=== PATIENT | female | born 1995 | race Caucasian/White ===

== ENCOUNTER 2016-06-04 18:31 | Emergency (ER) | payer OTHER ==
[2016-06-04 19:50] LABS: BASO % 0.9 % (0.0-1.0); EOS # 0.2 K/mm3 (0.0-0.50); EOS % 2.5 % (0.0-3.0); LARGE UNSTAINED CELL # 0.1 K/mm3 (0.0-0.4); LARGE UNSTAINED CELL % 1.2 % (0.0-4.0); LYMPH # 1.9 K/mm3 (1.5-6.5); LYMPH % 30.6 % (24.0-44.0); MEAN CORPUSCULAR HEMOGLOBIN 26.1 pg (27.0-33.0); MEAN CORPUSCULAR HGB CONC 33.3 g/dl (32.0-36.5); MEAN CORPUSCULAR VOLUME 78.4 fl (80.0-96.0); MONO # 0.3 K/mm3 (0.0-0.8); MONO % 5.2 % (0.0-5.0); NEUTROPHILS # 3.6 K/mm3 (1.8-7.7); NEUTROPHILS % 59.6 % (36.0-66.0); RED CELL DISTRIBUTION WIDTH 14.6 % (11.5-14.5)
[2016-06-04 19:54] LABS: PLATELET COUNT, AUTOMATED 16 k/mm3 (150-450)
[2016-06-04 20:00] LABS: INR 1.01
[2016-06-04 20:03] LABS: CONTROL LINE HCG INT CTR LINE PRESENT
[2016-06-04 20:13] LABS: ALBUMIN 3.6 GM/DL (3.2-5.2); ALBUMIN/GLOBULIN RATIO 1.16 (1.00-1.93); ALKALINE PHOSPHATASE 68 U/L (45-117); ALT/SGPT 28 U/L (12-78); ANION GAP 5 MEQ/L (8-16); AST/SGOT 16 U/L (15-37); BILIRUBIN,DIRECT < 0.1 MG/DL (0.0-0.2); BILIRUBIN,TOTAL 0.4 MG/DL (0.2-1.0); BLOOD UREA NITROGEN 12 MG/DL (7-18); CALCIUM LEVEL 8.1 MG/DL (8.5-10.1); CARBON DIOXIDE LEVEL 28 MEQ/L (21-32); CHLORIDE LEVEL 111 MEQ/L (98-107); CREATININE FOR GFR 0.45 MG/DL (0.55-1.02); GLOMERULAR FILTRATION RATE > 60.0 (>60); GLUCOSE, FASTING 88 MG/DL (70-105); SODIUM LEVEL 144 MEQ/L (136-145); TOTAL PROTEIN 6.7 GM/DL (6.4-8.2)
--- NOTE | 2016-06-04 21:24 | EDDOCDS ---
Nurse's Notes [facility] Name: Jane Dejesus Age: 21 yrs Sex: Female : 1995 Arrival Date: 06/04/2016 Time: 18:31 Bed 11 Private MD: ALISSON MERCADO Diagnosis: Immune thrombocytopenic purpura Presentation: 06/04 19:07 Presenting complaint: Patient states: called by her doctor told to come to E.D. because cz her platelet count was 15,000. Adult Sepsis Screening: The patient does not have new or worsening altered mentation. Patient's respiratory rate is less than 22. Systolic blood pressure is greater than 100. Patient has a qSOFA score of 0- Negative Sepsis Screen. Suicide/Homicide risk assessment- the patient denies having any suicidal and/or homicidal ideations and does not present with any other emotional, behavioral or mental health complaints. Status: Patient is not a off premise service representative or dependent. Transition of care: patient was not received from another setting of care. 19:07 Acuity: EUGENE Level 3 19:07 Method Of Arrival: Walkin/Carried/Asstd Triage Assessment: 19:09 General: Appears. Pain: Denies pain. 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 albuterol sulfate 2.5 mg /3 mL (0.083 %) Inhl nebu as needed 2. Benadryl Oral giving with ivig infusions - PMHx: Asthma; Chiari Malformation; ITP; - PSHx: ; - The history from nurses notes was reviewed: and I agree with what is documented. - Social history: Smoking status: Patient states was never smoker of tobacco. No barriers to communication noted, The patient speaks fluent Korean, Speaks appropriately for age. - : The pt / caregiver states he / she is not on anticoagulants. Home medication list is obtained from the patient. - Hospitalizations: : No recent hospitalization is reported. - Exposure Risk Screening:: None identified. - Immunization history:: All immunizations up-to-date. - Family history: Not pertinent. - Social history:: the patient is a non-smoker, the patient does not drink alcohol. Screenin:00 Screening information is obtained from the patient. Fall risk: No risks identified. mgs Assistance ADL's: requires no assistance with activities of daily living. Abuse/DV Screen: The patient / caregiver reports he/she is: not in a situation that causes fear, pain or injury. Nutritional screening: No deficits noted. Advance Directives: Currently, there is a health care proxy, QUINN DEJESUS, . Advance Directives: There is no active DNR order. home support is adequate. Assessment: 20:59 Adult Sepsis Screening: The patient does not have new or worsening altered mentation. mgs Patient's respiratory rate is less than 22. Systolic blood pressure is greater than 100. General: Appears in no apparent distress, comfortable, Behavior is appropriate for age, cooperative. Pain: Denies pain. Neurological: Level of Consciousness is awake, alert, Oriented to person, place, time. Cardiovascular: Capillary refill < 3 seconds Heart tones S1 S2 present Pulses are 2+ in right radial artery and left radial artery. Respiratory: Airway is patent Respiratory effort is even, unlabored, Respiratory pattern is regular, symmetrical, Breath sounds are clear bilaterally. Derm: Skin is pink, warm & dry. 21:22 General: Appears in no apparent distress, Behavior is appropriate for age, cooperative. mgs Pain: Denies pain. Neurological: Level of Consciousness is awake, alert, Oriented to person, place, time. Cardiovascular: Capillary refill < 3 seconds Heart tones S1 S2 present. Respiratory: Airway is patent Respiratory effort is even, unlabored, Respiratory pattern is regular, symmetrical. Derm: Skin is pink, warm & dry. Vital Signs: 18:33 BP 123 / 65; Pulse 70; Resp 16; Temp 97.7; Pulse Ox 100% ; Weight 73.94 kg; Height 5 cmb ft. 0 in. (152.40 cm); Pain 0/10; 21:12 BP 118 / 56 LA Sitting (auto/lg); Pulse 88; Resp 18; Temp 99.0(TE); Pulse Ox 100% on rs6 R/A; Pain 0/10; 18:33 Body Mass Index 31.83 (73.94 kg, 152.40 cm) cmb Vitals: 18:33 Log In Time: June 04, 2016 at 18:30. cmb ED Course: 18:32 Patient visited by Polly Ovalles. cmb 18:32 Patient moved to Waiting cmb 18:33 [facility]. cmb 18:34 Patient moved to Pre RCE cmb 19:08 Triage Initiated cz 19:25 Patient moved to PR2 / ar3 19:36 HCG,Serum Qualitative Sent. ar3 19:36 Basic Metabolic Profile Sent. ar3 19:36 CBC with Diff Sent. ar3 19:36 Liver Profile Sent. ar3 19:36 Partial Thromboplastin Time Sent. ar3 19:36 Prothrombin Time Profile\E\INR Sent. ar3 19:36 Type & Screen Sent. ar3 19:37 Patient moved to Pre RCE ar3 20:00 Jasmyn Grcae,MAXIME is Primary Nurse. lf1 20:00 Patient moved to 11 lf1 20:06 Adrián Burgses MD is Attending Physician. pc 20:06 Notified attending ED physician of Critical lab value. Platelet count of16 reported to sendy Encinas. 20:18 Patient visited by Adrián Burgess MD. pc 20:43 Patient visited by Brisa Alexander PCA. rs6 20:43 Patient has correct armband on for positive identification. Placed in gown. Bed in low rs6 position. Call light in reach. Side rails up X 1. 20:43 Diet: Patient given regular meal. Tolerated well. rs6 21:02 Patient visited by Yvon Malone RN. mgs 21:05 Cece Blue is Referral Physician. pc 21:12 Patient visited by Brisa Alexander PCA. rs6 21:23 The patient / caregiver is instructed regarding the plan of care and ED course. mgs 21:23 No IV's were initiated during this patient's visit. No procedures done that require mgs assistance. 21:24 Patient visited by Yvon Malone RN. mgs Order Results: Lab Order: Basic Metabolic Profile; SPEC'M 06/04/16 19:36 Test: GLUCOSE, FASTING; Value: 88; Range: 70-105; Units: MG/DL; Status: F Test: BLOOD UREA NITROGEN; Value: 12; Range: 7-18; Units: MG/DL; Status: F Test: CREATININE FOR GFR; Value: 0.45; Range: 0.55-1.02; Abnormal: Below low normal; Units: MG/DL; Status: F Test: SODIUM LEVEL; Range: 136-145; Units: MEQ/L; Status: I Test: POTASSIUM SERUM; Range: 3.5-5.1; Units: MEQ/L; Status: I Test: CHLORIDE LEVEL; Range: 98-107; Units: MEQ/L; Status: I Test: CARBON DIOXIDE LEVEL; Range: 21-32; Units: MEQ/L; Status: I Test: ANION GAP; Range: 8-16; Units: MEQ/L; Status: I Test: CALCIUM LEVEL; Range: 8.5-10.1; Units: MG/DL; Status: I Test: GLOMERULAR FILTRATION RATE; Value: > 60.0; Range: >60; Status: F Test: SODIUM LEVEL; Value: 144; Range: 136-145; Units: MEQ/L; Status: F Test: POTASSIUM SERUM; Value: 4.0; Range: 3.5-5.1; Units: MEQ/L; Status: F Test: CHLORIDE LEVEL; Value: 111; Range: 98-107; Abnormal: Above high normal; Units: MEQ/L; Status: F Test: CARBON DIOXIDE LEVEL; Value: 28; Range: 21-32; Units: MEQ/L; Status: F Test: ANION GAP; Value: 5; Range: 8-16; Abnormal: Below low normal; Units: MEQ/L; Status: F Test: CALCIUM LEVEL; Value: 8.1; Range: 8.5-10.1; Abnormal: Below low normal; Units: MG/DL; Status: F Test Note: ; Units are mL/min/1.73 m2 Chronic Kidney Disease Staging per NKF: Stage I & II GFR >=60 Normal to Mildly Decreased Stage III GFR 30-59 Moderately Decreased Stage IV GFR 15-29 Severely Decreased Stage V GFR <15 Very Little GFR Left ESRD GFR <15 on PHOTO INTERN Lab Order: CBC with Diff; SPEC'M 06/04/16 19:36 Test: WHITE BLOOD COUNT; Value: 6.0; Range: 4.0-10.0; Units: K/mm3; Status: F Test: RED BLOOD COUNT; Value: 4.50; Range: 4.00-5.40; Units: M/mm3; Status: F Test: HEMOGLOBIN; Value: 11.7; Range: 12.0-16.0; Abnormal: Below low normal; Units: g/dl; Status: F Test: HEMATOCRIT; Value: 35.2; Range: 36.0-47.0; Abnormal: Below low normal; Units: %; Status: F Test: MEAN CORPUSCULAR VOLUME; Value: 78.4; Range: 80.0-96.0; Abnormal: Below low normal; Units: fl; Status: F Test: MEAN CORPUSCULAR HEMOGLOBIN; Value: 26.1; Range: 27.0-33.0; Abnormal: Below low normal; Units: pg; Status: F Test: MEAN CORPUSCULAR HGB CONC; Value: 33.3; Range: 32.0-36.5; Units: g/dl; Status: F Test: RED CELL DISTRIBUTION WIDTH; Value: 14.6; Range: 11.5-14.5; Abnormal: Above high normal; Units: %; Status: F Test: PLATELET COUNT, AUTOMATED; Value: 16; Range: 150-450; Abnormal: Critical Low; Units: k/mm3; Status: F Test: NEUTROPHILS %; Value: 59.6; Range: 36.0-66.0; Units: %; Status: F Test: LYMPH %; Value: 30.6; Range: 24.0-44.0; Units: %; Status: F Test: MONO %; Value: 5.2; Range: 0.0-5.0; Abnormal: Above high normal; Units: %; Status: F Test: EOS %; Value: 2.5; Range: 0.0-3.0; Units: %; Status: F Test: BASO %; Value: 0.9; Range: 0.0-1.0; Units: %; Status: F Test: LARGE UNSTAINED CELL %; Value: 1.2; Range: 0.0-4.0; Units: %; Status: F Test: NEUTROPHILS #; Value: 3.6; Range: 1.8-7.7; Units: K/mm3; Status: F Test: LYMPH #; Value: 1.9; Range: 1.5-6.5; Units: K/mm3; Status: F Test: MONO #; Value: 0.3; Range: 0.0-0.8; Units: K/mm3; Status: F Test: EOS #; Value: 0.2; Range: 0.0-0.50; Units: K/mm3; Status: F Test: BASO #; Value: 0.0; Range: 0.0-0.2; Units: K/mm3; Status: F Test: LARGE UNSTAINED CELL #; Value: 0.1; Range: 0.0-0.4; Units: K/mm3; Status: F Lab Order: Liver Profile; SPEC'M 06/04/16 19:36 Test: AST/SGOT; Value: 16; Range: 15-37; Units: U/L; Status: F Test: ALT/SGPT; Value: 28; Range: 12-78; Units: U/L; Status: F Test: ALKALINE PHOSPHATASE; Value: 68; Range: 45-117; Units: U/L; Status: F Test: BILIRUBIN,TOTAL; Value: 0.4; Range: 0.2-1.0; Units: MG/DL; Status: F Test: BILIRUBIN,DIRECT; Value: < 0.1; Range: 0.0-0.2; Units: MG/DL; Status: F Test: TOTAL PROTEIN; Value: 6.7; Range: 6.4-8.2; Units: GM/DL; Status: F Test: ALBUMIN; Value: 3.6; Range: 3.2-5.2; Units: GM/DL; Status: F Test: ALBUMIN/GLOBULIN RATIO; Value: 1.16; Range: 1.00-1.93; Status: F Lab Order: Partial Thromboplastin Time; SPEC' 06/04/16 19:36 Test: PARTIAL THROMBOPLASTIN TIME; Value: 24.7; Range: 26.6-37.1; Abnormal: Below low normal; Units: SECONDS; Status: F Lab Order: Prothrombin Time Profile\E\INR; SPEC'M 06/04/16 19:36 Test: PROTHROMBIN TIME; Value: 13.4; Range: 12.3-14.5; Units: SECONDS; Status: F Test: INR; Value: 1.01; Status: F Test Note: ; THERAPUTIC HUMAN INR VALUES INDICATIONS NORMAL RANGES PROPHYLAXIS/TREATMENT OF: VENOUS THROMBOSIS 2.0-3.0 PULMONARY EMBOLISM 2.0-3.0 PREVENTION OF SYSTEMIC EMBOLISM FROM: TISSUE HEART VALVES 2.0-3.0 ACUTE MYOCARDIAL INFARCTION 2.0-3.0 VALVULAR HEART DISEASE 2.0-3.0 ATRIAL FIBRILLATION 2.0-3.0 MECHANICAL VALVES(HIGH RISK) 2.5-3.5 RECURRENT MYOCARDIAL INFARCTION 2.5-3.5 Lab Order: Type & Screen; SPEC'M 06/04/16 19:36 Test: BLOOD TYPE; Value: A NEG; Status: F Test: AB SCREEN (INDIRECT JANI)GEL; Value: NEGATIVE; Status: F Lab Order: HCG,Serum Qualitative; SPEC'M 06/04/16 19:36 Test: HCG, SERUM QUALITATIVE; Value: NEGATIVE; Range: NEGATIVE; Status: F Outcome: 21:05 Discharge ordered by Provider. pc 21:23 Discharge Assessment: Patient awake, alert and oriented x 3. No cognitive and/or mgs functional deficits noted. Patient verbalized understanding of disposition instructions. patient administered narcotics - no. The following High Risk Discharge criteria are identified: None. Discharged to home ambulatory. Condition: stable. Discharge instructions given to patient, Instructed on discharge instructions, follow up and referral plans. Demonstrated understanding of instructions, Pt was receptive of discharge instructions/ teaching. No special radiology studies were completed. Property sent home with patient. 21:24 Patient left the ED. mgs Signatures: Adrián Burgess MD MD pc Newman, Britt Marsh RN Enio Guillen RN RN cz Ford, Lisa, RN RN lf1 Janet Cason, SECURITY INCIDENT RESPONSE ENGINEER SECURITY INCIDENT RESPONSE ENGINEER ar3 Eufemia Ovallessea Yvon Meyer RN RN mgs Brisa Alexander, SECURITY INCIDENT RESPONSE ENGINEER SECURITY INCIDENT RESPONSE ENGINEER rs6 MTDD
--- NOTE | 2016-06-04 21:24 | EDDOCDS ---
Physician Documentation [facility] Name: Jane Garcia Age: 21 yrs Sex: Female : 1995 Arrival Date: 06/04/2016 Time: 18:31 Bed 11 Private MD: ALISSON MERCADO Disposition: 06/04 21:02 Critical Care: Critical care not applicable. pc Disposition: 06/04/16 21:05 Discharged to Home/Self Care. Impression: Immune thrombocytopenic purpura. - Condition is Stable. - Discharge Instructions: Thrombocytopenia. - Medication Reconciliation, Local Pharmacy Hours form. - Follow up: Cece Blue; When: Tomorrow; Reason: To establish care. - Problem is chronic. - Symptoms are unchanged. HPI: 20:53 This 21 yrs old Female presents to ER via Walkin/Carried/Asstd with pc complaints of Abnormal Lab Results. 20:53 The history is obtained from the patient. She had routine labs for her ITP follow up by pc her PCP today and her count was 15,000. She was advised to come into the ED. 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 She has not had any issues with ITP since her last year. She was followed locally until they referred to the [facility] due to her , and has had no follow up in 8 months. Historical: - Allergies: Bees; Erythromycin; Pediazole; - Home Meds: 1. albuterol sulfate 2.5 mg /3 mL (0.083 %) Inhl nebu as needed 2. Benadryl Oral giving with ivig infusions - PMHx: Asthma; Chiari Malformation; ITP; - PSHx: ; - The history from nurses notes was reviewed: and I agree with what is documented. - Social history: Smoking status: Patient states was never smoker of tobacco. No barriers to communication noted, The patient speaks fluent Palestinian, Speaks appropriately for age. - : The pt / caregiver states he / she is not on anticoagulants. Home medication list is obtained from the patient. - Hospitalizations: : No recent hospitalization is reported. - Exposure Risk Screening:: None identified. - Immunization history:: All immunizations up-to-date. - Family history: Not pertinent. - Social history:: the patient is a non-smoker, the patient does not drink alcohol. 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 pc Exam: 20:53 General Appearance: no acute distress, alert. pc 20:53 EENT: normal eye inspection, ears, nose and throat normal, pharynx normal, mucous membranes moist 20:53 Neck: The exam reveals no acute abnormalities. ROM is normal and painless. No nuchal rigidity is noted.. 20:53 Respiratory: no respiratory distress, normal breath sounds. 20:53 CVS: regular pulse rate, regular rhythm, normal S1 and S2, no murmurs, strong peripheral pulses. 21:02 Abdomen: soft, non-tender, no organomegaly, normal bowel sounds. pc 21:02 Back: normal inspection. 21:02 Skin: skin color is normal, warm, dry, multiple areas of ecchymosis on forearms. 21:02 Extremities: are non-tender, without acute ROM abnormalities. 21:02 Neuro: oriented x 3, cranial nerves normal as tested, no motor deficits, no sensory deficits, normal gait. 21:02 Psych: normal mood. Vital Signs: 18:33 BP 123 / 65; Pulse 70; Resp 16; Temp 97.7; Pulse Ox 100% ; Weight 73.94 kg / 163.01 cmb lbs; Height 5 ft. 0 in. (152.40 cm); Pain 0/10; 21:12 BP 118 / 56 LA Sitting (auto/lg); Pulse 88; Resp 18; Temp 99.0(TE); Pulse Ox 100% on rs6 R/A; Pain 0/10; 18:33 Body Mass Index 31.83 (73.94 kg, 152.40 cm) cmb MDM: 19:24 Basic Metabolic Profile Ordered. EDMS 19:24 CBC with Diff Ordered. EDMS 19:24 Liver Profile Ordered. EDMS 19:24 Partial Thromboplastin Time Ordered. EDMS 19:24 Prothrombin Time Profile\E\INR Ordered. EDMS 19:24 HCG,Serum Qualitative Ordered. EDMS 19:25 Type & Screen Ordered. EDMS 20:38 Basic Metabolic Profile Reviewed. pc 20:38 CBC with Diff Reviewed. pc 20:38 Partial Thromboplastin Time Reviewed. pc 20:38 Liver Profile Reviewed. pc 20:38 Prothrombin Time Profile\E\INR Reviewed. pc 20:38 Type & Screen Reviewed. pc 20:38 HCG,Serum Qualitative Reviewed. pc 21:02 Differential Diagnosis: ITP without active bleeding. Plan: repeat labs, d/w HemOnc. pc Data reviewed: old medical records, vital signs, nurses notes, lab test results. Test interpretation: LAB - all labs as ordered have been reviewed, interpreted and considered in the overall management of the clinical presentation;. The patient has been re-examined and re-evaluated. There is no appreciated change of the patient's symptoms at this time. Physician consultation: Dr. Cece Blue was contacted at 21:04, regarding patient's condition, and he advises that she call their office tomorrow and he will see her determine treatment. Disposition: The historical points, examination findings, and any diagnostic results supporting the provided diagnosis, were discussed with the patient or legal guardian. The need for outpatient follow up with the provider listed on their discharge instructions was discussed. They were encouraged to return to [facility], or the nearest ED, if symptoms worsen/persist, or for any other questions/concerns. Signatures: Dispatcher [employer] Adrián Arreola MD MD pc Zecher, Calvin, MAXIME RN Yvon Smith RN RN mgs FRANCA
--- NOTE | 2016-06-06 22:26 | EDDOCDS ---
Physician Documentation [facility] Name: Jane Garcia Age: 21 yrs Sex: Female : 1995 Arrival Date: 06/04/2016 Time: 18:31 Bed 11 Private MD: ALISSON MERCADO Disposition: 06/04 21:02 Critical Care: Critical care not applicable. pc Disposition: 06/04/16 21:05 Discharged to Home/Self Care. Impression: Immune thrombocytopenic purpura. - Condition is Stable. - Discharge Instructions: Thrombocytopenia. - Medication Reconciliation, Local Pharmacy Hours form. - Follow up: Cece Blue; When: Tomorrow; Reason: To establish care. - Problem is chronic. - Symptoms are unchanged. HPI: 20:53 This 21 yrs old Female presents to ER via Walkin/Carried/Asstd with pc complaints of Abnormal Lab Results. 20:53 The history is obtained from the patient. She had routine labs for her ITP follow up by pc her PCP today and her count was 15,000. She was advised to come into the ED. 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 She has not had any issues with ITP since her last year. She was followed locally until they referred to the [facility] due to her , and has had no follow up in 8 months. Historical: - Allergies: Bees; Erythromycin; Pediazole; - Home Meds: 1. albuterol sulfate 2.5 mg /3 mL (0.083 %) Inhl nebu as needed 2. Benadryl Oral giving with ivig infusions - PMHx: Asthma; Chiari Malformation; ITP; - PSHx: ; - The history from nurses notes was reviewed: and I agree with what is documented. - Social history: Smoking status: Patient states was never smoker of tobacco. No barriers to communication noted, The patient speaks fluent Bulgarian, Speaks appropriately for age. - : The pt / caregiver states he / she is not on anticoagulants. Home medication list is obtained from the patient. - Hospitalizations: : No recent hospitalization is reported. - Exposure Risk Screening:: None identified. - Immunization history:: All immunizations up-to-date. - Family history: Not pertinent. - Social history:: the patient is a non-smoker, the patient does not drink alcohol. 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 pc Exam: 20:53 General Appearance: no acute distress, alert. pc 20:53 EENT: normal eye inspection, ears, nose and throat normal, pharynx normal, mucous membranes moist 20:53 Neck: The exam reveals no acute abnormalities. ROM is normal and painless. No nuchal rigidity is noted.. 20:53 Respiratory: no respiratory distress, normal breath sounds. 20:53 CVS: regular pulse rate, regular rhythm, normal S1 and S2, no murmurs, strong peripheral pulses. 21:02 Abdomen: soft, non-tender, no organomegaly, normal bowel sounds. pc 21:02 Back: normal inspection. 21:02 Skin: skin color is normal, warm, dry, multiple areas of ecchymosis on forearms. 21:02 Extremities: are non-tender, without acute ROM abnormalities. 21:02 Neuro: oriented x 3, cranial nerves normal as tested, no motor deficits, no sensory deficits, normal gait. 21:02 Psych: normal mood. Vital Signs: 18:33 BP 123 / 65; Pulse 70; Resp 16; Temp 97.7; Pulse Ox 100% ; Weight 73.94 kg / 163.01 cmb lbs; Height 5 ft. 0 in. (152.40 cm); Pain 0/10; 21:12 BP 118 / 56 LA Sitting (auto/lg); Pulse 88; Resp 18; Temp 99.0(TE); Pulse Ox 100% on rs6 R/A; Pain 0/10; 18:33 Body Mass Index 31.83 (73.94 kg, 152.40 cm) cmb MDM: 19:24 Basic Metabolic Profile Ordered. EDMS 19:24 CBC with Diff Ordered. EDMS 19:24 Liver Profile Ordered. EDMS 19:24 Partial Thromboplastin Time Ordered. EDMS 19:24 Prothrombin Time Profile\E\INR Ordered. EDMS 19:24 HCG,Serum Qualitative Ordered. EDMS 19:25 Type & Screen Ordered. EDMS 20:38 Basic Metabolic Profile Reviewed. pc 20:38 CBC with Diff Reviewed. pc 20:38 Partial Thromboplastin Time Reviewed. pc 20:38 Liver Profile Reviewed. pc 20:38 Prothrombin Time Profile\E\INR Reviewed. pc 20:38 Type & Screen Reviewed. pc 20:38 HCG,Serum Qualitative Reviewed. pc 21:02 Differential Diagnosis: ITP without active bleeding. Plan: repeat labs, d/w HemOnc. pc Data reviewed: old medical records, vital signs, nurses notes, lab test results. Test interpretation: LAB - all labs as ordered have been reviewed, interpreted and considered in the overall management of the clinical presentation;. The patient has been re-examined and re-evaluated. There is no appreciated change of the patient's symptoms at this time. Physician consultation: Dr. Cece Blue was contacted at 21:04, regarding patient's condition, and he advises that she call their office tomorrow and he will see her determine treatment. Disposition: The historical points, examination findings, and any diagnostic results supporting the provided diagnosis, were discussed with the patient or legal guardian. The need for outpatient follow up with the provider listed on their discharge instructions was discussed. They were encouraged to return to [facility], or the nearest ED, if symptoms worsen/persist, or for any other questions/concerns. 21:24 [facility] Payment Agreement was scanned into [employer] and attached to record. [email or web address] 21:24 Financial registration complete. gjb Signatures: Dispatcher [employer] EDMS Adrián Burgess MD MD pc Zecher, Calvin RN RN Yvon Smith RN RN Teri Hughes The chart was reviewed and I authenticate all verbal orders and agree with the evaluation and treatment provided.Attachments: 21:24 [facility] Payment Agreement gjb Chart Complete MTDD
--- NOTE | 2016-06-06 22:26 | EDDOCDS ---
Nurse's Notes [facility] Name: Jane Dejesus Age: 21 yrs Sex: Female : 1995 Arrival Date: 06/04/2016 Time: 18:31 Bed 11 Private MD: ALISSON MERCADO Diagnosis: Immune thrombocytopenic purpura Presentation: 06/04 19:07 Presenting complaint: Patient states: called by her doctor told to come to E.D. because cz her platelet count was 15,000. Adult Sepsis Screening: The patient does not have new or worsening altered mentation. Patient's respiratory rate is less than 22. Systolic blood pressure is greater than 100. Patient has a qSOFA score of 0- Negative Sepsis Screen. Suicide/Homicide risk assessment- the patient denies having any suicidal and/or homicidal ideations and does not present with any other emotional, behavioral or mental health complaints. Status: Patient is not a central service technician or dependent. Transition of care: patient was not received from another setting of care. 19:07 Acuity: EUGENE Level 3 19:07 Method Of Arrival: Walkin/Carried/Asstd Triage Assessment: 19:09 General: Appears. Pain: Denies pain. 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 albuterol sulfate 2.5 mg /3 mL (0.083 %) Inhl nebu as needed 2. Benadryl Oral giving with ivig infusions - PMHx: Asthma; Chiari Malformation; ITP; - PSHx: ; - The history from nurses notes was reviewed: and I agree with what is documented. - Social history: Smoking status: Patient states was never smoker of tobacco. No barriers to communication noted, The patient speaks fluent Polish, Speaks appropriately for age. - : The pt / caregiver states he / she is not on anticoagulants. Home medication list is obtained from the patient. - Hospitalizations: : No recent hospitalization is reported. - Exposure Risk Screening:: None identified. - Immunization history:: All immunizations up-to-date. - Family history: Not pertinent. - Social history:: the patient is a non-smoker, the patient does not drink alcohol. Screenin:00 Screening information is obtained from the patient. Fall risk: No risks identified. mgs Assistance ADL's: requires no assistance with activities of daily living. Abuse/DV Screen: The patient / caregiver reports he/she is: not in a situation that causes fear, pain or injury. Nutritional screening: No deficits noted. Advance Directives: Currently, there is a health care proxy, QUINN DEJESUS, . Advance Directives: There is no active DNR order. home support is adequate. Assessment: 20:59 Adult Sepsis Screening: The patient does not have new or worsening altered mentation. mgs Patient's respiratory rate is less than 22. Systolic blood pressure is greater than 100. General: Appears in no apparent distress, comfortable, Behavior is appropriate for age, cooperative. Pain: Denies pain. Neurological: Level of Consciousness is awake, alert, Oriented to person, place, time. Cardiovascular: Capillary refill < 3 seconds Heart tones S1 S2 present Pulses are 2+ in right radial artery and left radial artery. Respiratory: Airway is patent Respiratory effort is even, unlabored, Respiratory pattern is regular, symmetrical, Breath sounds are clear bilaterally. Derm: Skin is pink, warm & dry. 21:22 General: Appears in no apparent distress, Behavior is appropriate for age, cooperative. mgs Pain: Denies pain. Neurological: Level of Consciousness is awake, alert, Oriented to person, place, time. Cardiovascular: Capillary refill < 3 seconds Heart tones S1 S2 present. Respiratory: Airway is patent Respiratory effort is even, unlabored, Respiratory pattern is regular, symmetrical. Derm: Skin is pink, warm & dry. Vital Signs: 18:33 BP 123 / 65; Pulse 70; Resp 16; Temp 97.7; Pulse Ox 100% ; Weight 73.94 kg; Height 5 cmb ft. 0 in. (152.40 cm); Pain 0/10; 21:12 BP 118 / 56 LA Sitting (auto/lg); Pulse 88; Resp 18; Temp 99.0(TE); Pulse Ox 100% on rs6 R/A; Pain 0/10; 18:33 Body Mass Index 31.83 (73.94 kg, 152.40 cm) cmb Vitals: 18:33 Log In Time: June 04, 2016 at 18:30. cmb ED Course: 18:32 Patient visited by Polly Ovalles. cmb 18:32 Patient moved to Waiting cmb 18:33 [facility]. cmb 18:34 Patient moved to Pre RCE cmb 19:08 Triage Initiated cz 19:25 Patient moved to PR2 / ar3 19:36 HCG,Serum Qualitative Sent. ar3 19:36 Basic Metabolic Profile Sent. ar3 19:36 CBC with Diff Sent. ar3 19:36 Liver Profile Sent. ar3 19:36 Partial Thromboplastin Time Sent. ar3 19:36 Prothrombin Time Profile\E\INR Sent. ar3 19:36 Type & Screen Sent. ar3 19:37 Patient moved to Pre RCE ar3 20:00 Jasmyn Grace,MAXIME is Primary Nurse. lf1 20:00 Patient moved to 11 lf1 20:06 Adrián Burgess MD is Attending Physician. pc 20:06 Notified attending ED physician of Critical lab value. Platelet count of16 reported to sendy Encinas. 20:18 Patient visited by Adrián Burgess MD. pc 20:43 Patient visited by Brisa Alexander PCA. rs6 20:43 Patient has correct armband on for positive identification. Placed in gown. Bed in low rs6 position. Call light in reach. Side rails up X 1. 20:43 Diet: Patient given regular meal. Tolerated well. rs6 21:02 Patient visited by Yvon Malone RN. mgs 21:05 Cece Blue is Referral Physician. pc 21:12 Patient visited by Brisa Alexander PCA. rs6 21:23 The patient / caregiver is instructed regarding the plan of care and ED course. mgs 21:23 No IV's were initiated during this patient's visit. No procedures done that require mgs assistance. 21:24 Patient visited by Yvon Malone RN. mgs 21:24 [facility] Payment Agreement was scanned into [employer] and attached to record. [facility] Order Results: Lab Order: Basic Metabolic Profile; SPEC'M 06/04/16 19:36 Test: GLUCOSE, FASTING; Value: 88; Range: 70-105; Units: MG/DL; Status: F Test: BLOOD UREA NITROGEN; Value: 12; Range: 7-18; Units: MG/DL; Status: F Test: CREATININE FOR GFR; Value: 0.45; Range: 0.55-1.02; Abnormal: Below low normal; Units: MG/DL; Status: F Test: SODIUM LEVEL; Range: 136-145; Units: MEQ/L; Status: I Test: POTASSIUM SERUM; Range: 3.5-5.1; Units: MEQ/L; Status: I Test: CHLORIDE LEVEL; Range: 98-107; Units: MEQ/L; Status: I Test: CARBON DIOXIDE LEVEL; Range: 21-32; Units: MEQ/L; Status: I Test: ANION GAP; Range: 8-16; Units: MEQ/L; Status: I Test: CALCIUM LEVEL; Range: 8.5-10.1; Units: MG/DL; Status: I Test: GLOMERULAR FILTRATION RATE; Value: > 60.0; Range: >60; Status: F Test: SODIUM LEVEL; Value: 144; Range: 136-145; Units: MEQ/L; Status: F Test: POTASSIUM SERUM; Value: 4.0; Range: 3.5-5.1; Units: MEQ/L; Status: F Test: CHLORIDE LEVEL; Value: 111; Range: 98-107; Abnormal: Above high normal; Units: MEQ/L; Status: F Test: CARBON DIOXIDE LEVEL; Value: 28; Range: 21-32; Units: MEQ/L; Status: F Test: ANION GAP; Value: 5; Range: 8-16; Abnormal: Below low normal; Units: MEQ/L; Status: F Test: CALCIUM LEVEL; Value: 8.1; Range: 8.5-10.1; Abnormal: Below low normal; Units: MG/DL; Status: F Test Note: ; Units are mL/min/1.73 m2 Chronic Kidney Disease Staging per NKF: Stage I & II GFR >=60 Normal to Mildly Decreased Stage III GFR 30-59 Moderately Decreased Stage IV GFR 15-29 Severely Decreased Stage V GFR <15 Very Little GFR Left ESRD GFR <15 on MICROPHONE OPERATOR Lab Order: CBC with Diff; SPEC'M 06/04/16 19:36 Test: WHITE BLOOD COUNT; Value: 6.0; Range: 4.0-10.0; Units: K/mm3; Status: F Test: RED BLOOD COUNT; Value: 4.50; Range: 4.00-5.40; Units: M/mm3; Status: F Test: HEMOGLOBIN; Value: 11.7; Range: 12.0-16.0; Abnormal: Below low normal; Units: g/dl; Status: F Test: HEMATOCRIT; Value: 35.2; Range: 36.0-47.0; Abnormal: Below low normal; Units: %; Status: F Test: MEAN CORPUSCULAR VOLUME; Value: 78.4; Range: 80.0-96.0; Abnormal: Below low normal; Units: fl; Status: F Test: MEAN CORPUSCULAR HEMOGLOBIN; Value: 26.1; Range: 27.0-33.0; Abnormal: Below low normal; Units: pg; Status: F Test: MEAN CORPUSCULAR HGB CONC; Value: 33.3; Range: 32.0-36.5; Units: g/dl; Status: F Test: RED CELL DISTRIBUTION WIDTH; Value: 14.6; Range: 11.5-14.5; Abnormal: Above high normal; Units: %; Status: F Test: PLATELET COUNT, AUTOMATED; Value: 16; Range: 150-450; Abnormal: Critical Low; Units: k/mm3; Status: F Test: NEUTROPHILS %; Value: 59.6; Range: 36.0-66.0; Units: %; Status: F Test: LYMPH %; Value: 30.6; Range: 24.0-44.0; Units: %; Status: F Test: MONO %; Value: 5.2; Range: 0.0-5.0; Abnormal: Above high normal; Units: %; Status: F Test: EOS %; Value: 2.5; Range: 0.0-3.0; Units: %; Status: F Test: BASO %; Value: 0.9; Range: 0.0-1.0; Units: %; Status: F Test: LARGE UNSTAINED CELL %; Value: 1.2; Range: 0.0-4.0; Units: %; Status: F Test: NEUTROPHILS #; Value: 3.6; Range: 1.8-7.7; Units: K/mm3; Status: F Test: LYMPH #; Value: 1.9; Range: 1.5-6.5; Units: K/mm3; Status: F Test: MONO #; Value: 0.3; Range: 0.0-0.8; Units: K/mm3; Status: F Test: EOS #; Value: 0.2; Range: 0.0-0.50; Units: K/mm3; Status: F Test: BASO #; Value: 0.0; Range: 0.0-0.2; Units: K/mm3; Status: F Test: LARGE UNSTAINED CELL #; Value: 0.1; Range: 0.0-0.4; Units: K/mm3; Status: F Lab Order: Liver Profile; [facility] 06/04/16 19:36 Test: AST/SGOT; Value: 16; Range: 15-37; Units: U/L; Status: F Test: ALT/SGPT; Value: 28; Range: 12-78; Units: U/L; Status: F Test: ALKALINE PHOSPHATASE; Value: 68; Range: 45-117; Units: U/L; Status: F Test: BILIRUBIN,TOTAL; Value: 0.4; Range: 0.2-1.0; Units: MG/DL; Status: F Test: BILIRUBIN,DIRECT; Value: < 0.1; Range: 0.0-0.2; Units: MG/DL; Status: F Test: TOTAL PROTEIN; Value: 6.7; Range: 6.4-8.2; Units: GM/DL; Status: F Test: ALBUMIN; Value: 3.6; Range: 3.2-5.2; Units: GM/DL; Status: F Test: ALBUMIN/GLOBULIN RATIO; Value: 1.16; Range: 1.00-1.93; Status: F Lab Order: Partial Thromboplastin Time; [facility] 06/04/16 19:36 Test: PARTIAL THROMBOPLASTIN TIME; Value: 24.7; Range: 26.6-37.1; Abnormal: Below low normal; Units: SECONDS; Status: F Lab Order: Prothrombin Time Profile\E\INR; [facility] 19:36 Test: PROTHROMBIN TIME; Value: 13.4; Range: 12.3-14.5; Units: SECONDS; Status: F Test: INR; Value: 1.01; Status: F Test Note: ; THERAPUTIC HUMAN INR VALUES INDICATIONS NORMAL RANGES PROPHYLAXIS/TREATMENT OF: VENOUS THROMBOSIS 2.0-3.0 PULMONARY EMBOLISM 2.0-3.0 PREVENTION OF SYSTEMIC EMBOLISM FROM: TISSUE HEART VALVES 2.0-3.0 ACUTE MYOCARDIAL INFARCTION 2.0-3.0 VALVULAR HEART DISEASE 2.0-3.0 ATRIAL FIBRILLATION 2.0-3.0 MECHANICAL VALVES(HIGH RISK) 2.5-3.5 RECURRENT MYOCARDIAL INFARCTION 2.5-3.5 Lab Order: Type & Screen; SPEC'M 06/04/16 19:36 Test: BLOOD TYPE; Value: A NEG; Status: F Test: AB SCREEN (INDIRECT JANI)GEL; Value: NEGATIVE; Status: F Lab Order: HCG,Serum Qualitative; SPEC'M 06/04/16 19:36 Test: HCG, SERUM QUALITATIVE; Value: NEGATIVE; Range: NEGATIVE; Status: F Outcome: 21:05 Discharge ordered by Provider. pc 21:23 Discharge Assessment: Patient awake, alert and oriented x 3. No cognitive and/or mgs functional deficits noted. Patient verbalized understanding of disposition instructions. patient administered narcotics - no. The following High Risk Discharge criteria are identified: None. Discharged to home ambulatory. Condition: stable. Discharge instructions given to patient, Instructed on discharge instructions, follow up and referral plans. Demonstrated understanding of instructions, Pt was receptive of discharge instructions/ teaching. No special radiology studies were completed. Property sent home with patient. 21:24 Patient left the ED. mgs Signatures: Adrián Burgess MD MD pc Newman, Britt Marsh, Enio Guillen RN, RN RN cz Ford, Lisa, RN RN lf1 Janet Cason, LACQUER MAKER LACQUER MAKER ar3 Polly Ovalles cmb Yvon Malone RN RN mgs Brisa Alexander, LACQUER MAKER LACQUER MAKER rs6 Teri [place] [facility] Chart Complete MTDD
--- NOTE | 2016-06-06 22:26 | EDDOCDS ---
Physician Documentation [facility] Name: Jane Garcia Age: 21 yrs Sex: Female : 1995 Arrival Date: 06/04/2016 Time: 18:31 Bed 11 Private MD: ALISSON MERCADO Disposition: 06/04 21:02 Critical Care: Critical care not applicable. pc Disposition: 06/04/16 21:05 Discharged to Home/Self Care. Impression: Immune thrombocytopenic purpura. - Condition is Stable. - Discharge Instructions: Thrombocytopenia. - Medication Reconciliation, Local Pharmacy Hours form. - Follow up: Cece Blue; When: Tomorrow; Reason: To establish care. - Problem is chronic. - Symptoms are unchanged. HPI: 20:53 This 21 yrs old Female presents to ER via Walkin/Carried/Asstd with pc complaints of Abnormal Lab Results. 20:53 The history is obtained from the patient. She had routine labs for her ITP follow up by pc her PCP today and her count was 15,000. She was advised to come into the ED. She denies any abnormal bleeding, and in fact, her periods have been mapping analyst than usual. She has not had any issues with ITP since her last year. She was followed locally until they referred to the [facility] due to her , and has had no follow up in 8 months. Historical: - Allergies: Bees; Erythromycin; Pediazole; - Home Meds: 1. albuterol sulfate 2.5 mg /3 mL (0.083 %) Inhl nebu as needed 2. Benadryl Oral giving with ivig infusions - PMHx: Asthma; Chiari Malformation; ITP; - PSHx: ; - The history from nurses notes was reviewed: and I agree with what is documented. - Social history: Smoking status: Patient states was never smoker of tobacco. No barriers to communication noted, The patient speaks fluent [place] Sudanese, Speaks appropriately for age. - : The pt / caregiver states he / she is not on anticoagulants. Home medication list is obtained from the patient. - Hospitalizations: : No recent hospitalization is reported. - Exposure Risk Screening:: None identified. - Immunization history:: All immunizations up-to-date. - Family history: Not pertinent. - Social history:: the patient is a non-smoker, the patient does not drink alcohol. 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 pc Exam: 20:53 General Appearance: no acute distress, alert. pc 20:53 EENT: normal eye inspection, ears, nose and throat normal, pharynx normal, mucous membranes moist 20:53 Neck: The exam reveals no acute abnormalities. ROM is normal and painless. No nuchal rigidity is noted.. 20:53 Respiratory: no respiratory distress, normal breath sounds. 20:53 CVS: regular pulse rate, regular rhythm, normal S1 and S2, no murmurs, strong peripheral pulses. 21:02 Abdomen: soft, non-tender, no organomegaly, normal bowel sounds. pc 21:02 Back: normal inspection. 21:02 Skin: skin color is normal, warm, dry, multiple areas of ecchymosis on forearms. 21:02 Extremities: are non-tender, without acute ROM abnormalities. 21:02 Neuro: oriented x 3, cranial nerves normal as tested, no motor deficits, no sensory deficits, normal gait. 21:02 Psych: normal mood. Vital Signs: 18:33 BP 123 / 65; Pulse 70; Resp 16; Temp 97.7; Pulse Ox 100% ; Weight 73.94 kg / 163.01 cmb lbs; Height 5 ft. 0 in. (152.40 cm); Pain 0/10; 21:12 BP 118 / 56 LA Sitting (auto/lg); Pulse 88; Resp 18; Temp 99.0(TE); Pulse Ox 100% on rs6 R/A; Pain 0/10; 18:33 Body Mass Index 31.83 (73.94 kg, 152.40 cm) cmb MDM: 19:24 Basic Metabolic Profile Ordered. EDMS 19:24 CBC with Diff Ordered. EDMS 19:24 Liver Profile Ordered. EDMS 19:24 Partial Thromboplastin Time Ordered. EDMS 19:24 Prothrombin Time Profile\E\INR Ordered. EDMS 19:24 HCG,Serum Qualitative Ordered. EDMS 19:25 Type & Screen Ordered. EDMS 20:38 Basic Metabolic Profile Reviewed. pc 20:38 CBC with Diff Reviewed. pc 20:38 Partial Thromboplastin Time Reviewed. pc 20:38 Liver Profile Reviewed. pc 20:38 Prothrombin Time Profile\E\INR Reviewed. pc 20:38 Type & Screen Reviewed. pc 20:38 HCG,Serum Qualitative Reviewed. pc 21:02 Differential Diagnosis: ITP without active bleeding. Plan: repeat labs, d/w HemOnc. pc Data reviewed: old medical records, vital signs, nurses notes, lab test results. Test interpretation: LAB - all labs as ordered have been reviewed, interpreted and considered in the overall management of the clinical presentation;. The patient has been re-examined and re-evaluated. There is no appreciated change of the patient's symptoms at this time. Physician consultation: Dr. Cece Blue was contacted at 21:04, regarding patient's condition, and he advises that she call their office tomorrow and he will see her determine treatment. Disposition: The historical points, examination findings, and any diagnostic results supporting the provided diagnosis, were discussed with the patient or legal guardian. The need for outpatient follow up with the provider listed on their discharge instructions was discussed. They were encouraged to return to [facility], or the nearest ED, if symptoms worsen/persist, or for any other questions/concerns. 21:24 [facility] Payment Agreement was scanned into [employer] and attached to record. gjchristopher 21:24 Financial registration complete. gjb Signatures: Dispatcher [employer] EDMS Adrián Burgess MD MD pc Zecher, Calvin RN RN Yvon Smith RN RN Teri Hughes The chart was reviewed and I authenticate all verbal orders and agree with the evaluation and treatment provided.Attachments: 21:24 [facility] Payment Agreement gjb Chart Complete MTDD
== END 2016-06-04 21:24 | disposition home or self-care (01) ==
LOC: M ED 18:31
DX: D69.3 Immune thrombocytopenic purpura (principal); J45.909 Unspecified asthma, uncomplicated; G93.5 Compression of brain; Z79.51 Long term (current) use of inhaled steroids; Z79.899 Other long term (current) drug therapy; Z91.030 Bee allergy status; Z88.1 Allergy status to other antibiotic agents; Z88.8 Allergy status to other drugs, medicaments and biological substances

== ENCOUNTER → 2016-06-04 | Outpatient (CLI) | payer OTHER ==
[~2016-06-04] MED LIST: /ADVA50050 INH; ACET-654 PO; ALBU17IN INH; ALBU17IN2 IN; CLAR5CHW OR; DIPH50VL IM; FLINCHW9 PO; GLYB25TA PO; IMMUN40IV IV; ONDA1TAB16 PO; OXYC1TAB23 PO; PRED20TA PO; PRED20TAB PO; SING10TA31 OR; VITAPRTA PO; [UNRECOGNIZED DRUG - CODE] IV; [UNRECOGNIZED DRUG - CODE] IV; [UNRECOGNIZED DRUG - CODE] IV
[2016-06-04 15:46] LABS: MEAN CORPUSCULAR HEMOGLOBIN 25.7 pg (27.0-33.0); MEAN CORPUSCULAR HGB CONC 32.8 g/dl (32.0-36.5); MEAN CORPUSCULAR VOLUME 78.4 fl (80.0-96.0); RED CELL DISTRIBUTION WIDTH 13.6 % (11.5-14.5); WHITE BLOOD COUNT 5.1 K/mm3 (4.0-10.0)
[2016-06-04 15:55] LABS: ALBUMIN 3.5 GM/DL (3.2-5.2); ALBUMIN/GLOBULIN RATIO 1.03 (1.00-1.93); ALKALINE PHOSPHATASE 67 U/L (45-117); ALT/SGPT 22 U/L (12-78); ANION GAP 8 MEQ/L (8-16); AST/SGOT 16 U/L (15-37); BILIRUBIN,TOTAL 0.5 MG/DL (0.2-1.0); BLOOD UREA NITROGEN 10 MG/DL (7-18); CALCIUM LEVEL 8.1 MG/DL (8.5-10.1); CARBON DIOXIDE LEVEL 28 MEQ/L (21-32); CHLORIDE LEVEL 109 MEQ/L (98-107); CHOLESTEROL LEVEL 148 MG/DL (<200); CREATININE FOR GFR 0.48 MG/DL (0.55-1.02); GLOMERULAR FILTRATION RATE > 60.0 (>60); GLUCOSE, FASTING 78 MG/DL (70-105); POTASSIUM SERUM 3.7 MEQ/L (3.5-5.1); SODIUM LEVEL 145 MEQ/L (136-145); TOTAL PROTEIN 6.9 GM/DL (6.4-8.2); TRIGLYCERIDES LEVEL 128 MG/DL (<150)
== END ==
LOC: M LAB 14:49
PROVIDERS: ATTEND Nurse Practitioner Family
DX: D69.3 Immune thrombocytopenic purpura (principal); Z86.32 Personal history of gestational diabetes

== ENCOUNTER → 2016-07-01 | Outpatient (REF) | payer OTHER ==
[2016-07-01 19:46] LABS: PERCENT SATURATION 5.2 % (13.2-37.4)
== END ==
LOC: M LAB REF 16:33
PROVIDERS: ATTEND Internal Medicine Medical Oncology
DX: D69.3 Immune thrombocytopenic purpura (principal)

== ENCOUNTER 2016-09-09 15:56 | Emergency (ER) | payer OTHER ==
[~2016-09-09] VITALS: Ht 152.4 cm; Wt 77.1 kg
[2016-09-09] MEDS ORDERED: PRED10TA PO (16:10)
--- NOTE | 2016-09-09 17:38 | REP ---
Emergency obstetric sonography: History: Vaginal spotting. Findings: Transabdominal and transvaginal scanning are performed. Transvaginal imaging demonstrates a viable single intrauterine gestation in a free-floating lie. [place]-rump length of the embryonic pole measures 5.0 mm. This corresponds to a gestational age estimate of 6 weeks 2 days. heart rate is documented at 120 beats per minute. No subchorionic hemorrhage is appreciated. There is a cyst in the maternal left ovary measuring 1.7 cm in diameter consistent with corpus luteum. Impression: Viable single intrauterine gestation at 6 weeks 2 days by crown-rump length. JARED by sonography 05/03/2017. No complication is identified. Signed by Jefry Vegas MD 09/09/2016 07:36 P
[2016-09-09 18:26] LABS: BASO % 0.5 % (0.0-1.0); EOS # 0.1 K/mm3 (0.0-0.50); EOS % 1.6 % (0.0-3.0); LARGE UNSTAINED CELL # 0.1 K/mm3 (0.0-0.4); LARGE UNSTAINED CELL % 0.9 % (0.0-4.0); LYMPH # 2.3 K/mm3 (1.5-6.5); LYMPH % 29.3 % (24.0-44.0); MEAN CORPUSCULAR HGB CONC 33.5 g/dl (32.0-36.5); MEAN CORPUSCULAR VOLUME 77.8 fl (80.0-96.0); MONO # 0.3 K/mm3 (0.0-0.8); MONO % 4.5 % (0.0-5.0); NEUTROPHILS # 4.8 K/mm3 (1.8-7.7); NEUTROPHILS % 63.2 % (36.0-66.0); PLATELET COUNT, AUTOMATED 46 k/mm3 (150-450); RED CELL DISTRIBUTION WIDTH 15.2 % (11.5-14.5); WHITE BLOOD COUNT 7.6 K/mm3 (4.0-10.0)
[2016-09-09] MEDS ORDERED: DICL10TA PO (19:04)
[2016-09-09 19:20] VITALS: BP 115/56
== END 2016-09-09 19:24 | disposition home or self-care (01) ==
LOC: M ED 17:46
DX: Z34.91 Encounter for supervision of normal pregnancy, unspecified, first trimester (principal); Z3A.01 Less than 8 weeks gestation of pregnancy; Z79.899 Other long term (current) drug therapy; Z91.030 Bee allergy status; Z88.1 Allergy status to other antibiotic agents

== ENCOUNTER → 2016-09-23 | Outpatient (CLI) | payer OTHER ==
[~2016-09-23] MED LIST changes: +DICL10TA PO; +PRED10TA PO
[2016-09-23 16:02] LABS: BASO % 0.6 % (0.0-1.0); EOS # 0.1 K/mm3 (0.0-0.50); EOS % 1.5 % (0.0-3.0); LYMPH % 25.3 % (24.0-44.0); MEAN CORPUSCULAR HEMOGLOBIN 25.9 pg (27.0-33.0); MEAN CORPUSCULAR HGB CONC 33.2 g/dl (32.0-36.5); MONO # 0.3 K/mm3 (0.0-0.8); MONO % 3.9 % (0.0-5.0); NEUTROPHILS # 5.3 K/mm3 (1.8-7.7); NEUTROPHILS % 67.8 % (36.0-66.0); WHITE BLOOD COUNT 7.8 K/mm3 (4.0-10.0)
[2016-09-23 16:24] LABS: ALBUMIN 3.5 GM/DL (3.2-5.2); ALBUMIN/GLOBULIN RATIO 1.06 (1.00-1.93); ALKALINE PHOSPHATASE 60 U/L (45-117); ALT/SGPT 20 U/L (12-78); ANION GAP 9 MEQ/L (8-16); AST/SGOT 12 U/L (15-37); BILIRUBIN,TOTAL 0.4 MG/DL (0.2-1.0); BLOOD UREA NITROGEN 8 MG/DL (7-18); CALCIUM LEVEL 8.3 MG/DL (8.5-10.1); CARBON DIOXIDE LEVEL 25 MEQ/L (21-32); CHLORIDE LEVEL 108 MEQ/L (98-107); CHOLESTEROL LEVEL 135 MG/DL (<200); CREATININE FOR GFR 0.46 MG/DL (0.55-1.02); GLOMERULAR FILTRATION RATE > 60.0 (>60); GLUCOSE, FASTING 73 MG/DL (70-105); POTASSIUM SERUM 3.5 MEQ/L (3.5-5.1); SODIUM LEVEL 142 MEQ/L (136-145); TOTAL PROTEIN 6.8 GM/DL (6.4-8.2); TRIGLYCERIDES LEVEL 65 MG/DL (<150)
== END ==
LOC: M LAB 15:02
PROVIDERS: ATTEND Physician Assistant Medical
DX: D69.3 Immune thrombocytopenic purpura (principal); E78.2 Mixed hyperlipidemia; E55.9 Vitamin D deficiency, unspecified

== ENCOUNTER → 2016-09-23 | Outpatient (CLI) | payer OTHER ==
[2016-09-23 15:57] LABS: BASO % 0.4 % (0.0-1.0); EOS # 0.1 K/mm3 (0.0-0.50); EOS % 1.6 % (0.0-3.0); LARGE UNSTAINED CELL # 0.1 K/mm3 (0.0-0.4); LARGE UNSTAINED CELL % 1.3 % (0.0-4.0); LYMPH % 24.4 % (24.0-44.0); MEAN CORPUSCULAR HEMOGLOBIN 27.9 pg (27.0-33.0); MEAN CORPUSCULAR HGB CONC 35.1 g/dl (32.0-36.5); MEAN CORPUSCULAR VOLUME 79.6 fl (80.0-96.0); MONO # 0.4 K/mm3 (0.0-0.8); MONO % 4.5 % (0.0-5.0); NEUTROPHILS # 5.5 K/mm3 (1.8-7.7); NEUTROPHILS % 67.8 % (36.0-66.0); RED CELL DISTRIBUTION WIDTH 15.1 % (11.5-14.5); WHITE BLOOD COUNT 8.1 K/mm3 (4.0-10.0)
[2016-09-23 18:26] LABS: PLATELET COUNT, AUTOMATED 24 k/mm3 (150-450)
[2016-09-25 10:10] LABS: HBsAg Prenatal NEGATIVE (NEGATIVE)
== END ==
LOC: M LAB 15:05
PROVIDERS: ATTEND Advanced Practice Midwife
DX: Z34.81 Encounter for supervision of other normal pregnancy, first trimester (principal); Z36 Encounter for antenatal screening of mother

== ENCOUNTER 2016-10-15 19:05 | Emergency (ER) | payer OTHER ==
[~2016-10-15] VITALS: Ht 152.4 cm; Wt 79.8 kg
[2016-10-15] MEDS ORDERED: METOCLOPRAMIDE INJ 10MG/2ML VIAL (J2765) IV ONE (20:30)
[2016-10-15] MEDS ORDERED: ACETAMINOPHEN 325 MG TAB PO ONE (20:30)
[2016-10-15 21:13] LABS: ANION GAP 6 MEQ/L (8-16); BLOOD UREA NITROGEN 11 MG/DL (7-18); CALCIUM LEVEL 8.1 MG/DL (8.5-10.1); CARBON DIOXIDE LEVEL 25 MEQ/L (21-32); CHLORIDE LEVEL 109 MEQ/L (98-107); CREATININE FOR GFR 0.44 MG/DL (0.55-1.02); GLOMERULAR FILTRATION RATE > 60.0 (>60); GLUCOSE, FASTING 78 MG/DL (70-105); POTASSIUM SERUM 3.7 MEQ/L (3.5-5.1); SODIUM LEVEL 140 MEQ/L (136-145)
[2016-10-15 21:19] LABS: BASO % 0.6 % (0.0-1.0); EOS # 0.1 K/mm3 (0.0-0.50); EOS % 1.5 % (0.0-3.0); LARGE UNSTAINED CELL # 0.1 K/mm3 (0.0-0.4); LARGE UNSTAINED CELL % 1.1 % (0.0-4.0); LYMPH # 2.1 K/mm3 (1.5-6.5); LYMPH % 25.7 % (24.0-44.0); MEAN CORPUSCULAR HEMOGLOBIN 27.8 pg (27.0-33.0); MEAN CORPUSCULAR HGB CONC 34.5 g/dl (32.0-36.5); MEAN CORPUSCULAR VOLUME 80.6 fl (80.0-96.0); MONO # 0.4 K/mm3 (0.0-0.8); MONO % 4.4 % (0.0-5.0); NEUTROPHILS # 5.3 K/mm3 (1.8-7.7); NEUTROPHILS % 66.8 % (36.0-66.0)
[2016-10-15 21:21] LABS: PLATELET COUNT, AUTOMATED 27 k/mm3 (150-450)
[2016-10-15] MEDS ORDERED: REGL10TA6 PO (22:16)
[2016-10-15 22:20] VITALS: BP 126/70
== END 2016-10-15 22:21 | disposition home or self-care (01) ==
LOC: M ED 20:03
DX: G43.909 Migraine, unspecified, not intractable, without status migrainosus (principal); Z79.899 Other long term (current) drug therapy; Z88.1 Allergy status to other antibiotic agents; Z91.030 Bee allergy status; Z3A.12 12 weeks gestation of pregnancy

== ENCOUNTER 2016-11-12 11:49 | Observation (INO) | payer OTHER ==
[2016-11-12] VITALS (14 sets, daily range): BP systolic 90–113; BP diastolic 50–66
[~2016-11-12] VITALS: Ht 152.4 cm; Wt 77.0 kg
[~2016-11-12 11:49] MED LIST changes: +REGL10TA6 PO
[2016-11-12] MEDS ORDERED: ACETAMINOPHEN TAB 650MG DOSE (2X325MG) PO ONE (14:30)
[2016-11-12] MEDS ORDERED: diphenhydrAMINE 25 MG CAP PO ONE (14:30)
[2016-11-12] MEDS ORDERED: DILUENT IV ONE (14:30)
[2016-11-12] MEDS ORDERED: IMMUNE GLOBULIN 10% 5GM 5 GM in APPROPRIATE DILUENT 1 EA IV ONE (14:30)
[2016-11-12] MEDS ORDERED: IMMUNE GLOBULIN IV ONE (14:30)
[2016-11-12] MEDS ORDERED: IMMUNE GLOBULIN 10% 20GM 200ML 60 GM in APPROPRIATE DILUENT 1 EA IV ONE (14:30)
[2016-11-12] MEDS ORDERED: IMMUNE GLOBULIN 10% 10GM 100ML 10 GM in APPROPRIATE DILUENT 1 EA IV ONE (14:30)
[2016-11-12] MEDS ORDERED: diphenhydrAMINE INJ 50MG/ML VIAL (J1200) IV ONE (20:30)
[2016-11-12] MEDS ORDERED: ACETAMINOPHEN 500 MG TAB PO ONE (20:30)
[2016-11-12] MEDS ORDERED: IPRATROPIUM 0.5MG/ALBUTEROL 2.5MG INH SOL UD 3ML (DUONEB)(J7620) NEB PRN (22:00)
[2016-11-12] MEDS ORDERED: ACETAMINOPHEN 325 MG TAB PO PRN (22:15)
[2016-11-12] MEDS ORDERED: METOCLOPRAMIDE 10 MG TAB PO PRN (22:15)
--- NOTE | 2016-11-12 22:29 | HPE ---
DATE OF ADMISSION: 11/12/2016 PRIMARY CARE PROVIDER: Rose Marie Lester BALANCE STAFF STAKER: Leola Khan ONCOLOGIST: Dr. Blue, covered by Dr. Salter CHIEF COMPLAINT: Chest tightness and shortness of breath. HISTORY OF PRESENT ILLNESS: This is a 21-year-old female patient with a history of idiopathic thrombocytopenic purpura (ITP) diagnosed in 2012 and also a history of Arnold-Chiari malformation type 1. The patient has been four times with one miscarriage, two deliveries and is currently at 16 weeks, receiving IVIG prescribed by oncologist, Dr. Blue, today for ITP. The patient has received IVIG before, last dose was in February 2016 and prior to that in 2014 during her with no reaction, but today during administration, after the patient was given half of the dose, the patient developed chest tightness associated with shortness of breath and sharp pain that was radiating down her right arm, which is the arm with the IV. The patient reported 6 out of 10 pain. Subsequently, infusion was discontinued, as per oncologist, and the patient was given acetaminophen, as well as Benadryl with improvement. Subsequently, the oncologist, Dr. Salter, as called the hospitalist team to admit the patient overnight for observation. The patient also reported a history of asthma but no recent exacerbations. Denies any nausea or vomiting. Currently comfortable and speaks in full sentences. Denies any fevers or chills. Prior to today, the patient has had no such symptoms. The patient also reported mild headache, which has resolved after given Tylenol. ALLERGIES: Reported allergies to BEE VENOM and ERYTHROMYCIN. PAST MEDICAL HISTORY: 1. Reported history of asthma. 2. ITP. 3. Arnold-Chiari malformation. PAST SURGICAL HISTORY: section times two. SOCIAL HISTORY: Lives in [place]. Quit smoking three years ago. Has not drank alcoholic beverages since she was 16 weeks ago. Denies any other illicit drug use. FAMILY HISTORY: Mother with cervical cancer and pacemaker. Sister with thyroid disease and kidney disease. REVIEW OF SYSTEMS: The patient reported chest tightness and right arm pain with shortness of breath. Other review of systems are negative. HOME MEDICATIONS: - Ventolin inhaler every 6 hours as needed - vitamin gummies two chewable by mouth daily - Reglan 10 mg by mouth every 6 hours as needed - prednisone 60 mg by mouth daily PHYSICAL EXAMINATION: VITAL SIGNS: Temperature 98.8, pulse 85, respirations 20, blood pressure 106/60, pulse oximetry 100% on room air. GENERAL: The patient is alert, oriented times three. In no acute distress. Obese. HEENT: Normocephalic, atraumatic. PULMONARY: Bilaterally clear to auscultation. Distant breath sounds. CARDIAC: Regular rate and rhythm. Normal S1, S2. ABDOMEN: Soft, nontender, nondistended. Positive bowel sounds. Obese. EXTREMITIES: No edema in bilateral lower extremities. NEUROLOGIC: No focal deficits. LABORATORY: Pending. EKG: Sinus rhythm with no ST segment changes. ASSESSMENT AND PLAN: This is a 21-year-old female patient with history of idiopathic thrombocytopenic purpura (ITP) and given IVIG, asthma, currently at 16 weeks, developed chest tightness and shortness of breath with radiation down right arm after receiving half of IVIG. Subsequently, Dr. Salter has requested hospitalist team to admit the patient for observation. The patient is transferred to progressive care unit (PCU). 1. Chest tightness, possible allergic reaction to IVIG versus asthma. Currently, symptoms improved. Nebulizer treatment, prednisone. EKG is appreciated. Telemetry monitoring. Followup cardiac enzymes. Received Benadryl. 2. ITP The case is discussed with Dr. Salter. Dr. Blue will see the patient in the morning, as per Dr. Salter. Followup complete blood count (CBC), peripheral smear. IV fluids for hydration overnight. Followup hematology/oncology recommendations. 3. Asthma. The patient is currently not having any significant wheeze. Continue prednisone and nebulizer treatments as needed. 4. Deep vein thrombosis (DVT) prophylaxis. Venodyne sequential compression device (SCD). Would not use any pharmacological agent given thrombocytopenia. DISPOSITION: The patient is currently comfortable and in no acute distress. We will monitor the patient for overnight observation. Followup oncology recommendations.
[2016-11-12 22:41] LABS: REASON FOR REVIEW PLATELET MORPHOLOGY
[2016-11-12 22:42] LABS: BASO % 0.3 % (0.0-1.0); EOS # 0.1 K/mm3 (0.0-0.50); EOS % 1.5 % (0.0-3.0); LARGE UNSTAINED CELL # 0.1 K/mm3 (0.0-0.4); LARGE UNSTAINED CELL % 1.1 % (0.0-4.0); LYMPH # 1.3 K/mm3 (1.5-6.5); LYMPH % 20.7 % (24.0-44.0); MEAN CORPUSCULAR HEMOGLOBIN 28.6 pg (27.0-33.0); MEAN CORPUSCULAR HGB CONC 35.3 g/dl (32.0-36.5); MEAN CORPUSCULAR VOLUME 80.9 fl (80.0-96.0); MONO # 0.3 K/mm3 (0.0-0.8); MONO % 5.7 % (0.0-5.0); NEUTROPHILS # 4.1 K/mm3 (1.8-7.7); NEUTROPHILS % 70.7 % (36.0-66.0); RED CELL DISTRIBUTION WIDTH 15.2 % (11.5-14.5); WHITE BLOOD COUNT 5.8 K/mm3 (4.0-10.0)
[2016-11-12 22:50] LABS: CONTROL LINE HCG INT CTR LINE PRESENT
[2016-11-12 23:02] LABS: ALBUMIN 2.7 GM/DL (3.2-5.2); ALBUMIN/GLOBULIN RATIO 0.71 (1.00-1.93); ALKALINE PHOSPHATASE 49 U/L (45-117); ALT/SGPT 11 U/L (12-78); ANION GAP 6 MEQ/L (8-16); AST/SGOT 11 U/L (15-37); BILIRUBIN,TOTAL 0.3 MG/DL (0.2-1.0); BLOOD UREA NITROGEN 7 MG/DL (7-18); CALCIUM LEVEL 7.5 MG/DL (8.5-10.1); CARBON DIOXIDE LEVEL 23 MEQ/L (21-32); CHLORIDE LEVEL 107 MEQ/L (98-107); CREATININE FOR GFR 0.42 MG/DL (0.55-1.02); GLOMERULAR FILTRATION RATE > 60.0 (>60); GLUCOSE, FASTING 80 MG/DL (70-105); MAGNESIUM LEVEL 1.9 MG/DL (1.8-2.4); POTASSIUM SERUM 3.2 MEQ/L (3.5-5.1); SODIUM LEVEL 136 MEQ/L (136-145); TOTAL PROTEIN 6.5 GM/DL (6.4-8.2)
[2016-11-12 23:05] LABS: PLATELET COUNT, AUTOMATED 29 k/mm3 (150-450)
[2016-11-12 23:16] LABS: HCG, SERUM QUANTITATIVE 24510 MIU/ML
[2016-11-12] MEDS: NS 1,000 ML IV SCH (23:21)
[2016-11-12] MEDS ORDERED: POTASSIUM CHLORIDE 10 MEQ SR TABLET PO ONE (23:45)
[2016-11-12] MEDS ORDERED: MORPHINE 2 MG/ML 1ML SYRINGE IV ONE (23:45)
[2016-11-13] MEDS ORDERED: GAMMAGARD ONE (00:28)
[2016-11-13] MEDS: IPRATROPIUM 0.5MG/ALBUTEROL 2.5MG INH SOL UD 3ML (DUONEB)(J7620) NEB SCH ×3 (01:29→15:13)
[2016-11-13 04:00] VITALS: BP 84/48
[2016-11-13 05:32] LABS: BASO % 0.6 % (0.0-1.0); EOS # 0.1 K/mm3 (0.0-0.50); EOS % 2.1 % (0.0-3.0); LARGE UNSTAINED CELL # 0.1 K/mm3 (0.0-0.4); LARGE UNSTAINED CELL % 1.2 % (0.0-4.0); LYMPH # 1.5 K/mm3 (1.5-6.5); LYMPH % 33.4 % (24.0-44.0); MEAN CORPUSCULAR HEMOGLOBIN 28.9 pg (27.0-33.0); MEAN CORPUSCULAR VOLUME 82.6 fl (80.0-96.0); MONO # 0.2 K/mm3 (0.0-0.8); MONO % 4.6 % (0.0-5.0); NEUTROPHILS # 2.5 K/mm3 (1.8-7.7); NEUTROPHILS % 58.1 % (36.0-66.0); RED CELL DISTRIBUTION WIDTH 15.4 % (11.5-14.5); WHITE BLOOD COUNT 4.4 K/mm3 (4.0-10.0)
[2016-11-13 05:33] LABS: PLATELET COUNT, AUTOMATED 29 k/mm3 (150-450)
[2016-11-13 05:47] LABS: ALBUMIN 2.5 GM/DL (3.2-5.2); ALBUMIN/GLOBULIN RATIO 0.63 (1.00-1.93); ALKALINE PHOSPHATASE 45 U/L (45-117); ALT/SGPT 13 U/L (12-78); ANION GAP 6 MEQ/L (8-16); AST/SGOT 15 U/L (15-37); BILIRUBIN,TOTAL 0.3 MG/DL (0.2-1.0); BLOOD UREA NITROGEN 6 MG/DL (7-18); CALCIUM LEVEL 7.1 MG/DL (8.5-10.1); CARBON DIOXIDE LEVEL 22 MEQ/L (21-32); CHLORIDE LEVEL 110 MEQ/L (98-107); CREATININE FOR GFR 0.36 MG/DL (0.55-1.02); GLOMERULAR FILTRATION RATE > 60.0 (>60); GLUCOSE, FASTING 75 MG/DL (70-105); MAGNESIUM LEVEL 1.9 MG/DL (1.8-2.4); POTASSIUM SERUM 3.3 MEQ/L (3.5-5.1); SODIUM LEVEL 138 MEQ/L (136-145); TOTAL PROTEIN 6.5 GM/DL (6.4-8.2)
--- NOTE | 2016-11-13 06:00 | ECGEPIP ---
Stationary ECG Study [facility] Test Date: 2016-11-12 Pat Name: GARRY DEJESUS Department: Room: [place] [address] Gender: F Epic Trainer: EDY CARLSON : 1995 Requested By: AVA SCHNEIDER Order Number: [id number] Reading MD: Baldev Kasper Measurements Intervals [place] Rate: 78 P: 25 AR: 116 QRS: 24 QRSD: 106 T: 19 QT: 373 QTc: 426 Interpretive Statements Normal sinus rhythm with short AR interval Otherwise normal EKG Comparison tracing not on file Electronically Signed On 11-13-2016 5:59:58 EDT by Baldev Kasper
[2016-11-13] MEDS ORDERED: POTASSIUM CHLORIDE 10 MEQ SR TABLET PO ONE ×2 (06:15→07:00)
[2016-11-13 06:47] VITALS: BP 100/57
--- NOTE | 2016-11-13 06:50 | REPUSA ---
CLINICAL HISTORY: To assess viable . TECHNIQUE: Realtime sonographic images were obtained in multiple projections via TA approach. The exa mination was performed by the instrument technician and still images were submitted for interpretation. COMMENTS: Comparison is made to the prior exam on 08/11/2015. Single, live intrauterine gestation in breech presentation. motion was identified. heart rate 152 beats per minute. Anterior placenta. No evidence of placenta previa. No evidence of placental abruption. The cervix is normal in length measuring 3 cm. The lateral ventricle measures 6.7 mm. No abnormality in the maternal adnexa and pelvic cul-de-sac. Estimated gestational age is 15 weeks and 5 days. There has been appropriate interval growth since the prior exam. gender was documented as undetermined at this time. Nuchal CORD was not seen.. IMPRESSION: Single, live intrauterine gestation. No abnormality is seen. Thank you for your kind referral of this patient.
[2016-11-13 08:00] VITALS: BP 100/54
[2016-11-13] MEDS ORDERED: MAG SULF 1GM/100ML (MAG RUN) 1 GM in APPROPRIATE DILUENT 1 EA IV ONE (08:00)
[2016-11-13] MEDS: NS 1,000 ML IV SCH (08:51)
[2016-11-13] MEDS ORDERED: PRENATAL VITAMIN TAB PO SCH (09:00)
[2016-11-13] MEDS ORDERED: predniSONE 20 MG TAB PO SCH (09:00)
[2016-11-13] MEDS ORDERED: MULTIVITAMINS CHILDREN'S CHEWABLE TABLET PO SCH (09:00)
[2016-11-13 12:00] VITALS: BP 96/54
--- NOTE | 2016-11-13 13:30 | CR ---
DATE OF CONSULTATION: 11/13/2016 PRIMARY CARE PROVIDER: Destiny Lester OB-PASTRY COOK HELPER: Leola Khan REQUESTING PHYSICIAN: Dr. Mcrae REASON FOR CONSULTATION: Idiopathic thrombocytopenic purpura (ITP). HISTORY OF PRESENT ILLNESS: Ms. Garcia is a 21-year-old female, , currently 16 weeks gravid, with a history of ITP who was sent in yesterday from hematology/oncology office due to right arm pain that started while receiving IVIG infusion. The patient has a history of ITP diagnosed in 2012. Since then, she has received IVIG with each starting with her first one in 2013. With prior infusions, she tolerated well without any adverse effects. Her last IVIG was in February 2016. IVIG was resumed again yesterday afternoon with her fourth . She reportedly was tolerating it well until starting her second infusion when she developed right wrist numbness and tingling and also a sharp achy pain. It initially started in her right wrist, but radiated up to her shoulder and also her right chest. There was no provoking or alleviating factor. The pain has not resolved since her admission. Her chest pain was described as bruising, sharp. It is not worse with inspiration. Chest pain will last for approximately two minutes and resolve on its own. She had a brief episode of shortness of breath that improved immediately after given Ventolin. IVIG infusion was immediately discontinued and she was then recommended to present to the emergency room (ER) for evaluation. Aside from her usual bruising which she attributes to her ITP, there have been no rashes, fevers, chills, abnormal bleeding, palpitations, or vision difficulty. She reports chronic mild headache that is not bothersome to her. No nausea, vomiting, cough, hemoptysis, hematuria, hematemesis, melena or hematochezia. Since admission, she felt somewhat better with regard to her chest pain and shortness of breath resolved. Her right arm pain remains persistent. PAST MEDICAL HISTORY: 1. ITP. 2. Asthma. 3. Arnold-Chiari malformation. 4. Gestational diabetes. 5. Obesity. PAST SURGICAL HISTORY: section times two. ALLERGIES: - BEE VENOM - ERYTHROMYCIN HOME MEDICATIONS: - Ventolin 2 puffs inhaled as needed (p.r.n.) - [place] gummies 2 tablets chewable daily - Reglan 10 mg every 6 hours p.r.n. - prednisone 60 mg by mouth daily (she has been on prednisone since 2013 for ITP) INPATIENT MEDICATIONS: - normal saline at 100 mL per hour - DuoNeb 30 mL every 6 hours scheduled and 2 hours p.r.n. - Reglan 10 every 6 hours p.r.n. - multivitamin - Tylenol 325 mg every 6 hours p.r.n. - prednisone 60 mg daily FAMILY HISTORY: Mother with cervical cancer, cardiac disease with a pacemaker in place. Her brother with possible atrial fibrillation. Sister with thyroid and kidney problems. SOCIAL HISTORY: Remote history of smoking socially, but quit many years ago. Used to drink a glass of wine every other week, but quit once she was . No drug use. Previously was working at [employer], but was taken out of her work recently due to her ITP history. Life time travels include to [place] and [place]. Last trip was in August. Currently lives at home with her two biological daughters and one adopted daughter. REVIEW OF SYSTEMS: CONSTITUTIONAL: Denies fevers, chills, rigors, significant weight changes, night sweats. HENT: Denies headaches, lightheadedness, dizziness, difficulty with speech and swallow. EYES: No blurry vision, diplopia. CARDIOVASCULAR: Denies chest pain, paroxysmal nocturnal dyspnea, pillow orthopnea, lower extremity edema. PULMONARY: Denies shortness of breath, productive cough, hemoptysis. GASTROINTESTINAL: Denies hematochezia, melena, or hematemesis, nausea, vomiting, diarrhea, constipation. GENITOURINARY: No dysuria, frequency or hematuria. MUSCULOSKELETAL: No bone, muscle, joint pain. NEUROLOGICAL: No paralysis, paresthesia, headaches. ENDOCRINE: Positive for history of gestational diabetes. Negative for thyroid disease. LYMPHATICS: No lumps, bumps, or swelling anywhere in neck, axilla, or groin. HEMATOLOGY: Positive for ITP as mentioned above. INTEGUMENT: Positive for occasional bruising, but no swelling, calf tenderness, skin or in any of her extremities. PHYSICAL EXAMINATION: VITAL SIGNS: Blood pressure 100/54. Heart rate 90. Temperature 97.3. Respiration rate 20. Pulse oximetry 100% on room air. Intake and output last 24 hours documented 840 and 700. GENERAL: Lying in bed comfortable in no acute distress, alert, awake, oriented times three, pleasant, cooperative, appears stated age. HEENT: Normocephalic, atraumatic, moist oral mucosa without thrush or lesion appreciated. Eyes with extraocular movements intact. Pupils equal and reactive to light. No visible hemorrhage. NECK: Supple, trachea midline, no jugular venous distention (JVD), no palpable lymphadenopathy. CHEST: Symmetric chest rise, no accessory muscle use. Breath sounds were clear to auscultation bilaterally. HEART: Regular rate and rhythm with normal S1, S2. Her anterior chest is tender to palpation bilaterally. ABDOMEN: Gravid. Bowel sounds present. No guarding, no rebound, no peritoneal signs. Soft . Nontender. EXTREMITIES: No pedal edema. Pedal pulses present bilaterally. No calf tenderness. No redness or swelling to her legs. Her right upper extremity is tender to palpation on her right wrist, both medial and lateral aspects. She has limitation on flexion and also on extension, but more so on flexion secondary to pain. Her IV site is on the dorsum of her hand. The area is not tender and no erythematous changes. There is no obvious swelling or redness throughout her right upper extremity, though she is tender to palpation along her deltoid brachialis and brachioradialis. Her pulses are present bilateral and adequate in all extremities. She is also tender along her trapezius. NEUROLOGIC: Sensory intact. Strength is 4/5 in right upper extremity compared to left secondary to pain. No other focal deficits appreciated. LABORATORY DATA: WBC 4.4, hemoglobin 10.8, hematocrit 31 (unchanged from yesterday), platelets 29 (also unchanged), RDW 15.4. Her lowest platelets were 5 from September 2014. Sodium 138, potassium 3.3, chloride 110, carbon dioxide 22, BUN 6, creatinine 0.36, glucose 75, calcium 7.1, magnesium 1.9, total bilirubin 0.3. Liver functions normal. Cardiac markers negative times two. HCG positive. Albumin 2.5. Coag studies are normal. Peripheral smear showed a normochromic, normocytic anemia with abnormal iron indices, low serum iron level, ferritin and slightly elevated TIBC suggestive of iron deficiency, chronic thrombocytopenia. OB ultrasound showed single live intrauterine gestation, no abnormalities seen. Estimated gestational age is 15 weeks 5 days. IMPRESSION AND PLAN: Ms. Garcia is a 21-year-old female, G4, P2, with history of TIP, who was admitted for right arm pain and chest pain. 1. Right arm and chest pain. Initially, there was concern that this was related to her ITP infusion as she developed her symptoms immediately into her second infusion. Based on her history, this is not likely to be secondary to her ITP, but the reason for her pain is somewhat unclear. While she has ITP, one possibility could be to pursue a right upper extremity ultrasound to rule out a deep vein thrombosis (DVT), although this is somewhat unlikely considering that she also reports some paresthesia with her pain. Although it is not suspicious for her symptoms to be secondary to her IVIG infusion, we will hold off on infusion at this time. She can continue with her regular dose of prednisone. My preceptor for this patient encounter was Dr. Cece Blue. As needed, all aspects of the patient interview, examination, medical decision making process, and medical care plan development were reviewed and approved by the preceptor. The preceptor is aware and concurs with the plan as stated in the body of this note and will attest to such by his/her cosignature. FRANCA
[2016-11-13 15:07] VITALS: BP 111/57
--- NOTE | 2016-11-13 15:22 | REP ---
Right upper extremity duplex Doppler venous ultrasound. Real time compression and duplex Doppler evaluation of the right upper extremity deep venous system is performed. The right subclavian, jugular, axillary, brachial, basilic and cephalic veins are fully compressible where accessible with transducer pressure, and demonstrate no intraluminal thrombus and normal venous waveforms. There is no evidence of deep venous thrombosis. Impression: No evidence of deep venous thrombosis of the right upper extremity deep vein system. Signed by Moses Yost MD 11/13/2016 03:12 P
[2016-11-13] MEDS ORDERED: 8 HO650T PO (18:58)
--- NOTE | 2016-11-13 19:38 | CR ---
DATE OF CONSULTATION: 11/13/2016 Jane is a 21-year-old 4, para 2-0-1-2 at 16-3/7 weeks gestation with an estimated date of confinement (EDC) of 04/25/2017 based on last normal menstrual period and confirmed by first-trimester ultrasound. She has been admitted to inpatient by hospitalist due to a reaction to intravenous immunoglobulin (IVIG) that she receives due to her idiopathic thrombocytopenia purpura that occurred yesterday, on 11/12/2016. She has received the IVIG in the past several times without any reaction or difficulty. She complained of some chest pain and her arm that was receiving the infusion on right arm having tingling and numbness. The infusion was stopped, and she was sent to the emergency room (ER) for evaluation. Currently her history is complicated by the idiopathic thrombocytopenic purpura (ITP). She has a history of Arnold Chiari malformation, prior section with a plan for repeat at term for this , and asthma that has been well controlled. OBSTETRICAL HISTORY: October 2014 she had a section for a 7-pound female at 38 weeks gestation at [facility]. Breech presentation. Premature rupture of membranes with ITP. February 2016 she had a repeat section for a 6-pound 15-ounce female at [facility] with premature rupture of membranes at the time and her ITP. Her obstetric labs at this time: Her blood type is A negative, antibody screen negative, rubella immune, VDRL nonreactive. Hepatitis B surface antigen negative, HIV negative, hepatitis C antibody nonreactive. Gonorrhea and chlamydia negative. PAST MEDICAL HISTORY: 1. History of gestational diabetes with her first . 2. History of a blood transfusion. 3. Asthma, well controlled. 4. ITP. 5. Seasonal allergies. SURGERIES: section. FAMILY HISTORY: Diabetes, Down syndrome. SOCIAL HISTORY: The patient is . Her is typically present and supportive. She is a nonsmoker. Denies alcohol and drug use. She does have a history of chlamydia in 2009, and she denies history of abuse, physical, sexual, and emotional. ALLERGIES: Bee venom, PEDIAZOLE, ERYTHROMYCIN. CURRENT MEDICATIONS: Include vitamins and prednisone. OBJECTIVE: At this time she is stable. Temperature is 98.5, pulse 88, respirations 16. Her blood pressure is 111/57, oxygen 97% on room air. She did undergo an ultrasound today, which demonstrates appropriate growth. heart rate was 152. Fetus in breech presentation. She has an anterior placenta. No placenta previa. No evidence of abruption. Her cervix is normal length, 3 cm. Estimated gestational age by ultrasound is 16 weeks, 5 days. There is gender not documented. CBC today with a hemoglobin of 10.8, hematocrit 31.0, her platelets are 29. ASSESSMENT: Intrauterine at 16-3/7 weeks gestation. Normal status at this time. Idiopathic thrombocytopenic purpura. PLAN: Obstetrically, the patient is stable. There are no recommendations from this obstetric provider in consultation with Dr. Bryant Goldsmith. Her care is returned to oncology/hematology, Dr. Blue, for management of her ITP.
--- NOTE | 2016-11-14 12:36 | IPN ---
DATE: 11/13/2016 The patient is seen and examined at the bedside. Chart has been reviewed. The patient still complains of chest discomfort, described as sharp pain and pleuritic in nature down the right arm. No fever or chills. No wheezing on examination. No other issues per nursing overnight. VITAL SIGNS: Temperature 97.3, pulse 90, respiratory rate 20, blood pressure 100/54, 100% on room air. GENERAL: The patient is awake, alert and oriented times three. Answering questions appropriately. LUNGS: Clear to auscultation. No wheezes, rales, or rhonchi. HEART: S1, S2. Sinus rhythm. ABDOMEN: Soft, nontender. Gravid uterus. EXTREMITIES: No edema. NEUROLOGIC: No focal deficits. LABORATORY DATA: Imaging studies: EKG with sinus rhythm. No ST changes. ASSESSMENT AND PLAN: 21-year-old female with a history of idiopathic thrombocytopenic purpura, was given IVIG, history of asthma, who currently is 16 weeks gestation, developed chest tightness and shortness of breath with radiation down the right arm after receiving IVIG, subsequently admitted for further evaluation. Obstetric ultrasound shows breech position intrauterine , live fetus. Chest tightness was thought to be secondary to reaction to IVIG versus asthma, currently no wheezing. Nebulizer treatment and prednisone 60 daily. EKG is unremarkable. Telemetry is sinus rhythm. Cardiac markers are negative. Received a dose of Benadryl. 2. ITP. Follows usually with Dr. Blue. No active signs of bleeding. The patient's platelet count is 29,000. No immediate need for platelet transfusion. At this time, the patient is currently on prednisone. Defer to Dr. Blue for further management. 3. History of Arnold-Chiari malformation, chronic. DISPOSITION: May transfer to medical/surgical floor.
== END 2016-11-13 19:33 | disposition home or self-care (01) ==
LOC: M OPCLI4PV 11:49 → M MSPAV 11:52 → M PED 15:52 → M PCU 22:29 → M OPCLI4PV 11-13 00:25 → M PCU 11-13 00:27 → INTOOBSV 11-13 00:27 → M PED 11-13 15:10
PROVIDERS: ADMIT Hospitalist; ATTEND Hospitalist
DX: O99.112 Other diseases of the blood and blood-forming organs and certain disorders involving the immune mechanism complicating pregnancy, second trimester (principal); O24.419 Gestational diabetes mellitus in pregnancy, unspecified control; D69.3 Immune thrombocytopenic purpura; J45.909 Unspecified asthma, uncomplicated; E66.9 Obesity, unspecified; G93.5 Compression of brain; Z88.1 Allergy status to other antibiotic agents; Z91.030 Bee allergy status; Z87.891 Personal history of nicotine dependence; Z79.52 Long term (current) use of systemic steroids; Z3A.16 16 weeks gestation of pregnancy

== ENCOUNTER → 2016-11-25 | Outpatient (CLI) | payer OTHER ==
[~2016-11-25] MED LIST changes: +8 HO650T PO
--- NOTE | 2016-11-25 14:40 | REP ---
Clinical: Anatomical evaluation. Comparison: None . Findings: Examination demonstrates a single live intrauterine in breech presentation. motion is identified by technologist. Placenta is noted anteriorly and grade 0 without evidence for placenta previa or abruption. Amniotic fluid volume is normal. Cervix measures 3.2 cm in length and appears closed. No evidence for nuchal cord. Gestational age by LMP 17w2d with JARED 05/03/2017. Gestational age by current measurements 17w5d with JARED 04/30/2017. FHR equals 141 beats per minute. BPD 3.7 cm 17w2d HC 14.1 cm 17w3d AC 12.0 cm 17w5d FL 2.9 cm 19w0d HL 2.4 cm 17w2d HC/AC ratio 1.18 Estimated weight 229 grams (85th percentile). Anatomical assessment demonstrates normal structures including cranium, choroid plexus, cavum, cerebellum/posterior fossa, facial features, lungs, diaphragm, stomach, cord insertion, bladder, spine, and lower extremities. Limited evaluation of the heart/left ventricular outflow tract, three-vessel cord, kidneys, and upper extremities. Impression: 1. Single live in breech presentation. 2. Anatomical limitations as described above may warrant re-evaluation and follow up. No gross abnormalities. Signed by Chandan Arias MD 11/25/2016 02:32 P
== END ==
LOC: M RAD 13:40
PROVIDERS: ATTEND Advanced Practice Midwife
DX: Z34.82 Encounter for supervision of other normal pregnancy, second trimester (principal); Z36 Encounter for antenatal screening of mother; Z3A.17 17 weeks gestation of pregnancy

== ENCOUNTER → 2016-11-25 | Outpatient (CLI) | payer OTHER | LOC: M LAB 14:22 | PROVIDERS: ATTEND Specialist | DX: O24.112 Pre-existing type 2 diabetes mellitus, in pregnancy, second trimester (principal); Z3A.17 17 weeks gestation of pregnancy ==

== ENCOUNTER 2016-11-28 15:57 | Outpatient (CLI) | payer OTHER ==
[~2016-11-28] VITALS: Ht 152.4 cm; Wt 77.0 kg
[2016-11-28] VITALS (12 sets, daily range): BP systolic 112–141; BP diastolic 58–73
[~2016-11-28 15:57] MED LIST changes: -8 HO650T PO; +8 HO650T2 PO; -ACET-654 PO; +ACET1TAB17 PO; -ONDA1TAB16 PO; +ONDA8TAB7 PO; -PRED10TA PO; +PRED10TA2 PO
[2016-11-28] MEDS ORDERED: GAMMAGARD ONE (15:58)
[2016-11-28] MEDS ORDERED: ACETAMINOPHEN TAB 650MG DOSE (2X325MG) PO ONE (17:30)
[2016-11-28] MEDS ORDERED: diphenhydrAMINE 25 MG CAP PO ONE (17:30)
[2016-11-28] MEDS ORDERED: IMMUNE GLOBULIN IV ONE ×5 (17:30→18:00)
[2016-11-28] MEDS ORDERED: [UNRECOGNIZED DRUG - OTHER] IV ONE ×4 (17:30)
[2016-11-28] MEDS ORDERED: ACETAMINOPHEN 500 MG TAB PO ONE (17:30)
[2016-11-28] MEDS ORDERED: DILUENT IV ONE (18:00)
[2016-11-28] MEDS ORDERED: diphenhydrAMINE INJ 50MG/ML VIAL (J1200) IV STA (23:42)
[2016-11-29 00:16] VITALS: BP 104/57
[2016-11-29 00:46] VITALS: BP 130/61
== END 2016-11-29 01:05 | disposition home or self-care (01) ==
LOC: M OPCLIPED 15:57 → M PED 16:15 → M OPCLIPED 11-29 01:05
PROVIDERS: ATTEND Internal Medicine Medical Oncology
DX: D69.3 Immune thrombocytopenic purpura (principal); Z88.1 Allergy status to other antibiotic agents; Z91.030 Bee allergy status; Z79.899 Other long term (current) drug therapy

== ENCOUNTER → 2016-12-18 | Outpatient (CLI) | payer OTHER ==
[~2016-12-18] MED LIST changes: +ZOFR4TAB3 PO; +ZOLO25TA PO
--- NOTE | 2016-12-18 13:14 | REP ---
Obstetric ultrasound for follow-up of anatomy: Based on the first ultrasound during this gestation the gestational age is 20 weeks 4 days with an JARED of 05/03/2017. By the ultrasound today gestational age is 21 weeks 2 days. weight is 400 grams. (0 pounds, 14 ounces). This is the 66th percentile for 20 weeks 4 days. The previous study dated 11/25/2016 did not adequately demonstrate the heart, left ventricular outflow tract, three-vessel cord, kidneys and upper extremities. The study today is performed for follow-up of these anatomic structures. There is a single intrauterine gestation in a breech presentation. There is movement and cardiac activity. The heart rate is 144 beats per minute. The placenta is anterior without previa or abruptio. The placenta demonstrates grade zero maturity. The amniotic fluid volume subjectively is normal. The cervix is 3.8 cm length. Maternal adnexa and cul-de-sac are unremarkable. On the study today were able to demonstrate normal three-vessel cord, kidneys and upper extremities. We are again unable to demonstrate the four-chamber heart and cardiac right and left ventricular outflow tracts. The anatomy is otherwise unremarkable. Signed by Moses Hammond MD 12/18/2016 01:05 P
== END ==
LOC: M RAD 12:07
PROVIDERS: ATTEND Advanced Practice Midwife
DX: Z36 Encounter for antenatal screening of mother (principal)

== ENCOUNTER → 2017-01-22 | Outpatient (CLI) | payer OTHER ==
--- NOTE | 2017-01-22 14:40 | REP ---
OB ULTRASOUND: Real-time sonographic evaluation of the gravid uterus is performed. There is a single living intrauterine gestation with an estimated gestational age 25 weeks 4 days, EDC 05/03/2017. Today's measurements indicate appropriate growth. Biometry and Growth: BPD 62 mm = 25 weeks 1 day, 42nd percentile HC 226 mm = 24 weeks 4 days, 30th percentile AC 199 mm = 24 weeks 4 days, 29th percentile FL 48 mm = 26 weeks 1 day, 61st percentile HC/AC ratio 1.14 within normal range. Estimated weight 776 grams, 32nd percentile. SEEN/GROSSLY UNREMARKABLE Lateral ventricles Yes Posterior fossa Yes Upper lip Yes Four-chamber heart Yes LVOT Yes RVOT Yes Stomach Yes Cord insertion Yes Three vessel cord Yes Kidneys Yes Bladder Yes Spine Yes Cervical length: Closed and measures 3.9 cm in length heart rate: 136 beats per minute. position: Vertex Placenta: Anterior and grade 0 with no previa or abruption. Amniotic fluid: Within normal limits. Signed by Moses Yost MD 01/22/2017 05:23 P
== END ==
LOC: M RAD 12:54
PROVIDERS: ATTEND Advanced Practice Midwife
DX: O34.211 Maternal care for low transverse scar from previous cesarean delivery (principal); Z3A.25 25 weeks gestation of pregnancy

== ENCOUNTER → 2017-01-28 | Outpatient (CLI) | payer OTHER ==
[2017-01-28 14:29] LABS: BASO % 0.1 % (0.0-1.0); EOS % 0.2 % (0.0-3.0); LARGE UNSTAINED CELL # 0.1 K/mm3 (0.0-0.4); LARGE UNSTAINED CELL % 0.5 % (0.0-4.0); LYMPH # 0.7 K/mm3 (1.5-6.5); MEAN CORPUSCULAR HEMOGLOBIN 28.3 pg (27.0-33.0); MEAN CORPUSCULAR HGB CONC 34.4 g/dl (32.0-36.5); MEAN CORPUSCULAR VOLUME 82.3 fl (80.0-96.0); MONO # 0.2 K/mm3 (0.0-0.8); NEUTROPHILS # 8.2 K/mm3 (1.8-7.7); NEUTROPHILS % 89.2 % (36.0-66.0); RED CELL DISTRIBUTION WIDTH 13.4 % (11.5-14.5); WHITE BLOOD COUNT 9.2 K/mm3 (4.0-10.0)
[2017-01-28 14:32] LABS: ADD MORPHOLOGY? YES; PLATELET COUNT, AUTOMATED 58 k/mm3 (150-450)
[2017-01-28 15:17] LABS: MICROCYTOSIS 1+
== END ==
LOC: M LAB 12:44
PROVIDERS: ATTEND Specialist
DX: Z34.82 Encounter for supervision of other normal pregnancy, second trimester (principal); Z36 Encounter for antenatal screening of mother

== ENCOUNTER 2017-01-31 18:10 | Outpatient (CLI) | payer OTHER ==
[~2017-01-31 18:10] MED LIST changes: -ZOFR4TAB3 PO; -ZOLO25TA PO
[2017-01-31] MEDS ORDERED: LACTATED RINGER'S 1000 ML IV STA (18:15)
[2017-01-31] MEDS ORDERED: LR 1,000 ML IV SCH (18:15)
[2017-01-31 18:30] VITALS: BP 99/57
[2017-01-31 19:01] LABS: MEAN CORPUSCULAR HEMOGLOBIN 28.5 pg (27.0-33.0); MEAN CORPUSCULAR HGB CONC 35.2 g/dl (32.0-36.5); MEAN CORPUSCULAR VOLUME 81.1 fl (80.0-96.0); RED CELL DISTRIBUTION WIDTH 13.5 % (11.5-14.5); WHITE BLOOD COUNT 8.4 K/mm3 (4.0-10.0)
[2017-01-31 19:19] LABS: ALBUMIN 2.4 GM/DL (3.2-5.2); ALBUMIN/GLOBULIN RATIO 0.71 (1.00-1.93); ALKALINE PHOSPHATASE 61 U/L (45-117); ALT/SGPT 16 U/L (12-78); AMYLASE 26 U/L (25-115); ANION GAP 10 MEQ/L (8-16); AST/SGOT 9 U/L (15-37); BILIRUBIN,TOTAL 0.2 MG/DL (0.2-1.0); BLOOD UREA NITROGEN 7 MG/DL (7-18); CALCIUM LEVEL 7.5 MG/DL (8.5-10.1); CARBON DIOXIDE LEVEL 23 MEQ/L (21-32); CHLORIDE LEVEL 111 MEQ/L (98-107); CREATININE FOR GFR 0.37 MG/DL (0.55-1.02); GLOMERULAR FILTRATION RATE > 60.0 (>60); GLUCOSE, FASTING 87 MG/DL (70-105); SODIUM LEVEL 144 MEQ/L (136-145); TOTAL PROTEIN 5.8 GM/DL (6.4-8.2)
[2017-01-31 19:25] LABS: POTASSIUM SERUM 2.8 MEQ/L (3.5-5.1)
[2017-01-31 19:42] VITALS: BP 105/55
[2017-01-31] MEDS ORDERED: ONDANSETRON 4MG/2ML VIAL (J2405) IV PRN (20:00)
[2017-01-31] MEDS ORDERED: KCL 40MEQ in NS 1000ML 1,000 ML IV SCH (20:15)
[2017-01-31] MEDS: POTASSIUM CHLORIDE 10 MEQ SR TABLET PO SCH (20:32)
[2017-01-31 20:46] VITALS: BP 109/58
[2017-01-31] MEDS ORDERED: FERROUS SULFATE 325MG TAB PO SCH (21:00)
[2017-01-31 22:48] VITALS: BP 93/54
[2017-02-01 00:57] VITALS: BP 102/52
[2017-02-01 06:03] VITALS: BP 94/49
[2017-02-01 07:38] LABS: ALBUMIN/GLOBULIN RATIO 0.65 (1.00-1.93); ALKALINE PHOSPHATASE 56 U/L (45-117); ALT/SGPT 25 U/L (12-78); ANION GAP 10 MEQ/L (8-16); AST/SGOT 22 U/L (15-37); BILIRUBIN,TOTAL 0.2 MG/DL (0.2-1.0); BLOOD UREA NITROGEN 6 MG/DL (7-18); CALCIUM LEVEL 7.7 MG/DL (8.5-10.1); CARBON DIOXIDE LEVEL 22 MEQ/L (21-32); CHLORIDE LEVEL 114 MEQ/L (98-107); GLOMERULAR FILTRATION RATE > 60.0 (>60); GLUCOSE, FASTING 87 MG/DL (70-105); POTASSIUM SERUM 3.4 MEQ/L (3.5-5.1); SODIUM LEVEL 146 MEQ/L (136-145); TOTAL PROTEIN 5.1 GM/DL (6.4-8.2)
[2017-02-01] MEDS: POTASSIUM CHLORIDE 10 MEQ SR TABLET PO SCH (07:50)
[2017-02-01] MEDS ORDERED: ZOFR4TAB3 PO (08:21)
== END 2017-02-01 09:03 | disposition home or self-care (01) ==
LOC: M LDO 18:10
PROVIDERS: ATTEND Obstetrics & Gynecology
DX: O99.89 Other specified diseases and conditions complicating pregnancy, childbirth and the puerperium (principal); Z3A.28 28 weeks gestation of pregnancy; K52.9 Noninfective gastroenteritis and colitis, unspecified; A08.4 Viral intestinal infection, unspecified; Z88.1 Allergy status to other antibiotic agents; Z91.030 Bee allergy status
CPT/HCPCS: 36415; 80053; 82150; 83690; 85027; 96360; 96361; 96374; J2405

== ENCOUNTER → 2017-02-11 | Outpatient (CLI) | payer OTHER ==
[~2017-02-11] MED LIST changes: +ZOFR4TAB3 PO; +ZOLO25TA PO
== END ==
LOC: M LAB 11:00
PROVIDERS: ATTEND Advanced Practice Midwife
DX: Z34.82 Encounter for supervision of other normal pregnancy, second trimester (principal); Z36 Encounter for antenatal screening of mother

== ENCOUNTER → 2017-02-18 | Outpatient (REF) | payer OTHER | LOC: M LAB REF 13:31 | PROVIDERS: ATTEND Advanced Practice Midwife | DX: D69.6 Thrombocytopenia, unspecified (principal) ==

== ENCOUNTER 2017-02-23 16:58 | Outpatient (CLI) | payer OTHER ==
[~2017-02-23 16:58] MED LIST changes: -ZOLO25TA PO
[2017-02-23] MEDS ORDERED: ZOLO25TA PO (17:12)
[2017-02-23 17:18] VITALS: BP 101/51
== END 2017-02-23 18:01 | disposition home or self-care (01) ==
LOC: M LDO 16:58
PROVIDERS: ATTEND Advanced Practice Midwife
DX: O47.03 False labor before 37 completed weeks of gestation, third trimester (principal); Z3A.31 31 weeks gestation of pregnancy; Z88.1 Allergy status to other antibiotic agents; Z91.030 Bee allergy status

== ENCOUNTER 2017-03-06 17:19 | Outpatient (CLI) | payer OTHER ==
[~2017-03-06] VITALS: Ht 152.4 cm; Wt 78.4 kg
[2017-03-06 17:35] VITALS: BP 101/58
== END 2017-03-06 18:55 | disposition short-term general hospital (02) ==
LOC: M LDO 17:19
PROVIDERS: ATTEND Obstetrics & Gynecology
DX: O09.893 Supervision of other high risk pregnancies, third trimester (principal); O99.113 Other diseases of the blood and blood-forming organs and certain disorders involving the immune mechanism complicating pregnancy, third trimester; Z3A.32 32 weeks gestation of pregnancy; D69.3 Immune thrombocytopenic purpura; Z88.1 Allergy status to other antibiotic agents; Z91.030 Bee allergy status; Z79.899 Other long term (current) drug therapy

== ENCOUNTER → 2017-03-06 | Outpatient (CLI) | payer OTHER ==
[~2017-03-06] MED LIST changes: +ZOLO25TA PO
[2017-03-06 14:13] LABS: MEAN CORPUSCULAR HGB CONC 32.6 g/dl (32.0-36.5); MEAN CORPUSCULAR VOLUME 79.7 fl (80.0-96.0); RED CELL DISTRIBUTION WIDTH 14.3 % (11.5-14.5); WHITE BLOOD COUNT 9.4 10^3/uL (4.0-10.0)
[2017-03-06 14:35] LABS: PLATELET COUNT, AUTOMATED 20 10^3/uL (150-450)
[2017-03-12 10:19] LABS: IMMATURE PLATELET FRACTION % 17.1 % (0.0-9.6)
== END ==
LOC: M SMT 11:28
PROVIDERS: ATTEND Advanced Practice Midwife
DX: D69.6 Thrombocytopenia, unspecified (principal)

== ENCOUNTER 2017-03-17 00:02 | Outpatient (CLI) | payer OTHER ==
[~2017-03-17] VITALS: Ht 152.4 cm; Wt 80.1 kg
[2017-03-17 00:50] VITALS: BP 101/59
== END 2017-03-17 03:10 | disposition home or self-care (01) ==
LOC: M LDO 00:02
PROVIDERS: ATTEND Obstetrics & Gynecology
DX: O36.8130 Decreased fetal movements, third trimester, not applicable or unspecified (principal); Z3A.34 34 weeks gestation of pregnancy; Z88.1 Allergy status to other antibiotic agents; Z91.030 Bee allergy status

== ENCOUNTER 2017-03-21 21:19 | Outpatient (CLI) | payer OTHER ==
[~2017-03-21] VITALS: Ht 152.4 cm; Wt 79.2 kg
[2017-03-21 21:38] VITALS: BP 104/60
[2017-03-21 22:26] VITALS: BP 97/52
== END 2017-03-21 23:00 | disposition home or self-care (01) ==
LOC: M LDO 21:19
PROVIDERS: ATTEND Obstetrics & Gynecology
DX: O26.893 Other specified pregnancy related conditions, third trimester (principal); Z3A.35 35 weeks gestation of pregnancy; N89.8 Other specified noninflammatory disorders of vagina; O47.03 False labor before 37 completed weeks of gestation, third trimester; Z88.1 Allergy status to other antibiotic agents; Z91.030 Bee allergy status

== ENCOUNTER → 2017-04-09 | Outpatient (REF) | payer OTHER | LOC: M LAB REF 17:11 | PROVIDERS: ATTEND Advanced Practice Midwife | DX: Z34.83 Encounter for supervision of other normal pregnancy, third trimester (principal) ==

== ENCOUNTER 2017-07-13 12:34 | Emergency (ER) | payer OTHER ==
[2017-07-13 13:55] LABS: INFLUENZA A AMPLIFICATION NEGATIVE (NEGATIVE); INFLUENZA B AMPLIFICATION NEGATIVE (NEGATIVE)
[2017-07-13] MEDS: ACETAMINOPHEN 325 MG TAB PO (14:06)
[2017-07-13 14:29] LABS: BASO % 0.2 % (0.0-1.0); EOS % 0.1 % (0.0-3.0); HEMOGLOBIN 11.7 g/dl (12.0-16.0); IMMATURE GRANULOCYTE % 0.5 % (0-3.0); LYMPH # 1.1 10^3/uL (1.5-6.5); LYMPH % 7.5 % (24.0-44.0); MEAN CORPUSCULAR HEMOGLOBIN 24.1 pg (27.0-33.0); MEAN CORPUSCULAR HGB CONC 32.5 g/dl (32.0-36.5); MEAN CORPUSCULAR VOLUME 74.1 fl (80.0-96.0); MONO % 6.3 % (0.0-5.0); NEUTROPHILS % 85.4 % (36.0-66.0); RED BLOOD COUNT 4.86 10^6/uL (4.00-5.40); RED CELL DISTRIBUTION WIDTH 13.7 % (11.5-14.5); WHITE BLOOD COUNT 15.2 10^3/uL (4.0-10.0)
[2017-07-13 15:01] LABS: POS COUNT POS FLAG
[2017-07-13 15:04] LABS: IMMATURE PLATELET FRACTION % 13.7 % (0.0-9.6); PLATELET COUNT, AUTOMATED 17 10^3/uL (150-450)
[2017-07-13 15:28] LABS: PLTBLUE- EDTA FREE CALC 17 K/mm3 (172-450)
[2017-07-13 15:55] LABS: PLTBLUE- EDTA FREE MACHINE 15 10^3/uL (172-450)
[2017-07-13 16:24] LABS: APPEARANCE, URINE CLEAR (CLEAR); BACTERIA, URINE AUTO 1+ (NEGATIVE); BILIRUBIN, URINE AUTO NEGATIVE (NEGATIVE); BLOOD, URINE BLOOD NEGATIVE (NEGATIVE); COLOR, URINE YELLOW (YELLOW); GLUCOSE, URINE (UA) AUTO NEGATIVE (NEGATIVE); KETONE, URINE AUTO TRACE mg/dL (NEGATIVE); LEUKOCYTE ESTERASE, URINE AUTO NEGATIVE (NEGATIVE); MUCUS, URINE SMALL (NEGATIVE); NITRITE, URINE AUTO NEGATIVE (NEGATIVE); PROTEIN, URINE AUTO NEGATIVE (NEGATIVE); RBC, URINE AUTO 1 /HPF (0-3); SPECIFIC GRAVITY URINE AUTO 1.011 (1.002-1.035); SQUAMOUS EPITHELIAL CELL UR AU 0 /HPF (0-6); UROBILINOGEN, URINE AUTO 0.2 mg/dL (0.0-2.0); WBC, URINE AUTO 0 /HPF (0-3)
[2017-07-13] MEDS ORDERED: ISOVUE-370 76% 100ML VIAL (Q9967) As Ordered (16:34)
[2017-07-13] MEDS: AUGMENTIN 875 MG TAB PO (17:30)
== END 2017-07-13 17:47 | disposition home or self-care (01) ==
LOC: M ED 12:34
DX: J06.9 Acute upper respiratory infection, unspecified (principal); Q07.00 Arnold-Chiari syndrome without spina bifida or hydrocephalus; G43.909 Migraine, unspecified, not intractable, without status migrainosus; R42 Dizziness and giddiness; G91.9 Hydrocephalus, unspecified; R07.9 Chest pain, unspecified; I95.9 Hypotension, unspecified; J45.909 Unspecified asthma, uncomplicated; Z87.01 Personal history of pneumonia (recurrent); J30.2 Other seasonal allergic rhinitis; K21.9 Gastro-esophageal reflux disease without esophagitis; Z87.440 Personal history of urinary (tract) infections; Z86.32 Personal history of gestational diabetes; Z86.2 Personal history of diseases of the blood and blood-forming organs and certain disorders involving the immune mechanism; F32.9 Major depressive disorder, single episode, unspecified; Z91.030 Bee allergy status; Z88.1 Allergy status to other antibiotic agents
CPT/HCPCS: Q9967

== ENCOUNTER 2017-12-17 19:34 | Emergency (ER) | payer OTHER ==
[2017-12-17] MEDS: NS 1,000 ML IV (22:54)
[2017-12-17 22:55] LABS: CONTROL LINE HCG INT CTR LINE PRESENT; HCG, SERUM QUALITATIVE NEGATIVE (NEGATIVE)
[2017-12-17 22:57] LABS: INR 1.02; PROTHROMBIN TIME 13.5 SECONDS (12.1-14.4)
[2017-12-17 22:58] LABS: PARTIAL THROMBOPLASTIN TIME 26.8 SECONDS (25.4-37.6)
[2017-12-17 22:59] LABS: ANION GAP 7 MEQ/L (8-16); BLOOD UREA NITROGEN 15 MG/DL (7-18); CALCIUM LEVEL 9.1 MG/DL (8.5-10.1); CARBON DIOXIDE LEVEL 29 MEQ/L (21-32); CHLORIDE LEVEL 106 MEQ/L (98-107); CREATININE FOR GFR 0.74 MG/DL (0.55-1.30); GLOMERULAR FILTRATION RATE > 60.0 (>60); GLUCOSE, FASTING 73 MG/DL (70-100); POTASSIUM SERUM 3.8 MEQ/L (3.5-5.1); SODIUM LEVEL 142 MEQ/L (136-145)
[2017-12-17 23:25] LABS: HEMATOCRIT 44.8 % (36.0-47.0); HEMOGLOBIN 14.6 g/dl (12.0-15.5); MEAN CORPUSCULAR HEMOGLOBIN 26.5 pg (27.0-33.0); MEAN CORPUSCULAR HGB CONC 32.6 g/dl (32.0-36.5); MEAN CORPUSCULAR VOLUME 81.3 fl (80.0-96.0); RED BLOOD COUNT 5.51 10^6/uL (4.00-5.40); RED CELL DISTRIBUTION WIDTH 13.6 % (11.5-14.5); WHITE BLOOD COUNT 8.2 10^3/uL (4.0-10.0)
[2017-12-17 23:40] LABS: IMMATURE PLATELET FRACTION % 15.1 % (0.0-9.6); PLATELET COUNT, AUTOMATED 30 10^3/uL (150-450)
[2017-12-18] MEDS: NORCO 5/325MG TABLET (BULK FOR ED) PO (00:24)
== END 2017-12-18 00:30 | disposition home or self-care (01) ==
LOC: M ED 12-18 00:30
DX: D69.3 Immune thrombocytopenic purpura (principal); T83.32XA Displacement of intrauterine contraceptive device, initial encounter; X58.XXXA Exposure to other specified factors, initial encounter; Y92.89 Other specified places as the place of occurrence of the external cause; J45.909 Unspecified asthma, uncomplicated; E11.9 Type 2 diabetes mellitus without complications; G93.5 Compression of brain; K21.9 Gastro-esophageal reflux disease without esophagitis; F31.9 Bipolar disorder, unspecified; G91.9 Hydrocephalus, unspecified; Z79.899 Other long term (current) drug therapy; Z88.1 Allergy status to other antibiotic agents; Z91.030 Bee allergy status
CPT/HCPCS: 76856

== ENCOUNTER → 2017-12-26 | Day surgery (SDC) | payer OTHER ==
[~2017-12-26] MED LIST changes: -/ADVA50050 INH; -8 HO650T2 PO; -ACET1TAB17 PO; -ALBU17IN INH; -ALBU17IN2 IN; -CLAR5CHW OR; -DICL10TA PO; -DIPH50VL IM; -FLINCHW9 PO; -GLYB25TA PO; -IMMUN40IV IV; +LIDOCAINE 1% MDV 20ML VIAL SQ; +LR 1,000 ML IV; -ONDA8TAB7 PO; -OXYC1TAB23 PO; -PRED10TA2 PO; -PRED20TA PO; -PRED20TAB PO; -REGL10TA6 PO; -SING10TA31 OR; -VITAPRTA PO; -ZOFR4TAB3 PO; -ZOLO25TA PO; -[UNRECOGNIZED DRUG - CODE] IV; -[UNRECOGNIZED DRUG - CODE] IV; -[UNRECOGNIZED DRUG - CODE] IV
[2017-12-26 09:37] LABS: HEMOGLOBIN 13.4 g/dl (12.0-15.5); MEAN CORPUSCULAR HEMOGLOBIN 26.9 pg (27.0-33.0); MEAN CORPUSCULAR HGB CONC 33.5 g/dl (32.0-36.5); MEAN CORPUSCULAR VOLUME 80.3 fl (80.0-96.0); RED BLOOD COUNT 4.98 10^6/uL (4.00-5.40); RED CELL DISTRIBUTION WIDTH 13.5 % (11.5-14.5); WHITE BLOOD COUNT 11.9 10^3/uL (4.0-10.0)
[2017-12-26 09:52] LABS: PLATELET COUNT, AUTOMATED 40 10^3/uL (150-450)
[2017-12-26 09:55] LABS: IMMATURE PLATELET FRACTION % 14.9 % (0.0-9.6); PLATELET F 42
== END | disposition home or self-care (01) ==
LOC: M SDC 09:06
DX: T83.39XA Other mechanical complication of intrauterine contraceptive device, initial encounter (principal)
CPT/HCPCS: 58301

== ENCOUNTER 2018-01-03 12:55 | Inpatient (IN) | payer OTHER ==
[~2018-01-03 12:55] MED LIST changes: -LIDOCAINE 1% MDV 20ML VIAL SQ; -LR 1,000 ML IV; +predniSONE 10 MG TAB PO
[2018-01-03] MEDS ORDERED: KETOROLAC 30 MG/ML VIAL (J1885) IV (15:00)
[2018-01-03 15:13] LABS: KETONE, URINE AUTO RFX 1+ mg/dL (NEGATIVE); LEUKOCYTE ESTERASE UR AUTO RFX NEGATIVE (NEGATIVE); MUCUS, URINE RFX SMALL (NEGATIVE); NITRITE, URINE AUTO RFX NEGATIVE (NEGATIVE); RBC, URINE AUTO RFX 6 /HPF (0-3); SPECIFIC GRAVITY UR AUTO RFX 1.027 (1.002-1.035); SQUAM EPITHELIAL CELL UR AURFX 6 /HPF (0-6); WBC, URINE AUTO RFX 1 /HPF (0-3)
[2018-01-03] MEDS: MORPHINE 4 MG/ML 1ML VIAL/SYRINGE (J2270) IV (15:17)
[2018-01-03] MEDS: NS 1,000 ML IV ×3 (15:17→19:15)
[2018-01-03] MEDS: ONDANSETRON 4MG/2ML VIAL (J2405) IV (15:17)
[2018-01-03 15:20] LABS: BASO % 0.5 % (0.0-1.0); EOS # 0.1 10^3/uL (0.0-0.50); EOS % 1.5 % (0.0-3.0); HEMATOCRIT 38.7 % (36.0-47.0); HEMOGLOBIN 12.8 g/dl (12.0-15.5); IMMATURE GRANULOCYTE % 0.2 % (0-3.0); LYMPH # 1.9 10^3/uL (1.5-6.5); LYMPH % 23.5 % (24.0-44.0); MEAN CORPUSCULAR HEMOGLOBIN 26.9 pg (27.0-33.0); MEAN CORPUSCULAR HGB CONC 33.1 g/dl (32.0-36.5); MEAN CORPUSCULAR VOLUME 81.3 fl (80.0-96.0); MONO # 0.7 10^3/uL (0.0-0.8); MONO % 8.5 % (0.0-5.0); NEUTROPHILS # 5.4 10^3/uL (1.8-7.7); NEUTROPHILS % 65.8 % (36.0-66.0); RED BLOOD COUNT 4.76 10^6/uL (4.00-5.40); RED CELL DISTRIBUTION WIDTH 13.3 % (11.5-14.5); WHITE BLOOD COUNT 8.2 10^3/uL (4.0-10.0)
[2018-01-03 15:37] LABS: ALBUMIN 3.5 GM/DL (3.2-5.2); ALBUMIN/GLOBULIN RATIO 0.88 (1.00-1.93); ALKALINE PHOSPHATASE 89 U/L (45-117); ALT/SGPT 25 U/L (12-78); ANION GAP 7 MEQ/L (8-16); AST/SGOT 18 U/L (7-37); BILIRUBIN,TOTAL 0.6 MG/DL (0.2-1.0); BLOOD UREA NITROGEN 8 MG/DL (7-18); CALCIUM LEVEL 8.2 MG/DL (8.5-10.1); CARBON DIOXIDE LEVEL 26 MEQ/L (21-32); CHLORIDE LEVEL 109 MEQ/L (98-107); CREATININE FOR GFR 0.61 MG/DL (0.55-1.30); GLOMERULAR FILTRATION RATE > 60.0 (>60); GLUCOSE, FASTING 79 MG/DL (70-100); LIPASE 92 U/L (73-393); POS COUNT POS FLAG; POSITIVE MORPH POS FLAG; POTASSIUM SERUM 3.6 MEQ/L (3.5-5.1); SODIUM LEVEL 142 MEQ/L (136-145); SUSPECT SAMPLE POS FLAG; TOTAL PROTEIN 7.5 GM/DL (6.4-8.2)
[2018-01-03 15:38] LABS: PLATELET COUNT, AUTOMATED 6 10^3/uL (150-450)
[2018-01-03] MEDS ORDERED: ISOVUE-370 76% 100ML VIAL (Q9967) As Ordered (15:39)
[2018-01-03] MEDS: METOCLOPRAMIDE INJ 10MG/2ML VIAL (J2765) IV (16:14)
[2018-01-03 17:26] LABS: ANTIBODY IDENTIFICATION 1 1
[2018-01-03] MEDS ORDERED: IPRATROPIUM 0.5MG/ALBUTEROL 2.5MG INH SOL UD 3ML (DUONEB)(J7620) NEB (18:45)
[2018-01-03 19:06] LABS: SLIDE REVIEW Report; SOURCE PERIPHERAL SMEAR
[2018-01-03 19:07] LABS: REASON FOR REVIEW PLATELET MORPHOLOGY
[2018-01-03 19:08] LABS: LDH LACTATE DEHYDROGENASE 291 U/L (84-246)
[2018-01-03] MEDS ORDERED: predniSONE 20 MG TAB PO (19:21)
[2018-01-03] MEDS: diphenhydrAMINE INJ 50MG/ML VIAL (J1200) IV (19:26)
[2018-01-03] MEDS: ACETAMINOPHEN TAB 650MG DOSE (2X325MG) PO (19:26)
[2018-01-03] MEDS: POTASSIUM CHLORIDE 10 MEQ SR TABLET PO (19:28)
[2018-01-03] MEDS: KCL 20MEQ IN 0.45NS 1000ML 1,000 ML IV (19:29)
[2018-01-03] MEDS: predniSONE 20 MG TAB PO (19:31)
[2018-01-03] MEDS: IPRATROPIUM 0.5MG/ALBUTEROL 2.5MG INH SOL UD 3ML (DUONEB)(J7620) NEB (19:31)
[2018-01-03] MEDS: FAMOTIDINE INJ 20MG/2ML VIAL (S0028) IVP (20:10)
[2018-01-03] MEDS: IMMUNE GLOBULIN 10% 20GM 200ML 80 GM in APPROPRIATE DILUENT 1 EA IV (20:13)
[2018-01-03 20:21] LABS: LACTIC ACID SEPSIS PROTOCOL 1.8 MMOL/L (0.4-2.0)
[2018-01-03 23:07] LABS: HEMATOCRIT 33.7 % (36.0-47.0); HEMOGLOBIN 11.3 g/dl (12.0-15.5); MEAN CORPUSCULAR HEMOGLOBIN 27.2 pg (27.0-33.0); MEAN CORPUSCULAR HGB CONC 33.5 g/dl (32.0-36.5); RED BLOOD COUNT 4.16 10^6/uL (4.00-5.40); RED CELL DISTRIBUTION WIDTH 13.5 % (11.5-14.5); WHITE BLOOD COUNT 3.8 10^3/uL (4.0-10.0)
[2018-01-03 23:08] LABS: PLATELET COUNT, AUTOMATED 6 10^3/uL (150-450); POS COUNT POS FLAG
[2018-01-04] MEDS: IPRATROPIUM 0.5MG/ALBUTEROL 2.5MG INH SOL UD 3ML (DUONEB)(J7620) NEB ×4 (02:00→19:50)
[2018-01-04] MEDS: KCL 20MEQ IN 0.45NS 1000ML 1,000 ML IV (03:51)
[2018-01-04 05:13] LABS: HEMATOCRIT 33.3 % (36.0-47.0); MEAN CORPUSCULAR HEMOGLOBIN 27.7 pg (27.0-33.0); MEAN CORPUSCULAR VOLUME 83.9 fl (80.0-96.0); RED BLOOD COUNT 3.97 10^6/uL (4.00-5.40); RED CELL DISTRIBUTION WIDTH 13.2 % (11.5-14.5); WHITE BLOOD COUNT 4.5 10^3/uL (4.0-10.0)
[2018-01-04 05:22] LABS: PLATELET COUNT, AUTOMATED 10 10^3/uL (150-450); POS COUNT POS FLAG
[2018-01-04 05:32] LABS: ALKALINE PHOSPHATASE 74 U/L (45-117); ALT/SGPT 25 U/L (12-78); ANION GAP 7 MEQ/L (8-16); AST/SGOT 17 U/L (7-37); BILIRUBIN,TOTAL 0.6 MG/DL (0.2-1.0); BLOOD UREA NITROGEN 8 MG/DL (7-18); CALCIUM LEVEL 7.8 MG/DL (8.5-10.1); CARBON DIOXIDE LEVEL 22 MEQ/L (21-32); CHLORIDE LEVEL 112 MEQ/L (98-107); CREATININE FOR GFR 0.57 MG/DL (0.55-1.30); GLOMERULAR FILTRATION RATE > 60.0 (>60); GLUCOSE, FASTING 140 MG/DL (70-100); MAGNESIUM LEVEL 2.1 MG/DL (1.8-2.4); POTASSIUM SERUM 4.1 MEQ/L (3.5-5.1); SODIUM LEVEL 141 MEQ/L (136-145)
[2018-01-04 05:47] LABS: ALBUMIN/GLOBULIN RATIO 0.47 (1.00-1.93)
[2018-01-04 05:49] LABS: TOTAL PROTEIN 9.4 GM/DL (6.4-8.2)
[2018-01-04] MEDS: MORPHINE 4 MG/ML 1ML VIAL/SYRINGE (J2270) IV (08:38)
[2018-01-04] MEDS: predniSONE 20 MG TAB PO (08:38)
[2018-01-04] MEDS: PANTOPRAZOLE 40MG TAB (PROTONIX) PO (08:38)
[2018-01-04 11:04] LABS: HEMATOCRIT 36.2 % (36.0-47.0); HEMOGLOBIN 12.2 g/dl (12.0-15.5); MEAN CORPUSCULAR HEMOGLOBIN 27.2 pg (27.0-33.0); MEAN CORPUSCULAR HGB CONC 33.7 g/dl (32.0-36.5); MEAN CORPUSCULAR VOLUME 80.6 fl (80.0-96.0); RED BLOOD COUNT 4.49 10^6/uL (4.00-5.40); RED CELL DISTRIBUTION WIDTH 13.1 % (11.5-14.5); WHITE BLOOD COUNT 5.6 10^3/uL (4.0-10.0)
[2018-01-04 11:07] LABS: POS COUNT POS FLAG
[2018-01-04 11:08] LABS: PLATELET COUNT, AUTOMATED 20 10^3/uL (150-450)
[2018-01-04 11:11] LABS: IMMATURE PLATELET FRACTION % 3.4 % (0.0-9.6); PLATELET F 21.1
[2018-01-04 17:23] LABS: HEMATOCRIT 35.5 % (36.0-47.0); HEMOGLOBIN 11.9 g/dl (12.0-15.5); MEAN CORPUSCULAR HEMOGLOBIN 26.9 pg (27.0-33.0); MEAN CORPUSCULAR HGB CONC 33.5 g/dl (32.0-36.5); MEAN CORPUSCULAR VOLUME 80.3 fl (80.0-96.0); RED BLOOD COUNT 4.42 10^6/uL (4.00-5.40); RED CELL DISTRIBUTION WIDTH 13.2 % (11.5-14.5); WHITE BLOOD COUNT 7.5 10^3/uL (4.0-10.0)
[2018-01-04 17:28] LABS: PLATELET COUNT, AUTOMATED 34 10^3/uL (150-450)
[2018-01-04] MEDS: diphenhydrAMINE INJ 50MG/ML VIAL (J1200) IV (18:51)
[2018-01-04] MEDS: ACETAMINOPHEN TAB 650MG DOSE (2X325MG) PO (18:51)
[2018-01-04] MEDS: FAMOTIDINE INJ 20MG/2ML VIAL (S0028) IVP (18:51)
[2018-01-04] MEDS: IMMUNE GLOBULIN 10% 20GM 200ML 80 GM in APPROPRIATE DILUENT 1 EA IV (21:06)
[2018-01-04] MEDS: traMADol 50 MG TAB PO (22:20)
[2018-01-05] MEDS: IPRATROPIUM 0.5MG/ALBUTEROL 2.5MG INH SOL UD 3ML (DUONEB)(J7620) NEB ×2 (01:06→07:21)
[2018-01-05] MEDS: ONDANSETRON 4MG/2ML VIAL (J2405) IV ×2 (01:40→08:29)
[2018-01-05 06:24] LABS: HEMATOCRIT 28.4 % (36.0-47.0); MEAN CORPUSCULAR HEMOGLOBIN 28.9 pg (27.0-33.0); MEAN CORPUSCULAR HGB CONC 34.5 g/dl (32.0-36.5); MEAN CORPUSCULAR VOLUME 83.8 fl (80.0-96.0); RED BLOOD COUNT 3.39 10^6/uL (4.00-5.40); RED CELL DISTRIBUTION WIDTH 13.6 % (11.5-14.5); WHITE BLOOD COUNT 6.6 10^3/uL (4.0-10.0)
[2018-01-05 06:25] LABS: PLATELET COUNT, AUTOMATED 61 10^3/uL (150-450)
[2018-01-05 06:26] LABS: HEMOGLOBIN 9.8 g/dl (12.0-15.5)
[2018-01-05 06:46] LABS: ALBUMIN 2.6 GM/DL (3.2-5.2); ALBUMIN/GLOBULIN RATIO 0.38 (1.00-1.93); ALKALINE PHOSPHATASE 58 U/L (45-117); ALT/SGPT 20 U/L (12-78); ANION GAP 5 MEQ/L (8-16); AST/SGOT 13 U/L (7-37); BILIRUBIN,TOTAL 0.5 MG/DL (0.2-1.0); BLOOD UREA NITROGEN 12 MG/DL (7-18); CALCIUM LEVEL 7.6 MG/DL (8.5-10.1); CARBON DIOXIDE LEVEL 27 MEQ/L (21-32); CHLORIDE LEVEL 111 MEQ/L (98-107); CREATININE FOR GFR 0.64 MG/DL (0.55-1.30); GLOMERULAR FILTRATION RATE > 60.0 (>60); GLUCOSE, FASTING 118 MG/DL (70-100); MAGNESIUM LEVEL 2.1 MG/DL (1.8-2.4); POTASSIUM SERUM 3.6 MEQ/L (3.5-5.1); SODIUM LEVEL 143 MEQ/L (136-145); TOTAL PROTEIN 9.5 GM/DL (6.4-8.2)
[2018-01-05] MEDS: predniSONE 20 MG TAB PO (08:28)
[2018-01-05] MEDS: PANTOPRAZOLE 40MG TAB (PROTONIX) PO (08:28)
[2018-01-05] MEDS: traMADol 50 MG TAB PO (08:29)
[2018-01-06 08:44] LABS: HAPTOGLOBIN 168 mg/dL (34-200)
== END 2018-01-05 11:12 | disposition home or self-care (01) | DRG 661 ==
LOC: M ED 12:55 → M ED INP 18:39 → M PCU 20:56
PROC: 30233R1 Transfusion of Nonautologous Platelets into Peripheral Vein, Percutaneous Approach (ICD-10-PCS; principal; 2018-01-03)
DX: D69.3 Immune thrombocytopenic purpura (principal); I95.9 Hypotension, unspecified; K52.9 Noninfective gastroenteritis and colitis, unspecified; Q07.00 Arnold-Chiari syndrome without spina bifida or hydrocephalus; E66.9 Obesity, unspecified; J45.909 Unspecified asthma, uncomplicated; Z88.1 Allergy status to other antibiotic agents; Z91.030 Bee allergy status; Z79.52 Long term (current) use of systemic steroids; Z87.891 Personal history of nicotine dependence

== ENCOUNTER → 2018-01-22 | Outpatient (REF) | payer OTHER ==
[2018-01-22 14:40] LABS: TOTAL PROTEIN 8.2 GM/DL (6.4-8.2)
[2018-01-27 11:11] LABS: ALBUMIN 4.16 GM/DL (3.29-5.55); ALBUMIN % 50.7 % (55.8-66.1); ALPHA-1-GLOBULIN % 4.2 % (2.9-4.9); ALPHA-1-GLOBULINS 0.34 GM/DL (0.17-0.41); ALPHA-2-GLOBULINS 0.72 GM/DL (0.42-0.99); ALPHA-2-GLOBULINS % 8.8 % (7.1-11.8); BETA-1-GLOBULINS 0.48 GM/DL (0.28-0.60); BETA-1-GLOBULINS % 5.8 % (4.7-7.2); BETA-2-GLOBULINS 0.38 GM/DL (0.19-0.55); BETA-2-GLOBULINS % 4.6 % (3.2-6.5); GAMMA GLOBULIN % 25.9 % (11.1-18.8); GAMMA GLOBULINS 2.12 GM/DL (0.65-1.58)
== END ==
LOC: M LAB REF 13:30
DX: D69.3 Immune thrombocytopenic purpura (principal)
CPT/HCPCS: 84165

== ENCOUNTER 2018-03-01 14:17 | Emergency (ER) | payer OTHER ==
[2018-03-01 14:44] LABS: BASO # 0.1 10^3/uL (0.0-0.2); BASO % 0.8 % (0.0-1.0); EOS # 0.1 10^3/uL (0.0-0.50); HEMATOCRIT 37.2 % (36.0-47.0); HEMOGLOBIN 12.2 g/dl (12.0-15.5); IMMATURE GRANULOCYTE % 0.4 % (0-3.0); LYMPH # 3.1 10^3/uL (1.5-6.5); LYMPH % 34.1 % (24.0-44.0); MEAN CORPUSCULAR HEMOGLOBIN 27.5 pg (27.0-33.0); MEAN CORPUSCULAR HGB CONC 32.8 g/dl (32.0-36.5); MEAN CORPUSCULAR VOLUME 83.8 fl (80.0-96.0); MONO # 0.7 10^3/uL (0.0-0.8); MONO % 7.3 % (0.0-5.0); NEUTROPHILS # 5.1 10^3/uL (1.8-7.7); NEUTROPHILS % 56.4 % (36.0-66.0); PLATELET COUNT, AUTOMATED 105 10^3/uL (150-450); RED BLOOD COUNT 4.44 10^6/uL (4.00-5.40); RED CELL DISTRIBUTION WIDTH 13.6 % (11.5-14.5)
[2018-03-01 15:23] LABS: ANION GAP 8 MEQ/L (8-16); BLOOD UREA NITROGEN 15 MG/DL (7-18); CALCIUM LEVEL 8.3 MG/DL (8.5-10.1); CARBON DIOXIDE LEVEL 25 MEQ/L (21-32); CHLORIDE LEVEL 110 MEQ/L (98-107); CREATININE FOR GFR 0.54 MG/DL (0.55-1.30); GLOMERULAR FILTRATION RATE > 60.0 (>60); GLUCOSE, FASTING 82 MG/DL (70-100); HCG, SERUM QUANTITATIVE 3762 MIU/ML; SODIUM LEVEL 143 MEQ/L (136-145)
[2018-03-01] MEDS: ACETAMINOPHEN TAB 650MG DOSE (2X325MG) PO (15:37)
== END 2018-03-01 15:56 | disposition home or self-care (01) ==
LOC: M ED 14:17
DX: O99.119 Other diseases of the blood and blood-forming organs and certain disorders involving the immune mechanism complicating pregnancy, unspecified trimester (principal); D69.3 Immune thrombocytopenic purpura; O99.619 Diseases of the digestive system complicating pregnancy, unspecified trimester; K21.9 Gastro-esophageal reflux disease without esophagitis; O99.519 Diseases of the respiratory system complicating pregnancy, unspecified trimester; J45.909 Unspecified asthma, uncomplicated; Q07.00 Arnold-Chiari syndrome without spina bifida or hydrocephalus; Z87.440 Personal history of urinary (tract) infections; Z88.1 Allergy status to other antibiotic agents; Z91.030 Bee allergy status; Z3A.00 Weeks of gestation of pregnancy not specified
CPT/HCPCS: 84702

== ENCOUNTER → 2018-03-11 | Outpatient (CLI) | payer OTHER ==
[2018-03-11 11:26] LABS: HBsAg Prenatal NEGATIVE (NEGATIVE); HIV 1&2 SCREEN CENTAUR NEGATIVE (NEGATIVE); RUBELLA IgG QUALITATIVE IMMUNE (IMMUNE)
[2018-03-11 11:26] LABS: HEPATITIS C VIRUS ABY INDEX < 0.0 INDEX (<0.8)
[2018-03-11 11:30] LABS: CHLAMYDIA DNA AMPLIFICATION NEGATIVE (NEGATIVE); GC DNA AMPLIFICATION NEGATIVE (NEGATIVE)
[2018-03-11 15:48] LABS: BASO % 0.1 % (0.0-1.0); HEMATOCRIT 39.9 % (36.0-47.0); HEMOGLOBIN 13.1 g/dl (12.0-15.5); IMMATURE GRANULOCYTE % 0.5 % (0-3.0); LYMPH # 0.8 10^3/uL (1.5-6.5); LYMPH % 7.8 % (24.0-44.0); MEAN CORPUSCULAR HEMOGLOBIN 27.5 pg (27.0-33.0); MEAN CORPUSCULAR HGB CONC 32.8 g/dl (32.0-36.5); MEAN CORPUSCULAR VOLUME 83.8 fl (80.0-96.0); MONO # 0.1 10^3/uL (0.0-0.8); MONO % 0.9 % (0.0-5.0); NEUTROPHILS # 8.7 10^3/uL (1.8-7.7); NEUTROPHILS % 90.7 % (36.0-66.0); RED BLOOD COUNT 4.76 10^6/uL (4.00-5.40); RED CELL DISTRIBUTION WIDTH 13.2 % (11.5-14.5); WHITE BLOOD COUNT 9.6 10^3/uL (4.0-10.0)
[2018-03-11 15:51] LABS: PLATELET COUNT, AUTOMATED 47 10^3/uL (150-450)
[2018-03-11 15:52] LABS: IMMATURE PLATELET FRACTION % 6.8 % (0.0-9.6)
== END ==
LOC: M LAB 09:27
DX: Z34.81 Encounter for supervision of other normal pregnancy, first trimester (principal); Z3A.01 Less than 8 weeks gestation of pregnancy
CPT/HCPCS: 86762

== ENCOUNTER → 2018-05-12 | Outpatient (CLI) | payer OTHER ==
[2018-05-12 15:19] LABS: HEMATOCRIT 36.5 % (36.0-47.0); HEMOGLOBIN 12.5 g/dl (12.0-15.5); MEAN CORPUSCULAR VOLUME 82.2 fl (80.0-96.0); RED BLOOD COUNT 4.44 10^6/uL (4.00-5.40); WHITE BLOOD COUNT 6.8 10^3/uL (4.0-10.0)
[2018-05-12 15:20] LABS: BASO % 0.4 % (0.0-1.0); EOS # 0.1 10^3/uL (0.0-0.50); IMMATURE GRANULOCYTE % 0.3 % (0-3.0); LYMPH # 1.8 10^3/uL (1.5-6.5); LYMPH % 26.1 % (24.0-44.0); MEAN CORPUSCULAR HEMOGLOBIN 28.2 pg (27.0-33.0); MEAN CORPUSCULAR HGB CONC 34.2 g/dl (32.0-36.5); MONO # 0.4 10^3/uL (0.0-0.8); MONO % 5.3 % (0.0-5.0); NEUTROPHILS # 4.5 10^3/uL (1.8-7.7); NEUTROPHILS % 66.9 % (36.0-66.0); PLATELET COUNT, AUTOMATED 40 10^3/uL (150-450); RED CELL DISTRIBUTION WIDTH 15.7 % (11.5-14.5)
== END ==
LOC: M LAB 14:13
DX: D69.3 Immune thrombocytopenic purpura (principal)
CPT/HCPCS: 85049

== ENCOUNTER 2018-05-29 13:07 | Emergency (ER) | payer OTHER ==
[~2018-05-29] VITALS: Ht 152.4 cm; Wt 82.7 kg
[~2018-05-29 13:07] MED LIST changes: +/ADVA50050 INH; +8 HO650T2 PO; +ACET1TAB55 PO; +ALBU17IN INH; +ALBU17IN2 IN; +AUGM875T28 PO; +CEPA5.4L2 MT; +CLAR5CHW OR; +DICL10TA PO; +DIPH50VL IM; +FLINCHW9 PO; +GLYB25TA PO; +IMMUN40IV IV; +MUCI600T37 PO; +ONDA8TAB7 PO; +OXYC1TAB23 PO; +PANT40TA3 PO; +PRED10TA2 PO; +PRED20TA PO; +PRED20TAB PO; +PRENTAB45 PO; +PREVTAB2 PO; +REGL10TA6 PO; +SING10TA31 OR; +VENTAER INH; +VITAPRTA PO; +ZOFR4TAB14 PO; +ZOLO25TA PO; +[UNRECOGNIZED DRUG - CODE] IV; +[UNRECOGNIZED DRUG - CODE] IV; +[UNRECOGNIZED DRUG - CODE] IV; -predniSONE 10 MG TAB PO
[2018-05-29 13:51] LABS: BASO % 0.4 % (0.0-1.0); EOS # 0.2 10^3/uL (0.0-0.50); EOS % 1.9 % (0.0-3.0); HEMATOCRIT 36.4 % (36.0-47.0); HEMOGLOBIN 12.5 g/dl (12.0-15.5); LYMPH # 1.7 10^3/uL (1.5-6.5); LYMPH % 21.4 % (24.0-44.0); MEAN CORPUSCULAR HGB CONC 34.3 g/dl (32.0-36.5); MEAN CORPUSCULAR VOLUME 84.5 fl (80.0-96.0); MONO # 0.4 10^3/uL (0.0-0.8); MONO % 4.8 % (0.0-5.0); NEUTROPHILS # 5.7 10^3/uL (1.8-7.7); NEUTROPHILS % 71.2 % (36.0-66.0); RED BLOOD COUNT 4.31 10^6/uL (4.00-5.40); WHITE BLOOD COUNT 7.9 10^3/uL (4.0-10.0)
[2018-05-29 13:54] LABS: PLATELET COUNT, AUTOMATED 39 10^3/uL (150-450)
[2018-05-29 14:01] LABS: INR 1.02; PROTHROMBIN TIME 13.5 SECONDS (12.1-14.4)
[2018-05-29 14:02] LABS: PARTIAL THROMBOPLASTIN TIME 25.7 SECONDS (25.4-37.6)
[2018-05-29 14:17] LABS: BLOOD UREA NITROGEN 8 MG/DL (7-18); CALCIUM LEVEL 8.2 MG/DL (8.5-10.1); CARBON DIOXIDE LEVEL 22 MEQ/L (21-32); CHLORIDE LEVEL 110 MEQ/L (98-107); CREATININE FOR GFR 0.44 MG/DL (0.55-1.30); GLOMERULAR FILTRATION RATE > 60.0 (>60); GLUCOSE, FASTING 77 MG/DL (70-100); POTASSIUM SERUM 3.7 MEQ/L (3.5-5.1); SODIUM LEVEL 140 MEQ/L (136-145)
[2018-05-29 17:20] VITALS: BP 112/61
== END 2018-05-29 17:22 | disposition home or self-care (01) ==
LOC: M ED 13:07
DX: D69.3 Immune thrombocytopenic purpura (principal); Z3A.18 18 weeks gestation of pregnancy; Z88.1 Allergy status to other antibiotic agents; Z91.030 Bee allergy status

== ENCOUNTER → 2018-06-08 | Outpatient (CLI) | payer OTHER ==
[~2018-06-08] MED LIST changes: +PRED20TA; +RANI150T
--- NOTE | 2018-06-09 03:51 | REP ---
Clinical: Anatomical evaluation. Comparison: None . Findings: Examination demonstrates a single live intrauterine in [place] breech presentation. motion is identified by technologist. Placenta is noted anterior and grade grade 1 without evidence for placenta previa or abruption. Amniotic fluid volume is normal. Cervix measures 3.2 cm in length and appears closed. No evidence for nuchal cord. Gestational age by LMP 19 weeks 5 days with JARED 10/28/2018 . Gestational age by current measurements 19 weeks 4 days with JARED 10/29/2018 . FHR equals 150 beats per minute. BPD 4.6 cm 20 weeks 0 days HC 17.3 cm 19 weeks 6 days AC 14.1 cm 19 weeks 3 day FL 3.2 cm 19 weeks 6 days HL 3.3 cm 21 weeks 0 days HC/AC ratio 1.22 Estimated weight 305 grams ( 45th percentile). Anatomical assessment demonstrates normal structures including cranium, choroid plexus, cavum, cerebellum/posterior fossa, facial features, lungs, diaphragm, stomach, cord insertion/three-vessel cord, kidneys/bladder, and extremities. Impression: 1. Single live intrauterine in breech presentation demonstrating appropriate interval growth. 2. Limited evaluation of the heart/ventricular outflow tracts and spine. Remainder of the anatomical assessment is complete and normal. Electronically Signed by Chandan Arias MD 06/09/2018 03:42 A
== END ==
LOC: M SMT 09:15
PROVIDERS: ATTEND Specialist
DX: Z34.82 Encounter for supervision of other normal pregnancy, second trimester (principal); Z3A.19 19 weeks gestation of pregnancy

== ENCOUNTER → 2018-06-10 | Outpatient (CLI) | payer OTHER ==
[2018-06-10 18:06] LABS: HEMATOCRIT 37.7 % (36.0-47.0); HEMOGLOBIN 12.8 g/dl (12.0-15.5); MEAN CORPUSCULAR HEMOGLOBIN 29.2 pg (27.0-33.0); MEAN CORPUSCULAR VOLUME 85.9 fl (80.0-96.0); RED BLOOD COUNT 4.39 10^6/uL (4.00-5.40); WHITE BLOOD COUNT 11.4 10^3/uL (4.0-10.0)
== END ==
LOC: M SMT 15:10
PROVIDERS: ATTEND Advanced Practice Midwife
DX: Z36.89 Encounter for other specified antenatal screening (principal); D69.3 Immune thrombocytopenic purpura; Z13.9 Encounter for screening, unspecified

== ENCOUNTER 2018-06-13 17:08 | Emergency (ER) | payer OTHER ==
[~2018-06-13] VITALS: Ht 152.4 cm; Wt 82.7 kg
[~2018-06-13 17:08] MED LIST changes: -PRED20TA; -RANI150T
[2018-06-13] MEDS ORDERED: RANI150T (17:23)
[2018-06-13] MEDS ORDERED: PRED20TA (17:23)
[2018-06-13] MEDS ORDERED: diphenhydrAMINE INJ 50MG/ML VIAL (J1200) IV STA (17:26)
[2018-06-13] MEDS ORDERED: NS 1,000 ML IV ONE (17:30)
[2018-06-13] MEDS ORDERED: METOCLOPRAMIDE INJ 10MG/2ML VIAL (J2765) IV ONE (17:30)
[2018-06-13 17:57] LABS: HEMATOCRIT 36.2 % (36.0-47.0); HEMOGLOBIN 12.2 g/dl (12.0-15.5); MEAN CORPUSCULAR HEMOGLOBIN 28.9 pg (27.0-33.0); MEAN CORPUSCULAR HGB CONC 33.7 g/dl (32.0-36.5); MEAN CORPUSCULAR VOLUME 85.8 fl (80.0-96.0); RED BLOOD COUNT 4.22 10^6/uL (4.00-5.40); WHITE BLOOD COUNT 10.9 10^3/uL (4.0-10.0)
[2018-06-13 18:44] LABS: PLATELET COUNT, AUTOMATED 30 10^3/uL (150-450)
[2018-06-13 19:45] VITALS: BP 107/52
[2018-06-26] MEDS ORDERED: PRENCHW PO (11:05)
== END 2018-06-13 19:43 | disposition home or self-care (01) ==
LOC: M ED 17:08 → EDBD 17:08 → M ED 19:43
DX: O99.352 Diseases of the nervous system complicating pregnancy, second trimester (principal); R51 Headache; O99.112 Other diseases of the blood and blood-forming organs and certain disorders involving the immune mechanism complicating pregnancy, second trimester; D69.3 Immune thrombocytopenic purpura; G93.5 Compression of brain; Z3A.20 20 weeks gestation of pregnancy; Z88.1 Allergy status to other antibiotic agents; Z91.030 Bee allergy status; Z79.899 Other long term (current) drug therapy
CPT/HCPCS: 36415; 85027; 85049; 85055; 96374; 96375; 99284; J1200; J2765

== ENCOUNTER 2018-06-26 12:31 | Outpatient (CLI) | payer OTHER ==
[2018-06-26] VITALS (11 sets, daily range): BP systolic 101–127; BP diastolic 54–82
[~2018-06-26] VITALS: Ht 152.4 cm; Wt 81.4 kg
[~2018-06-26 12:31] MED LIST changes: +ACETAMINOPHEN TAB 650MG DOSE (2X325MG) PO SCH; +PRED20TA; +PRENCHW PO; +RANI150T; +diphenhydrAMINE 25 MG CAP PO SCH
[2018-06-26] MEDS ORDERED: diphenhydrAMINE INJ 50MG/ML VIAL (J1200) IV ONE (14:15)
[2018-06-26] MEDS ORDERED: ACETAMINOPHEN TAB 650MG DOSE (2X325MG) PO ONE ×2 (14:15→21:15)
[2018-06-26] MEDS ORDERED: IMMUNE GLOBULIN 10% 80 GM in APPROPRIATE DILUENT 1 EA IV ONE (15:00)
[2018-06-26] MEDS ORDERED: raNITIdine SYRUP 150 MG/10 ML UDC PO ONE (15:00)
[2018-06-26] MEDS ORDERED: ONDANSETRON 4MG/2ML VIAL (J2405) IV ONE (21:15)
== END 2018-06-26 23:35 | disposition other institution (70) ==
LOC: M OPCLI4PR 12:31 → M MSPAV 12:32 → M ED INP 21:47 → M MSPAV 23:34 → M OPCLI4PR 23:35
PROVIDERS: ATTEND Internal Medicine Medical Oncology
DX: D69.3 Immune thrombocytopenic purpura (principal); Z91.030 Bee allergy status; Z88.3 Allergy status to other anti-infective agents; Z3A.22 22 weeks gestation of pregnancy
CPT/HCPCS: 36430; 96365; 96366; 96375; J1200; J1459; P9034

== ENCOUNTER 2018-06-26 21:50 | Emergency (ER) | payer OTHER ==
[~2018-06-26 21:50] MED LIST changes: -ACETAMINOPHEN TAB 650MG DOSE (2X325MG) PO SCH; -diphenhydrAMINE 25 MG CAP PO SCH
[2018-06-26] MEDS ORDERED: NS 1,000 ML IV ONE (22:30)
[2018-06-26] MEDS ORDERED: ACETAMINOPHEN TAB 650MG DOSE (2X325MG) PO ONE (22:45)
[2018-06-26 22:52] LABS: BASO % 0.3 % (0.0-1.0); EOS # 0.1 10^3/uL (0.0-0.50); EOS % 1.2 % (0.0-3.0); HEMATOCRIT 29.5 % (36.0-47.0); HEMOGLOBIN 10.1 g/dl (12.0-15.5); LYMPH # 0.9 10^3/uL (1.5-6.5); LYMPH % 13.1 % (24.0-44.0); MEAN CORPUSCULAR HEMOGLOBIN 29.5 pg (27.0-33.0); MEAN CORPUSCULAR HGB CONC 34.2 g/dl (32.0-36.5); MEAN CORPUSCULAR VOLUME 86.3 fl (80.0-96.0); MONO # 0.6 10^3/uL (0.0-0.8); MONO % 9.2 % (0.0-5.0); NEUTROPHILS # 5.2 10^3/uL (1.8-7.7); NEUTROPHILS % 75.6 % (36.0-66.0); RED BLOOD COUNT 3.42 10^6/uL (4.00-5.40); WHITE BLOOD COUNT 6.9 10^3/uL (4.0-10.0)
[2018-06-26 22:55] LABS: PLATELET COUNT, AUTOMATED 23 10^3/uL (150-450)
[2018-06-26 23:17] LABS: ALBUMIN 2.5 GM/DL (3.2-5.2); ALT/SGPT 14 U/L (12-78); BILIRUBIN,DIRECT 0.1 MG/DL (0.0-0.2); BILIRUBIN,TOTAL 0.4 MG/DL (0.2-1.0); BLOOD UREA NITROGEN 6 MG/DL (7-18); CALCIUM LEVEL 7.8 MG/DL (8.5-10.1); CARBON DIOXIDE LEVEL 21 MEQ/L (21-32); CHLORIDE LEVEL 110 MEQ/L (98-107); CREATININE FOR GFR 0.46 MG/DL (0.55-1.30); GLOMERULAR FILTRATION RATE > 60.0 (>60); GLUCOSE, FASTING 96 MG/DL (70-100); LIPASE 118 U/L (73-393); POTASSIUM SERUM 3.4 MEQ/L (3.5-5.1); SODIUM LEVEL 141 MEQ/L (136-145)
[2018-06-26] MEDS ORDERED: oxyCODONE 5MG TAB PO ONE (23:30)
[2018-06-27 00:25] VITALS: BP 108/54
== END 2018-06-27 00:35 | disposition admitted as inpatient to this hospital (09) ==
LOC: M ED 21:50
DX: O99.89 Other specified diseases and conditions complicating pregnancy, childbirth and the puerperium (principal); M54.9 Dorsalgia, unspecified; O21.9 Vomiting of pregnancy, unspecified; O9A.212 Injury, poisoning and certain other consequences of external causes complicating pregnancy, second trimester; T50.Z15A Adverse effect of immunoglobulin, initial encounter; O99.112 Other diseases of the blood and blood-forming organs and certain disorders involving the immune mechanism complicating pregnancy, second trimester; D69.9 Hemorrhagic condition, unspecified; Z3A.22 22 weeks gestation of pregnancy; Q07.00 Arnold-Chiari syndrome without spina bifida or hydrocephalus; Z79.52 Long term (current) use of systemic steroids; Z79.899 Other long term (current) drug therapy; Z98.890 Other specified postprocedural states; Z91.030 Bee allergy status; Z88.1 Allergy status to other antibiotic agents

== ENCOUNTER 2018-06-27 00:40 | Outpatient (CLI) | payer OTHER ==
[~2018-06-27] VITALS: Ht 152.4 cm; Wt 82.6 kg
[2018-06-27 01:13] VITALS: BP 95/54
--- NOTE | 2018-06-27 02:29 | IPNPDOC ---
Text Note Date of Service The patient was seen on 06/27/18. NOTE Outpatient 23yo JARED 10/25/18. Presents from ED @ 22 wks following platelet transfusion and IVIG with apparent allergic reaction. Hx significant for ITP, plt 23 and previous delivery x 3. FH 140, appropriate for gestation. Abdomen soft, nontender. No UC on monitor NAD Pt states she doesn't have a ride home. Will observe overnight and discharge in am VS,Fishbone, I+O VS, Fishbone, I+O Vital Signs Date Time Temp Pulse Resp B/P (MAP) Pulse Ox O2 Delivery O2 Flow Rate FiO2 06/27/18 01:13 98.1 85 18 95/54 (68) Alida Muse CNM Jun 27, 2018 02:29
[2018-06-27] MEDS ORDERED: hydrOXYzine 50 MG TAB PO ONE (02:30)
[2018-06-27] MEDS ORDERED: ACETAMINOPHEN 500 MG TAB PO PRN (02:30)
== END 2018-06-27 09:30 ==
LOC: M LDO 00:40 → M OBS 05:00 → M LDO 09:30
PROVIDERS: ATTEND Advanced Practice Midwife
DX: O99.89 Other specified diseases and conditions complicating pregnancy, childbirth and the puerperium (principal); Z3A.22 22 weeks gestation of pregnancy; D69.3 Immune thrombocytopenic purpura; T80.89XA Other complications following infusion, transfusion and therapeutic injection, initial encounter

== ENCOUNTER → 2018-07-01 | Outpatient (CLI) | payer OTHER ==
--- NOTE | 2018-07-01 11:26 | REP ---
Clinical: Anatomical evaluation. Comparison: 06/08/2018 . Findings: Examination demonstrates a single live intrauterine in cephalic presentation. motion is identified by technologist. Placenta is noted anterior and grade grade 1 without evidence for placenta previa or abruption. Amniotic fluid volume is normal. Cervix measures 3.9 cm in length and appears closed. No evidence for nuchal cord. Gestational age by LMP 23 weeks 0 days with JARED 10/28/2018 . Gestational age by current measurements 22 weeks 6 days with JARED 10/12/2018. FHR equals 153 beats per minute. Estimated weight 553 grams ( 45th percentile). Anatomical assessment demonstrates normal structures including cranium, choroid plexus, cavum, facial features, lungs, four-chamber heart/ventricular outflow tracts, diaphragm, stomach, cord insertion/three-vessel cord, kidneys/bladder, spine, and extremities. Impression: Single live intrauterine in cephalic presentation demonstrating appropriate interval growth. In conjunction with prior examination anatomical assessment is complete and normal. Electronically Signed by Chandan Arias MD 07/01/2018 11:17 A
== END ==
LOC: M SMT 09:16
PROVIDERS: ATTEND Advanced Practice Midwife
DX: Z34.82 Encounter for supervision of other normal pregnancy, second trimester (principal); Z3A.23 23 weeks gestation of pregnancy

== ENCOUNTER → 2018-07-27 | Outpatient (CLI) | payer OTHER ==
[2018-07-27 15:43] LABS: BASO % 0.3 % (0.0-1.0); EOS # 0.1 10^3/uL (0.0-0.50); EOS % 1.4 % (0.0-3.0); HEMATOCRIT 33.2 % (36.0-47.0); HEMOGLOBIN 10.9 g/dl (12.0-15.5); LYMPH # 1.5 10^3/uL (1.5-6.5); LYMPH % 26.6 % (24.0-44.0); MEAN CORPUSCULAR HEMOGLOBIN 28.8 pg (27.0-33.0); MEAN CORPUSCULAR HGB CONC 32.8 g/dl (32.0-36.5); MEAN CORPUSCULAR VOLUME 87.6 fl (80.0-96.0); MONO # 0.4 10^3/uL (0.0-0.8); MONO % 7.7 % (0.0-5.0); NEUTROPHILS # 3.6 10^3/uL (1.8-7.7); RED BLOOD COUNT 3.79 10^6/uL (4.00-5.40); WHITE BLOOD COUNT 5.7 10^3/uL (4.0-10.0)
[2018-07-27 15:50] LABS: PLATELET COUNT, AUTOMATED 17 10^3/uL (150-450)
== END ==
LOC: M LAB 13:20
PROVIDERS: ATTEND Advanced Practice Midwife
DX: O99.112 Other diseases of the blood and blood-forming organs and certain disorders involving the immune mechanism complicating pregnancy, second trimester (principal)

== ENCOUNTER 2018-08-01 19:47 | Outpatient (CLI) | payer OTHER ==
[~2018-08-01] VITALS: Ht 154.9 cm; Wt 82.0 kg
[2018-08-01 20:13] VITALS: BP 125/64
== END 2018-08-01 20:45 | disposition home or self-care (01) ==
LOC: M LDO 19:47
PROVIDERS: ATTEND Obstetrics & Gynecology
DX: O26.892 Other specified pregnancy related conditions, second trimester (principal); Z3A.27 27 weeks gestation of pregnancy

== ENCOUNTER → 2018-08-13 | Outpatient (CLI) | payer OTHER | LOC: M LAB 08:36 | PROVIDERS: ATTEND Obstetrics & Gynecology | DX: Z34.83 Encounter for supervision of other normal pregnancy, third trimester (principal); Z36.89 Encounter for other specified antenatal screening ==

== ENCOUNTER 2018-08-21 10:53 | Outpatient (CLI) | payer OTHER ==
[2018-08-21] VITALS (9 sets, daily range): BP systolic 88–118; BP diastolic 50–72
[~2018-08-21] VITALS: Ht 152.4 cm; Wt 82.6 kg
[~2018-08-21 10:53] MED LIST changes: +ACETAMINOPHEN TAB 650MG DOSE (2X325MG) PO SCH
[2018-08-21] MEDS ORDERED: raNITIdine SYRUP 150 MG/10 ML UDC PO ONE (11:45)
[2018-08-21] MEDS ORDERED: IMMUNE GLOBULIN 10% 80 GM in APPROPRIATE DILUENT 1 EA IV ONE (11:45)
[2018-08-21] MEDS ORDERED: diphenhydrAMINE 25 MG CAP PO PRN (12:00)
[2018-08-21] MEDS ORDERED: ACETAMINOPHEN TAB 650MG DOSE (2X325MG) PO PRN (12:15)
[2018-08-21] MEDS ORDERED: SERT-155 (18:02)
== END 2018-08-21 19:30 | disposition home or self-care (01) ==
LOC: M OPCLIPED 10:53 → M INFU 10:53 → M PED 15:23 → M INFU 15:23 → M PED 17:50 → M INFU 19:30
PROVIDERS: ATTEND Internal Medicine Medical Oncology
DX: D69.3 Immune thrombocytopenic purpura (principal); Z88.1 Allergy status to other antibiotic agents; Z91.030 Bee allergy status
CPT/HCPCS: 36430; 96365; 96366; J1459; P9034

== ENCOUNTER → 2018-09-03 | Outpatient (CLI) | payer OTHER ==
[~2018-09-03] MED LIST changes: -/ADVA50050 INH; -ACETAMINOPHEN TAB 650MG DOSE (2X325MG) PO SCH; +ADVA1AER2 INH; +SERT-155
--- NOTE | 2018-09-03 13:55 | REP ---
OB ULTRASOUND: Real-time sonographic evaluation of the gravid uterus performed. There is a single living intrauterine gestation with an estimated gestational age 32 weeks 1 day EDC 10/28/2018. Today's measurements indicate appropriate growth. Biometry and Growth: BPD 86 mm = 34 weeks 4 days, 86th percentile HC 302 mm = 32 weeks 4 days, 72nd percentile AC 281 mm = 32 weeks 1 day, 50th percentile FL 63 mm = 32 weeks 3 days, 54th percentile HC/AC ratio 1.08 within normal range. Estimated weight 1994 grams, 52nd percentile. SEEN/GROSSLY UNREMARKABLE Lateral ventricles No Posterior fossa No Upper lip Yes Four-chamber heart Yes LVOT Yes RVOT Yes Stomach Yes Cord insertion Yes Three vessel cord No Kidneys Yes Bladder Yes Spine Yes Cervical length: heart rate: 149 beats per minute. position: Vertex. Placenta: Anterior and grade 2 with no previa or abruption. Amniotic fluid: Within normal limits. LON 16.5 within normal range of 8.6 to 24.2. S/D ratio 2.41 slightly below the normal range of 2.45 to 3.45. RI: 0.59 is at lower limits of normal range 0.59 to 0.75. Electronically Signed by Moses Yost MD 09/03/2018 03:17 P
== END ==
LOC: M RAD 12:46
PROVIDERS: ATTEND Specialist
DX: O99.113 Other diseases of the blood and blood-forming organs and certain disorders involving the immune mechanism complicating pregnancy, third trimester (principal); D69.3 Immune thrombocytopenic purpura; Z3A.32 32 weeks gestation of pregnancy

== ENCOUNTER 2018-09-18 14:52 | Outpatient (CLI) | payer OTHER ==
[2018-09-18] VITALS (9 sets, daily range): BP systolic 90–118; BP diastolic 50–63
[~2018-09-18] VITALS: Ht 152.4 cm; Wt 81.4 kg
[~2018-09-18 14:52] MED LIST changes: +ACETAMINOPHEN TAB 650MG DOSE (2X325MG) PO ONE; +IMMUNE GLOBULIN 10% 40 GM in APPROPRIATE DILUENT 1 EA IV ONE; +diphenhydrAMINE INJ 50MG/ML VIAL (J1200) IV ONE; +raNITIdine SYRUP 150 MG/10 ML UDC PO ONE
[2018-09-18] MEDS ORDERED: IMMUNE GLOBULIN 10% 40 GM in APPROPRIATE DILUENT 1 EA IV ONE (19:15)
== END 2018-09-18 21:14 | disposition home or self-care (01) ==
LOC: M INFU 14:52 → M MSPAV 17:54 → M INFU 21:14
PROVIDERS: ATTEND Internal Medicine Medical Oncology
DX: D69.3 Immune thrombocytopenic purpura (principal)
CPT/HCPCS: 96365; 96366; 96375; J1459

== ENCOUNTER → 2018-09-30 | Outpatient (REF) | payer OTHER ==
[~2018-09-30] MED LIST changes: -ACETAMINOPHEN TAB 650MG DOSE (2X325MG) PO ONE; -IMMUNE GLOBULIN 10% 40 GM in APPROPRIATE DILUENT 1 EA IV ONE; -SERT-155; +SERT-155 PO; -diphenhydrAMINE INJ 50MG/ML VIAL (J1200) IV ONE; -raNITIdine SYRUP 150 MG/10 ML UDC PO ONE
== END ==
LOC: M LAB REF 12:45
PROVIDERS: ATTEND Specialist
DX: Z34.83 Encounter for supervision of other normal pregnancy, third trimester (principal); Z36.85 Encounter for antenatal screening for Streptococcus B

== ENCOUNTER → 2018-10-02 | Outpatient (CLI) | payer OTHER ==
[2018-10-02 18:22] LABS: BASO % 0.5 % (0.0-1.0); EOS # 0.1 10^3/uL (0.0-0.50); EOS % 1.1 % (0.0-3.0); HEMATOCRIT 31.4 % (36.0-47.0); HEMOGLOBIN 9.8 g/dl (12.0-15.5); LYMPH # 1.6 10^3/uL (1.5-6.5); LYMPH % 28.2 % (24.0-44.0); MEAN CORPUSCULAR HEMOGLOBIN 25.3 pg (27.0-33.0); MEAN CORPUSCULAR HGB CONC 31.2 g/dl (32.0-36.5); MEAN CORPUSCULAR VOLUME 80.9 fl (80.0-96.0); MONO # 0.4 10^3/uL (0.0-0.8); MONO % 6.5 % (0.0-5.0); NEUTROPHILS # 3.6 10^3/uL (1.8-7.7); NEUTROPHILS % 63.5 % (36.0-66.0); RED BLOOD COUNT 3.88 10^6/uL (4.00-5.40); WHITE BLOOD COUNT 5.7 10^3/uL (4.0-10.0)
[2018-10-02 18:27] LABS: PLATELET COUNT, AUTOMATED 35 10^3/uL (150-450)
== END ==
LOC: M SMT 14:56
PROVIDERS: ATTEND Specialist
DX: O99.113 Other diseases of the blood and blood-forming organs and certain disorders involving the immune mechanism complicating pregnancy, third trimester (principal); Z3A.00 Weeks of gestation of pregnancy not specified

== ENCOUNTER 2018-10-06 08:28 | Inpatient (IN) | payer OTHER ==
[~2018-10-06] VITALS: Ht 152.4 cm; Wt 82.5 kg
[2018-10-06 08:45] VITALS: BP 106/62
[2018-10-06] MEDS ORDERED: ACETAMINOPHEN TAB 650MG DOSE (2X325MG) PO PRN (09:00)
[2018-10-06] MEDS ORDERED: PRED20TA PO (09:04)
[2018-10-06] MEDS ORDERED: VENTAER INH (09:04)
--- NOTE | 2018-10-06 09:20 | HPE ---
DATE OF ADMISSION: 10/06/2018 23-year-old 4, para 3-0-0-3 female at 37-0/7 weeks gestation by last menstrual period (LMP) consistent with 6 week ultrasound, estimated date of confinement (EDC) of 10/28/2018 presents for early admission for management of idiopathic thrombocytopenic purpura (ITP) in . The patient has had three prior sections and is scheduled for a repeat on 10/08/2018. She is admitted for IVIg treatment in order to optimize platelets for surgery. She has rare contractions. She denies vaginal bleeding. There is good movement. COURSE: The patient initiated care at 6 weeks gestation on 03/05/2018. Her first trimester was 124/74, weight 191 pounds. The patient was on oral steroids during . She intermittently received IVIg for platelets levels that were below 30K. She was managed by hematology at [facility]. Most recent platelet count on 10/02/2018 was 35K. OBSTETRICAL HISTORY: 1. October of 2014 at 38 weeks, section, 7 pound female . complicated by breech presentation and ITP. 2. February of 2016 at 37 weeks, section, 6 pound 15 ounce female infant. complicated by ITP. 3. April of 2017 at 37 weeks, section, 6 pound 12 ounce female infant. complicated by ITP. MEDICAL HISTORY: 1. Chronic ITP. 2. Chiari malformation, type 1. SURGICAL HISTORY: section times three. ALLERGIES: 1. AZITHROMYCIN. SOCIAL HISTORY: Patient is . She denies cigarettes, alcohol or drug use during . She lives in [place]. FAMILY HISTORY: Noncontributory. PHYSICAL EXAMINATION: Blood pressure 114/58, pulse 84, weight 184 pounds. She is in no apparent distress. Head and neck exam is normal. Lungs clear. Heart regular rate and rhythm. Abdomen nontender, gravid. heart tones category 1. Contractions rare. Extremities nontender. LABS: Blood type A negative. Rubella immune. RPR nonreactive. Hepatitis B and C negative. Diabetes screen 134. ASSESSMENT: 23-year-old G4, P3 female at 37-0/7 weeks gestation admitted with chronic ITP in preparation for delivery by section. PLAN: Patient is admitted on 10/06/2018. Will consult Dr. Lois Gibbs from hematology to assist with management of medications to optimize platelets. Plan is for delivery by section along with tubal ligation on 10/08/2018.
[2018-10-06] MEDS ORDERED: IMMUNE GLOBULIN 10% 80 GM in APPROPRIATE DILUENT 1 EA IV SCH (09:30)
[2018-10-06 09:56] LABS: HEMATOCRIT 29.7 % (36.0-47.0); HEMOGLOBIN 9.2 g/dl (12.0-15.5); MEAN CORPUSCULAR HEMOGLOBIN 24.6 pg (27.0-33.0); MEAN CORPUSCULAR VOLUME 79.4 fl (80.0-96.0); RED BLOOD COUNT 3.74 10^6/uL (4.00-5.40)
[2018-10-06 10:31] LABS: ALBUMIN 2.2 GM/DL (3.2-5.2); ALT/SGPT 20 U/L (12-78); BILIRUBIN,TOTAL 0.6 MG/DL (0.2-1.0); BLOOD UREA NITROGEN 7 MG/DL (7-18); CALCIUM LEVEL 7.4 MG/DL (8.5-10.1); CARBON DIOXIDE LEVEL 24 MEQ/L (21-32); CHLORIDE LEVEL 108 MEQ/L (98-107); GLOMERULAR FILTRATION RATE > 60.0 (>60); GLUCOSE, FASTING 103 MG/DL (70-100); POTASSIUM SERUM 3.2 MEQ/L (3.5-5.1); SODIUM LEVEL 140 MEQ/L (136-145); TOTAL PROTEIN 6.4 GM/DL (6.4-8.2)
[2018-10-06 10:32] LABS: PLATELET COUNT, AUTOMATED 19 10^3/uL (150-450)
[2018-10-06] MEDS: predniSONE 20 MG TAB PO SCH (11:16)
[2018-10-06] MEDS: FAMOTIDINE IV BAG 20 MG in APPROPRIATE DILUENT 1 EA IV SCH (11:19)
[2018-10-06] MEDS: IMMUNE GLOBULIN 10% 40 GM in APPROPRIATE DILUENT 1 EA IV SCH ×2 (12:47→17:50)
[2018-10-06] MEDS: ACETAMINOPHEN TAB 650MG DOSE (2X325MG) PO SCH (12:47)
[2018-10-06] MEDS: diphenhydrAMINE INJ 50MG/ML VIAL (J1200) IV SCH (12:48)
[2018-10-06 14:00] VITALS: BP 110/60
--- NOTE | 2018-10-06 18:24 | CR ---
MEDICAL ONCOLOGY INPATIENT BRIEF CONSULT: DATE OF SERVICE: 10/06/2018 DIAGNOSIS Refractory ITP and chronic high-dose corticosteroids now at term admitted for induced labor and delivery. HISTORY OF PRESENT ILLNESS: Jane was diagnosed with ITP many years ago has had chronic low platelets despite high-dose prednisone. She has not been treated with any other second line treatments, has not been prepped for or entertain splenectomy in those years. Compliance has been an issue. However, she has gone through prior labor and delivery receiving IVIG during platelets as needed. Jane is been following in our clinic every 2 weeks with maintaining platelets threshold of [address] Goldsmith's recommendation. Receiving IVIG and single donor platelets as needed. Currently, platelets are 19, no active bleeding deferring to Dr. Goldsmith for next platelet transfusion given plan for induction . I have written orders for IVIG 80 grams daily for 2 days beginning today. Barring platelets drop below 15, or active bleeding would leave additional platelet transfusion to Dr. Goldsmith discretion. At the bedside Jane is comfortable reclining, denies any problems with bleeding. She is resting up getting ready to be a busy new mother again. 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 Chiari malformation type 1. PAST SURGICAL HISTORY: section three prior most recent 2016. CURRENT MEDICATIONS: vitamins, sertraline 50 mg daily, IVIG as described, acetaminophen, diphenhydramine premed's, famotidine premed, prednisone 80 mg daily. ALLERGIES: Bee venom, erythromycin base. SOCIAL HISTORY: Patient is , four children. Not working. Denies smoking, alcohol. PHYSICAL EXAM: Physical exam deferred. Vital signs: Temperature 98.4, blood pressure 110/60, heart rate 92, respiratory 18, O2 sat 100%. LABORATORY DATA: CBC from 09:45 a.m. shows WBC 6, hemoglobin 9.2, hematocrit 29.7, platelets 19, sodium 140, potassium 3.2, chloride 108, bicarb BUN normal creatinine 0.5, GFR greater than 60, glucose 103, calcium 7.4, albumin 2.2, alkaline phos 146. IMPRESSION: 1. Chronic refractory ITP on high-dose steroids chronically for many years, retains the spleen, receives IVIG and platelets on as-needed basis. 2. Term admitted for elective induction and delivery. 3. No evidence of bleeding currently. PLAN: 1. Complete today's IVIG; written for 80 grams IVIG again tomorrow premed's include Benadryl, Tylenol and famotidine. 2. Would consider single donor platelets for platelets less than 15 without bleeding, or less than 30 with bleeding otherwise defer platelet transfusions to Dr. Goldsmith/surgical discretion. 3. Will follow as needed. Jane reports no bleeding complications following her prior surgeries minimal to no need for IVIG postoperatively present previously. JARREDD
[2018-10-06 20:00] VITALS: BP 109/66
[2018-10-07 04:00] VITALS: BP 92/51
--- NOTE | 2018-10-07 06:32 | NUR ---
HD#2 S: Doing well w/o issues. Received 80mg IVIGG yesterday without issues. Reports movement. Irregular contractions. No vaginal bleeding or LOF RNST yesterday vss, AF gen: well appearing abd: gravid, nttp A/P: 23yo @ 37w0d with refractory ITP- s/p 80mg IVIGG, plan for repeat dose today -reassuring status -cont routine a/p care Amirah Craven MD
[2018-10-07] MEDS ORDERED: PRENATAL VITAMINS CHEWABLE TABLET PO SCH (09:00)
[2018-10-07] MEDS ORDERED: SERTRALINE HCL 50 MG TAB PO SCH (09:00)
[2018-10-07] MEDS: predniSONE 20 MG TAB PO SCH (09:01)
[2018-10-07 10:50] LABS: HEMATOCRIT 27.9 % (36.0-47.0); HEMOGLOBIN 8.6 g/dl (12.0-15.5); MEAN CORPUSCULAR HGB CONC 30.8 g/dl (32.0-36.5); MEAN CORPUSCULAR VOLUME 81.1 fl (80.0-96.0); RED BLOOD COUNT 3.44 10^6/uL (4.00-5.40); WHITE BLOOD COUNT 4.5 10^3/uL (4.0-10.0)
[2018-10-07 10:57] LABS: PLATELET COUNT, AUTOMATED 30 10^3/uL (150-450)
[2018-10-07] MEDS: ACETAMINOPHEN TAB 650MG DOSE (2X325MG) PO SCH (11:05)
[2018-10-07] MEDS: diphenhydrAMINE INJ 50MG/ML VIAL (J1200) IV SCH (11:05)
[2018-10-07] MEDS: FAMOTIDINE IV BAG 20 MG in APPROPRIATE DILUENT 1 EA IV SCH (11:05)
[2018-10-07] MEDS: IMMUNE GLOBULIN 10% 40 GM in APPROPRIATE DILUENT 1 EA IV SCH ×2 (11:49→15:34)
[2018-10-07 14:00] VITALS: BP 114/64
[2018-10-07] MEDS ORDERED: BICITRA 30ML SOLN UDC PO ONE (17:00)
[2018-10-07 19:15] VITALS: BP 122/69
[2018-10-07 19:20] VITALS: BP 103/59
[2018-10-07 19:35] VITALS: BP 128/61
[2018-10-07] MEDS ORDERED: hydrOXYzine 50 MG TAB PO ONE (19:45)
[2018-10-08] VITALS (8 sets, daily range): BP systolic 98–115; BP diastolic 53–67
[2018-10-08 05:27] LABS: HEMATOCRIT 27.5 % (36.0-47.0); HEMOGLOBIN 8.4 g/dl (12.0-15.5); MEAN CORPUSCULAR HEMOGLOBIN 24.7 pg (27.0-33.0); MEAN CORPUSCULAR HGB CONC 30.5 g/dl (32.0-36.5); MEAN CORPUSCULAR VOLUME 80.9 fl (80.0-96.0); WHITE BLOOD COUNT 4.4 10^3/uL (4.0-10.0)
[2018-10-08 05:28] LABS: PLATELET COUNT, AUTOMATED 52 10^3/uL (150-450)
[2018-10-08] MEDS ORDERED: RHOGAM 300 MCG (1500 IU) INJ (J2790) IM SCH (09:00)
[2018-10-08] MEDS ORDERED: MEASLES,MUMPS,RUBELLA VACCINE INJ (MMR-II) (90707) SC SCH (09:00)
[2018-10-08] MEDS: PRENATAL VITAMINS CHEWABLE TABLET PO SCH (09:00)
[2018-10-08] MEDS ORDERED: LR 1,000 ML IV SCH (09:00)
[2018-10-08] MEDS ORDERED: OXYTOCIN DRIP 30 UNITS in APPROPRIATE DILUENT 1 EA IV SCH (09:00)
[2018-10-08] MEDS ORDERED: PERCOCET 5MG/325MG TAB PO PRN (09:00)
[2018-10-08] MEDS ORDERED: ONDANSETRON 4MG/2ML VIAL (J2405) IV PRN ×2 (09:00→09:45)
[2018-10-08] MEDS ORDERED: ONDANSETRON 4MG/2ML VIAL (J2405) As Ordered ONE (09:10)
[2018-10-08] MEDS ORDERED: MORPHINE 10 MG/ML 1ML VIAL (J2270) As Ordered ONE (09:11)
[2018-10-08] MEDS ORDERED: PERCOCET 5MG/325MG TAB As Ordered ONE ×2 (09:11→09:55)
[2018-10-08] MEDS ORDERED: MORPHINE 4 MG/ML 1ML VIAL/SYRINGE (J2270) IV PRN (09:15)
[2018-10-08] MEDS: MORPHINE 10 MG/ML 1ML VIAL (J2270) IV PRN ×4 (09:16→09:31)
[2018-10-08] MEDS ORDERED: NORCO, ANEXSIA 5/325MG TABLET (HYDROcodone/ACETAMINOPHEN) PO PRN (09:45)
[2018-10-08] MEDS ORDERED: NALBUPHINE HCL 10 MG/ML AMP (J2300) IV PRN (09:45)
[2018-10-08] MEDS ORDERED: fentaNYL 100 MCG/2 ML INJECTION (J3010) IV PRN (09:45)
[2018-10-08] MEDS: PERCOCET 5MG/325MG TAB PO PRN ×3 (09:55→23:12)
[2018-10-08] MEDS ORDERED: METOCLOPRAMIDE INJ 10MG/2ML VIAL (J2765) As Ordered ONE (10:15)
[2018-10-08 10:22] LABS: HEMATOCRIT 23.9 % (36.0-47.0); HEMOGLOBIN 7.4 g/dl (12.0-15.5); MEAN CORPUSCULAR HEMOGLOBIN 25.3 pg (27.0-33.0); MEAN CORPUSCULAR VOLUME 81.6 fl (80.0-96.0); RED BLOOD COUNT 2.93 10^6/uL (4.00-5.40); WHITE BLOOD COUNT 5.7 10^3/uL (4.0-10.0)
[2018-10-08 10:25] LABS: PLATELET COUNT, AUTOMATED 46 10^3/uL (150-450)
[2018-10-08] MEDS ORDERED: METOCLOPRAMIDE INJ 10MG/2ML VIAL (J2765) IV PRN (10:30)
--- NOTE | 2018-10-08 11:50 | RO ---
DATE OF PROCEDURE: 10/08/2018 PREPROCEDURE DIAGNOSES: 37 weeks, prior section times three, maternal idiopathic thrombocytopenic purpura (ITP). POSTPROCEDURE DIAGNOSES: 37 weeks, prior section times three, maternal idiopathic thrombocytopenic purpura (ITP). PROCEDURE: Repeat low transverse section and bilateral tubal sterilization. SURGEON: Dr. Bryant Goldsmith. CONTROL MANAGER: Va Khan CNM. ANESTHESIA: Spinal. ESTIMATED BLOOD LOSS: 600 mL. URINE OUTPUT: 100 mL. FLUIDS: 1800 mL lactated Ringers FINDINGS: 6 pounds, 6 ounce 2890 gram male . Apgars 3 and 7. Vertex. Normal uterus and fallopian tubes and ovaries. DESCRIPTION OF PROCEDURE: The patient taken to the operating room where general endotracheal anesthesia was induced. The patient previously prepped and draped in a sterile fashion with Sanchez catheter in place. A Pfannenstiel skin incision was made in the scalpel and was carried down to the fascia. The fascia was nicked and extended. The fascia dissected off the rectus muscle. Peritoneal cavity was entered. Bladder flap was created. Curvilinear incision made in the lower uterine segment till clear fluid was noted. This was extended manually. The infant was delivered from the vertex position without difficulty. The cord was doubly clamped and cut. The infant was handed off to the awaiting nurse. The placenta was expressed. The uterus exteriorized and cleared of all clots and debris. The uterine incision was closed with 0 Vicryl in a running locked fashion. A second imbricating layer of 0 Vicryl was placed. Attention was turned to the fallopian tubes. The fallopian tubes were grasped with a Garland clamp at their mid portion. A window was created in the broad ligament. A free tie of #3-0 chromic was placed around a segment of fallopian tube on either side of the Garland clamp. A segment of tube was excised and sent to pathology. The uterus was placed back in the abdominal cavity. Good hemostasis was noted. The peritoneum was closed with #2-0 Vicryl in a running fashion. The fascia was closed with 0 Vicryl in a running fashion. Deep layer was irrigated and closed with #2-0 chromic. The skin was closed with #4-0 Monocryl in subcuticular sutures. Sponge, instrument and needle counts were correct. Va Khan CNM assisted in all aspects of the procedure from beginning to end. She assisted with creating incision of all layers including the hysterotomy. She helped with expulsion of the fetus and helped close all subsequent layers.
[2018-10-08] MEDS: SERTRALINE HCL 50 MG TAB PO SCH (14:11)
[2018-10-08] MEDS: predniSONE 20 MG TAB PO SCH (14:11)
[2018-10-08] MEDS: KETOROLAC 30 MG/ML VIAL (J1885) IV SCH ×2 (16:03→21:22)
[2018-10-08] MEDS: DOCUSATE SODIUM 100 MG CAP PO PRN (21:23)
[2018-10-08] MEDS ORDERED: OXYC1TAB23 PO (21:33)
[2018-10-08] MEDS ORDERED: IBUP-1022 PO (21:34)
[2018-10-09 02:00] VITALS: BP 93/55
[2018-10-09] MEDS: KETOROLAC 30 MG/ML VIAL (J1885) IV SCH (02:23)
[2018-10-09] MEDS: PERCOCET 5MG/325MG TAB PO PRN ×4 (05:28→22:40)
[2018-10-09 06:00] VITALS: BP 106/63
[2018-10-09 06:50] LABS: HEMATOCRIT 27.9 % (36.0-47.0); HEMOGLOBIN 9.1 g/dl (12.0-15.5); MEAN CORPUSCULAR HEMOGLOBIN 26.8 pg (27.0-33.0); MEAN CORPUSCULAR HGB CONC 32.6 g/dl (32.0-36.5); MEAN CORPUSCULAR VOLUME 82.3 fl (80.0-96.0); RED BLOOD COUNT 3.39 10^6/uL (4.00-5.40); WHITE BLOOD COUNT 9.3 10^3/uL (4.0-10.0)
[2018-10-09 06:51] LABS: PLATELET COUNT, AUTOMATED 70 10^3/uL (150-450)
[2018-10-09] MEDS: PRENATAL VITAMINS CHEWABLE TABLET PO SCH (08:14)
[2018-10-09] MEDS: predniSONE 20 MG TAB PO SCH (08:14)
[2018-10-09] MEDS: SERTRALINE HCL 50 MG TAB PO SCH (08:14)
[2018-10-09 10:20] VITALS: BP 98/55
[2018-10-09] MEDS: IBUPROFEN 800 MG TAB PO SCH ×2 (10:21→18:12)
[2018-10-09 14:25] VITALS: BP 96/53
[2018-10-09 18:01] VITALS: BP 98/55
[2018-10-09] MEDS: DOCUSATE SODIUM 100 MG CAP PO PRN (21:20)
[2018-10-09 22:00] VITALS: BP 115/63
[2018-10-10 02:00] VITALS: BP 92/56
[2018-10-10] MEDS: IBUPROFEN 800 MG TAB PO SCH ×2 (03:24→11:00)
[2018-10-10 06:00] VITALS: BP 98/62
[2018-10-10] MEDS: SERTRALINE HCL 50 MG TAB PO SCH (08:58)
[2018-10-10] MEDS: predniSONE 20 MG TAB PO SCH (08:58)
[2018-10-10] MEDS: PRENATAL VITAMINS CHEWABLE TABLET PO SCH (08:59)
[2018-10-10] MEDS: PERCOCET 5MG/325MG TAB PO PRN (09:00)
[2018-10-10 10:00] VITALS: BP 101/58
--- NOTE | 2018-10-10 13:19 | NUR ---
Discharge Summary Admission date: 10/06/18 Discharge date: 10/10/18 Admission diagnosis: 37+ weeks gestation, ITP, h/o LTCS x 3 Discharge diagnosis: same; delivered Discharge summary: 23yo [id number]. Admitted at 37+ weeks EG on 10/08/18 for preoperative treatment of her ITP. She received IVIG preoperatively without any issue. She underwent an uncomplicated RLTCS / BTL under general anesthesia on 10/08/18 (surgeon: Dr. Kwame Goldsmith MD). Her baby's Apgars were 3 and 7, birthweight 2890g. She was transfused 2U of prbc on 10/08/18 during her postoperative recovery. Her hemoglobin , hematocrit, and platelet levels all improved with an appropriate rise in levels. On 10/10/18, she was meeting all postoperative/ discharge criteria. She was ambulating without difficulty, tolerating a regular diet, voiding spontaneously, lochia was decreasing/minimal, and her pain was well controlled. She was discharged home with the following additional medications: Percocet, Motrin, Colace. She is to follow up in the office in 1-2 weeks for an incision check. Routine postoperative infectious/fever, pain, and bleeding precautions were reviewed with the patient. Surgical wound care instructions were reviewed with the patient. Kwame Chawla DO FACOG
== END 2018-10-10 14:00 | disposition home or self-care (01) | DRG 540 ==
LOC: M MS4PR 08:28 → M LDI 10-08 08:29 → M OBS 10-08 11:37
PROVIDERS: ADMIT Specialist; ATTEND Specialist
PROC: 30233N1 Transfusion of Nonautologous Red Blood Cells into Peripheral Vein, Percutaneous Approach (ICD-10-PCS; 2018-10-07)
PROC: 0UB70ZZ Excision of Bilateral Fallopian Tubes, Open Approach (ICD-10-PCS; 2018-10-08)
PROC: 10D00Z1 Extraction of Products of Conception, Low, Open Approach (ICD-10-PCS; principal; 2018-10-08 08:00)
DX: O99.12 Other diseases of the blood and blood-forming organs and certain disorders involving the immune mechanism complicating childbirth (principal); G93.5 Compression of brain; D69.3 Immune thrombocytopenic purpura; O99.354 Diseases of the nervous system complicating childbirth; O34.211 Maternal care for low transverse scar from previous cesarean delivery; Z3A.37 37 weeks gestation of pregnancy; Z37.0 Single live birth; Z30.2 Encounter for sterilization

== ENCOUNTER 2018-11-20 16:38 | Emergency (ER) | payer OTHER ==
[~2018-11-20] VITALS: Ht 152.4 cm; Wt 74.1 kg
[2018-11-20 16:39] VITALS: BP 122/76
== END 2018-11-20 17:43 | disposition home or self-care (01) ==
LOC: M ED 16:38
DX: D69.3 Immune thrombocytopenic purpura (principal); Z88.1 Allergy status to other antibiotic agents; Z91.030 Bee allergy status; Z79.52 Long term (current) use of systemic steroids

== ENCOUNTER → 2018-11-20 | Outpatient (CLI) | payer OTHER ==
[~2018-11-20] MED LIST changes: +IBUP-1022 PO
[2018-11-20 13:32] LABS: BASO # 0.1 10^3/uL (0.0-0.2); BASO % 0.8 % (0.0-1.0); EOS # 0.1 10^3/uL (0.0-0.50); EOS % 1.8 % (0.0-3.0); HEMOGLOBIN 12.1 g/dl (12.0-15.5); LYMPH # 2.1 10^3/uL (1.5-6.5); MEAN CORPUSCULAR HEMOGLOBIN 27.8 pg (27.0-33.0); MEAN CORPUSCULAR HGB CONC 32.7 g/dl (32.0-36.5); MEAN CORPUSCULAR VOLUME 84.9 fl (80.0-96.0); MONO # 0.4 10^3/uL (0.0-0.8); MONO % 5.9 % (0.0-5.0); NEUTROPHILS # 3.4 10^3/uL (1.8-7.7); NEUTROPHILS % 55.8 % (36.0-66.0); RED BLOOD COUNT 4.36 10^6/uL (4.00-5.40); WHITE BLOOD COUNT 6.1 10^3/uL (4.0-10.0)
[2018-11-20 13:37] LABS: PLATELET COUNT, AUTOMATED 18 10^3/uL (150-450)
[2018-11-20 13:59] LABS: ALBUMIN 3.6 GM/DL (3.2-5.2); ALT/SGPT 22 U/L (12-78); BILIRUBIN,TOTAL 0.4 MG/DL (0.2-1.0); BLOOD UREA NITROGEN 15 MG/DL (7-18); CALCIUM LEVEL 8.6 MG/DL (8.5-10.1); CARBON DIOXIDE LEVEL 28 MEQ/L (21-32); CHLORIDE LEVEL 110 MEQ/L (98-107); CHOLESTEROL LEVEL 170 MG/DL (<200); CHOLESTEROL RISK RATIO 3.863 (<5); CREATININE FOR GFR 0.79 MG/DL (0.55-1.30); FREE T4 1.14 NG/DL (0.76-1.46); GLOMERULAR FILTRATION RATE > 60.0 (>60); GLUCOSE, FASTING 86 MG/DL (70-100); HDL CHOLESTEROL 44 MG/DL (>40); LDL CHOLESTEROL 108 MG/DL (<100); NON-HDL-C 126 MG/DL; POTASSIUM SERUM 3.9 MEQ/L (3.5-5.1); SODIUM LEVEL 144 MEQ/L (136-145); TOTAL PROTEIN 7.3 GM/DL (6.4-8.2); TRIGLYCERIDES LEVEL 88 MG/DL (<150)
[2018-11-20 14:01] LABS: TOTAL 25(OH) VITAMIN D 19.3 NG/ML (30.0-100.0)
[2018-11-20 14:32] LABS: HEMOGLOBIN A1c 4.6 %
== END ==
LOC: M LAB 12:45
PROVIDERS: ATTEND Nurse Practitioner Family
DX: Z13.9 Encounter for screening, unspecified (principal)

== ENCOUNTER 2019-03-04 19:36 | Emergency (ER) | payer OTHER ==
[~2019-03-04] VITALS: Ht 152.4 cm; Wt 82.7 kg
[2019-03-04] MEDS ORDERED: SUMA50TA2 PO (19:53)
[2019-03-04] MEDS ORDERED: ACET1TAB55 (19:53)
[2019-03-04] MEDS ORDERED: FLUO10CA8 PO (19:53)
[2019-03-04] MEDS ORDERED: VITA1CAP25 (19:53)
[2019-03-04 21:38] VITALS: BP 116/70
== END 2019-03-04 21:39 | disposition home or self-care (01) ==
LOC: M ED 19:36
DX: F32.9 Major depressive disorder, single episode, unspecified (principal); Z91.030 Bee allergy status; Z88.8 Allergy status to other drugs, medicaments and biological substances; Z79.899 Other long term (current) drug therapy

== ENCOUNTER 2019-04-11 13:37 | Emergency (ER) | payer OTHER ==
[~2019-04-11] VITALS: Ht 152.4 cm; Wt 84.6 kg
[~2019-04-11 13:37] MED LIST changes: +ACET1TAB55; +FLUO10CA8 PO; -SERT-155 PO; +SERT50TA29 PO; +SUMA50TA2 PO; +VITA1CAP25
[2019-04-11 14:19] LABS: BASO # 0.1 10^3/uL (0.0-0.2); BASO % 0.7 % (0.0-1.0); EOS # 0.3 10^3/uL (0.0-0.5); EOS % 4.1 % (0.0-3.0); HEMATOCRIT 37.7 % (36.0-47.0); HEMOGLOBIN 12.1 g/dl (12.0-15.5); LYMPH # 2.3 10^3/uL (1.5-5.0); LYMPH % 32.8 % (24.0-44.0); MEAN CORPUSCULAR HEMOGLOBIN 27.8 pg (27.0-33.0); MEAN CORPUSCULAR HGB CONC 32.1 g/dl (32.0-36.5); MEAN CORPUSCULAR VOLUME 86.5 fl (80.0-96.0); MONO # 0.5 10^3/uL (0.0-0.8); MONO % 7.6 % (0.0-5.0); NEUTROPHILS # 3.8 10^3/uL (1.5-8.5); NEUTROPHILS % 54.4 % (36.0-66.0); RED BLOOD COUNT 4.36 10^6/uL (4.00-5.40)
[2019-04-11] MEDS ORDERED: KETOROLAC 30 MG/ML VIAL (J1885) IV ONE (14:45)
[2019-04-11] MEDS ORDERED: ONDANSETRON 4MG/2ML VIAL (J2405) IV ONE (14:45)
[2019-04-11 14:49] LABS: PLATELET COUNT, AUTOMATED 17 10^3/uL (150-450)
[2019-04-11 14:50] LABS: ALBUMIN 3.7 GM/DL (3.2-5.2); ALT/SGPT 22 U/L (12-78); BILIRUBIN,DIRECT < 0.1 MG/DL (0.0-0.2); BILIRUBIN,TOTAL 0.4 MG/DL (0.2-1.0); BLOOD UREA NITROGEN 16 MG/DL (7-18); CALCIUM LEVEL 8.4 MG/DL (8.5-10.1); CARBON DIOXIDE LEVEL 27 MEQ/L (21-32); CHLORIDE LEVEL 110 MEQ/L (98-107); CREATININE FOR GFR 0.58 MG/DL (0.55-1.30); GLOMERULAR FILTRATION RATE > 60.0 (>60); GLUCOSE, FASTING 78 MG/DL (70-100); LIPASE 165 U/L (73-393); POTASSIUM SERUM 3.4 MEQ/L (3.5-5.1); SODIUM LEVEL 143 MEQ/L (136-145); TOTAL PROTEIN 7.6 GM/DL (6.4-8.2)
[2019-04-11] MEDS ORDERED: ISOVUE-370 76% 100ML VIAL (Q9967) As Ordered ONE (14:53)
--- NOTE | 2019-04-11 15:40 | REP ---
CT of the abdomen and pelvis with IV contrast: Comparison is 01/03/2018. The visualized lung pettit are unremarkable. The gallbladder is collapsed. There is no cholelithiasis or biliary duct dilatation. The pancreas and spleen are unremarkable. The adrenals and kidneys are unremarkable. The abdominal aorta is unremarkable. There is no periaortic adenopathy or mass. There is wall thickening of the proximal and mid small bowel compatible with enteritis. There is no colonic wall thickening. Pelvis: The uterus and adnexa are unremarkable. There is no ascites. The bladder is unremarkable. There are enlarged inguinal nodes bilaterally as an interval change measuring up to 19 mm short axis on the left and 10 mm on the right. Additionally there are enlarged left pelvic sidewall lymph nodes measuring up to 13 mm short axis. There is no ascites. The pelvic bowel loops are unremarkable. Impression: Wall thickening of the proximal and mid small bowel. This is compatible with enteritis. There is no colonic wall thickening. There are enlarged left pelvic sidewall nodes. There are enlarged inguinal nodes bilaterally as an interval change. Electronically Signed by Moses Hammond MD 04/11/2019 03:31 P
[2019-04-11 16:06] VITALS: BP 107/58
[2019-04-11] MEDS ORDERED: DICY20TA11 PO (16:06)
--- NOTE | 2019-04-12 06:59 | ED PDOC ---
Post-Departure Follow-Up radiology report faxed to [facility] [employer]END[facility] Blanche Proctor MD Apr 12, 2019 06:59
== END 2019-04-11 16:21 | disposition home or self-care (01) ==
LOC: M ED 13:37
DX: K52.9 Noninfective gastroenteritis and colitis, unspecified (principal); D69.3 Immune thrombocytopenic purpura; K21.9 Gastro-esophageal reflux disease without esophagitis; F31.9 Bipolar disorder, unspecified; Z88.1 Allergy status to other antibiotic agents; Z91.030 Bee allergy status
CPT/HCPCS: 74177; 80048; 80076; 81001; 83690; 84702; 85025; 85049; 85055; 96374; 96375; 99283; J1885; J2405; Q9967

== ENCOUNTER → 2019-07-09 | Outpatient (REF) | payer OTHER ==
[~2019-07-09] MED LIST changes: +DICY20TA11 PO; +FLUO10CA15 PO; -FLUO10CA8 PO; +ONDA8TAB10 PO; -ONDA8TAB7 PO
== END ==
LOC: M LAB REF 17:06
PROVIDERS: ATTEND Physician Assistant
DX: J02.9 Acute pharyngitis, unspecified (principal)

== ENCOUNTER 2020-01-14 12:27 | Inpatient (IN) | payer OTHER ==
[~2020-01-14 12:27] MED LIST changes: -FLUO10CA15 PO; +FLUO10CA16 PO; +PANT40TA29 PO; -PANT40TA3 PO
[2020-01-14] MEDS ORDERED: diphenhydrAMINE 50MG/ML VIAL (J1200) As Ordered ONE (13:44)
[2020-01-14] MEDS ORDERED: methylPREDNISolone 125MG 2ML VIAL As Ordered ONE (13:44)
[2020-01-14] MEDS ORDERED: methylPREDNISolone 125MG 2ML VIAL ONE (13:44)
[2020-01-14] MEDS ORDERED: FAMOTIDINE INJ 20MG/2ML VIAL (S0028 PER 1) ONE (13:44)
[2020-01-14] MEDS ORDERED: diphenhydrAMINE 50MG/ML VIAL (J1200) ONE (13:44)
[2020-01-14] MEDS ORDERED: FAMOTIDINE INJ 20MG/2ML VIAL (S0028 PER 1) As Ordered ONE (13:45)
[2020-01-15] MEDS ORDERED: traZODone 50 MG TAB As Ordered ONE (00:35)
[2020-01-15] MEDS ORDERED: POTASSIUM CHLORIDE 10 MEQ SR TABLET As Ordered ONE (00:35)
[2020-01-15] MEDS ORDERED: POTASSIUM CHLORIDE 10 MEQ SR TABLET ONE (00:35)
[2020-01-15] MEDS ORDERED: traZODone 50 MG TAB ONE (00:35)
[2020-01-15] MEDS ORDERED: diphenhydrAMINE 25MG CAP As Ordered ONE ×2 (02:43→03:42)
[2020-01-15] MEDS ORDERED: predniSONE 20 MG TAB As Ordered ONE ×3 (02:43→09:43)
[2020-01-15] MEDS ORDERED: predniSONE 20 MG TAB ONE ×2 (03:42→09:43)
[2020-01-15] MEDS ORDERED: diphenhydrAMINE 25MG CAP ONE (03:42)
[2020-01-15] MEDS ORDERED: FLUoxetine 20 MG CAP As Ordered ONE (09:43)
[2020-01-15] MEDS ORDERED: FLUoxetine 20 MG CAP ONE (09:43)
[2020-01-15] MEDS ORDERED: IMMUNE GLOBULIN 10% 20GM 200ML BOTTLE (PRIVIGEN) (J1459 PER 500MG) ONE (13:46)
[2020-01-15] MEDS ORDERED: IMMUNE GLOBULIN 10% 5GM 50ML BOTTLE (PRIVIGEN) (J1459 PER 500MG) ONE (13:46)
[2020-01-15] MEDS ORDERED: IMMUNE GLOBULIN 10% 10GM 100ML BOTTLE (PRIVIGEN) (J1459 PER 500MG) ONE (13:46)
[2020-01-15] MEDS ORDERED: lamoTRIgine 25 MG TAB ONE (13:46)
--- NOTE | 2020-02-08 13:07 | CR ---
DATE: 01/14/2020 HISTORY OF CURRENT ILLNESS: Jane Garcia is a 24-year-old lady, soon to be 25. The patient has a history of chronic immune thrombocytopenic purpura (ITP). She was diagnosed when she was 17 years old. The patient in the past has been treated with steroids and intravenous (IV) gamma-globulin. Patient now presents to the emergency room because she developed a red rash on her extremities. When she came to the emergency room, the patient had a complete blood count (CBC) drawn. The patient was found to have a platelet count of 7000. Hematology has been asked for their input. MEDICAL HISTORY: She has had chronic ITP since age 17. The patient has been four times. She had four deliveries. Two of her deliveries she was treated with high-dose steroids and IV gamma-globulin through her pregnancies, and she had four sections. After her last section she had a tubal ligation. FAMILY HISTORY: Her grandmother had lung cancer, and her mother had cervical cancer. SOCIAL HISTORY: She is a nonsmoker, nondrinker. REVIEW OF SYSTEMS: No headaches. EYES: No blurred vision. LUNGS: No shortness of breath, no cough, no phlegm. CARDIAC: No palpitations. GASTROINTESTINAL: No nausea, no vomiting. SKIN: Patient does have that is rash. Patient was given steroids, and she has been given Benadryl, and she does say the rash feels better to her. PHYSICAL EXAMINATION: GENERAL; She is awake and alert. HEAD: Normal. EYES: Extraocular motion intact. LUNGS: Bilateral breath sounds present. CARDIAC: Regular. ABDOMEN: Soft. EXTREMITIES: Patient does on her extremities have a red rash. IMPRESSION: This is a 24-year-old lady with chronic immune thrombocytopenic purpura (ITP), platelet count of 7. PLAN: Patient is currently not on steroids. We would recommend starting on steroids, 1 mg/kg of prednisone. In addition, she did response to IV gamma- globulin in the past, so we would recommend giving her a dose of IV gamma- globulin. As patient does have chronic ITP with platelet counts well below 50,000, we would recommend that the patient come to the office after discharge. There are other medications that she has not gotten. She has never had Nplate, and she has never had Promacta, and it is possible that with Nplate or Promacta, we might be able to maintain her platelet count closer to 50,000. MTDD
--- NOTE | 2020-02-16 15:00 | ECGEPIP ---
SINUS RHYTHM NORMAL ECG SEE SCANNED DOWNTIME REPORT MTDD
[2020-02-28 11:49] LABS: BASO % 0.6 % (0.0-1.0); EOS # 0.4 10^3/uL (0.0-0.5); EOS % 7.1 % (0.0-3.0); HEMATOCRIT 34.7 % (36.0-47.0); HEMOGLOBIN 11.2 g/dl (12.0-15.5); LYMPH # 1.4 10^3/uL (1.5-5.0); LYMPH % 26.9 % (24.0-44.0); MEAN CORPUSCULAR HEMOGLOBIN 24.8 pg (27.0-33.0); MEAN CORPUSCULAR HGB CONC 32.3 g/dl (32.0-36.5); MEAN CORPUSCULAR VOLUME 76.8 fl (80.0-96.0); MONO # 0.2 10^3/uL (0.0-0.8); MONO % 4.4 % (0.0-5.0); NEUTROPHILS # 3.1 10^3/uL (1.5-8.5); NEUTROPHILS % 60.4 % (36.0-66.0); RED BLOOD COUNT 4.52 10^6/uL (4.00-5.40); WHITE BLOOD COUNT 5.1 10^3/uL (4.0-10.0)
[2020-02-28 11:50] LABS: PLATELET COUNT, AUTOMATED 7 10^3/uL (150-450)
[2020-02-28 13:57] LABS: APPEARANCE, URINE MANUAL CLEAR (CLEAR); BILIRUBIN, URINE MANUAL NEGATIVE (NEGATIVE); BLOOD URINE MANUAL NEGATIVE (NEGATIVE); COLOR, URINE MANUAL YELLOW (YELLOW); GLUCOSE, URINE (UA) MANUAL NEGATIVE (NEGATIVE); KETONE, URINE MANUAL NEGATIVE (NEGATIVE); LEUKOCYTE ESTERASE, URINE MAN NEGATIVE (NEGATIVE); NITRITE, URINE MANUAL NEGATIVE (NEGATIVE); PROTEIN, URINE MANUAL NEGATIVE (NEGATIVE); SPECIFIC GRAVITY,URINE MANUAL 1.015 (1.002-1.035); UROBILINOGEN, URINE MANUAL NORMAL (NORMAL)
[2020-03-11 19:26] LABS: HEMATOCRIT 33.9 % (36.0-47.0); MEAN CORPUSCULAR HEMOGLOBIN 24.8 pg (27.0-33.0); MEAN CORPUSCULAR HGB CONC 32.4 g/dl (32.0-36.5); MEAN CORPUSCULAR VOLUME 76.4 fl (80.0-96.0); RED BLOOD COUNT 4.44 10^6/uL (4.00-5.40); WHITE BLOOD COUNT 6.1 10^3/uL (4.0-10.0)
[2020-03-11 19:28] LABS: PLATELET COUNT, AUTOMATED 17 10^3/uL (150-450)
[2020-03-12 18:14] LABS: HEMOGLOBIN 10.8 g/dl (12.0-15.5); MEAN CORPUSCULAR HEMOGLOBIN 24.5 pg (27.0-33.0); MEAN CORPUSCULAR HGB CONC 31.8 g/dl (32.0-36.5); MEAN CORPUSCULAR VOLUME 77.3 fl (80.0-96.0); WHITE BLOOD COUNT 6.1 10^3/uL (4.0-10.0)
[2020-03-12 18:20] LABS: PLATELET COUNT, AUTOMATED 24 10^3/uL (150-450)
[2020-03-12 18:21] LABS: INR 1.02; PROTHROMBIN TIME 13.6 SECONDS (12.5-14.3)
[2020-04-08 12:57] LABS: BLOOD UREA NITROGEN 11 MG/DL (7-18); CARBON DIOXIDE LEVEL 29 MEQ/L (21-32); CHLORIDE LEVEL 109 MEQ/L (98-107); CREATININE FOR GFR 0.63 MG/DL (0.55-1.30); GLOMERULAR FILTRATION RATE > 60.0 (>60); GLUCOSE, FASTING 90 MG/DL (70-100); POTASSIUM SERUM 3.1 MEQ/L (3.5-5.1); SODIUM LEVEL 142 MEQ/L (136-145)
[2020-04-09 11:12] LABS: ALBUMIN 3.5 GM/DL (3.2-5.2); ALT/SGPT 41 U/L (12-78); BILIRUBIN,TOTAL 0.4 MG/DL (0.2-1.0); BLOOD UREA NITROGEN 9 MG/DL (7-18); CARBON DIOXIDE LEVEL 26 MEQ/L (21-32); CHLORIDE LEVEL 110 MEQ/L (98-107); CREATININE FOR GFR 0.59 MG/DL (0.55-1.30); GLOMERULAR FILTRATION RATE > 60.0 (>60); GLUCOSE, FASTING 140 MG/DL (70-100); POTASSIUM SERUM 3.8 MEQ/L (3.5-5.1); SODIUM LEVEL 141 MEQ/L (136-145); TOTAL PROTEIN 7.4 GM/DL (6.4-8.2)
== END 2020-01-15 13:47 | disposition home or self-care (01) | DRG 661 ==
LOC: M ED 12:27 → M MS5PR 16:10
PROVIDERS: ADMIT Internal Medicine; ATTEND Internal Medicine
DX: D69.3 Immune thrombocytopenic purpura (principal); F31.9 Bipolar disorder, unspecified; J45.909 Unspecified asthma, uncomplicated; F41.9 Anxiety disorder, unspecified; G47.00 Insomnia, unspecified; L25.9 Unspecified contact dermatitis, unspecified cause; Z88.1 Allergy status to other antibiotic agents; Z91.030 Bee allergy status; Z79.899 Other long term (current) drug therapy

== ENCOUNTER → 2020-06-15 | Outpatient (REF) | payer OTHER ==
[~2020-06-15] MED LIST changes: +D31000TA2 PO; +NAPR250T4 PO; +TRAZ-252 PO
[2020-06-15 13:22] LABS: BASO # 0.1 10^3/uL (0.0-0.2); BASO % 0.9 % (0.0-1.0); EOS # 0.1 10^3/uL (0.0-0.5); EOS % 2.2 % (0.0-3.0); HEMATOCRIT 34.7 % (36.0-47.0); HEMOGLOBIN 10.7 g/dl (12.0-15.5); LYMPH # 1.4 10^3/uL (1.5-5.0); LYMPH % 23.5 % (24.0-44.0); MEAN CORPUSCULAR HEMOGLOBIN 23.6 pg (27.0-33.0); MEAN CORPUSCULAR HGB CONC 30.8 g/dl (32.0-36.5); MEAN CORPUSCULAR VOLUME 76.6 fl (80.0-96.0); MONO # 0.7 10^3/uL (0.0-0.8); MONO % 11.8 % (0.0-5.0); NEUTROPHILS # 3.6 10^3/uL (1.5-8.5); NEUTROPHILS % 61.3 % (36.0-66.0); RED BLOOD COUNT 4.53 10^6/uL (4.00-5.40); WHITE BLOOD COUNT 5.8 10^3/uL (4.0-10.0)
[2020-06-15 14:07] LABS: ALBUMIN 3.6 GM/DL (3.2-5.2); ALT/SGPT 21 U/L (12-78); BILIRUBIN,TOTAL 0.4 MG/DL (0.2-1.0); BLOOD UREA NITROGEN 14 MG/DL (7-18); CALCIUM LEVEL 8.1 MG/DL (8.5-10.1); CARBON DIOXIDE LEVEL 26 MEQ/L (21-32); CHLORIDE LEVEL 108 MEQ/L (98-107); CREATININE FOR GFR 0.63 MG/DL (0.55-1.30); FREE T4 0.91 NG/DL (0.76-1.46); GLOMERULAR FILTRATION RATE > 60.0 (>60); GLUCOSE, FASTING 106 MG/DL (70-100); SODIUM LEVEL 139 MEQ/L (136-145); TOTAL PROTEIN 7.1 GM/DL (6.4-8.2)
[2020-06-15 14:15] LABS: PLATELET COUNT, AUTOMATED 23 10^3/uL (150-450)
== END ==
LOC: M LAB REF 12:25
PROVIDERS: ATTEND Nurse Practitioner Family
DX: N64.4 Mastodynia (principal)

== ENCOUNTER → 2020-06-21 | Outpatient (CLI) | payer OTHER ==
--- NOTE | 2020-06-21 16:52 | REP ---
INDICATION: TIFFANIE BREAST PAIN. COMPARISON: Baseline study. TECHNIQUE: MLO and CC views bilateral breasts performed with tomosynthesis. Focused bilateral breast ultrasound performed in the upper-outer quadrants in the region of pain. FINDINGS: Mild scattered fibroglandular tissue is present bilaterally. Small oval mildly lobulated nodule is seen in the upper outer quadrant of each breast, both demonstrating a lucent notch most consistent with intramammary lymph nodes. Otherwise no mass or clustered microcalcifications are seen bilaterally. Focused bilateral breast ultrasound performed in the upper-outer quadrants. In the right breast at 10 o'clock 8 cm from the nipple an oval nodule demonstrates an echogenic hilum consistent with an intramammary lymph node measuring 1.0 x 1.0 x 0.5 cm. In the left breast at 2 o'clock approximately 9 cm from the nipple a similar appearing well-defined nodule demonstrates an echogenic hilum most consistent with an intramammary lymph node measuring 6 x 5 x 4 mm. No other cystic or solid nodule is seen. The Volpara volumetric breast density pattern is A. IMPRESSION: BIRADS/ACR category 2, benign. No suspicious mass or clustered microcalcifications. A benign intramammary lymph node is seen in the upper outer quadrant of each breast. This patient's Tyrer-Cuzick lifetime breast cancer risk assessment score is 22.1%%. This mammogram was interpreted with the aid of an FDA-approved computer-aided detection system. The patient states she had a clinical breast exam in urinary 2020. The patient letter being requested is M 2. RECOMMENDATION: Clinical correlation and follow-up recommended. Recommend follow-up mammogram when clinically appropriate. <Electronically signed by Moses Yost > 06/21/20 [id number]
== END ==
LOC: M WHC 13:36
PROVIDERS: ATTEND Internal Medicine Hematology & Oncology
DX: N64.4 Mastodynia (principal); R92.2 Inconclusive mammogram; N63.12 Unspecified lump in the right breast, upper inner quadrant; N63.21 Unspecified lump in the left breast, upper outer quadrant
CPT/HCPCS: 76641; 77066; G0279

== ENCOUNTER 2020-07-23 22:53 | Emergency (ER) | payer OTHER ==
[~2020-07-23] VITALS: Ht 152.4 cm; Wt 97.4 kg
[~2020-07-23 22:53] MED LIST changes: +DEXA4TA PO; +FERR325T3 PO; +SYNT25TA PO
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
--- OUTSIDE RECORDS SUMMARY | 2020-07-23 23:02 | CCD ---
Author Author [facility] Organization [facility] Address Unknown Phone Unavailable Care Team Providers Care Rotating Field Assembler Name Role Phone Amelia Escalona Unavailable [phone] Niall, A Delores SOLUTIONS SALES CONSULTANT Unavailable Unavailable [place], A Delores SOLUTIONS SALES CONSULTANT Unavailable Unavailable Niall, A Delores SOLUTIONS SALES CONSULTANT Unavailable Unavailable Niall, A Delores SOLUTIONS SALES CONSULTANT Unavailable Unavailable Niall, A Delores SOLUTIONS SALES CONSULTANT Unavailable Unavailable Niall, A Delores SOLUTIONS SALES CONSULTANT Unavailable Unavailable [place], A Delores SOLUTIONS SALES CONSULTANT Unavailable Unavailable [place], A Delores SOLUTIONS SALES CONSULTANT Unavailable Unavailable Niall, A Delores SOLUTIONS SALES CONSULTANT Unavailable Unavailable [place], A Delores SOLUTIONS SALES CONSULTANT Unavailable Unavailable [place], A Delores SOLUTIONS SALES CONSULTANT Unavailable Unavailable [place], A Delores SOLUTIONS SALES CONSULTANT Unavailable Unavailable [place], A Delores SOLUTIONS SALES CONSULTANT Unavailable Unavailable [place], A Delores SOLUTIONS SALES CONSULTANT Unavailable Unavailable [place], A Delores SOLUTIONS SALES CONSULTANT Unavailable Unavailable [place], A Delores SOLUTIONS SALES CONSULTANT Unavailable Unavailable [place], A Delores SOLUTIONS SALES CONSULTANT Unavailable Unavailable [place], A Delores SOLUTIONS SALES CONSULTANT Unavailable Unavailable [place], A Delores SOLUTIONS SALES CONSULTANT Unavailable Unavailable [place], A Delores SOLUTIONS SALES CONSULTANT Unavailable Unavailable [place], A Delores SOLUTIONS SALES CONSULTANT Unavailable Unavailable [place], A Delores SOLUTIONS SALES CONSULTANT Unavailable Unavailable [place], A Delores SOLUTIONS SALES CONSULTANT Unavailable Unavailable [place], A Delores SOLUTIONS SALES CONSULTANT Unavailable Unavailable [place], A Delores SOLUTIONS SALES CONSULTANT Unavailable Unavailable [place], A Delores SOLUTIONS SALES CONSULTANT Unavailable Unavailable [place], A Delores SOLUTIONS SALES CONSULTANT Unavailable Unavailable [place], A Delores SOLUTIONS SALES CONSULTANT Unavailable Unavailable [place], Delores SOLUTIONS SALES CONSULTANT SOLUTIONS SALES CONSULTANT Unavailable Unavailable [place], A Delores SOLUTIONS SALES CONSULTANT Unavailable Unavailable [place], A Delores SOLUTIONS SALES CONSULTANT Unavailable Unavailable [place], A Delores SOLUTIONS SALES CONSULTANT Unavailable Unavailable [place], A Delores SOLUTIONS SALES CONSULTANT Unavailable Unavailable [place], A Delores SOLUTIONS SALES CONSULTANT Unavailable Unavailable [place], A Delores SOLUTIONS SALES CONSULTANT Unavailable Unavailable [place], A Delores SOLUTIONS SALES CONSULTANT Unavailable Unavailable [place], A Delores SOLUTIONS SALES CONSULTANT Unavailable Unavailable [place], A Delores SOLUTIONS SALES CONSULTANT Unavailable Unavailable [place], A Delores SOLUTIONS SALES CONSULTANT Unavailable Unavailable [place], A Delores SOLUTIONS SALES CONSULTANT Unavailable Unavailable [place], A Delores SOLUTIONS SALES CONSULTANT Unavailable Unavailable [place], A Delores SOLUTIONS SALES CONSULTANT Unavailable Unavailable [place], A Delores SOLUTIONS SALES CONSULTANT Unavailable Unavailable [place], A Delores SOLUTIONS SALES CONSULTANT Unavailable Unavailable [place], A Delores SOLUTIONS SALES CONSULTANT Unavailable Unavailable [place], A Delores SOLUTIONS SALES CONSULTANT Unavailable Unavailable [place], A Delores SOLUTIONS SALES CONSULTANT Unavailable Unavailable Niall, A Delores SOLUTIONS SALES CONSULTANT Unavailable Unavailable Niall, A Delores SOLUTIONS SALES CONSULTANT Unavailable Unavailable Niall, A Delores SOLUTIONS SALES CONSULTANT Unavailable Unavailable Niall, A Deloers SOLUTIONS SALES CONSULTANT Unavailable Unavailable Niall, A Delores SOLUTIONS SALES CONSULTANT Unavailable Unavailable Niall, A Delores SOLUTIONS SALES CONSULTANT Unavailable Unavailable Niall, A Delores SOLUTIONS SALES CONSULTANT Unavailable Unavailable Niall, A Delores SOLUTIONS SALES CONSULTANT Unavailable Unavailable Niall, A Delores SOLUTIONS SALES CONSULTANT Unavailable Unavailable Niall, A Delores SOLUTIONS SALES CONSULTANT Unavailable Unavailable Re-disclosure Warning The records that you are about to access may contain information from federally-assisted alcohol or drug abuse programs. If such information is present, then the following federally mandated warning applies: This information has been disclosed to you from records protected by federal confidentiality rules (42 CFR part 2). The federal rules prohibit you from making any further disclosure of this information unless further disclosure is expressly permitted by the written consent of the person to whom it pertains or as otherwise permitted by 42 CFR part 2. A general authorization for the release of medical or other information is NOT sufficient for this purpose. The Federal rules restrict any use of the information to criminally investigate or prosecute any alcohol or drug abuse patient.The records that you are about to access may contain highly sensitive health information, the redisclosure of which is protected by Article 27-F of the [facility] Public Health law. If you continue you may have access to information: Regarding HIV / AIDS; Provided by facilities licensed or operated by the [facility] Office of Mental Health; or Provided by the [facility] Office for People With Developmental Disabilities. If such information is present, then the following [facility] mandated warning applies: This information has been disclosed to you from confidential records which are protected by state law. State law prohibits you from making any further disclosure of this information without the specific written consent of the person to whom it pertains, or as otherwise permitted by law. Any unauthorized further disclosure in violation of state law may result in a fine or retirement sentence or both. A general authorization for the release of medical or other information is NOT sufficient authorization for further disc losure. Family History Family Member Name Family Member Gender Family Member Status Date o f Status Description Data Source(s) Unknown Unknown Problem [facility], ) Encounters Encounter Providers Location Date Indications Data Source(s ) Amelia Pupillo, [employer]: [address], [place] [address], Ph. Attender: Amelia Escalona [facility] Medical 06/29/2020 12:00:00 AM EST [facility] ([facility]) Amelia Escalona, [employer]OSTESS: [address], [place] [address], Ph. Attender: Amelia Escalona [facility] Medical 06/29/2020 12:00:00 AM EST [facility] ([facility]) Delores Tierney [facility]: [address], [place] [address], Ph. Attender: Delores Tierney [facility] Medical 06/28/2020 12:00:00 AM EST [facility] ([facility]) Delores Tierney [facility]: [address], [place] [address], Ph. Attender: Delores Tierney [facility] Medical 06/28/2020 12:00:00 AM EST [facility] ([facility]) Amelia Escalona, [facility]: [address], [place] [address], Ph. Attender: Amelia Escalona [facility] Medical 06/22/2020 12:00:00 AM EST [facility] ([facility]) Amelia Escalona, [facility]: [address], [place] [address], Ph. Attender: Amelia Escalona [facility] Medical 06/22/2020 12:00:00 AM EST [facility] ([facility]) Amelia Escalona, [facility]: [address], [place] [address], Ph. Attender: Amelia Iqra [facility] Medical 06/22/2020 12:00:00 AM EST [facility] ([facility]) Delores Tierney [facility]: [address], [place] [address], Ph. Attender: Delores Tierney [facility] Medical 06/15/2020 12:00:00 AM EST [facility] ([facility]) [facility] [address], [place] [address], Ph. Attender: Delores Tierney [facility] Medical 06/15/2020 12:00:00 AM EST [facility] ([facility]) [facility] [address], [place] [address], Ph. Attender: Delores Tierney [facility] Medical 06/15/2020 12:00:00 AM EST [facility] ([facility]) [facility] [address], [place] [address], Ph. Attender: Delores Tierney [facility] Medical 06/15/2020 12:00:00 AM EST [facility] ([facility]) [facility] [address], [place] [address], Ph. Attender: Delores Tierney [facility] Medical 06/15/2020 12:00:00 AM EST [place] ([facility]) [place]: [address], [place] [address], Ph. Attender: Delores Tierney [facility] Medical 06/14/2020 12:00:00 AM EST [facility] ([facility]) Delores Tierney [facility]: [address], [place] [address], Ph. Attender: Delores Tierney [facility] Medical 06/14/2020 12:00:00 AM EST [facility] ([facility]) Delores Tierney [facility]: [address], [place] [address], Ph. Attender: Delores Tierney [facility] Medical 06/14/2020 12:00:00 AM EST [facility] ([facility]) Delores Tierney [facility]: [address], [place] [address], Ph. Attender: Delores Tierney [facility] Medical 06/14/2020 12:00:00 AM EST [facility] ([facility]) Delores Tierney [facility]: [address], [place] [address], Ph. Attender: Delores Tierney [facility] Medical 06/14/2020 12:00:00 AM EST [place] ([facility]) Amelia Escalona [facility]: [address], [place] [address], Ph. Attender: Amelia Escalona [facility] Medical 06/08/2020 12:00:00 AM EST [facility] ([facility]) Amelia Escalona [facility]: [address], [place] [address], Ph. Attender: Amelia Escalona [facility] Medical 06/08/2020 12:00:00 AM EST [place] ([facility]) Amelia Escalona, [employer]: [address], [place] [address], Ph. Attender: Amelia Escalona [facility] Medical 06/08/2020 12:00:00 AM EST [facility] ([facility]) Amelia Escalona, [employer]OSTESS: [address], [place] [address], Ph. Attender: Amelia Escalona [facility] Medical 06/08/2020 12:00:00 AM EST [facility] ([facility]) Amelia Escalona, [employer]ESS: [address], [place] [address], Ph. Attender: Amelia Escalona [facility] Medical 06/08/2020 12:00:00 AM EST [facility] ([facility]) Amelia Escalona, [employer]: [address], [place] [address], Ph. Attender: Amelia Escalona [facility] Medical 06/08/2020 12:00:00 AM EST [facility] ([facility]) Amelia Escalona, [employer]OSTESS: [address], [place] [address], Ph. Attender: Amelia Escalona [facility] Medical 05/23/2020 12:00:00 AM EST [facility] ([facility]) Amelia Escalona, [employer]FA[employer] HOSTESS: [address], [place] [address], Ph. Attender: Amelia Escalona [facility] Medical 05/23/2020 12:00:00 AM EST [facility] ([facility]) Amelia Escalona, [facility]: [address], [place] [address], Ph. Attender: Amelia Escalona [facility] Medical 05/23/2020 12:00:00 AM EST [facility] ([facility]) Amelia Escalona, [employer] HOSTESS: [address], [place] [address], Ph. Attender: Amelia Escalona [facility] Medical 05/23/2020 12:00:00 AM EST [facility] ([facility]) Amelia Escalona, [facility]: [address], [place] [address], Ph. Attender: Amelia Escalona [facility] Medical 05/23/2020 12:00:00 AM EST [facility] ([facility]) Amelia Escalona, [facility]: [address], [place] [address], Ph. Attender: Amelia Escalona [facility] Medical 05/23/2020 12:00:00 AM EST [facility] ([facility]) Amelia Escalona, [facility]: [address], [place] [address], Ph. Attender: Amelia Escalona [facility] Medical 05/23/2020 12:00:00 AM EST [facility] ([facility]) Amelia Escalona, [employer]FA[employer] HOSTESS: [address], [place] [address], Ph. Attender: Amelia Escalona [facility] Medical 05/04/2020 12:00:00 AM EST [facility] ([facility]) Amelia Escalona, [facility]: [address], [place] [address], Ph. Attender: Amelia Escalona [facility] Medical 05/04/2020 12:00:00 AM EST [facility] ([facility]) Amelia Escalona, BREAKFA[employer] HOSTESS: [address], [place] [address], Ph. Attender: Amelia Escalona [facility] Medical 05/04/2020 12:00:00 AM EST [facility] ([facility]) Amelia Escalona, BREAKFA[employer] HOSTESS: [address], [place] [address], Ph. Attender: Amelia Escalona [facility] Medical 05/04/2020 12:00:00 AM EST [facility] ([facility]) Amelia Escalona, [facility]: [address], [place] [address], Ph. Attender: Amelia Escalona [facility] Medical 05/04/2020 12:00:00 AM EST [facility] ([facility]) Amelia Escalona, [facility]: [address], [place] [address], Ph. Attender: Amelia Escalona [facility] Medical 05/04/2020 12:00:00 AM EST [facility] ([facility]) Amelia Escalona, [employer]OST[employer]: [address], [place] [address], Ph. Attender: Amelia Escalona [facility] Medical 05/04/2020 12:00:00 AM EST [facility] ([facility]) Amelia Escalona, [employer] HOSTESS: [address], [place] [address], Ph. Attender: Amelia Escalona [facility] Medical 05/04/2020 12:00:00 AM EST [facility] ([facility]) Amelia Escalona, [employer]OST[employer]: [address], [place] [address], Ph. Attender: Amelia Escalona [facility] Medical 03/28/2020 12:00:00 AM EDT [facility] ([facility]) Amelia Escalona, [employer]FA[employer] HOSTESS: [address], [place] [address], Ph. Attender: Amelia Escalona [facility] Medical 03/28/2020 12:00:00 AM EDT [facility] ([facility]) Amelia Escalona, [employer]FA[employer] HOSTESS: [address], [place] [address], Ph. Attender: Amelia Escalona [facility] Medical 03/28/2020 12:00:00 AM EDT [facility] ([facility]) Amelia Escalona, BREAKFA[employer] HOSTESS: [address], [place] [address], Ph. Attender: Amelia Escalona [facility] Medical 03/28/2020 12:00:00 AM EDT [facility] ([facility]) Amelia Escalona, BREAKFA[employer] HOSTESS: [address], [place] [address], Ph. Attender: Amelia Escalona [facility] Medical 03/28/2020 12:00:00 AM EDT [facility] ([facility]) Amelia Escalona, [facility]: [address], [place] [address], Ph. Attender: Amelia Escalona [facility] Medical 03/28/2020 12:00:00 AM EDT [facility] ([facility]) Amelia Escalona, [facility]: [address], [place] [address], Ph. Attender: Amelia Escalona [facility] Medical 03/28/2020 12:00:00 AM EDT [facility] ([facility]) Amelia Escalona [facility]: [address], [place] [address], Ph. Attender: Amelia Escalona [facility] Medical 03/28/2020 12:00:00 AM EDT [facility] ([facility]) Amelia Escalona, [facility]: [address], [place] [address], Ph. Attender: Amelia Escalona [facility] Medical 03/28/2020 12:00:00 AM EDT [facility] ([facility]) Outpatient Attender: JUAN CARLOS RANGEL 03/20/2020 08:51:02 A M EDT [facility] Outpatient Attender: Delores RANGEL 03/18/2020 03:1 0:02 PM EDT [facility] Outpatient Attender: JUAN CARLOS RANGEL 03/18/2020 03:10:00 P M EDT [facility] Outpatient Attender: Delores RANGEL 03/12/2020 06:0 8:01 PM EDT [facility] Outpatient Attender: JUAN CARLOS RANGEL FP 03/09/2020 08:01:02 P M EDT [facility] Outpatient Attender: JUAN CARLOS RANGEL 03/09/2020 09:15:00 A M EDT [facility] Outpatient Attender: Delores ELKINSP FP 03/04/2020 07:0 3:03 PM EDT [facility] Outpatient Attender: JUAN CARLOS Tierney SOLUTIONS SALES CONSULTANT FP 03/04/2020 07:03:02 P M EDT [facility] Outpatient Attender: JUAN CARLOS Tierney SOLUTIONS SALES CONSULTANT FP 03/03/2020 08:01:05 P M EDT [facility] Outpatient Attender: JUAN CARLOS Tierney SOLUTIONS SALES CONSULTANT FP 02/08/2020 08:01:03 P M EDT [facility] Outpatient Attender: JUAN CARLOS Tierney SOLUTIONS SALES CONSULTANT FP 01/24/2020 08:01:03 P M EDT [facility] Outpatient Attender: Delores Tierney SOLUTIONS SALES CONSULTANT FP 01/24/2020 01:1 9:00 PM EDT [facility] Outpatient Attender: JUAN CARLOS Tierney SOLUTIONS SALES CONSULTANT FP 01/20/2020 10:39:01 A M EDT [facility] Outpatient Attender: JUAN CARLOS Tierney SOLUTIONS SALES CONSULTANT FP 01/06/2020 08:01:02 P M EDT [facility] Outpatient Attender: JUAN CARLOS Tierney SOLUTIONS SALES CONSULTANT FP 12/27/2019 12:05:01 P M EDT [facility] Outpatient Attender: JUAN CARLOS Tierney SOLUTIONS SALES CONSULTANT FP 12/21/2019 08:02:03 P M EDT [facility] Outpatient Attender: JUAN CARLOS Tierney SOLUTIONS SALES CONSULTANT FP 12/21/2019 01:58:00 P M EDT [facility] Outpatient Attender: Delores Tierney SOLUTIONS SALES CONSULTANT FP 12/15/2019 01:2 4:02 PM EDT [facility] Outpatient Attender: JUAN CARLOS ELKINSP FP 11/29/2019 08:01:01 P M EDT [facility] Outpatient Attender: JUAN CARLOS Tierney SOLUTIONS SALES CONSULTANT FP 11/19/2019 08:01:04 P M EDT [facility] Outpatient Attender: Delores ELKINSP FP 11/17/2019 06:4 3:01 PM EDT [facility] Outpatient Attender: JUAN CARLOS ELKINSP FP 11/16/2019 09:10:01 A M EDT [facility] Outpatient Attender: JUAN CARLOS Tierney SOL[employer] SALES CONSULTANT FP 11/11/2019 08:01:01 P M EDT [facility] Outpatient Attender: JUAN CARLOS ELKINSP FP 11/10/2019 10:53:00 A M EDT [facility] Outpatient Attender: JUAN CARLOS ELKINSP FP 11/04/2019 08:54:01 A M EDT [facility] Outpatient Attender: JUAN CARLOS ELKINSP FP 10/07/2019 10:21:01 A M EDT [facility] Outpatient Attender: JUAN CARLOS ELKINSP FP 09/23/2019 10:09:00 A M EDT [facility] Outpatient Attender: Delores ELKINSP FP 09/17/2019 02:4 5:02 PM EDT [facility] Outpatient Attender: Delores ELKINSP FP 09/17/2019 02:4 2:00 PM EDT [facility] Outpatient Attender: JUAN CARLOS ELKINSP FP 09/13/2019 02:24:01 P M EDT [facility] Outpatient Attender: Delores ELKINSP FP 08/29/2019 04:2 7:00 PM EDT [facility] Outpatient Attender: JUAN CARLOS ELKINSP FP 08/25/2019 11:17:00 A M EDT [facility] Outpatient Attender: Delores ELKINSP FP 08/12/2019 11:3 8:02 AM EDT [facility] Outpatient Attender: JUAN CARLOS ELKINSP FP 08/12/2019 11:21:13 A M EDT [facility] Outpatient Attender: JUAN CARLOS ELKINSP FP 08/10/2019 09:57:02 A M EDT [facility] Outpatient Attender: JUAN CARLOS ELKINSP FP 07/27/2019 09:01:00 P M EST [facility] Outpatient Attender: Delores ELKINSP FP 07/26/2019 01:2 7:01 PM [facility] Outpatient Attender: Delores ELKINSP FP 07/23/2019 10:0 5:01 AM EST [facility] Outpatient Attender: Delores ELKINSP FP 07/16/2019 12:5 5:02 PM EST [facility] Outpatient Attender: JUAN CARLOS ELKINSP FP 07/16/2019 12:55:01 P M [facility] Outpatient Attender: Delores ELKINSP FP 07/14/2019 08:0 9:59 AM EST [facility] Outpatient Attender: Delores RANGEL FP 07/09/2019 05:0 8:00 PM [facility] Outpatient Attender: JUAN CARLOS RANGEL FP 07/09/2019 11:52:00 A [facility] Outpatient Attender: JUAN CARLOS RANGEL FP 07/09/2019 10:16:01 A [facility] Outpatient Attender: Delores RANGEL FP 07/09/2019 10:1 5:01 AM [facility] Outpatient Attender: JUAN CARLOS RANGEL FP 07/09/2019 10:14:01 A [facility] Outpatient Attender: JUAN CARLOS RANGEL FP 07/09/2019 09:17:00 A [facility] Outpatient Attender: Delores RANGEL FP 06/25/2019 09:3 1:18 AM [facility] Outpatient Attender: Delores RANGEL FP 06/10/2019 12:1 7:00 AM [facility] Outpatient Attender: JUAN CARLOS RANGEL FP 06/07/2019 01:47:00 P [facility] Outpatient Attender: JUAN CARLOS RANGEL FP 06/07/2019 01:32:01 P [facility] Outpatient Attender: JUAN CARLOS RANGEL FP 06/07/2019 01:20:00 P [facility] Outpatient Attender: JUAN CARLOS RANGEL FP 06/07/2019 01:19:01 P [facility] [facility]ender: JUAN CARLOS RANGEL FP 06/07/2019 01:04:01 P [facility] Medications Medication Brand Name Start Date Product Form Dose Route Admi nistrative Instructions Pharmacy Instructions Status Indications Reaction Description Data Source(s) 20 mg 04/13/2020 12:00:00 AM EST capsule 30 TAKE ONE CAPSULE BY MOUTH EVERY DAY TAKE ONE CAPSULE BY MOUTH EVERY DAY SOLD: 05/30/2020 [facility] 50 mg 04/13/2020 12:00:00 AM EST tablet 30 TAKE ONE TABLET BY MOUTH DAILY DIRECTED TAKE ONE TABLET BY MOUTH DAILY DIRECTED SOLD: 04/15/2020 [facility] 50 mg 04/13/2020 12:00:00 AM EST tablet 30 TAKE ONE TABLET BY MOUTH DAILY DIRECTED TAKE ONE TABLET BY MOUTH DAILY DIRECTED SOLD: 05/30/2020 [facility] 20 mg 04/13/2020 12:00:00 AM EST capsule 30 TAKE ONE CAPSULE BY MOUTH EVERY DAY TAKE ONE CAPSULE BY MOUTH EVERY DAY SOLD: 04/15/2020 [facility] 50 mg 01/25/2020 12:00:00 AM EDT tablet 30 TAKE ONE TABLET BY MOUTH DAILY AT BEDTIME TAKE ONE TABLET BY MOUTH DAILY AT BEDTIME SOLD: 02/28/2020 [facility] 50 mg 01/25/2020 12:00:00 AM EDT tablet 30 TAKE ONE TABLET BY MOUTH DAILY AT BEDTIME TAKE ONE TABLET BY MOUTH DAILY AT BEDTIME SOLD: 01/26/2020 [facility] 25 mg 12/28/2019 12:00:00 AM EDT tablet 60 TAKE ONE TABLET BY MOUTH TWICE A DAY TAKE ONE TABLET BY MOUTH TWICE A DAY SOLD: 12/31/2019 [facility] 20 mg 12/16/2019 12:00:00 AM EDT capsule 30 TAKE ONE CAPSULE BY MOUTH EVERY DAY TAKE ONE CAPSULE BY MOUTH EVERY DAY SOLD: 02/28/2020 [facility] 20 mg 12/16/2019 12:00:00 AM EDT capsule 30 TAKE ONE CAPSULE BY MOUTH EVERY DAY TAKE ONE CAPSULE BY MOUTH EVERY DAY SOLD: 12/23/2019 [facility] 20 mg 12/16/2019 12:00:00 AM EDT capsule 30 TAKE ONE CAPSULE BY MOUTH EVERY DAY TAKE ONE CAPSULE BY MOUTH EVERY DAY SOLD: 01/26/2020 [facility] 50 mg 11/18/2019 12:00:00 AM EDT tablet 30 TAKE ONE TABLET BY MOUTH AT BEDTIME TAKE ONE TABLET BY MOUTH AT BEDTIME SOLD: 11/23/2019 [facility] 50 mg 11/18/2019 12:00:00 AM EDT tablet 30 TAKE ONE TABLET BY MOUTH AT BEDTIME TAKE ONE TABLET BY MOUTH AT BEDTIME SOLD: 12/23/2019 [facility] 50 mg 09/14/2019 12:00:00 AM EDT tablet 30 TAKE ONE TABLET BY MOUTH EVERY DAY AT BEDTIME TAKE ONE TABLET BY MOUTH EVERY DAY AT BEDTIME SOLD: 10/14/2019 [facility] 20 mg 09/14/2019 12:00:00 AM EDT capsule 30 TAKE ONE CAPSULE BY MOUTH EVERY DAY TAKE ONE CAPSULE BY MOUTH EVERY DAY SOLD: 10/14/2019 [facility] 20 mg 09/14/2019 12:00:00 AM EDT capsule 30 TAKE ONE CAPSULE BY MOUTH EVERY DAY TAKE ONE CAPSULE BY MOUTH EVERY DAY SOLD: 11/12/2019 [facility] 20 mg 09/14/2019 12:00:00 AM EDT capsule 30 TAKE ONE CAPSULE BY MOUTH EVERY DAY TAKE ONE CAPSULE BY MOUTH EVERY DAY SOLD: 09/15/2019 [facility] 50 mg 09/14/2019 12:00:00 AM EDT tablet 30 TAKE ONE TABLET BY MOUTH EVERY DAY AT BEDTIME TAKE ONE TABLET BY MOUTH EVERY DAY AT BEDTIME SOLD: 09/15/2019 [facility] 1,250 mcg (50,000 unit) 08/30/2019 12:00:00 AM EDT capsule 4 TAKE 1 CAPSULE BY MOUTH ONCE WEEKLY TAKE 1 CAPSULE BY MOUTH ONCE WEEKLY SOLD: 11/12/2019 [facility] 1,250 mcg (50,000 unit) 08/30/2019 12:00:00 AM EDT capsule 4 TAKE 1 CAPSULE BY MOUTH ONCE WEEKLY TAKE 1 CAPSULE BY MOUTH ONCE WEEKLY SOLD: 10/14/2019 [facility] 1,250 mcg (50,000 unit) 08/30/2019 12:00:00 AM EDT capsule 4 TAKE 1 CAPSULE BY MOUTH ONCE WEEKLY TAKE 1 CAPSULE BY MOUTH ONCE WEEKLY SOLD: 09/07/2019 [facility] 1,250 mcg (50,000 unit) 08/30/2019 12:00:00 AM EDT capsule 4 TAKE 1 CAPSULE BY MOUTH ONCE WEEKLY TAKE 1 CAPSULE BY MOUTH ONCE WEEKLY SOLD: 12/16/2019 [facility] 875 mg 07/09/2019 12:00:00 AM EST tablet 20 TAKE 1 TABLET BY MOUTH TWICE DAILY FOR 10 DAYS TAKE 1 TABLET BY MOUTH TWICE DAILY FOR 10 DAYS SOLD: 07/12/2019 [facility] 325 mg 05/16/2019 12:00:00 AM EST tablet 120 TAKE TWO TABLETS BY MOUTH TWICE A DAY NEEDED FOR PAIN TAKE TWO TABLETS BY MOUTH TWICE A DAY NEEDED FOR PAIN SOLD: 06/26/2019 [facility] 1,250 mcg (50,000 unit) 04/13/2019 12:00:00 AM EST capsule 4 TAKE ONE CAPSULE BY MOUTH ONCE WEEKLY TAKE ONE CAPSULE BY MOUTH ONCE WEEKLY SOLD: 07/28/2019 [facility] 1,250 mcg (50,000 unit) 04/13/2019 12:00:00 AM EST capsule 4 TAKE ONE CAPSULE BY MOUTH ONCE WEEKLY TAKE ONE CAPSULE BY MOUTH ONCE WEEKLY SOLD: 06/26/2019 [facility] 10 mg 03/03/2019 12:00:00 AM EDT capsule 30 TAKE ONE CAPSULE BY MOUTH EVERY DAY TAKE ONE CAPSULE BY MOUTH EVERY DAY SOLD: 07/21/2019 [facility] Dicyclomine Hydrochloride 20 MG Oral Tablet dicyclomin e 20 mg tablet dicyclomine 20 mg tablet completed d icyclomine hydrochloride 20 MG Oral Tablet [facility] ([facility]) lamotrigine 25 MG Oral Tablet lamotrigine 25 mg tablet lamot rigine 25 mg tablet completed lamotrigine 25 MG Oral Tablet [facility] ([facility]) Fluoxetine 10 MG Oral Capsule fluoxetine 10 mg capsule fluox etine 10 mg capsule completed fluoxetine 10 MG Oral Capsule [place] ([facility]) Naproxen 500 MG Oral Tablet naproxen 500 mg tablet naproxen 500 mg ta blet completed naproxen 500 MG Oral Tablet [place] ([facility]) Acetaminophen 325 MG Oral Tablet [Mapap] Mapap (acetam inophen) 325 mg tablet Mapap (acetaminophen) 325 mg tablet co mpleted acetaminophen 325 MG Oral Tablet [Mapap] [facility] ([facility]) Amoxicillin 875 MG Oral Tablet amoxicillin 875 mg tabl et amoxicillin 875 mg tablet completed amoxicillin 875 MG Oral Tablet [place] ([facility]) Fluoxetine 10 MG Oral Capsule fluoxetine 10 mg capsule fluox etine 10 mg capsule completed fluoxetine 10 MG Oral Capsule [place] ([facility]) Acetaminophen 325 MG Oral Tablet [Mapap] Mapap (acetam inophen) 325 mg tablet Mapap (acetaminophen) 325 mg tablet co mpleted acetaminophen 325 MG Oral Tablet [Mapap] [facility] ([facility]) Dicyclomine Hydrochloride 20 MG Oral Tablet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 ([facility]) Name Value Range Interpretation Code Description Data Mary rce(s) Supporting Document(s) glucose, fasting 106 mg/dL 70-100 Above high normal Glucose, Fas ting [place] ([facility]) creatinine for GFR 0.63 mg/dL 0.55-1.30 normal Creatinine for GF R [place] ([facility]) blood urea nitrogen 14 mg/dL 7-18 normal Blood Urea Nitro gen [place] ([facility]) glomerular filtration rate > 60.0 >60 normal Glomerula r Filtration Rate [place] ([facility]) potassium serum 4.0 mEq/L 3.5-5.1 normal Potassium Serum ATH NA ([facility]) sodium level 139 mEq/L 136-145 normal Sodium Level [place] ([facility]) anion gap 5 mEq/L 8-16 Below low normal Anion Gap [place] ( [facility]) chloride level 108 mEq/L 98-107 Above high normal Chloride Level [place] ([facility]) carbon dioxide level 26 mEq/L 21-32 normal Carbon Dioxide Level [place] ([facility]) AST/SGOT 13 U/L 7-37 normal AST/SGOT [place] ([facility]) ALT/SGPT 21 U/L 12-78 normal ALT/SGPT [place] ([facility]) calcium level 8.1 mg/dL 8.5-10.1 Below low normal Calcium Level AT [facility]) alkaline phosphatase 83 U/L 45-117 normal Alkaline Phosph atase [place] ([facility]) bilirubin,total 0.4 mg/dL 0.2-1.0 normal Bilirubin,total [place] ([facility]) albumin 3.6 gm/dL 3.2-5.2 normal Albumin [place] ([facility]) total protein 7.1 gm/dL 6.4-8.2 normal Total Protein [place] ( [facility]) albumin/globulin ratio 1.2-2.2 Below low normal Albumin /globulin Ratio [place] ([facility]) ID Date Data Source [id number] 06/15/2020 08:35:00 AM EST [facility]) Name Value Range Interpretation Code Description Data Mary rce(s) Supporting Document(s) immature platelet fraction % 6.3 % 0.0-9.59 normal Immatur e Platelet Fraction % [place] ([facility]) ID Date Data Source [id number] 06/15/2020 08:35:00 AM EST [facility]) Name Value Range Interpretation Code Description Data Mary rce(s) Supporting Document(s) red blood count 4.53 10 4.00-5.40 normal Red Blood Count [facility] ([facility]) white blood count 5.8 10 4.0-10.0 normal White Blood Count [place] ([facility]) hematocrit 34.7 % 36.0-47.0 Below low normal Hematocrit [place] ( [facility]) hemoglobin 10.7 g/dL 12.0-15.5 Below low normal Hemoglobin [place] ( [facility]) mean corpuscular volume 76.6 fL 80.0-96.0 Below low normal Mean Corpuscular Volume [place] ([facility]) mean corpuscular hemoglobin 23.6 pg 27.0-33.0 Below low nor mal Mean Corpuscular Hemoglobin [place] ([facility]) mean corpuscular HGB conc 30.8 g/dL 32.0-36.5 Below low sudeep l Mean Corpuscular HGB Conc [place] ([facility]) red cell distribution width 14.6 % 11.5-14.5 Above high no rmal Red Cell Distribution Width [place] ([facility]) platelet count, automated 23 10 150-450 Below low sudeep l Platelet Count, Automated [place] ([facility]) mono % 11.8 % 0.0-5.0 Above high normal [place] % [place] ([facility]) eos % 2.2 % 0.0-3.0 normal Eos % [place] ([facility]) neutrophils % 61.3 % 36.0-66.0 normal Neutrophils % [place] ( [facility]) lymph % 23.5 % 24.0-44.0 Below low normal Lymph % [place] ( [facility]) neutrophils # 3.6 10 1.5-8.5 normal Neutrophils # [place] ( [facility]) immature granulocyte % 0.3 % 0-3.0 normal Immature Gran ulocyte % [place] ([facility]) nucleated red blood cell % 0.0 % 0-0 normal Nucleated Red Blood Cell % [place] ([facility]) baso % 0.9 % 0.0-1.0 normal Baso % [place] ([facility]) lymph # 1.4 10 1.5-5.0 Below low normal Lymph # [place] ( [facility]) eos # 0.1 10 0.0-0.5 normal Eos # [place] ([facility]) baso # 0.1 10 0.0-0.2 normal Baso # [place] ([facility]) mono # 0.7 10 0.0-0.8 normal [place] # [place] ([facility]) ID Date Data Source [id number] 06/15/2020 08:35:00 AM EST [place] ([facility]) Name Value Range Interpretation Code Description Data Mary rce(s) Supporting Document(s) free T4 0.91 NG/dL 0.76-1.46 normal Free T4 [place] ([facility]) thyroid stimulating hormone 7.380 uIU/mL 0.358-3.740 Above high no rmal Thyroid Stimulating Hormone [place] ([facility]) ID Date Data Source [id number] 06/15/2020 08:35:00 AM EST [place] ([facility]) Name Value Range Interpretation Code Description Data Mary rce(s) Supporting Document(s) glucose, fasting 106 mg/dL 70-100 Above high normal Glucose, Fas ting [place] ([facility]) blood urea nitrogen 14 mg/dL 7-18 normal Blood Urea Nitro gen [place] ([facility]) creatinine for GFR 0.63 mg/dL 0.55-1.30 normal Creatinine for GF R [place] ([facility]) sodium level 139 mEq/L 136-145 normal Sodium Level [place] ([facility]) glomerular filtration rate > 60.0 >60 normal Glomerula r Filtration Rate [place] ([facility]) potassium serum 4.0 mEq/L 3.5-5.1 normal Potassium Serum ATH NA ([facility]) chloride level 108 mEq/L 98-107 Above high normal Chloride Level [place] ([facility]) carbon dioxide level 26 mEq/L 21-32 normal Carbon Dioxide Level [place] ([facility]) AST/SGOT 13 U/L 7-37 normal AST/SGOT [place] ([facility]) anion gap 5 mEq/L 8-16 Below low normal Anion Gap [place] ( [facility]) ALT/SGPT 21 U/L 12-78 normal ALT/SGPT [place] ([facility]) calcium level 8.1 mg/dL 8.5-10.1 Below low normal Calcium Level AT [place] ([facility]) alkaline phosphatase 83 U/L 45-117 normal Alkaline Phosph atase [place] ([facility]) total protein 7.1 gm/dL 6.4-8.2 normal Total Protein [place] ( [facility]) bilirubin,total 0.4 mg/dL 0.2-1.0 normal Bilirubin,total [facility] ([facility]) albumin/globulin ratio 1.2-2.2 Below low normal Albumin /globulin Ratio [place] ([facility]) albumin 3.6 gm/dL 3.2-5.2 normal Albumin [place] ([facility]) ID Date Data Source [id number] 06/15/2020 08:35:00 AM EST [place] ([facility]) Name Value Range Interpretation Code Description Data Mary rce(s) Supporting Document(s) immature platelet fraction % 6.3 % 0.0-9.59 normal Immatur e Platelet Fraction % [place] ([facility]) ID Date Data Source [id number] 06/15/2020 08:35:00 AM EST [place] ([facility]) Name Value Range Interpretation Code Description Data Mary rce(s) Supporting Document(s) red blood count 4.53 10 4.00-5.40 normal Red Blood Count [place] ([facility]) white blood count 5.8 10 4.0-10.0 normal White Blood Count [place] ([facility]) hemoglobin 10.7 g/dL 12.0-15.5 Below low normal Hemoglobin [place] ( [facility]) hematocrit 34.7 % 36.0-47.0 Below low normal Hematocrit [place] ( [facility]) mean corpuscular HGB conc 30.8 g/dL 32.0-36.5 Below low [place] Mean Corpuscular HGB Conc [place] ([facility]) mean corpuscular hemoglobin 23.6 pg 27.0-33.0 Below low nor mal Mean Corpuscular Hemoglobin [place] ([facility]) mean corpuscular volume 76.6 fL 80.0-96.0 Below low normal Mean Corpuscular Volume [place] ([facility]) platelet count, automated 23 10 150-450 Below low [place] Platelet Count, Automated [place] ([facility]) neutrophils % 61.3 % 36.0-66.0 normal Neutrophils % [place] ( [facility]) lymph % 23.5 % 24.0-44.0 Below low normal Lymph % [place] ( [facility]) red cell distribution width 14.6 % 11.5-14.5 Above high no rmal Red Cell Distribution Width [place] ([facility]) eos % 2.2 % 0.0-3.0 normal Eos % [place] ([facility]) mono % 11.8 % 0.0-5.0 Above high normal [place] % [place] ([facility]) baso % 0.9 % 0.0-1.0 normal Baso % [place] ([facility]) nucleated red blood cell % 0.0 % 0-0 normal Nucleated Red Blood Cell % [place] ([facility]) lymph # 1.4 10 1.5-5.0 Below low normal Lymph # [place] ( [facility]) neutrophils # 3.6 10 1.5-8.5 normal Neutrophils # [place] ( [facility]) immature granulocyte % 0.3 % 0-3.0 normal Immature Gran ulocyte % [place] ([facility]) baso # 0.1 10 0.0-0.2 normal Baso # [place] ([facility]) eos # 0.1 10 0.0-0.5 normal Eos # [place] ([facility]) mono # 0.7 10 0.0-0.8 normal [place] # [place] ([facility]) ID Date Data Source [id number] 06/15/2020 08:35:00 AM EST [place] ([facility]) Name Value Range Interpretation Code Description Data Mary rce(s) Supporting Document(s) thyroid stimulating hormone 7.380 uIU/mL 0.358-3.740 Above high no rmal Thyroid Stimulating Hormone [place] ([facility]) free T4 0.91 NG/dL 0.76-1.46 normal Free T4 [place] ([facility]) ID Date Data Source [id number] 06/15/2020 08:35:00 AM EST [place] ([facility]) Name Value Range Interpretation Code Description Data Mary rce(s) Supporting Document(s) glucose, fasting 106 mg/dL 70-100 Above high normal Glucose, Fas ting [place] ([facility]) creatinine for GFR 0.63 mg/dL 0.55-1.30 normal Creatinine for GF R [place] ([facility]) blood urea nitrogen 14 mg/dL 7-18 normal Blood Urea Nitro gen [place] ([facility]) sodium level 139 mEq/L 136-145 normal Sodium Level [place] ([facility]) glomerular filtration rate > 60.0 >60 normal Glomerula r Filtration Rate [place] ([facility]) potassium serum 4.0 mEq/L 3.5-5.1 normal [facility] carbon dioxide level 26 mEq/L 21-32 normal Carbon Dioxide Level [place] ([facility]) chloride level 108 mEq/L 98-107 Above high normal Chloride Level [place] ([facility]) anion gap 5 mEq/L 8-16 Below low normal Anion Gap [place] ( [facility]) AST/SGOT 13 U/L 7-37 normal AST/SGOT [place] ([facility]) calcium level 8.1 mg/dL 8.5-10.1 Below low normal Calcium Level AT [facility]) alkaline phosphatase 83 U/L 45-117 normal Alkaline Phosph atase [place] ([facility]) ALT/SGPT 21 U/L 12-78 normal ALT/SGPT [place] ([facility]) bilirubin,total 0.4 mg/dL 0.2-1.0 normal Bilirubin,total AT[facility] ([facility]) total protein 7.1 gm/dL 6.4-8.2 normal Total Protein [place] ( [facility]) albumin/globulin ratio 1.2-2.2 Below low normal Albumin /globulin Ratio [place] ([facility]) albumin 3.6 gm/dL 3.2-5.2 normal Albumin [place] ([facility]) ID Date Data Source [id number] 06/15/2020 08:35:00 AM EST [place] ([facility]) Name Value Range Interpretation Code Description Data Mary rce(s) Supporting Document(s) immature platelet fraction % 6.3 % 0.0-9.59 normal Immatur e Platelet Fraction % [place] ([facility]) ID Date Data Source [id number] 06/15/2020 08:35:00 AM EST [place] ([facility]) Name Value Range Interpretation Code Description Data Mary rce(s) Supporting Document(s) white blood count 5.8 10 4.0-10.0 normal White Blood Count [place] ([facility]) red blood count 4.53 10 4.00-5.40 normal Red Blood Count ATHE NA ([facility]) hemoglobin 10.7 g/dL 12.0-15.5 Below low normal Hemoglobin [place] ( [facility]) hematocrit 34.7 % 36.0-47.0 Below low normal Hematocrit [place] ( [facility]) mean corpuscular hemoglobin 23.6 pg 27.0-33.0 Below low nor mal Mean Corpuscular Hemoglobin [place] ([facility]) mean corpuscular volume 76.6 fL 80.0-96.0 Below low normal Mean Corpuscular Volume [place] ([facility]) mean corpuscular HGB conc 30.8 g/dL 32.0-36.5 Below low [place] Mean Corpuscular HGB Conc [place] ([facility]) red cell distribution width 14.6 % 11.5-14.5 Above high no rmal Red Cell Distribution Width [place] ([facility]) mono % 11.8 % 0.0-5.0 Above high normal [place] % [place] ([facility]) neutrophils % 61.3 % 36.0-66.0 normal Neutrophils % [place] ( [facility]) lymph % 23.5 % 24.0-44.0 Below low normal Lymph % [place] ( [facility]) platelet count, automated 23 10 150-450 Below low [place] Platelet Count, Automated [place] ([facility]) baso % 0.9 % 0.0-1.0 normal Baso % [place] ([facility]) nucleated red blood cell % 0.0 % 0-0 normal Nucleated Red Blood Cell % [place] ([facility]) eos % 2.2 % 0.0-3.0 normal Eos % [place] ([facility]) immature granulocyte % 0.3 % 0-3.0 normal Immature Gran ulocyte % [place] ([facility]) neutrophils # 3.6 10 1.5-8.5 normal Neutrophils # [place] ( [facility]) mono # 0.7 10 0.0-0.8 normal [place] # [place] ([facility]) lymph # 1.4 10 1.5-5.0 Below low normal Lymph # [place] ( [facility]) eos # 0.1 10 0.0-0.5 normal Eos # [place] ([facility]) baso # 0.1 10 0.0-0.2 normal Baso # [place] ([facility]) ID Date Data Source [id number] 06/15/2020 08:35:00 AM EST [place] ([facility]) Name Value Range Interpretation Code Description Data Mary rce(s) Supporting Document(s) free T4 0.91 NG/dL 0.76-1.46 normal Free T4 [place] ([facility]) thyroid stimulating hormone 7.380 uIU/mL 0.358-3.740 Above high no rmal Thyroid Stimulating Hormone [place] ([facility]) ID Date Data Source [id number] 06/15/2020 08:35:00 AM EST [place] ([facility]) Name Value Range Interpretation Code Description Data Mary rce(s) Supporting Document(s) glucose, fasting 106 mg/dL 70-100 Above high normal Glucose, Fas ting [place] ([facility]) blood urea nitrogen 14 mg/dL 7-18 normal Blood Urea Nitro gen [place] ([facility]) sodium level 139 mEq/L 136-145 normal Sodium Level [place] ([facility]) creatinine for GFR 0.63 mg/dL 0.55-1.30 normal Creatinine for GF R [place] ([facility]) glomerular filtration rate > 60.0 >60 normal Glomerula r Filtration Rate [place] ([facility]) chloride level 108 mEq/L 98-107 Above high normal Chloride Level [place] ([facility]) carbon dioxide level 26 mEq/L 21-32 normal Carbon Dioxide Level [place] ([facility]) potassium serum 4.0 mEq/L 3.5-5.1 normal Potassium Serum [place] ([facility]) anion gap 5 mEq/L 8-16 Below low normal Anion Gap [place] ( [facility]) calcium level 8.1 mg/dL 8.5-10.1 Below low normal Calcium Level AT [facility]) AST/SGOT 13 U/L 7-37 normal AST/SGOT [place] ([facility]) alkaline phosphatase 83 U/L 45-117 normal Alkaline Phosph atase [place] ([facility]) ALT/SGPT 21 U/L 12-78 normal ALT/SGPT [place] ([facility]) bilirubin,total 0.4 mg/dL 0.2-1.0 normal Bilirubin,total AT[place] ([facility]) total protein 7.1 gm/dL 6.4-8.2 normal Total Protein [place] ( [facility]) albumin 3.6 gm/dL 3.2-5.2 normal Albumin [place] ([facility]) albumin/globulin ratio 1.2-2.2 Below low normal Albumin /globulin Ratio [place] ([facility]) ID Date Data Source [id number] 03/06/2020 10:06:16 AM EDT [facility] Vital SignsTemperature: 98.3FV ital Signs performed by: Malorie Bah LPN, March 06, 2020 10:06 AMVaccines Administered/Entered:Vaccination Group: InfluenzaSeries: 1Vaccination: Flulaval Quadrivalent Intramuscular Suspension Prefilled Syringe 0.5 MLMfr / Lot# / Exp.Date: [employer] / 724K2 11/29/2020mt. Given / Route / Site: 0.5 mL / IM / Left DeltoidNDC / CVX: [id number] / 150Administered Date: 03/06/2020 10:07VFC Eligibility: VFC eligible-Medicaid/Medicaid Managed CareVIS Date: 01/14/2019VIS Given / VIS Given On: Yes 03/06/2020Comments: Administered by: Malorie Bah LPN Assessment & Plan Orders:[id number] Vst-Est Level I [CPT-68307] 78051 - Immo Admin (under 19 yrs), 1st Toxoid [CPT-21107] FluLaval Quadrivalent, preservative free [CPT- 98743] Name Value Range Interpretation Code Description Data Mary rce(s) Supporting Document(s) ID Date Data Source [id number] 2020 06:50:00 AM EDT [place] ([facility]) Name Value Range Interpretation Code Description Data Mary rce(s) Supporting Document(s) blood urea nitrogen 9 mg/dL 7-18 normal Blood Urea Nitro gen [place] ([facility]) creatinine for GFR 0.59 mg/dL 0.55-1.30 normal Creatinine for GF R [place] ([facility]) glomerular filtration rate > 60.0 >60 normal Glomerula r Filtration Rate [place] ([facility]) glucose, fasting 140 mg/dL 70-100 Above high normal Glucose, Fas ting [place] ([facility]) chloride level 110 mEq/L 98-107 Above high normal Chloride Level [place] ([facility]) carbon dioxide level 26 mEq/L 21-32 normal Carbon Dioxide Level [place] ([facility]) potassium serum 3.8 mEq/L 3.5-5.1 D Potassium Serum ATHE NA ([facility]) sodium level 141 mEq/L 136-145 normal Sodium Level [place] ([facility]) anion gap 5 mEq/L 8-16 Below low normal Anion Gap [place] ( [facility]) calcium level 8.0 mg/dL 8.5-10.1 Below low normal Calcium Level AT [facility]) ALT/SGPT 41 U/L 12-78 normal ALT/SGPT [place] ([facility]) AST/SGOT 26 U/L 7-37 normal AST/SGOT [place] ([facility]) albumin 3.5 gm/dL 3.2-5.2 normal Albumin [place] ([facility]) alkaline phosphatase 86 U/L 45-117 normal Alkaline Phosph atase [place] ([facility]) total protein 7.4 gm/dL 6.4-8.2 normal Total Protein [place] ( [facility]) bilirubin,total 0.4 mg/dL 0.2-1.0 normal Bilirubin,total [place] ([facility]) albumin/globulin ratio 1.2-2.2 Below low normal Albumin /globulin Ratio [place] ([facility]) ID Date Data Source [id number] 2020 06:50:00 AM EDT [place] ([facility]) Name Value Range Interpretation Code Description Data Mary rce(s) Supporting Document(s) creatinine for GFR 0.59 mg/dL 0.55-1.30 normal Creatinine for GF R [place] ([facility]) glucose, fasting 140 mg/dL 70-100 Above high normal Glucose, Fas ting [place] ([facility]) blood urea nitrogen 9 mg/dL 7-18 normal Blood Urea Nitro gen [place] ([facility]) potassium serum 3.8 mEq/L 3.5-5.1 D Potassium Serum [place] NA ([facility]) sodium level 141 mEq/L 136-145 normal Sodium Level [place] ([facility]) glomerular filtration rate > 60.0 >60 normal Glomerula r Filtration Rate [place] ([facility]) chloride level 110 mEq/L 98-107 Above high normal Chloride Level [place] ([facility]) calcium level 8.0 mg/dL 8.5-10.1 Below low normal Calcium Level AT [facility]) AST/SGOT 26 U/L 7-37 normal AST/SGOT [place] ([facility]) anion gap 5 mEq/L 8-16 Below low normal Anion Gap [place] ( [facility]) carbon dioxide level 26 mEq/L 21-32 normal Carbon Dioxide Level [place] ([facility]) bilirubin,total 0.4 mg/dL 0.2-1.0 normal Bilirubin,total AT[place] ([facility]) total protein 7.4 gm/dL 6.4-8.2 normal Total Protein [place] ( [facility]) ALT/SGPT 41 U/L 12-78 normal ALT/SGPT [place] ([facility]) alkaline phosphatase 86 U/L 45-117 normal Alkaline Phosph atase [place] ([facility]) albumin 3.5 gm/dL 3.2-5.2 normal Albumin [place] ([facility]) albumin/globulin ratio 1.2-2.2 Below low normal Albumin /globulin Ratio [place] ([facility]) ID Date Data Source [id number] 2020 06:50:00 AM EDT [place] ([facility]) Name Value Range Interpretation Code Description Data Mary rce(s) Supporting Document(s) creatinine for GFR 0.59 mg/dL 0.55-1.30 normal Creatinine for GF R [place] ([facility]) glucose, fasting 140 mg/dL 70-100 Above high normal Glucose, Fas ting [place] ([facility]) glomerular filtration rate > 60.0 >60 normal Glomerula r Filtration Rate [place] ([facility]) blood urea nitrogen 9 mg/dL 7-18 normal Blood Urea Nitro gen [place] ([facility]) potassium serum 3.8 mEq/L 3.5-5.1 D Potassium Serum [place] ([facility]) carbon dioxide level 26 mEq/L 21-32 normal Carbon Dioxide Level [place] ([facility]) chloride level 110 mEq/L 98-107 Above high normal Chloride Level [place] ([facility]) sodium level 141 mEq/L 136-145 normal Sodium Level [place] ([facility]) AST/SGOT 26 U/L 7-37 normal AST/SGOT [place] ([facility]) anion gap 5 mEq/L 8-16 Below low normal Anion Gap [place] ( [facility]) calcium level 8.0 mg/dL 8.5-10.1 Below low normal Calcium Level AT [facility]) ALT/SGPT 41 U/L 12-78 normal ALT/SGPT [place] ([facility]) bilirubin,total 0.4 mg/dL 0.2-1.0 normal Bilirubin,total ATHE NA ([facility]) alkaline phosphatase 86 U/L 45-117 normal Alkaline Phosph atase [place] ([facility]) total protein 7.4 gm/dL 6.4-8.2 normal Total Protein [place] ( [facility]) albumin/globulin ratio 1.2-2.2 Below low normal Albumin /globulin Ratio [place] ([facility]) albumin 3.5 gm/dL 3.2-5.2 normal Albumin [place] ([facility]) ID Date Data Source [id number] 2020 06:50:00 AM EDT [place] ([facility]) Name Value Range Interpretation Code Description Data Mary rce(s) Supporting Document(s) glucose, fasting 140 mg/dL 70-100 Above high normal Glucose, Fas ting [place] ([facility]) blood urea nitrogen 9 mg/dL 7-18 normal Blood Urea Nitro gen [place] ([facility]) creatinine for GFR 0.59 mg/dL 0.55-1.30 normal Creatinine for GF R [place] ([facility]) glomerular filtration rate > 60.0 >60 normal Glomerula r Filtration Rate [place] ([facility]) chloride level 110 mEq/L 98-107 Above high normal Chloride Level [place] ([facility]) sodium level 141 mEq/L 136-145 normal Sodium Level [place] ([facility]) potassium serum 3.8 mEq/L 3.5-5.1 D Potassium Serum [place] ([facility]) AST/SGOT 26 U/L 7-37 normal AST/SGOT [place] ([facility]) carbon dioxide level 26 mEq/L 21-32 normal Carbon Dioxide Level [place] ([facility]) anion gap 5 mEq/L 8-16 Below low normal Anion Gap [place] ( [facility]) calcium level 8.0 mg/dL 8.5-10.1 Below low normal Calcium Level AT [facility] ([facility]) ALT/SGPT 41 U/L 12-78 normal ALT/SGPT [place] ([facility]) alkaline phosphatase 86 U/L 45-117 normal Alkaline Phosph atase [place] ([facility]) albumin 3.5 gm/dL 3.2-5.2 normal Albumin [place] ([facility]) bilirubin,total 0.4 mg/dL 0.2-1.0 normal Bilirubin,total [place] ([facility]) total protein 7.4 gm/dL 6.4-8.2 normal Total Protein [place] ( [facility]) albumin/globulin ratio 1.2-2.2 Below low normal Albumin /globulin Ratio [place] ([facility]) ID Date Data Source [id number] 2020 06:50:00 AM EDT [place] ([facility]) Name Value Range Interpretation Code Description Data Mary rce(s) Supporting Document(s) glucose, fasting 140 mg/dL 70-100 Above high normal Glucose, Fas ting [place] ([facility]) creatinine for GFR 0.59 mg/dL 0.55-1.30 normal Creatinine for GF R [place] ([facility]) blood urea nitrogen 9 mg/dL 7-18 normal Blood Urea Nitro gen [place] ([facility]) sodium level 141 mEq/L 136-145 normal Sodium Level [place] ([facility]) glomerular filtration rate > 60.0 >60 normal Glomerula r Filtration Rate [place] ([facility]) potassium serum 3.8 mEq/L 3.5-5.1 D Potassium Serum [place] NA ([facility]) carbon dioxide level 26 mEq/L 21-32 normal Carbon Dioxide Level [place] ([facility]) anion gap 5 mEq/L 8-16 Below low normal Anion Gap [place] ( [facility]) chloride level 110 mEq/L 98-107 Above high normal Chloride Level [place] ([facility]) calcium level 8.0 mg/dL 8.5-10.1 Below low normal Calcium Level AT [facility]) ALT/SGPT 41 U/L 12-78 normal ALT/SGPT [place] ([facility]) AST/SGOT 26 U/L 7-37 normal AST/SGOT [place] ([facility]) alkaline phosphatase 86 U/L 45-117 normal Alkaline Phosph atase [place] ([facility]) total protein 7.4 gm/dL 6.4-8.2 normal Total Protein [place] ( [facility]) albumin 3.5 gm/dL 3.2-5.2 normal Albumin [place] ([facility]) albumin/globulin ratio 1.2-2.2 Below low normal Albumin /globulin Ratio [place] ([facility]) bilirubin,total 0.4 mg/dL 0.2-1.0 normal Bilirubin,total AT[place] NA ([facility]) ID Date Data Source [id number] 2020 06:50:00 AM EDT [place] ([facility]) Name Value Range Interpretation Code Description Data Mary rce(s) Supporting Document(s) glucose, fasting 140 mg/dL 70-100 Above high normal Glucose, Fas ting [place] ([facility]) blood urea nitrogen 9 mg/dL 7-18 normal Blood Urea Nitro gen [place] ([facility]) creatinine for GFR 0.59 mg/dL 0.55-1.30 normal Creatinine for GF R [place] ([facility]) glomerular filtration rate > 60.0 >60 normal Glomerula r Filtration Rate [place] ([facility]) potassium serum 3.8 mEq/L 3.5-5.1 D Potassium Serum [place] ([facility]) chloride level 110 mEq/L 98-107 Above high normal Chloride Level [place] ([facility]) carbon dioxide level 26 mEq/L 21-32 normal Carbon Dioxide Level [place] ([facility]) sodium level 141 mEq/L 136-145 normal Sodium Level [place] (No [facility]) ALT/SGPT 41 U/L 12-78 normal ALT/SGPT [place] ([facility]) anion gap 5 mEq/L 8-16 Below low normal Anion Gap [place] ( [facility]) calcium level 8.0 mg/dL 8.5-10.1 Below low normal Calcium Level AT [facility] ([facility]) alkaline phosphatase 86 U/L 45-117 normal Alkaline Phosph atase [place] ([facility]) AST/SGOT 26 U/L 7-37 normal AST/SGOT [place] ([facility]) albumin 3.5 gm/dL 3.2-5.2 normal Albumin [place] ([facility]) total protein 7.4 gm/dL 6.4-8.2 normal Total Protein [place] ( [facility]) bilirubin,total 0.4 mg/dL 0.2-1.0 normal Bilirubin,total [place] ([facility]) albumin/globulin ratio 1.2-2.2 Below low normal Albumin /globulin Ratio [place] ([facility]) ID Date Data Source [id number] 2020 06:50:00 AM EDT [place] ([facility]) Name Value Range Interpretation Code Description Data Mary rce(s) Supporting Document(s) blood urea nitrogen 9 mg/dL 7-18 normal Blood Urea Nitro gen [place] ([facility]) glucose, fasting 140 mg/dL 70-100 Above high normal Glucose, Fas ting [place] ([facility]) creatinine for GFR 0.59 mg/dL 0.55-1.30 normal Creatinine for GF R [place] ([facility]) potassium serum 3.8 mEq/L 3.5-5.1 D [facility] chloride level 110 mEq/L 98-107 Above high normal Chloride Level [place] ([facility]) glomerular filtration rate > 60.0 >60 normal Glomerula r Filtration Rate [place] ([facility]) sodium level 141 mEq/L 136-145 normal Sodium Level [place] ([facility]) AST/SGOT 26 U/L 7-37 normal AST/SGOT [place] ([facility]) calcium level 8.0 mg/dL 8.5-10.1 Below low normal Calcium Level AT [facility] ([facility]) carbon dioxide level 26 mEq/L 21-32 normal Carbon Dioxide Level [place] ([facility]) anion gap 5 mEq/L 8-16 Below low normal Anion Gap [place] ( [facility]) ALT/SGPT 41 U/L 12-78 normal ALT/SGPT [place] ([facility]) total protein 7.4 gm/dL 6.4-8.2 normal Total Protein [place] ( [facility]) bilirubin,total 0.4 mg/dL 0.2-1.0 normal Bilirubin,total [place] ([facility]) alkaline phosphatase 86 U/L 45-117 normal Alkaline Phosph atase [place] ([facility]) albumin 3.5 gm/dL 3.2-5.2 normal Albumin [place] ([facility]) albumin/globulin ratio 1.2-2.2 Below low normal Albumin /globulin Ratio [place] ([facility]) ID Date Data Source [id number] 2020 06:50:00 AM EDT [place] ([facility]) Name Value Range Interpretation Code Description Data Mary rce(s) Supporting Document(s) creatinine for GFR 0.59 mg/dL 0.55-1.30 normal Creatinine for GF R [place] ([facility]) blood urea nitrogen 9 mg/dL 7-18 normal Blood Urea Nitro gen [place] ([facility]) glucose, fasting 140 mg/dL 70-100 Above high normal Glucose, Fas ting [place] ([facility]) glomerular filtration rate > 60.0 >60 normal Glomerula r Filtration Rate [place] ([facility]) potassium serum 3.8 mEq/L 3.5-5.1 D Potassium Serum [place] NA ([facility]) sodium level 141 mEq/L 136-145 normal Sodium Level [place] ([facility]) chloride level 110 mEq/L 98-107 Above high normal Chloride Level [place] ([facility]) carbon dioxide level 26 mEq/L 21-32 normal Carbon Dioxide Level [place] ([facility]) AST/SGOT 26 U/L 7-37 normal AST/SGOT [place] ([facility]) ALT/SGPT 41 U/L 12-78 normal ALT/SGPT [place] ([facility]) alkaline phosphatase 86 U/L 45-117 normal Alkaline Phosph atase [place] ([facility]) anion gap 5 mEq/L 8-16 Below low normal Anion Gap [place] ( [facility]) calcium level 8.0 mg/dL 8.5-10.1 Below low normal Calcium Level AT [facility]) total protein 7.4 gm/dL 6.4-8.2 normal Total Protein [place] ( [facility]) bilirubin,total 0.4 mg/dL 0.2-1.0 normal [facility]irubin,[facility] albumin 3.5 gm/dL 3.2-5.2 normal Albumin [place] ([facility]) albumin/globulin ratio 1.2-2.2 Below low normal Albumin /globulin Ratio [place] ([facility]) ID Date Data Source [id number] 2020 06:50:00 AM EDT [facility] Name Value Range Interpretation Code Description Data Mary rce(s) Supporting Document(s) HCT 34.0 % 36.0-47.0 L [facility] HGB 10.8 g/dL 12.0-15.5 L [facility] MCH 31.8 G/DL pg 32.0-36.5 L [facility] MCHC 24.5 PG % 27.0-33.0 L [facility] PLATELETS 24 10 10*3/mm3 150-450 Below lower panic limits [facility] RBC 4.40 10 10*6/mm3 4.00-5.40 N [facility] RDW 14.7 % 11.5-14.5 H [facility] WBC TOTAL 6.1 4.0-10.0 N [facility] ID Date Data Source [id number] 01/14/2020 01:37:00 PM EDT [facility]) Name Value Range Interpretation Code Description Data Mary rce(s) Supporting Document(s) glucose, fasting 90 mg/dL 70-100 normal Glucose, Fasting AT [facility]) glomerular filtration rate > 60.0 >60 normal Glomerula r Filtration Rate [facility]) creatinine for GFR 0.63 mg/dL 0.55-1.30 normal Creatinine for GF R [facility]) sodium level 142 mEq/L 136-145 normal Sodium Level [place] ([facility]) blood urea nitrogen 11 mg/dL 7-18 normal Blood Urea Nitro gen [facility]) chloride level 109 mEq/L 98-107 Above high normal Chloride Level [place] ([facility]) calcium level 8.0 mg/dL 8.5-10.1 Below low normal Calcium Level AT [facility]) carbon dioxide level 29 mEq/L 21-32 normal Carbon Dioxide Level [place] ([facility]) anion gap 4 mEq/L 8-16 Below low normal Anion Gap [place] ( [facility]) potassium serum 3.1 mEq/L 3.5-5.1 Below low normal Potassium Seru m [facility]) ID Date Data Source [id number] 01/14/2020 01:37:00 PM EDT [facility]) Name Value Range Interpretation Code Description Data Mary rce(s) Supporting Document(s) glucose, fasting 90 mg/dL 70-100 normal Glucose, Fasting AT [facility] ([facility]) sodium level 142 mEq/L 136-145 normal Sodium Level [place] ([facility]) potassium serum 3.1 mEq/L 3.5-5.1 Below low normal Potassium Seru m [place] ([facility]) creatinine for GFR 0.63 mg/dL 0.55-1.30 normal Creatinine for GF R [place] ([facility]) glomerular filtration rate > 60.0 >60 normal Glomerula r Filtration Rate [place] ([facility]) blood urea nitrogen 11 mg/dL 7-18 normal Blood Urea Nitro gen [place] ([facility]) chloride level 109 mEq/L 98-107 Above high normal Chloride Level [place] ([facility]) anion gap 4 mEq/L 8-16 Below low normal Anion Gap [place] ( [facility]) carbon dioxide level 29 mEq/L 21-32 normal Carbon Dioxide Level [place] ([facility]) calcium level 8.0 mg/dL 8.5-10.1 Below low normal Calcium Level AT [facility]) ID Date Data Source [id number] 01/14/2020 01:37:00 PM EDT [facility]) Name Value Range Interpretation Code Description Data Mary rce(s) Supporting Document(s) glucose, fasting 90 mg/dL 70-100 normal Glucose, Fasting AT [facility] ([facility]) creatinine for GFR 0.63 mg/dL 0.55-1.30 normal Creatinine for GF R [place] ([facility]) glomerular filtration rate > 60.0 >60 normal Glomerula r Filtration Rate [place] ([facility]) blood urea nitrogen 11 mg/dL 7-18 normal Blood Urea Nitro gen [place] ([facility]) sodium level 142 mEq/L 136-145 normal Sodium Level [place] ([facility]) anion gap 4 mEq/L 8-16 Below low normal Anion Gap [place] ( [facility]) chloride level 109 mEq/L 98-107 Above high normal Chloride Level [facility]) calcium level 8.0 mg/dL 8.5-10.1 Below low normal Calcium Level AT [facility]) potassium serum 3.1 mEq/L 3.5-5.1 Below low normal Potassium Seru m [place] ([facility]) carbon dioxide level 29 mEq/L 21-32 normal Carbon Dioxide Level [place] ([facility]) ID Date Data Source [id number] 01/14/2020 01:37:00 PM EDT [facility]) Name Value Range Interpretation Code Description Data Mary rce(s) Supporting Document(s) glomerular filtration rate > 60.0 >60 normal Glomerula r Filtration Rate [place] ([facility]) creatinine for GFR 0.63 mg/dL 0.55-1.30 normal Creatinine for GF R [place] ([facility]) sodium level 142 mEq/L 136-145 normal Sodium Level [place] ([facility]) glucose, fasting 90 mg/dL 70-100 normal Glucose, Fasting AT [facility]) blood urea nitrogen 11 mg/dL 7-18 normal Blood Urea Nitro gen [facility]) anion gap 4 mEq/L 8-16 Below low normal Anion Gap [place] ( [facility]) potassium serum 3.1 mEq/L 3.5-5.1 Below low normal Potassium Seru m [place] ([facility]) calcium level 8.0 mg/dL 8.5-10.1 Below low normal Calcium Level AT [facility]) carbon dioxide level 29 mEq/L 21-32 normal Carbon Dioxide Level [place] ([facility]) chloride level 109 mEq/L 98-107 Above high normal Chloride Level [facility]) ID Date Data Source [id number] 01/14/2020 01:37:00 PM EDT [facility]) Name Value Range Interpretation Code Description Data Mary rce(s) Supporting Document(s) glucose, fasting 90 mg/dL 70-100 normal Glucose, Fasting AT [facility]) blood urea nitrogen 11 mg/dL 7-18 normal Blood Urea Nitro gen [place] ([facility]) glomerular filtration rate > 60.0 >60 normal Glomerula r Filtration Rate [place] ([facility]) creatinine for GFR 0.63 mg/dL 0.55-1.30 normal Creatinine for GF R [place] ([facility]) sodium level 142 mEq/L 136-145 normal Sodium Level [place] ([facility]) carbon dioxide level 29 mEq/L 21-32 normal Carbon Dioxide Level [place] ([facility]) chloride level 109 mEq/L 98-107 Above high normal Chloride Level [place] ([facility]) potassium serum 3.1 mEq/L 3.5-5.1 Below low normal Potassium Seru m [place] ([facility]) anion gap 4 mEq/L 8-16 Below low normal Anion Gap [place] ( [facility]) calcium level 8.0 mg/dL 8.5-10.1 Below low normal Calcium Level AT [facility]) ID Date Data Source [id number] 01/14/2020 01:37:00 PM EDT [facility]) Name Value Range Interpretation Code Description Data Mary rce(s) Supporting Document(s) glucose, fasting 90 mg/dL 70-100 normal Glucose, Fasting AT [facility]) blood urea nitrogen 11 mg/dL 7-18 normal Blood Urea Nitro gen [place] ([facility]) creatinine for GFR 0.63 mg/dL 0.55-1.30 normal Creatinine for GF R [place] ([facility]) glomerular filtration rate > 60.0 >60 normal Glomerula r Filtration Rate [place] ([facility]) potassium serum 3.1 mEq/L 3.5-5.1 Below low normal Potassium Seru m [place] ([facility]) sodium level 142 mEq/L 136-145 normal Sodium Level [place] ([facility]) anion gap 4 mEq/L 8-16 Below low normal Anion Gap [place] ( [facility]) carbon dioxide level 29 mEq/L 21-32 normal Carbon Dioxide Level [facility]) chloride level 109 mEq/L 98-107 Above high normal Chloride Level [facility]) calcium level 8.0 mg/dL 8.5-10.1 Below low normal Calcium Level AT [facility]) ID Date Data Source [id number] 01/14/2020 01:37:00 PM EDT [facility]) Name Value Range Interpretation Code Description Data Mary rce(s) Supporting Document(s) blood urea nitrogen 11 mg/dL 7-18 normal Blood Urea Nitro gen [place] ([facility]) glucose, fasting 90 mg/dL 70-100 normal Glucose, Fasting AT [facility]) creatinine for GFR 0.63 mg/dL 0.55-1.30 normal Creatinine for GF R [facility]) glomerular filtration rate > 60.0 >60 normal Glomerula r Filtration Rate [place] ([facility]) chloride level 109 mEq/L 98-107 Above high normal Chloride Level [place] ([facility]) potassium serum 3.1 mEq/L 3.5-5.1 Below low normal Potassium Seru m [facility]) sodium level 142 mEq/L 136-145 normal Sodium Level [place] ([facility]) calcium level 8.0 mg/dL 8.5-10.1 Below low normal Calcium Level AT [facility]) carbon dioxide level 29 mEq/L 21-32 normal Carbon Dioxide Level [facility]) anion gap 4 mEq/L 8-16 Below low normal Anion Gap [facility]) ID Date Data Source [id number] 01/14/2020 01:37:00 PM EDT [facility]) Name Value Range Interpretation Code Description Data Mary rce(s) Supporting Document(s) glucose, fasting 90 mg/dL 70-100 normal Glucose, Fasting AT [facility]) potassium serum 3.1 mEq/L 3.5-5.1 Below low normal Potassium Seru m [facility]) creatinine for GFR 0.63 mg/dL 0.55-1.30 normal Creatinine for GF R [place] ([facility]) blood urea nitrogen 11 mg/dL 7-18 normal Blood Urea Nitro gen [place] ([facility]) sodium level 142 mEq/L 136-145 normal Sodium Level [place] ([facility]) glomerular filtration rate > 60.0 >60 normal Glomerula r Filtration Rate [place] ([facility]) chloride level 109 mEq/L 98-107 Above high normal Chloride Level [place] ([facility]) carbon dioxide level 29 mEq/L 21-32 normal Carbon Dioxide Level [place] ([facility]) anion gap 4 mEq/L 8-16 Below low normal Anion Gap [place] ( [facility]) calcium level 8.0 mg/dL 8.5-10.1 Below low normal Calcium Level AT [facility]) ID Date Data Source [id number] 01/14/2020 01:37:00 PM EDT [facility] Name Value Range Interpretation Code Description Data Mary rce(s) Supporting Document(s) HCT 34.7 % 36.0-47.0 L [facility] HGB 11.2 g/dL 12.0-15.5 L [facility] MCH 32.3 G/DL pg 32.0-36.5 N [facility] MCHC 24.8 PG % 27.0-33.0 L [facility] PLATELETS 7 10 10*3/mm3 150-450 Below lower panic limits [facility] RBC 4.52 10 10*6/mm3 4.00-5.40 N [facility] RDW 14.9 % 11.5-14.5 H [facility] WBC TOTAL 5.1 4.0-10.0 N [facility] ID Date Data Source [id number] 09/13/2019 01:35:31 PM EDT [facility] Initial Intake Information from: patient Smoking, Tobacco, Vaping or Smoke Exposure StatusSmoke Status: never smokerTobacco Use: NoDo you vape? NoPassive Smoke Exposure: NoMenstrual HistoryLast Menstrual Period (LMP): 08/17/2019Any possibility of ? NoHealthcare HistorySince your last office visit...Have you been admitted to the hospital? NoHave you been to an emergency room (ER) or urgent care clinic? NoHave you seen another healthcare provider? Yes - Dr GoldsmithHamichael you seen a dentist? Yes - alfredo dentalIntake performed by: Brenda Noland, September 13, 2019 1:37 PMRate Your HealthIn general, would you say your health is? PoorPain AssessmentAre you currently having any pain which... You would like your provider to address? No Affects your activity level? NoDepression Screening - PHQ-2Over the last two weeks, have you... Had little interest or pleasure in doing things? Nearly every day Been feeling down, depressed, or hopeless? Nearly every day PHQ-2 Score: 6Anxiety Screening - TEO-2Over the last two weeks, have you been... Feeling nervous, anxious, or on edge? Nearly every day Unable to stop or control worrying? Nearly every day TEO-2 Score: 6Infectious Disease / Travel ScreeningRecent travel for you or any close contacts? NoHave you had any close contact with anyone diagnosed with or under investigation for COVID-19 (coronavirus)? NoHave you had any of the following symptoms recently? Fever? NoRespiratory symptoms: cough, cold, congestion, shortness of breath, difficulty breathing? NoGeneralized Anxiety Disorder 7-Item Screening (TEO-7)Answer Guide:0 = Not at all1 = Several days2 = Over half the days3 = Nearly every dayOver the last 2 weeks, how often have you been bothered by the following problems?Feeling nervous, anxious, or on edge: 3Not being able to stop or control worryinWorrying too much about different things: 3Trouble relaxinBeing so restless that it's hard to sit still: 0Becoming easily annoyed or irritable: 3Feeling afraid as if something awful might happen: 0Answer Guide:0 = Not difficult at all1 = Somewhat difficult2 = Very difficult3 = Extremely difficultHow difficult have these made it for you to do your work, take care of things at home, or get along with other people? 2GAD- 7 Screening Results TEO-2 Score: 6GAD-7 Score: 15Functional Impairment: Very difficultRecommendation: Severe anxietyPHQ-9 1. Over the last 2 weeks, patient reports the following frequency of symptoms: a. Little interest or pleasure in doing things -Nearly every day b. Feeling down, depressed, or hopeless -Nearly every day c. Trouble falling asleep, staying asleep, or sleeping too much -Nearly every day d. Feeling tired or having little energy -Nearly every day e. Poor appetite or overeating -Nearly every day f. Feeling bad about yourself, feeling that you are a failure, or feeling that you have let yourself or your family down -Nearly every day g. Trouble concentrating on things such as reading the newspaper or watching television -Not at all h. Moving or speaking so slowly that other people could have noticed. Or being so fidgety or restless that you have been moving around a lot more than usual -Not at all i. Thinking that you would be better off or that you want to hurt yourself in some way -Not at all2. If you checked off any problems, how difficult have these problems made it for you to do your work, take care of things at home, or get along with other people? -Extremely DifficultToday's PHQ-9 Results Score: 18 Severity: Moderately Severe Diagnosis Recommendation: Major Depression Functional Impairment: Extremely DifficultToday's Follow-Up Action Depression follow-up done. Follow-Up Action: referral to telepsych. Screening, Brief Intervention, & Referral to Treatment (SBIRT)Pre-Screening Questions How many times have you have 4 or more drinks in a day? 0How many times have you used an illegal drug or used a prescription medication for a non-medical reason? 0Performed by: Brenda Noland, September 13, 2019 1:45 PMPatient History Medical History:History of Chiari MalformationHeadachesITPDepressionBi- PolaranemiaSurgical History:[id number] History:FH AsthmaFH ADHDSocial/Personal History:LIVES WITH / 12/12 Chief Complaintzoom folllow up dep/anxHistory of Present Illness (HPI)Telemedicine visit with patient's location at their home and provider's location at [facility]. Additional person(s)participating in the visit: Delores RANGEL has received verbal consent from the patient/guardian to conduct this visit via telehealth. The patient has been made aware that they have the right to refuse telehealth; of my location and the security of the telehealth software; any other parties present in the session; and that they have a right to select another provider if chosen for a face to face visit.24 yo female, here for follow up on anxiety.Pt also states also insomnia. Pt states onging. Pt states therapy going well but would like referral to telepsych for concerns of PTSD.HPI performed by: Delores RANGLE, September 13, 2019 2:09 PMTransitions of Care InboundProblem ReviewProblem List was reviewed and/or updated during this visit.Medication Reconciliation & ReviewMedication List was reviewed and/or updated during this visit, including review of any [id number]-ppduqba medications, herbal therapies, and/or supplements.Allergy ReviewAllergy List was reviewed and/or updated during this visit.Provider Calculated and Reviewed all Clinical Protocols for patient today. Care Management Plan Transitions of CareInboundRate Your HealthIn general, would you say your health is? PoorAssessment & Plan Problems:Added: Insomnia, unspecified (NKO40-L88.00) Assessment: Instructions: We have sent a prescription to your pharmacy today. Please take medication as prescribed. Please report any major side effects.Assessed:Anxiety depression (ICD-300.4) (UBZ80-B61.8) Assessment: Instructions: We have increase the dose of your prozac today. .Please take medication as prescribed. Please report any major side effects.Anxiety depression (ICD-300.4) (SVZ96-J76.8) Assessment: GAD7 and PHQ 9 scores reviewed with patient. Dose of prozac increased today. Referral made to telepsych today.Patient Instructions/Care Plan: Anxiety depression: We have increase the dose of your prozac today. .Please take medication as prescribed. Please report any major side effects.Insomnia- unspecified: We have sent a prescription to your pharmacy today. Please take medication as prescribed. Please report any major side effects. Plan developed in collaboration with patient and/or familyMedications:TRAZODONE HCL 50 MG ORAL TABLETTYLENOL 325 MG ORAL TABLETVITAMIN D3 38724 UNIT ORAL TABLETPROZAC 20 MG ORAL CAPSULEMedication Changes:Refilled:PROZAC 20 MG ORAL CAPSULE-take one tablet by mouth daily Qty: 30[Capsule] Refills: 2 Method: ElectronicNew Prescription:TRAZODONE HCL 50 MG ORAL TABLET-take one tablet by mouth daily at bedtime. Qty: 30[Tablet] Refills: 1 Method: ElectronicChanged:From: ORAL PROZAC 10 MG ORAL CAPSULE Qty: [id number] Refills: 30[Capsule] To: PROZAC 20 MG ORAL CAPSULE-take one tablet by mouth daily Qty: 30[Capsule] Refills: 2Allergies:* PEDIAZOLE (Critical)Orders:Telepsychiatry Consult [CPT-25683] COMP METABOLIC PANEL [CPT-95824] CBC W/DIFF [CPT-74920] LIPID PANEL [CPT-12665] TSH [CPT-92591] T-4 free [CPT-19718] Vitamin D 250H Unspecified [CPT-47412] Office Visit - Established, Level 3 [CPT-66781OX] Follow-Up Return to clinic: 4-6 weeks for follow up Review of Systems General: Complains of sleep disturbances. Denies loss of appetite, chills, dizziness, fatigue, fever, continued fever, headache, feeling ill, sweats, night sweats, weight loss. Eyes: Denies blurring of vision, double vision, irritation, discharge, vision loss, eye pain, eye swelling, droopy eyelid, sensitivity to light, redness, itching. Ears/Nose/Throat: Denies earache, ear discharge, ringing in ears, decreased hearing, nasal congestion, nosebleeds, runny nose, sore throat, hoarseness, difficulty swallowing, dry mouth, tooth pain, bleeding gums, swollen glands. Cardiovascular: Denies chest pain, palpitations, feeling faint, trouble breathing w/exertion, SOB upon lying down, SOB at night, peripheral edema, elevated blood pressure, decreased heart rate. Respiratory: Denies cough, difficulty breathing, shortness of breath, excessive sputum, coughing up blood, wheezing, chest pain. Gastrointestinal: Denies nause a, vomiting, diarrhea, constipation. Genitourinary: Denies urinary incontinence, pain with urination, burning with urination, urinary frequency, urinary hesitancy, urinary urgency, urinary urgency at night, incomplete emptying, blood in urine. Musculoskeletal: Denies back pain, joint pain, leg pain, other pain-see comments, joint swelling, body aches, muscle aches, muscle cramps, muscle weakness, stiffness, recent injury. Skin: Denies rash, hives, redness, itching, dryness, nail changes, suspicious lesions, athlete's foot, rash on palms, rash on bottom of feet. Neurologic: Denies muscle impairment, weakness, numbness/tingling, seizures, slurred speech, feeling faint, tremors, vertigo, paralysis on one side, paralysis on both sides. Psychiatric: Complains of depression, anxiety, feeling stressed. Denies memory loss, mental disturbance, suicidal ideation, homicidal ideation, hallucinations, paranoia, hearing voices. Endocrine: Denies cold intolerance, heat intolerance, excessive thirst, excessive hunger, excessive urination, weight loss, weight gain. Heme/Lymphatic: Denies abnormal bruising, bleeding, enlarged lymph nodes. Physical ExamGeneral Appearance: well nourished, well hydrated, no acute distressEyes, External: conjunctivae and lids normal, EOMIRespiratory, Effort: no intercostal retractions or use of accessory musclesOrientation: oriented to time, place, and personMood & Affect: no depression, anxiety, or agitationJudgment & Insight: intactAssessment & Plan Name Value Range Interpretation Code Description Data Mary rce(s) Supporting Document(s) ID Date Data Source [id number] 07/09/2019 11:40:00 AM [facility] Name Value Range Interpretation Code Description Data [facility] rce(s) Supporting Document(s) THROAT CULTR NORMAL JD PRESENT N [facility] ID Date Data Source [id number] 07/09/2019 11:25:08 AM [facility] Measurements & CalculationsHeight: 60 inches (5 ft. 0 in.) 152.40 cm Weight: 189 pounds 8 oz. 86.14 kg Body Mass Index (BMI): 37.14BMI Interpretation: ObeseBody Surface Area (BSA): 1.83Weight Management Education Done (Nutrition/Physical Activity)Vital SignsTemperature: 98.0F oral Pulse Rate: 80 beats/minuteRespirato ry Rate: 18 respirations/minuteBlood Pressure: 107/72 right arm sitting automaticO2 Saturation: 99% room airVital Signs performed by: Monica Walker LPN, July 09, 2019 11:31 AMVital Signs performed by: Jaime WHEELER, July 09, 2019 11:34 AMInitial Intake Information from: patientRoom #: 12Infectious Disease- Travel Have you or your sexual partner travelled outside of the country recently? NoSmoking, Tobacco or Smoke Exposure StatusSmoke Status: never smokerTobacco Use: NoPassive Smoke Exposure: YesPassive Smoke Exposure comments: insideMenstrual HistoryLast Menstrual Period (LMP): 06/05/2019Any possibility of ? NoHealthcare HistorySince your last office visit...Have you been admitted to the hospital? NoHave you been to an emergency room (ER) or urgent care clinic? NoHave you seen another healthcare provider? Yes - Dr Mason you seen a dentist? Yes - jean-paul dentalIntake performed by: Monica Walker LPN, July 09, 2019 11:27 AMRate Your HealthIn general, would you say your health is? PoorPain AssessmentAre you currently having any pain which... You would like your provider to address? Yes Affects your activity level? NoDepression Screening - PHQ-2Over the last two weeks, have you... Had little interest or pleasure in doing things? Not at all Been feeling down, depressed, or hopeless? Not at all PHQ-2 Score: 0Infectious Disease- Travel Cont. Any possibility of ? NoPain AssessmentPain ScaleNumeric Rating Scale: 8 / 10Location: earsDuration: 3 daysCharacter/Quality: pressureIs the pain radiating? NoScreening, Brief Intervention, & Referral to Treatment (SBIRT)Pre-Screening Questions How many times have you have 4 or more drinks in a day? 0How many times have you used an illegal drug or used a prescription medication for a non-medical reason? 0Performed by: Monica Walker LPN, July 09, 2019 11:28 AMPatient History Medical History:History of Chiari MalformationHeadachesITPDepressionBi-PolaranemiaSurgical History:Vkqlekscg6Nygpdl History:FH AsthmaFH ADHDSocial/Personal History:LIVES WITH / 12/12 Smoking Status: never smokerChief Complaintear aches for 2 daysHistory of Present Illness (HPI)24 yo female here for hong ear pain and pressure. Pt states her ears feel clogged with water. Pt state some throat pain but denied fever. Admits to exposure to influenza and rhinovirus. HPI per formed by: Jaime WHEELER, July 09, 2019 11:34 AMTransitions of Care InboundProblem ReviewProblem List was reviewed and/or updated during this visit.Medication Reconciliation & ReviewMedication List was reviewed and/or updated during this visit, including review of any eubm-qxp-gthkcip medications, herbal therapies, and/or supplements.Allergy ReviewAllergy List was reviewed and/or updated during this visit.Adult Preventive CareProvider Calculated and Reviewed all Clinical Protocols for patient today. Labs/Meds/Other Counseling- Nutrition and Physical Activity:BMI Interpretation: Obese (07/09/2019) Counseling: Done (07/09/2019) Physical Activity: Done (07/09/2019)Cancer Screening Pap Smear/HPV TestingReviewed: Previous Comments: [facility]Today's Comments: will make appt with cassandraReview of Systems General: Complains of fatigue, feeling ill. Denies fever. Ears/Nose/Throat: Complains of earache, nasal congestion, sore throat. Cardiovascular: Denies chest pain, palpitations, feeling faint. Respiratory: Denies cough, shortness of breath, excessive sputum, wheezing. Gastrointestinal: Denies nausea, vomiting, diarrhea, pain or discomfort. Neurologic: Denies weakness, numbness/tingling, feeling faint. Physical ExamGeneral Appearance: well nourished, well hydrated, no acute distressEyes, External: conjunctivae and lids normal, EOMIExternal Ears: normal, no lesions or deformitiesOtoscopy: canals clear, tympanic membranes intact; RIGHT EAR with diffusely erythematous TM, yellow opaque fluid line visible, no perforation; LEFT EAR TM without erythema or fluidExternal Nose: normal, no lesions or deformitiesNasal: mucosa, septum, and turbinates normal, nares patent, clear rhinorrheaPharynx: tongue normal, posterior pharynx without erythema or exudate, no thrush/aphthous ulcerNeck: supple, no masses, trachea midline, full range of motion of neckRespiratory, Auscultation: clear to auscultation bilaterally; no rales, rhonchi, or wheezesCardiovascular, Auscultation: S1, S2 audible; no murmur, rub, or gallop; RRRPeripheral Circulation: no clubbing, cyanosis, edema, or varicositiesAbdomen: soft, non-tender, no masses, bowel sounds normalGait & Station: normalOrientation: oriented to time, place, and personMood & Affect: no depression, anxiety, or agitationJudgment & Insight: intactCare Management Plan Transitions of CareInboundRate Your HealthIn general, would you say your health is? PoorAssessment & Plan Problems:Added: Acute suppurative otitis media without spontaneous rupture of ear drum, right ear (ICD-382.01) (NPA60-S22.001) Assessment: Instructions: Start amoxicillin twice daily x 10 days. Take antibiotics as prescribed, finish full course even if symptoms resolve. Antibiotics may cause stomach upset, recommend eating yogurt or taking probiotic while on antibiotics.Changed:From: Dx of PHARYNGITIS ACUTE (ICD-462) (ICD10- J02.9) To: PHARYNGITIS ACUTE (ICD-462) (CDM15-Z99.9)Assessed:PHARYNGITIS ACUTE (ICD-462) (JDC11-P36.9) Assessment: Instructions: Negative strep in office today. Will send throat culture and notify you of results. Likely viral upper respiratory infection. This may continue for a total of 7-10 days typically. Recommend supportive measures, increase rest, plenty of fluids. May use Zyrtec or Mucinex as needed.Patient Instructions/Care Plan: Acute suppurative otitis media without spontaneous rupture of ear drum- right ear: Start amoxicillin twice daily x 10 days. Take antibiotics as prescribed, finish full course even if symptoms resolve. Antibiotics may cause stomach upset, recommend eating yogurt or taking probiotic while on antibiotics.PHARYNGITIS ACUTE: Negative strep in office today. Will send throat culture and notify you of results. Likely viral upper respiratory infection. This may continue for a total of 7-10 days typically. Recommend supportive measures, increase rest, plenty of fluids. May use Zyrtec or Mucinex as needed. Plan developed in collaboration with patient and/or familyMedications:AMOXICILLIN 875 MG ORAL TABLETTYLENOL 325 MG ORAL TABLETVITAMIN D3 83070 UNIT ORAL TABLETPROZAC 10 MG ORAL CAPSULEMedication Changes:New Prescription:AMOXICILLIN 875 MG ORAL TABLET-Take 1 tablet by mouth twice daily x 10 days Qty: 20[Tablet] Refills: 0 Method: ElectronicRemoved:PREDNISONE 20 MG ORAL TABLET-4 tablets by mouth dailyAllergies:* PEDIAZOLE (Critical)Orders:Rapid Strep [CPT-39969] Throat Culture [CPT-52442] Adult - Ofc Vst, EST, Level II [CPT-95927] Follow-Up Return to clinic: as needed Clinical Visit Summary CompletedMedications:AMOXICILLIN 875 MG ORAL TABLET (AMOXICILLIN) Take 1 tablet by mouth twice daily x 10 days #20[Tablet] x 0 Route:ORAL Entered and Authorized by: Jaime WHEELER Method used: Electronically to [facility] (retail) [id number] [place] [address] Note to Pharmacy: Route: ORAL; Indications: ACUTE SUPPURATIVE OTITIS MEDIA WITHOUT SPONTANEOUS RUPTURE OF EAR DRUM, RIGHT EAR RxID: [id number] signed by Jaime WHEELER on 07/14/2019 at 8:09 AM Name Value Range Interpretation Code Description Data Mary rce(s) Supporting Document(s) ID Date Data Source [id number] 06/07/2019 01:20:36 PM [facility] Measurements & CalculationsHeight: 60 inches (5 ft. 0 in.) 152.40 cm Weight: 180 pounds 81.82 kg Body Mass Index (BMI): 35.28BMI Interpretation: ObeseBody Surface Area (BSA): 1.79Weight Management Education Done (Nutrition/Physical Activity)Vital SignsTemperature: 97.9FPulse Rate: 68 beats/minuteRespiratory Rate: 16 respirations/minuteBlood Pressure: 100/68 O2 Saturation: 100% Vital Signs performed by: Valentine Pendleton MA, June 07, 2019 1:24 PMInitial Intake Information from: patientRoom #: 12Infectious Disease- Travel Have you or your sexual partner travelled outside of the country recently? NoSmoking, Tobacco or Smoke Exposure StatusSmoke Status: never smokerTobacco Use: NoPassive Smoke Exposure: NoMenstrual HistoryLast Menstrual Period (LMP): 06/05/2019Any possibility of ? NoHealthcare HistorySince your last office visit...Have you been admitted to the hospital? NoHave you been to an emergency room (ER) or urgent care clinic? NoHave you seen another healthcare provider? Yes - Dr. Goldsmith HemotolgyHave you seen a dentist? Yes - [facility]-Paul DentalIntake performed by: Valentine Pendleton MA, June 07, 2019 1:22 PMRate Your HealthIn general, would you say your health is? PoorPain AssessmentAre you currently having any pain which... You would like your provider to address? No Affects your activity level? NoDepression Screening - PHQ-2Over the last two weeks, have you... Had little interest or pleasure in doing things? Not at all Been feeling down, depressed, or hopeless? Not at all PHQ-2 Score: 0Anxiety Screening - TEO-2Over the last two weeks, have you been... Feeling nervous, anxious, or on edge? Not at all Unable to stop or control worrying? Not at all TEO-2 Score: 0Infectious Disease- Travel Cont. Any possibility of ? NoScreening, Brief Intervention, & Referral to Treatment (SBIRT)Pre- Screening Questions How many times have you have 4 or more drinks in a day? 0How many times have you used an illegal drug or used a prescription medication for a non-medical reason? 0Performed by: Valentine Pendleton MA, June 07, 2019 1:23 PMPatient History Medical History:History of Chiari MalformationHeadachesITPDepressionBi-PolaranemiaSurgical History:Uftusifod7Fgfcgr History:FH AsthmaFH ADHDSocial/Personal History:LIVES WITH / 12/12 Smoking Status: never smokerChief ComplaintmedsHistory of Present Illness (HPI)24 yo female in today for follow up visit. Pt in today for 3 month f/u and med refillsPt states medication working well. 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 Pt states have 5 children under the age of 5 at home. Pt denies any abnormal bleeding or abnormal bruising. Pt states still taking prednisone but does not have an appointment with hemotology at this time. 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 Pt states will make a follow up appointment soon. Pt denies any other concerns today. HPI performed by: Delores Tierney [facility], June 07, 2019 1:52 PMTransitions of Care InboundProblem ReviewProblem List was reviewed and/or updated during this visit.Medication Reconciliation & ReviewMedication List was reviewed and/or updated during this visit, including review of any [id number] medications, herbal therapies, and/or supplements.Allergy ReviewAllergy List was reviewed and/or updated during this visit.Adult Preventive CareProvider Calculated and Reviewed all Clinical Protocols for patient today. Labs/Meds/Other Counseling- Nutrition and Physical Activity:BMI Interpretation: Obese (06/07/2019) Counseling: Done (06/07/2019) Physical Activity: Done (06/07/2019)Cancer Screening Pap Smear/HPV TestingReviewed: Previous Comments: [facility]Review of Systems General: Denies loss of appetite, chills, dizziness, fatigue, fever, continued fever, headache, feeling ill, sweats, night sweats, sleep disturbances, weight loss. Eyes: Denies blurring of vision, double vision, irritation, discharge, vision loss, eye pain, eye swelling, droopy eyelid, sensitivity to light, redness, itching. Ears/Nose/Throat: Denies earache, ear discharge, ringing in ears, decreased hearing, nasal congestion, nosebleeds, runny nose, sore throat, hoarseness, difficulty swallowing, dry mouth, tooth pain, bleeding gums, swollen glands. Cardiovascular: Denies chest pain, palpitations, feeling faint, trouble breathing w/exertion, SOB upon lying down, SOB at night, peripheral edema, elevated blood pressure, decreased heart rate. Respiratory: Denies cough, difficulty breathing, shortness of breath, excessive sputum, coughing up blood, wheezing, chest pain. Gastrointestinal: Denies nausea, vomiting, bleeding, burning, itching, irritation, cramps, diarrhea, constipation. Genitourinary: Denies urinary incontinence, pain with urination, burning with urination, urinary frequency, urinary hesitancy, urinary urgency, urinary urgency at night, incomplete emptying, blood in urine, pelvic pain. Musculoskeletal: Denies back pain, joint pain, leg pain, joint swelling, body aches, muscle aches, muscle cramps, muscle weakness, stiffness, recent injury. Neurologic: Denies muscle impairment, weakness, numbness/tingling, seizures, slurred speech, feeling faint, tremors, vertigo, paralysis on one side, paralysis on both sides. Psychiatric: Complains of depression, anxiety. Denies memory loss, mental disturbance, suicidal ideation, homicidal ideation, hallucinations, paranoia, feeling stressed, hearing voices. stable on medicationPhysical ExamGeneral Appearance: well nourished, well hydrated, no acute distressEyes, External: conjunctivae and lids normal, EOMIRespiratory, Auscultation: clear to auscultation bilaterally; no rales, rhonchi, or wheezesRespiratory, Effort: no intercostal retractions or use of accessory musclesCardiovascular, Auscultation: S1, S2 audible; no murmur, rub, or gallop; RRRPeripheral Circulation: no clubbing, cyanosis, edema, or varicositiesAbdomen: soft, non-tender, no masses, bowel sounds normalGait & Station: normalSkin, Inspection: no rashes, lesions, or ulcerationsOrientation: oriented to time, place, and personMood & Affect: no depression, anxiety, or agitationJudgment & Insight: intactCare Management Plan Transitions of CareInboundRate Your HealthIn general, would you say your health is? 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 Please try to keep scheduled appointment with Therapist. Please let us know if you need additional assistance.Vitamin D deficiency (ICD-268.9) (TJB87-X47.9) Assessment: Instructions: Please continue medication as prescribed.Anxiety depression (ICD-300.4) (RJY37-F29.8) Assessment: New referral done.Patient Instructions/Care Plan: Platelet disorder: Please continue to follow with your specialist as scheduled.Anxiety depression: Please continue medication as scheduled. Please try to keep scheduled appointment with Therapist. Please let us know if you need additional assistance.Vitamin D deficiency: Please continue medication as prescribed. Plan developed in collaboration with patient and/or familyMedications:TYLENOL 325 MG ORAL TABLETVITAMIN D3 67434 UNIT ORAL TABLETPROZAC 10 MG ORAL CAPSULEPREDNISONE 20 MG ORAL TABLETMedication Changes:Refilled:PROZAC 10 MG ORAL CAPSULE-take one tablet by mouth daily Qty: 30[Capsule] Refills: 3 Method: ElectronicAllergies:* PEDIAZOLE (Critical)Orders:Mental Health Consult [CPT-73242] Adult - Ofc Vst, EST, Level III [CPT-47322] Follow-Up Return to clinic: 3 months for follow up Clinical Visit Summary CompletedMedications:PROZAC 10 MG ORAL CAPSULE (FLUOXETINE HCL) take one tablet by mouth daily #30[Capsule] x 3 Route:ORAL Entered and Authorized by: Delores RANGEL Method used: Electronically to [id number] (retail) [id number] [place] [address] Fax: Note to Pharmacy: Route: ORAL; Indications: ANXIETY DEPRESSION RxID: [id number] signed by Delores RANGEL on 06/10/2019 at 12:16 AM Name Value Range Interpretation Code Description Data Mary rce(s) Supporting Document(s) Procedure Vital Signs ID Date Data Source UNK Name Value Range Interpretation Code Description Data Source(s) Body weight 3460 [oz_av] 3460 [oz_av] BRUNO ([facility]) Systolic blood pressure 95 mm[Hg] 95 mm[Hg] A [facility]) Body mass index (BMI) [Ratio] 42.2 kg/m2 42.2 k g/m2 [facility]) Body height 60 [in_i] 60 [in_i] BRUNO ([facility]) Diastolic blood pressure 68 mm[Hg] 68 mm[Hg] BRUNO ([facility]) Body weight 3460 [oz_av] 3460 [oz_av] BRUNO ([facility]) Systolic blood pressure 95 mm[Hg] 95 mm[Hg] A [facility]) Body mass index (BMI) [Ratio] 42.2 kg/m2 42.2 k g[facility] [in_i] 60 [facility]i] [facility] Diastolic blood pressure 68 mm[Hg] 68 mm[Hg] BRUNO ([facility]) Body weight 3475.2 [oz_av] 3475.2 [oz_av] ATHEN A ([facility]) Systolic blood pressure 109 mm[Hg] 109 mm[Hg] A THENA ([facility]) Body mass index (BMI) [Ratio] 42.4 kg/m2 42.4 k g/m2 BRUNO ([facility]) Body height 60 [in_i] 60 [in_i] BRUNO ([facility]) Diastolic blood pressure 77 mm[Hg] 77 mm[Hg] BRUNO ([facility]) Body weight 3475.2 [oz_av] 3475.2 [oz_av] ATHEN A ([facility]) Systolic blood pressure 109 mm[Hg] 109 mm[Hg] A THENA ([facility]) Body mass index (BMI) [Ratio] 42.4 kg/m2 42.4 k g/m2 BRUNO ([facility]) Body height 60 [in_i] 60 [in_i] BRUNO ([facility]) Diastolic blood pressure 77 mm[Hg] 77 mm[Hg] BRUNO ([facility]) Body weight 3475.2 [oz_av] 3475.2 [oz_av] ATHEN A ([facility]) Systolic blood pressure 109 mm[Hg] 109 mm[Hg] A THENA ([facility]) Body mass index (BMI) [Ratio] 42.4 kg/m2 42.4 k g/m2 BRUNO ([facility]) Body height 60 [in_i] 60 [in_i] BRUNO ([facility]) Diastolic blood pressure 77 mm[Hg] 77 mm[Hg] BRUNO ([facility]) Body weight 3475.2 [oz_av] 3475.2 [oz_av] ATHEN A ([facility]) Systolic blood pressure 109 mm[Hg] 109 mm[Hg] A THENA ([facility]) Body mass index (BMI) [Ratio] 42.4 kg/m2 42.4 k g/m2 BRUNO ([facility]) Body height 60 [in_i] 60 [in_i] BRUNO ([facility]) Diastolic blood pressure 77 mm[Hg] 77 mm[Hg] BRUNO ([facility]) Body weight 3475.2 [oz_av] 3475.2 [oz_av] ATHEN A ([facility]) Systolic blood pressure 109 mm[Hg] 109 mm[Hg] A THENA ([facility]) Body mass index (BMI) [Ratio] 42.4 kg/m2 42.4 k g/m2 BRUNO ([facility]) Body height 60 [in_i] 60 [in_i] BRUNO ([facility]) Diastolic blood pressure 77 mm[Hg] 77 mm[Hg] BRUNO ([facility]) Body weight 3266.08 [oz_av] 3266.08 [oz_av] ATH TJ ([facility]) Body height 60 [in_i] 60 [in_i] BRUNO ([facility]) Body weight 3266.08 [oz_av] 3266.08 [oz_av] ATH TJ ([facility]) Body height 60 [in_i] 60 [in_i] BRUNO ([facility]) Body weight 3266.08 [oz_av] 3266.08 [oz_av] ATH TJ ([facility]) Body height 60 [in_i] 60 [in_i] BRUNO ([facility]) Body weight 3266.08 [oz_av] 3266.08 [oz_av] ATH TJ ([facility]) Body height 60 [in_i] 60 [in_i] BRUNO ([facility]) Body weight 3266.08 [oz_av] 3266.08 [oz_av] ATH TJ ([facility]) Body height 60 [in_i] 60 [in_i] BRUNO ([facility]) Body weight 3266.08 [oz_av] 3266.08 [oz_av] ATH TJ ([facility]) Body height 60 [in_i] 60 [in_i] BRUNO ([facility]) Body weight 3266.08 [oz_av] 3266.08 [oz_av] ATH TJ ([facility]) Body height 60 [in_i] 60 [in_i] BRUNO ([facility]) Body weight 3266.08 [oz_av] 3266.08 [oz_av] ATH TJ ([facility]) Body height 60 [in_i] 60 [in_i] BRUNO ([facility]) Body weight 3266.08 [oz_av] 3266.08 [oz_av] ATH TJ ([facility]) Body height 60 [in_i] 60 [in_i] BRUNO ([facility]) Body weight 3032 [oz_av] 3032 [oz_av] BRUNO ([facility]) Systolic blood pressure 107 mm[Hg] 107 mm[Hg] A [facility] ([facility]) Body height 60 [in_i] 60 [in_i] BRUNO ([facility]) Diastolic blood pressure 72 mm[Hg] 72 mm[Hg] BRUNO ([facility]) Body weight 3032 [oz_av] 3032 [oz_av] BRUNO ([facility]) Systolic blood pressure 107 mm[Hg] 107 mm[Hg] A [facility] ([facility]) Body height 60 [in_i] 60 [in_i] BRUNO ([facility]) Diastolic blood pressure 72 mm[Hg] 72 mm[Hg] BRUNO ([facility]) Body weight 3032 [oz_av] 3032 [oz_av] BRUNO ([facility]) Systolic blood pressure 107 mm[Hg] 107 mm[Hg] A THENA ([facility]) Body height 60 [in_i] 60 [in_i] BRUNO ([facility]) Diastolic blood pressure 72 mm[Hg] 72 mm[Hg] BRUNO ([facility]) Body weight 3032 [oz_av] 3032 [oz_av] BRUNO ([facility]) Systolic blood pressure 107 mm[Hg] 107 mm[Hg] [facility] Body height 60 [in_i] 60 [in_i] BRUNO ([facility]) Diastolic blood pressure 72 mm[Hg] 72 mm[Hg] BRUNO ([facility]) Body weight 3032 [oz_av] 3032 [oz_av] BRUNO ([facility]) Systolic blood pressure 107 mm[Hg] 107 mm[Hg] [facility] Body height 60 [in_i] 60 [in_i] BRUNO ([facility]) Diastolic blood pressure 72 mm[Hg] 72 mm[Hg] BRUNO ([facility]) Body weight 3032 [oz_av] 3032 [oz_av] BRUNO ([facility]) Systolic blood pressure 107 mm[Hg] 107 mm[Hg] [facility] Body height 60 [in_i] 60 [in_i] BRUNO ([facility]) Diastolic blood pressure 72 mm[Hg] 72 mm[Hg] BRUNO ([facility]) Body weight 3032 [oz_av] 3032 [oz_av] BRUNO ([facility]) Systolic blood pressure 107 mm[Hg] 107 mm[Hg] [facility] Body height 60 [in_i] 60 [in_i] BRUNO ([facility]) Diastolic blood pressure 72 mm[Hg] 72 mm[Hg] BRUNO ([facility]) Body weight 3032 [oz_av] 3032 [oz_av] BRUNO ([facility]) Systolic blood pressure 107 mm[Hg] 107 mm[Hg] [facility] Body height 60 [in_i] 60 [in_i] BRUNO ([facility]) Diastolic blood pressure 72 mm[Hg] 72 mm[Hg] BRUNO ([facility]) Body weight 3032 [oz_av] 3032 [oz_av] BRUNO ([facility]) Systolic blood pressure 107 mm[Hg] 107 mm[Hg] [facility] Body height 60 [in_i] 60 [in_i] BRUNO ([facility]) Diastolic blood pressure 72 mm[Hg] 72 mm[Hg] BRUNO ([facility]) Body weight 2880 [oz_av] 2880 [oz_av] BRUNO ([facility]) Systolic blood pressure 100 mm[Hg] 100 mm[Hg] [facility] Body height 60 [in_i] 60 [in_i] BRUNO ([facility]) Diastolic blood pressure 68 mm[Hg] 68 mm[Hg] BRUNO ([facility]) Body weight 2880 [oz_av] 2880 [oz_av] BRUNO ([facility]) Systolic blood pressure 100 mm[Hg] 100 mm[Hg] [facility] Body height 60 [in_i] 60 [in_i] BRUNO ([facility]) Diastolic blood pressure 68 mm[Hg] 68 mm[Hg] BRUNO ([facility]) Body weight 2880 [oz_av] 2880 [oz_av] BRUNO ([facility]) Systolic blood pressure 100 mm[Hg] 100 mm[Hg] A [facility] ([facility]) Body height 60 [in_i] 60 [in_i] BRUNO ([facility]) Diastolic blood pressure 68 mm[Hg] 68 mm[Hg] BRUNO ([facility]) Body weight 2880 [oz_av] 2880 [oz_av] BRUNO ([facility]) Systolic blood pressure 100 mm[Hg] 100 mm[Hg] [facility] Body height 60 [in_i] 60 [in_i] BRUNO ([facility]) Diastolic blood pressure 68 mm[Hg] 68 mm[Hg] BRUNO ([facility]) Body weight 2880 [oz_av] 2880 [oz_av] BRUNO ([facility]) Systolic blood pressure 100 mm[Hg] 100 mm[Hg] [facility] Body height 60 [in_i] 60 [in_i] BRUNO ([facility]) Diastolic blood pressure 68 mm[Hg] 68 mm[Hg] BRUNO ([facility]) Body weight 2880 [oz_av] 2880 [oz_av] BRUNO ([facility]) Systolic blood pressure 100 mm[Hg] 100 mm[Hg] [facility] Body height 60 [in_i] 60 [in_i] BRUNO ([facility]) Diastolic blood pressure 68 mm[Hg] 68 mm[Hg] BRUNO ([facility]) Body weight 2880 [oz_av] 2880 [oz_av] BRUNO ([facility]) Systolic blood pressure 100 mm[Hg] 100 mm[Hg] [facility] Body height 60 [in_i] 60 [in_i] BRUNO ([facility]) Diastolic blood pressure 68 mm[Hg] 68 mm[Hg] BRUNO ([facility]) Body weight 2880 [oz_av] 2880 [oz_av] BRUNO ([facility]) Systolic blood pressure 100 mm[Hg] 100 mm[Hg] A [facility] ([facility]) Body height 60 [in_i] 60 [in_i] BRUNO ([facility]) Diastolic blood pressure 68 mm[Hg] 68 mm[Hg] BRUNO ([facility]) Body weight 2880 [oz_av] 2880 [oz_av] BRUNO ([facility]) Systolic blood pressure 100 mm[Hg] 100 mm[Hg] [facility] Body height 60 [in_i] 60 [in_i] BRUNO ([facility]) Diastolic blood pressure 68 mm[Hg] 68 mm[Hg] BRUNO ([facility]) Patient Treatment Plan of Care Planned Activity Planned Date Details Description Data Source (s) Naproxen 500 MG Oral Tablet BRUNO ([facility]) Acetaminophen 325 MG Oral Tablet [Mapap] BRUNO ([facility]) lamotrigine 25 MG Oral Tablet [facility] ([facility]) [facility] Dicyclomine Hydrochloride 20 MG Oral Tablet BRUNO ([facility]) Amoxicillin 875 MG Oral Tablet BRUNO ([facility]) Naproxen 500 MG Oral Tablet BRUNO ([facility]) Acetaminophen 325 MG Oral Tablet [Mapap] BRUNO ([facility]) lamotrigine 25 MG Oral Tablet BRUNO ([facility]) Fluoxetine 10 MG Oral Capsule BRUNO ([facility]) Dicyclomine Hydrochloride 20 MG Oral Tablet BRUNO ([facility]) Amoxicillin 875 MG Oral Tablet BRUNO ([facility]) Acetaminophen 325 MG Oral Tablet [Mapap] BRUNO ([facility]) lamotrigine 25 MG Oral Tablet BRUNO ([facility]) Fluoxetine 10 MG Oral Capsule BURNO ([facility]) Dicyclomine Hydrochloride 20 MG Oral Tablet BRUNO ([facility]) Amoxicillin 875 MG Oral Tablet BRUNO ([facility]) Acetaminophen 325 MG Oral Tablet [Mapap] BRUNO ([facility]) lamotrigine 25 MG Oral Tablet BRUNO ([facility]) Fluoxetine 10 MG Oral Capsule BRUNO ([facility]) Dicyclomine Hydrochloride 20 MG Oral Tablet BRUNO ([facility]) Amoxicillin 875 MG Oral Tablet BRUNO ([facility]) Acetaminophen 325 MG Oral Tablet [Mapap] BRUNO ([facility]) lamotrigine 25 MG Oral Tablet BRUNO ([facility]) Fluoxetine 10 MG Oral Capsule BRUNO ([facility]) Dicyclomine Hydrochloride 20 MG Oral Tablet BRUNO ([facility]) Amoxicillin 875 MG Oral Tablet BRUNO ([facility])
[2020-07-24] MEDS ORDERED: ONDANSETRON 4MG/2ML VIAL IV ONE (00:45)
[2020-07-24] MEDS ORDERED: KETOROLAC 30 MG/ML 1ML VIAL IV ONE (00:45)
[2020-07-24] MEDS ORDERED: NS 1,000 ML IV ONE (00:45)
--- OUTSIDE RECORDS SUMMARY | 2020-07-24 01:08 | CCD ---
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 volume 76.6 fL 80.0-96.0 Below low normal Mean Corpuscular Volume [place] ([facility]) platelet count, automated 23 10 150-450 Below low sudeep l Platelet Count, Automated [place] ([facility]) neutrophils % 61.3 % 36.0-66.0 normal Neutrophils % [place] ( [facility]) lymph % 23.5 % 24.0-44.0 Below low normal Lymph % [place] ( [facility]) red cell distribution width 14.6 % 11.5-14.5 Above high no rmal Red Cell Distribution Width [place] ([facility]) eos % 2.2 % 0.0-3.0 normal Eos % [place] ([facility]) mono % 11.8 % 0.0-5.0 Above high normal Craig % [place] ([facility]) baso % 0.9 % 0.0-1.0 normal Baso % [place] ([facility]) nucleated red blood cell % 0.0 % 0-0 normal Nucleated Red Blood Cell % [place] ([facility]) lymph # 1.4 10 1.5-5.0 Below low normal Lymph # [place] ( [facility]) neutrophils # 3.6 10 1.5-8.5 normal Neutrophils # [place] ( [facility]) immature granulocyte % 0.3 % 0-3.0 normal Immature Gran ulocyte % [place] ([facility]) baso # 0.1 10 0.0-0.2 normal Baso # [place] ([facility]) eos # 0.1 10 0.0-0.5 normal Eos # [place] ([facility]) mono # 0.7 10 0.0-0.8 normal Craig # [place] ([facility]) ID Date Data Source [id number] 06/15/2020 08:35:00 AM EST [place] ([facility]) Name Value Range Interpretation Code Description Data Mary rce(s) Supporting Document(s) thyroid stimulating hormone 7.380 uIU/mL 0.358-3.740 Above high no rmal Thyroid Stimulating Hormone [place] ([facility]) free T4 0.91 NG/dL 0.76-1.46 normal Free T4 [place] ([facility]) ID Date Data Source [id number] 06/15/2020 08:35:00 AM EST [place] ([facility]) Name Value Range Interpretation Code Description Data Mary rce(s) Supporting Document(s) glucose, fasting 106 mg/dL 70-100 Above high normal Glucose, Fas ting [place] ([facility]) creatinine for GFR 0.63 mg/dL 0.55-1.30 normal Creatinine for GF R [place] ([facility]) blood urea nitrogen 14 mg/dL 7-18 normal Blood Urea Nitro gen [place] ([facility]) sodium level 139 mEq/L 136-145 normal Sodium Level [place] (No [facility]) glomerular filtration rate > 60.0 >60 normal Glomerula r Filtration Rate [place] ([facility]) potassium serum 4.0 mEq/L 3.5-5.1 normal Potassium Serum [facility] ([facility]) carbon dioxide level 26 mEq/L 21-32 normal Carbon Dioxide Level [place] ([facility]) chloride level 108 mEq/L 98-107 Above high normal Chloride Level [place] ([facility]) anion gap 5 mEq/L 8-16 Below low normal Anion Gap [place] ( [facility]) AST/SGOT 13 U/L 7-37 normal AST/SGOT [place] ([facility]) calcium level 8.1 mg/dL 8.5-10.1 Below low normal Calcium Level AT [facility]) alkaline phosphatase 83 U/L 45-117 normal Alkaline Phosph atase [place] ([facility]) ALT/SGPT 21 U/L 12-78 normal ALT/SGPT [place] ([facility]) bilirubin,total 0.4 mg/dL 0.2-1.0 normal Bilirubin,total [facility] ([facility]) total protein 7.1 gm/dL 6.4-8.2 normal Total Protein [place] ( [facility]) albumin/globulin ratio 1.2-2.2 Below low normal Albumin /globulin Ratio [place] ([facility]) albumin 3.6 gm/dL 3.2-5.2 normal Albumin [place] ([facility]) ID Date Data Source [id number] 06/15/2020 08:35:00 AM EST [place] ([facility]) Name Value Range Interpretation Code Description Data Mary rce(s) Supporting Document(s) immature platelet fraction % 6.3 % 0.0-9.59 normal Immatur e Platelet Fraction % [place] ([facility]) ID Date Data Source [id number] 06/15/2020 08:35:00 AM EST [place] ([facility]) Name Value Range Interpretation Code Description Data Mary rce(s) Supporting Document(s) white blood count 5.8 10 4.0-10.0 normal White Blood Count [place] ([facility]) red blood count 4.53 10 4.00-5.40 normal Red Blood Count ATHE NA ([facility]) hemoglobin 10.7 g/dL 12.0-15.5 Below low normal Hemoglobin [place] ( [facility]) hematocrit 34.7 % 36.0-47.0 Below low normal Hematocrit [place] ( [facility]) mean corpuscular hemoglobin 23.6 pg 27.0-33.0 Below low nor mal Mean Corpuscular Hemoglobin [place] ([facility]) mean corpuscular volume 76.6 fL 80.0-96.0 Below low normal Mean Corpuscular Volume [place] ([facility]) mean corpuscular HGB conc 30.8 g/dL 32.0-36.5 Below low sudeep l Mean Corpuscular HGB Conc [place] ([facility]) red cell distribution width 14.6 % 11.5-14.5 Above high no rmal Red Cell Distribution Width [place] ([facility]) mono % 11.8 % 0.0-5.0 Above high normal Craig % [place] ([facility]) neutrophils % 61.3 % 36.0-66.0 normal Neutrophils % [place] ( [facility]) lymph % 23.5 % 24.0-44.0 Below low normal Lymph % [place] ( [facility]) platelet count, automated 23 10 150-450 Below low sudeep l Platelet Count, Automated [place] ([facility]) baso % 0.9 % 0.0-1.0 normal Baso % [place] ([facility]) nucleated red blood cell % 0.0 % 0-0 normal Nucleated Red Blood Cell % [place] ([facility]) eos % 2.2 % 0.0-3.0 normal Eos % [place] ([facility]) immature granulocyte % 0.3 % 0-3.0 normal Immature Gran ulocyte % [place] ([facility]) neutrophils # 3.6 10 1.5-8.5 normal Neutrophils # [place] ( [facility]) mono # 0.7 10 0.0-0.8 normal Craig # [place] ([facility]) lymph # 1.4 10 1.5-5.0 Below low normal Lymph # [place] ( [facility]) eos # 0.1 10 0.0-0.5 normal Eos # [place] ([facility]) baso # 0.1 10 0.0-0.2 normal Baso # [place] ([facility]) ID Date Data Source [id number] 06/15/2020 08:35:00 AM EST [place] ([facility]) Name Value Range Interpretation Code Description Data Mary rce(s) Supporting Document(s) free T4 0.91 NG/dL 0.76-1.46 normal Free T4 [place] ([facility]) thyroid stimulating hormone 7.380 uIU/mL 0.358-3.740 Above high no rmal Thyroid Stimulating Hormone [place] ([facility]) ID Date Data Source [id number] 06/15/2020 08:35:00 AM EST [place] ([facility]) Name Value Range Interpretation Code Description Data Mary rce(s) Supporting Document(s) glucose, fasting 106 mg/dL 70-100 Above high normal Glucose, Fas ting [place] ([facility]) blood urea nitrogen 14 mg/dL 7-18 normal Blood Urea Nitro gen [place] ([facility]) sodium level 139 mEq/L 136-145 normal Sodium Level [place] (No [facility]) creatinine for GFR 0.63 mg/dL 0.55-1.30 normal Creatinine for GF R [place] ([facility]) glomerular filtration rate > 60.0 >60 normal Glomerula r Filtration Rate [place] ([facility]) chloride level 108 mEq/L 98-107 Above high normal Chloride Level [place] ([facility]) carbon dioxide level 26 mEq/L 21-32 normal Carbon Dioxide Level [place] ([facility]) potassium serum 4.0 mEq/L 3.5-5.1 normal Potassium Serum [facility] ([facility]) anion gap 5 mEq/L 8-16 Below low normal Anion Gap [place] ( [facility]) calcium level 8.1 mg/dL 8.5-10.1 Below low normal Calcium Level AT [facility]) AST/SGOT 13 U/L 7-37 normal AST/SGOT [place] ([facility]) alkaline phosphatase 83 U/L 45-117 normal Alkaline Phosph atase [place] ([facility]) ALT/SGPT 21 U/L 12-78 normal ALT/SGPT [place] ([facility]) bilirubin,total 0.4 mg/dL 0.2-1.0 normal Bilirubin,total [facility] ([facility]) total protein 7.1 gm/dL 6.4-8.2 normal Total Protein [place] ( [facility]) albumin 3.6 gm/dL 3.2-5.2 normal Albumin [place] ([facility]) albumin/globulin ratio 1.2-2.2 Below low normal Albumin /globulin Ratio [place] ([facility]) ID Date Data Source [id number] 03/06/2020 10:06:16 AM EDT [facility] Vital SignsTemperature: 98.3FV ital Signs performed by: Malorie Bah LPN, March 06, 2020 10:06 AMVaccines Administered/Entered:Vaccination Group: InfluenzaSeries: 1Vaccination: Flulaval Quadrivalent Intramuscular Suspension Prefilled Syringe 0.5 MLMfr / Lot# / Exp.Date: [facility] / [id number] 11/29/2020mt. Given / Route / Site: 0.5 mL / IM / Left DeltoidNDC / CVX: [id number] / 150Administered Date: 03/06/2020 10:07VFC Eligibility: VFC eligible-Medicaid/Medicaid Managed CareVIS Date: 01/14/2019VIS Given / VIS Given On: Yes 03/06/2020Comments: Administered by: Malorie Bah LPN Assessment & Plan Orders:[id number] Vst-Est Level I [CPT-60607] 94440 - Immo Admin (under 19 yrs), 1st Toxoid [CPT-87498] FluLaval Quadrivalent, preservative free [CPT- 43756] Name Value Range Interpretation Code Description Data Mary rce(s) Supporting Document(s) ID Date Data Source [id number] 2020 06:50:00 AM EDT [place] ([facility]) Name Value Range Interpretation Code Description Data Mary rce(s) Supporting Document(s) blood urea nitrogen 9 mg/dL 7-18 normal Blood Urea Nitro gen [place] ([facility]) creatinine for GFR 0.59 mg/dL 0.55-1.30 normal Creatinine for GF R [place] ([facility]) glomerular filtration rate > 60.0 >60 normal Glomerula r Filtration Rate [place] ([facility]) glucose, fasting 140 mg/dL 70-100 Above high normal Glucose, Fas ting [place] ([facility]) chloride level 110 mEq/L 98-107 Above high normal Chloride Level [place] ([facility]) carbon dioxide level 26 mEq/L 21-32 normal Carbon Dioxide Level [place] ([facility]) potassium serum 3.8 mEq/L 3.5-5.1 D Potassium Serum AT[facility] NA ([facility]) sodium level 141 mEq/L 136-145 normal Sodium Level [facility] (No [facility]) anion gap 5 mEq/L 8-16 Below low normal Anion Gap [place] ( [facility]) calcium level 8.0 mg/dL 8.5-10.1 Below low normal Calcium Level AT [facility]) ALT/SGPT 41 U/L 12-78 normal ALT/SGPT [place] ([facility]) AST/SGOT 26 U/L 7-37 normal AST/SGOT [place] ([facility]) albumin 3.5 gm/dL 3.2-5.2 normal Albumin [place] ([facility]) alkaline phosphatase 86 U/L 45-117 normal Alkaline Phosph atase [place] ([facility]) total protein 7.4 gm/dL 6.4-8.2 normal Total Protein [place] ( [facility]) bilirubin,total 0.4 mg/dL 0.2-1.0 normal Bilirubin,total AT[facility] ([facility]) albumin/globulin ratio 1.2-2.2 Below low normal Albumin /globulin Ratio [place] ([facility]) ID Date Data Source [id number] 2020 06:50:00 AM EDT [place] ([facility]) Name Value Range Interpretation Code Description Data Mary rce(s) Supporting Document(s) creatinine for GFR 0.59 mg/dL 0.55-1.30 normal Creatinine for GF R [place] ([facility]) glucose, fasting 140 mg/dL 70-100 Above high normal Glucose, Fas ting [place] ([facility]) blood urea nitrogen 9 mg/dL 7-18 normal Blood Urea Nitro gen [place] ([facility]) potassium serum 3.8 mEq/L 3.5-5.1 D Potassium Serum AT[facility] NA ([facility]) sodium level 141 mEq/L 136-145 normal Sodium Level [place] (No [facility]) glomerular filtration rate > 60.0 >60 normal Glomerula r Filtration Rate [place] ([facility]) chloride level 110 mEq/L 98-107 Above high normal Chloride Level [place] ([facility]) calcium level 8.0 mg/dL 8.5-10.1 Below low normal Calcium Level AT [facility]) AST/SGOT 26 U/L 7-37 normal AST/SGOT [place] ([facility]) anion gap 5 mEq/L 8-16 Below low normal Anion Gap [place] ( [facility]) carbon dioxide level 26 mEq/L 21-32 normal Carbon Dioxide Level [place] ([facility]) bilirubin,total 0.4 mg/dL 0.2-1.0 normal Bilirubin,total [place] ([facility]) total protein 7.4 gm/dL 6.4-8.2 normal Total Protein [place] ( [facility]) ALT/SGPT 41 U/L 12-78 normal ALT/SGPT [place] ([facility]) alkaline phosphatase 86 U/L 45-117 normal Alkaline Phosph atase [place] ([facility]) albumin 3.5 gm/dL 3.2-5.2 normal Albumin [place] ([facility]) albumin/globulin ratio 1.2-2.2 Below low normal Albumin /globulin Ratio [place] ([facility]) ID Date Data Source [id number] 2020 06:50:00 AM EDT [place] ([facility]) Name Value Range Interpretation Code Description Data Mary rce(s) Supporting Document(s) creatinine for GFR 0.59 mg/dL 0.55-1.30 normal Creatinine for GF R [place] ([facility]) glucose, fasting 140 mg/dL 70-100 Above high normal Glucose, Fas ting [place] ([facility]) glomerular filtration rate > 60.0 >60 normal Glomerula r Filtration Rate [place] ([facility]) blood urea nitrogen 9 mg/dL 7-18 normal Blood Urea Nitro gen [place] ([facility]) potassium serum 3.8 mEq/L 3.5-5.1 D Potassium Serum [place] ([facility]) carbon dioxide level 26 mEq/L 21-32 normal Carbon Dioxide Level [place] ([facility]) chloride level 110 mEq/L 98-107 Above high normal Chloride Level [place] ([facility]) sodium level 141 mEq/L 136-145 normal Sodium Level [place] (No [facility]) AST/SGOT 26 U/L 7-37 normal AST/SGOT [place] ([facility]) anion gap 5 mEq/L 8-16 Below low normal Anion Gap [place] ( [facility]) calcium level 8.0 mg/dL 8.5-10.1 Below low normal Calcium Level AT [facility]) ALT/SGPT 41 U/L 12-78 normal ALT/SGPT [place] ([facility]) bilirubin,total 0.4 mg/dL 0.2-1.0 normal Bilirubin,total [place] NA ([facility]) alkaline phosphatase 86 U/L 45-117 normal Alkaline Phosph atase [place] ([facility]) total protein 7.4 gm/dL 6.4-8.2 normal Total Protein [place] ( [facility]) albumin/globulin ratio 1.2-2.2 Below low normal Albumin /globulin Ratio [place] ([facility]) albumin 3.5 gm/dL 3.2-5.2 normal Albumin [place] ([facility]) ID Date Data Source [id number] 2020 06:50:00 AM EDT [place] ([facility]) Name Value Range Interpretation Code Description Data Mary rce(s) Supporting Document(s) glucose, fasting 140 mg/dL 70-100 Above high normal Glucose, Fas ting [place] ([facility]) blood urea nitrogen 9 mg/dL 7-18 normal Blood Urea Nitro gen [place] ([facility]) creatinine for GFR 0.59 mg/dL 0.55-1.30 normal Creatinine for GF R [place] ([facility]) glomerular filtration rate > 60.0 >60 normal Glomerula r Filtration Rate [place] ([facility]) chloride level 110 mEq/L 98-107 Above high normal Chloride Level [place] ([facility]) sodium level 141 mEq/L 136-145 normal Sodium Level [place] ([facility]) potassium serum 3.8 mEq/L 3.5-5.1 D Potassium Serum [place] ([facility]) AST/SGOT 26 U/L 7-37 normal AST/SGOT [place] ([facility]) carbon dioxide level 26 mEq/L 21-32 normal Carbon Dioxide Level [place] ([facility]) anion gap 5 mEq/L 8-16 Below low normal Anion Gap [place] ( [facility]) calcium level 8.0 mg/dL 8.5-10.1 Below low normal Calcium Level AT [facility] ([facility]) ALT/SGPT 41 U/L 12-78 normal ALT/SGPT [place] ([facility]) alkaline phosphatase 86 U/L 45-117 normal Alkaline Phosph atase [place] ([facility]) albumin 3.5 gm/dL 3.2-5.2 normal Albumin [place] ([facility]) bilirubin,total 0.4 mg/dL 0.2-1.0 normal Bilirubin,total [place] ([facility]) total protein 7.4 gm/dL 6.4-8.2 normal Total Protein [place] ( [facility]) albumin/globulin ratio 1.2-2.2 Below low normal Albumin /globulin Ratio [place] ([facility]) ID Date Data Source [id number] 2020 06:50:00 AM EDT [place] ([facility]) Name Value Range Interpretation Code Description Data Mary rce(s) Supporting Document(s) glucose, fasting 140 mg/dL 70-100 Above high normal Glucose, Fas ting [place] ([facility]) creatinine for GFR 0.59 mg/dL 0.55-1.30 normal Creatinine for GF R [place] ([facility]) blood urea nitrogen 9 mg/dL 7-18 normal Blood Urea Nitro gen [place] ([facility]) sodium level 141 mEq/L 136-145 normal Sodium Level [place] (No [facility]) glomerular filtration rate > 60.0 >60 normal Glomerula r Filtration Rate [place] ([facility]) potassium serum 3.8 mEq/L 3.5-5.1 D Potassium Serum [place] NA ([facility]) carbon dioxide level 26 mEq/L 21-32 normal Carbon Dioxide Level [place] ([facility]) anion gap 5 mEq/L 8-16 Below low normal Anion Gap [place] ( [facility]) chloride level 110 mEq/L 98-107 Above high normal Chloride Level [place] ([facility]) calcium level 8.0 mg/dL 8.5-10.1 Below low normal Calcium Level AT [facility]) ALT/SGPT 41 U/L 12-78 normal ALT/SGPT [place] ([facility]) AST/SGOT 26 U/L 7-37 normal AST/SGOT [place] ([facility]) alkaline phosphatase 86 U/L 45-117 normal Alkaline Phosph atase [place] ([facility]) total protein 7.4 gm/dL 6.4-8.2 normal Total Protein [place] ( [facility]) albumin 3.5 gm/dL 3.2-5.2 normal Albumin [place] ([facility]) albumin/globulin ratio 1.2-2.2 Below low normal Albumin /globulin Ratio [place] ([facility]) bilirubin,total 0.4 mg/dL 0.2-1.0 normal Bilirubin,total [place] NA ([facility]) ID Date Data Source [id number] 2020 06:50:00 AM EDT [place] ([facility]) Name Value Range Interpretation Code Description Data Mary rce(s) Supporting Document(s) glucose, fasting 140 mg/dL 70-100 Above high normal Glucose, Fas ting [place] ([facility]) blood urea nitrogen 9 mg/dL 7-18 normal Blood Urea Nitro gen [place] ([facility]) creatinine for GFR 0.59 mg/dL 0.55-1.30 normal Creatinine for GF R [place] ([facility]) glomerular filtration rate > 60.0 >60 normal Glomerula r Filtration Rate [place] ([facility]) potassium serum 3.8 mEq/L 3.5-5.1 D Potassium Serum [place] ([facility]) chloride level 110 mEq/L 98-107 Above high normal Chloride Level [place] ([facility]) carbon dioxide level 26 mEq/L 21-32 normal Carbon Dioxide Level [place] ([facility]) sodium level 141 mEq/L 136-145 normal Sodium Level [place] (No [facility]) ALT/SGPT 41 U/L 12-78 normal ALT/SGPT [place] ([facility]) anion gap 5 mEq/L 8-16 Below low normal Anion Gap [place] ( [facility]) calcium level 8.0 mg/dL 8.5-10.1 Below low normal Calcium Level AT [facility] ([facility]) alkaline phosphatase 86 U/L 45-117 normal Alkaline Phosph atase [place] ([facility]) AST/SGOT 26 U/L 7-37 normal AST/SGOT [place] ([facility]) albumin 3.5 gm/dL 3.2-5.2 normal Albumin [place] ([facility]) total protein 7.4 gm/dL 6.4-8.2 normal Total Protein [place] ( [facility]) bilirubin,total 0.4 mg/dL 0.2-1.0 normal Bilirubin,total [place] ([facility]) albumin/globulin ratio 1.2-2.2 Below low normal Albumin /globulin Ratio [place] ([facility]) ID Date Data Source [id number] 2020 06:50:00 AM EDT [place] ([facility]) Name Value Range Interpretation Code Description Data Mary rce(s) Supporting Document(s) blood urea nitrogen 9 mg/dL 7-18 normal Blood Urea Nitro gen [place] ([facility]) glucose, fasting 140 mg/dL 70-100 Above high normal Glucose, Fas ting [place] ([facility]) creatinine for GFR 0.59 mg/dL 0.55-1.30 normal Creatinine for GF R [place] ([facility]) potassium serum 3.8 mEq/L 3.5-5.1 D Potassium Serum [facility] ([facility]) chloride level 110 mEq/L 98-107 Above high normal Chloride Level [place] ([facility]) glomerular filtration rate > 60.0 >60 normal Glomerula r Filtration Rate [place] ([facility]) sodium level 141 mEq/L 136-145 normal Sodium Level [place] (No [facility]) AST/SGOT 26 U/L 7-37 normal AST/SGOT [place] ([facility]) calcium level 8.0 mg/dL 8.5-10.1 Below low normal Calcium Level AT [facility] ([facility]) carbon dioxide level 26 mEq/L 21-32 normal Carbon Dioxide Level [place] ([facility]) anion gap 5 mEq/L 8-16 Below low normal Anion Gap [place] ( [facility]) ALT/SGPT 41 U/L 12-78 normal ALT/SGPT [place] ([facility]) total protein 7.4 gm/dL 6.4-8.2 normal Total Protein [place] ( [facility]) bilirubin,total 0.4 mg/dL 0.2-1.0 normal Bilirubin,total [place] ([facility]) alkaline phosphatase 86 U/L 45-117 normal Alkaline Phosph atase [place] ([facility]) albumin 3.5 gm/dL 3.2-5.2 normal Albumin [place] ([facility]) albumin/globulin ratio 1.2-2.2 Below low normal Albumin /globulin Ratio [place] ([facility]) ID Date Data Source [id number] 2020 06:50:00 AM EDT [place] ([facility]) Name Value Range Interpretation Code Description Data Mary rce(s) Supporting Document(s) creatinine for GFR 0.59 mg/dL 0.55-1.30 normal Creatinine for GF R [place] ([facility]) blood urea nitrogen 9 mg/dL 7-18 normal Blood Urea Nitro gen [place] ([facility]) glucose, fasting 140 mg/dL 70-100 Above high normal Glucose, Fas ting [place] ([facility]) glomerular filtration rate > 60.0 >60 normal Glomerula r Filtration Rate [place] ([facility]) potassium serum 3.8 mEq/L 3.5-5.1 D Potassium Serum [place] NA ([facility]) sodium level 141 mEq/L 136-145 normal Sodium Level [place] (No [facility]) chloride level 110 mEq/L 98-107 Above high normal Chloride Level [place] ([facility]) carbon dioxide level 26 mEq/L 21-32 normal Carbon Dioxide Level [place] ([facility]) AST/SGOT 26 U/L 7-37 normal AST/SGOT [place] ([facility]) ALT/SGPT 41 U/L 12-78 normal ALT/SGPT [place] ([facility]) alkaline phosphatase 86 U/L 45-117 normal Alkaline Phosph atase [place] ([facility]) anion gap 5 mEq/L 8-16 Below low normal Anion Gap [place] ( [facility]) calcium level 8.0 mg/dL 8.5-10.1 Below low normal Calcium Level AT [facility]) total protein 7.4 gm/dL 6.4-8.2 normal Total Protein [place] ( [facility]) bilirubin,total 0.4 mg/dL 0.2-1.0 normal Bilirubin,total [facility] ([facility]) albumin 3.5 gm/dL 3.2-5.2 normal Albumin [place] ([facility]) albumin/globulin ratio 1.2-2.2 Below low normal Albumin /globulin Ratio [place] ([facility]) ID Date Data Source [id number] 2020 06:50:00 AM EDT [facility] Name Value Range Interpretation Code Description Data Mary rce(s) Supporting Document(s) HCT 34.0 % 36.0-47.0 L [facility] HGB 10.8 g/dL 12.0-15.5 L [facility] MCH 31.8 G/DL pg 32.0-36.[address] [facility] MCHC 24.5 PG % 27.0-33.0 L [facility] PLATELETS 24 10 10*3/mm3 150-450 Below lower panic limits [facility] RBC 4.40 10 10*6/mm3 4.00-5.40 N [facility] RDW 14.7 % 11.5-14.5 H [facility] WBC TOTAL 6.1 4.0-10.0 N [facility] ID Date Data Source [id number] 01/14/2020 01:37:00 PM EDT [facility]) Name Value Range Interpretation Code Description Data Mary rce(s) Supporting Document(s) glucose, fasting 90 mg/dL 70-100 normal Glucose, Fasting AT [facility]) glomerular filtration rate > 60.0 >60 normal Glomerula r Filtration Rate [facility]) creatinine for GFR 0.63 mg/dL 0.55-1.30 normal Creatinine for GF R [facility]) sodium level 142 mEq/L 136-145 normal Sodium Level [place] (No [facility]) blood urea nitrogen 11 mg/dL 7-18 normal Blood Urea Nitro gen [facility]) chloride level 109 mEq/L 98-107 Above high normal Chloride Level [place] ([facility]) calcium level 8.0 mg/dL 8.5-10.1 Below low normal Calcium Level AT [facility]) carbon dioxide level 29 mEq/L 21-32 normal Carbon Dioxide Level [place] ([facility]) anion gap 4 mEq/L 8-16 Below low normal Anion Gap [place] ( [facility]) potassium serum 3.1 mEq/L 3.5-5.1 Below low normal Potassium Seru m [facility]) ID Date Data Source [id number] 01/14/2020 01:37:00 PM EDT [facility]) Name Value Range Interpretation Code Description Data Mary rce(s) Supporting Document(s) glucose, fasting 90 mg/dL 70-100 normal Glucose, Fasting AT [facility] ([facility]) sodium level 142 mEq/L 136-145 normal Sodium Level [place] ([facility]) potassium serum 3.1 mEq/L 3.5-5.1 Below low normal Potassium Seru m [place] ([facility]) creatinine for GFR 0.63 mg/dL 0.55-1.30 normal Creatinine for GF R [place] ([facility]) glomerular filtration rate > 60.0 >60 normal Glomerula r Filtration Rate [place] ([facility]) blood urea nitrogen 11 mg/dL 7-18 normal Blood Urea Nitro gen [place] ([facility]) chloride level 109 mEq/L 98-107 Above high normal Chloride Level [place] ([facility]) anion gap 4 mEq/L 8-16 Below low normal Anion Gap [place] ( [facility]) carbon dioxide level 29 mEq/L 21-32 normal Carbon Dioxide Level [place] ([facility]) calcium level 8.0 mg/dL 8.5-10.1 Below low normal Calcium Level AT [facility]) ID Date Data Source [id number] 01/14/2020 01:37:00 PM EDT [facility]) Name Value Range Interpretation Code Description Data Mary rce(s) Supporting Document(s) glucose, fasting 90 mg/dL 70-100 normal Glucose, Fasting AT [facility] ([facility]) creatinine for GFR 0.63 mg/dL 0.55-1.30 normal Creatinine for GF R [place] ([facility]) glomerular filtration rate > 60.0 >60 normal Glomerula r Filtration Rate [place] ([facility]) blood urea nitrogen 11 mg/dL 7-18 normal Blood Urea Nitro gen [place] ([facility]) sodium level 142 mEq/L 136-145 normal Sodium Level [place] ([facility]) anion gap 4 mEq/L 8-16 Below low normal Anion Gap [place] ( [facility]) chloride level 109 mEq/L 98-107 Above high normal Chloride Level [facility]) calcium level 8.0 mg/dL 8.5-10.1 Below low normal Calcium Level AT [facility]) potassium serum 3.1 mEq/L 3.5-5.1 Below low normal Potassium Seru m [place] ([facility]) carbon dioxide level 29 mEq/L 21-32 normal Carbon Dioxide Level [place] ([facility]) ID Date Data Source [id number] 01/14/2020 01:37:00 PM EDT [facility]) Name Value Range Interpretation Code Description Data Mary rce(s) Supporting Document(s) glomerular filtration rate > 60.0 >60 normal Glomerula r Filtration Rate [place] ([facility]) creatinine for GFR 0.63 mg/dL 0.55-1.30 normal Creatinine for GF R [place] ([facility]) sodium level 142 mEq/L 136-145 normal Sodium Level [place] ([facility]) glucose, fasting 90 mg/dL 70-100 normal Glucose, Fasting AT [facility]) blood urea nitrogen 11 mg/dL 7-18 normal Blood Urea Nitro gen [facility]) anion gap 4 mEq/L 8-16 Below low normal Anion Gap [place] ( [facility]) potassium serum 3.1 mEq/L 3.5-5.1 Below low normal Potassium Seru m [place] ([facility]) calcium level 8.0 mg/dL 8.5-10.1 Below low normal Calcium Level AT [facility]) carbon dioxide level 29 mEq/L 21-32 normal Carbon Dioxide Level [place] ([facility]) chloride level 109 mEq/L 98-107 Above high normal Chloride Level [facility]) ID Date Data Source [id number] 01/14/2020 01:37:00 PM EDT [facility]) Name Value Range Interpretation Code Description Data Mary rce(s) Supporting Document(s) glucose, fasting 90 mg/dL 70-100 normal Glucose, Fasting AT [facility]) blood urea nitrogen 11 mg/dL 7-18 normal Blood Urea Nitro gen [place] ([facility]) glomerular filtration rate > 60.0 >60 normal Glomerula r Filtration Rate [place] ([facility]) creatinine for GFR 0.63 mg/dL 0.55-1.30 normal Creatinine for GF R [place] ([facility]) sodium level 142 mEq/L 136-145 normal Sodium Level [place] (No [facility]) carbon dioxide level 29 mEq/L 21-32 normal Carbon Dioxide Level [place] ([facility]) chloride level 109 mEq/L 98-107 Above high normal Chloride Level [place] ([facility]) potassium serum 3.1 mEq/L 3.5-5.1 Below low normal Potassium Seru m [place] ([facility]) anion gap 4 mEq/L 8-16 Below low normal Anion Gap [place] ( [facility]) calcium level 8.0 mg/dL 8.5-10.1 Below low normal Calcium Level AT [facility]) ID Date Data Source [id number] 01/14/2020 01:37:00 PM EDT [facility]) Name Value Range Interpretation Code Description Data Mary rce(s) Supporting Document(s) glucose, fasting 90 mg/dL 70-100 normal Glucose, Fasting AT [facility]) blood urea nitrogen 11 mg/dL 7-18 normal Blood Urea Nitro gen [place] ([facility]) creatinine for GFR 0.63 mg/dL 0.55-1.30 normal Creatinine for GF R [place] ([facility]) glomerular filtration rate > 60.0 >60 normal Glomerula r Filtration Rate [place] ([facility]) potassium serum 3.1 mEq/L 3.5-5.1 Below low normal Potassium Seru m [place] ([facility]) sodium level 142 mEq/L 136-145 normal Sodium Level [place] ([facility]) anion gap 4 mEq/L 8-16 Below low normal Anion Gap [place] ( [facility]) carbon dioxide level 29 mEq/L 21-32 normal Carbon Dioxide Level [facility]) chloride level 109 mEq/L 98-107 Above high normal Chloride Level [facility]) calcium level 8.0 mg/dL 8.5-10.1 Below low normal Calcium Level AT [facility]) ID Date Data Source [id number] 01/14/2020 01:37:00 PM EDT [facility]) Name Value Range Interpretation Code Description Data Mary rce(s) Supporting Document(s) blood urea nitrogen 11 mg/dL 7-18 normal Blood Urea Nitro gen [place] ([facility]) glucose, fasting 90 mg/dL 70-100 normal Glucose, Fasting AT [facility]) creatinine for GFR 0.63 mg/dL 0.55-1.30 normal Creatinine for GF R [facility]) glomerular filtration rate > 60.0 >60 normal Glomerula r Filtration Rate [place] ([facility]) chloride level 109 mEq/L 98-107 Above high normal Chloride Level [place] ([facility]) potassium serum 3.1 mEq/L 3.5-5.1 Below low normal Potassium Seru m [facility]) sodium level 142 mEq/L 136-145 normal Sodium Level [place] ([facility]) calcium level 8.0 mg/dL 8.5-10.1 Below low normal Calcium Level AT [facility]) carbon dioxide level 29 mEq/L 21-32 normal Carbon Dioxide Level [facility]) anion gap 4 mEq/L 8-16 Below low normal Anion Gap [facility]) ID Date Data Source [id number] 01/14/2020 01:37:00 PM EDT [facility]) Name Value Range Interpretation Code Description Data Mary rce(s) Supporting Document(s) glucose, fasting 90 mg/dL 70-100 normal Glucose, Fasting AT [facility]) potassium serum 3.1 mEq/L 3.5-5.1 Below low normal Potassium Seru m [facility]) creatinine for GFR 0.63 mg/dL 0.55-1.30 normal Creatinine for GF R [place] ([facility]) blood urea nitrogen 11 mg/dL 7-18 normal Blood Urea Nitro gen [place] ([facility]) sodium level 142 mEq/L 136-145 normal Sodium Level [place] (No [facility]) glomerular filtration rate > 60.0 >60 normal Glomerula r Filtration Rate [place] ([facility]) chloride level 109 mEq/L 98-107 Above high normal Chloride Level [place] ([facility]) carbon dioxide level 29 mEq/L 21-32 normal Carbon Dioxide Level [place] ([facility]) anion gap 4 mEq/L 8-16 Below low normal Anion Gap [place] ( [facility]) calcium level 8.0 mg/dL 8.5-10.1 Below low normal Calcium Level AT [facility]) ID Date Data Source [id number] 01/14/2020 01:37:00 PM EDT [facility] Name Value Range Interpretation Code Description Data Mary rce(s) Supporting Document(s) HCT 34.7 % 36.0-47.0 L [facility] HGB 11.2 g/dL 12.0-15.5 L [facility] MCH 32.3 G/DL pg 32.0-36.[address] [facility] MCHC 24.8 PG % 27.0-33.0 L [facility] PLATELETS 7 10 10*3/mm3 150-450 Below lower panic limits [facility] RBC 4.52 10 10*6/mm3 4.00-5.40 N [facility] RDW 14.9 % 11.5-14.5 H [facility] WBC TOTAL 5.1 4.0-10.0 N [facility] ID Date Data Source [id number] 09/13/2019 01:35:31 PM EDT [facility] Initial Intake Information from: patient [...] History Medical History:History of Chiari MalformationHeadachesITPDepressionBi- PolaranemiaSurgical History:Wprfgmumo1Pegnph History:FH AsthmaFH ADHDSocial/Personal History:LIVES WITH / 12/12 Chief Complaintzoom folllow up dep/anxHistory of Present Illness (HPI)Telemedicine visit with patient's location at their home and provider's location at [facility]. Additional person(s)participating in the visit: Delores [...] for concerns of PTSD.HPI performed by: Delores RANGEL, September 13, 2019 2:09 PMTransitions of Care InboundProblem ReviewProblem List was reviewed and/or updated during this visit.Medication Reconciliation & ReviewMedication List was reviewed and/or updated during this visit, including review of any wltw-cws-hyiasbz medications, herbal therapies, and/or supplements.Allergy ReviewAllergy List was reviewed and/or updated during this visit.Provider Calculated and Reviewed all Clinical Protocols for patient today. Care Management Plan Transitions of CareInboundRate Your HealthIn general, would you say your health is? PoorAssessment & Plan Problems:Added: Insomnia, unspecified (QWX84-I32.00) Assessment: Instructions: We have sent a prescription to your pharmacy today. Please take medication as prescribed. Please report any major side effects.Assessed:Anxiety depression (ICD-300.4) (NAB76-I75.8) Assessment: Instructions: We have increase the dose of your prozac today. .Please take medication as prescribed. Please report any major side effects.Anxiety depression (ICD-300.4) (YPZ47-M93.8) Assessment: GAD7 and PHQ 9 scores reviewed [...] ORAL TABLETTYLENOL 325 MG ORAL TABLETVITAMIN D3 36374 UNIT ORAL TABLETPROZAC 20 MG ORAL CAPSULEMedication Changes:Refilled:PROZAC 20 MG ORAL CAPSULE-take one tablet by mouth daily Qty: 30[Capsule] Refills: 2 Method: ElectronicNew Prescription:TRAZODONE HCL 50 MG ORAL TABLET-take one tablet by mouth daily at bedtime. Qty: 30[Tablet] Refills: 1 Method: ElectronicChanged:From: ORAL PROZAC 10 MG ORAL CAPSULE Qty: [id number] Refills: 30[Capsule] To: PROZAC 20 MG ORAL CAPSULE-take one tablet by mouth daily Qty: 30[Capsule] Refills: 2Allergies:* PEDIAZOLE (Critical)Orders:Telepsychiatry Consult [CPT-50891] COMP METABOLIC PANEL [CPT-84254] CBC W/DIFF [CPT-21336] LIPID PANEL [CPT-80054] TSH [CPT-81606] T-4 free [CPT-24171] Vitamin D 250H Unspecified [CPT-03518] Office Visit - Established, Level 3 [CPT-27670ZX] Follow-Up Return to clinic: 4-6 weeks for [...] rce(s) Supporting Document(s) ID Date Data Source [id number] 07/09/2019 11:40:00 AM [facility] Name Value Range Interpretation Code Description Data [facility] rce(s) Supporting Document(s) THROAT CULTR NORMAL JD PRESENT [facility] ID Date Data Source [id number] 07/09/2019 11:25:08 AM [facility] Measurements & CalculationsHeight: 60 inches (5 ft. [...] AMPatient History Medical History:History of Chiari MalformationHeadachesITPDepressionBi-PolaranemiaSurgical History:Esqumoohx5Uycqmh History:FH AsthmaFH ADHDSocial/Personal History:LIVES WITH / 12/12 [...] during this visit, including review of any tyam-vpl-mkgzapa medications, herbal therapies, and/or supplements.Allergy ReviewAllergy List [...] rupture of ear drum, right ear (ICD-382.01) (SPJ82-Y97.001) Assessment: Instructions: Start amoxicillin twice daily x 10 days. Take antibiotics as prescribed, finish full course even if symptoms resolve. Antibiotics may cause stomach upset, recommend eating yogurt or taking probiotic while on antibiotics.Changed:From: Dx of PHARYNGITIS ACUTE (ICD-462) (ICD10- J02.9) To: PHARYNGITIS ACUTE (ICD-462) (FYK41-P56.9)Assessed:PHARYNGITIS ACUTE (ICD-462) (ARI23-W99.9) Assessment: Instructions: Negative strep in office today. [...] ORAL TABLETTYLENOL 325 MG ORAL TABLETVITAMIN D3 19868 UNIT ORAL TABLETPROZAC 10 MG ORAL CAPSULEMedication Changes:New Prescription:AMOXICILLIN 875 MG ORAL TABLET-Take 1 tablet by mouth twice daily x 10 days Qty: 20[Tablet] Refills: 0 Method: ElectronicRemoved:PREDNISONE 20 MG ORAL TABLET-4 tablets by mouth dailyAllergies:* PEDIAZOLE (Critical)Orders:Rapid Strep [CPT-50553] Throat Culture [CPT-37784] Adult - Ofc Vst, EST, Level II [CPT-47000] Follow-Up Return to clinic: as needed Clinical Visit Summary CompletedMedications:AMOXICILLIN 875 MG ORAL TABLET (AMOXICILLIN) Take 1 tablet by mouth twice daily x 10 days #20[Tablet] x 0 Route:ORAL Entered and Authorized by: Jaime WHEELER Method used: Electronically to [id number] (retail) [id number] [place] [address] Note to Pharmacy: Route: ORAL; Indications: ACUTE SUPPURATIVE OTITIS MEDIA WITHOUT SPONTANEOUS RUPTURE OF EAR DRUM, RIGHT EAR RxID: [id number] signed by Jaime WHEELER on 07/14/2019 at 8:09 AM Name Value Range Interpretation Code Description Data Mary rce(s) Supporting Document(s) ID Date Data Source [id number] 06/07/2019 01:20:36 PM [facility] Measurements & CalculationsHeight: 60 inches (5 ft. [...] PMPatient History Medical History:History of Chiari MalformationHeadachesITPDepressionBi-PolaranemiaSurgical History:Mqqkkatoc2Asrxhw History:FH AsthmaFH ADHDSocial/Personal History:LIVES WITH / 12/12 [...] concerns today. HPI performed by: Delores Tierney [facility], June 07, 2019 1:52 PMTransitions of Care InboundProblem ReviewProblem List was reviewed and/or updated during this visit.Medication Reconciliation & ReviewMedication List was reviewed and/or updated during this visit, including review of any mvep-xzg-ectvvjp medications, herbal therapies, and/or supplements.Allergy ReviewAllergy List [...] is? 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 Please try to keep scheduled appointment with Therapist. Please let us know if you need additional assistance.Vitamin D deficiency (ICD-268.9) (DLW05-V16.9) Assessment: Instructions: Please continue medication as prescribed.Anxiety depression (ICD-300.4) (JGK16-O21.8) Assessment: New referral done.Patient Instructions/Care Plan: Platelet disorder: Please continue to follow with your specialist as scheduled.Anxiety depression: Please continue medication as scheduled. Please try to keep scheduled appointment with Therapist. Please let us know if you need additional assistance.Vitamin D deficiency: Please continue medication as prescribed. Plan developed in collaboration with patient and/or familyMedications:TYLENOL 325 MG ORAL TABLETVITAMIN D3 04348 UNIT ORAL TABLETPROZAC 10 MG ORAL CAPSULEPREDNISONE 20 MG ORAL TABLETMedication Changes:Refilled:PROZAC 10 MG ORAL CAPSULE-take one tablet by mouth daily Qty: 30[Capsule] Refills: 3 Method: ElectronicAllergies:* PEDIAZOLE (Critical)Orders:Mental Health Consult [CPT-62333] Adult - Ofc Vst, EST, Level III [CPT-53362] Follow-Up Return to clinic: 3 months for follow up Clinical Visit Summary CompletedMedications:PROZAC 10 MG ORAL CAPSULE (FLUOXETINE HCL) take one tablet by mouth daily #30[Capsule] x 3 Route:ORAL Entered and Authorized by: Delores RANGEL Method used: Electronically to [facility] (retail) [id number] [place] [address] Fax: Note to Pharmacy: Route: ORAL; Indications: ANXIETY DEPRESSION RxID: [id number] signed by Delores RANGEL on 06/10/2019 at 12:16 AM Name Value Range Interpretation Code Description Data Mary rce(s) Supporting Document(s) Procedure Vital Signs ID Date Data Source UNK Name Value Range Interpretation Code Description Data Source(s) Body weight 3460 [oz_av] 3460 [oz_av] BRUNO ([facility]) Systolic blood pressure 95 mm[Hg] 95 mm[Hg] A [facility]) Body mass index (BMI) [Ratio] 42.2 kg/m2 42.2 k g/m2 [facility]) Body height 60 [in_i] 60 [in_i] BRUNO ([facility]) Diastolic blood pressure 68 mm[Hg] 68 mm[Hg] BRUNO ([facility]) Body weight 3460 [oz_av] 3460 [oz_av] BRUNO ([facility]) Systolic blood pressure 95 mm[Hg] 95 mm[Hg] A [facility]) Body mass index (BMI) [Ratio] 42.2 kg/m2 42.2 k g[facility] height 60 [in_i] 60 [in_i] [facility] Diastolic blood pressure 68 mm[Hg] 68 mm[Hg] BRUNO ([facility]) Body weight 3475.2 [oz_av] 3475.2 [oz_av] ATHEN A ([facility]) Systolic blood pressure 109 mm[Hg] 109 mm[Hg] A THENA ([facility]) Body mass index (BMI) [Ratio] 42.4 kg/m2 42.4 k g/m2 BRUNO ([facility]) Body height 60 [in_i] 60 [in_i] BRUNO ([facility]) Diastolic blood pressure 77 mm[Hg] 77 mm[Hg] BRUNO ([facility]) Body weight 3475.2 [oz_av] 3475.2 [oz_av] ATHEN A ([facility]) Systolic blood pressure 109 mm[Hg] 109 mm[Hg] A THENA ([facility]) Body mass index (BMI) [Ratio] 42.4 kg/m2 42.4 k g/m2 BRUNO ([facility]) Body height 60 [in_i] 60 [in_i] BRUNO ([facility]) Diastolic blood pressure 77 mm[Hg] 77 mm[Hg] BRUNO ([facility]) Body weight 3475.2 [oz_av] 3475.2 [oz_av] ATHEN A ([facility]) Systolic blood pressure 109 mm[Hg] 109 mm[Hg] A THENA ([facility]) Body mass index (BMI) [Ratio] 42.4 kg/m2 42.4 k g/m2 BRUNO ([facility]) Body height 60 [in_i] 60 [in_i] BRUNO ([facility]) Diastolic blood pressure 77 mm[Hg] 77 mm[Hg] BRUNO ([facility]) Body weight 3475.2 [oz_av] 3475.2 [oz_av] ATHEN A ([facility]) Systolic blood pressure 109 mm[Hg] 109 mm[Hg] A THENA ([facility]) Body mass index (BMI) [Ratio] 42.4 kg/m2 42.4 k g/m2 BRUNO ([facility]) Body height 60 [in_i] 60 [in_i] BRUNO ([facility]) Diastolic blood pressure 77 mm[Hg] 77 mm[Hg] BRUNO ([facility]) Body weight 3475.2 [oz_av] 3475.2 [oz_av] ATHEN A ([facility]) Systolic blood pressure 109 mm[Hg] 109 mm[Hg] A THENA ([facility]) Body mass index (BMI) [Ratio] 42.4 kg/m2 42.4 k g/m2 BRUNO ([facility]) Body height 60 [in_i] 60 [in_i] BRUNO ([facility]) Diastolic blood pressure 77 mm[Hg] 77 mm[Hg] BRUNO ([facility]) Body weight 3266.08 [oz_av] 3266.08 [oz_av] ATH TJ ([facility]) Body height 60 [in_i] 60 [in_i] BRUNO ([facility]) Body weight 3266.08 [oz_av] 3266.08 [oz_av] ATH TJ ([facility]) Body height 60 [in_i] 60 [in_i] BRUNO ([facility]) Body weight 3266.08 [oz_av] 3266.08 [oz_av] ATH TJ ([facility]) Body height 60 [in_i] 60 [in_i] BRUNO ([facility]) Body weight 3266.08 [oz_av] 3266.08 [oz_av] ATH TJ ([facility]) Body height 60 [in_i] 60 [in_i] BRUNO ([facility]) Body weight 3266.08 [oz_av] 3266.08 [oz_av] ATH TJ ([facility]) Body height 60 [in_i] 60 [in_i] BRUNO ([facility]) Body weight 3266.08 [oz_av] 3266.08 [oz_av] ATH TJ ([facility]) Body height 60 [in_i] 60 [in_i] BRUNO ([facility]) Body weight 3266.08 [oz_av] 3266.08 [oz_av] ATH TJ ([facility]) Body height 60 [in_i] 60 [in_i] BRUNO ([facility]) Body weight 3266.08 [oz_av] 3266.08 [oz_av] ATH TJ ([facility]) Body height 60 [in_i] 60 [in_i] BRUNO ([facility]) Body weight 3266.08 [oz_av] 3266.08 [oz_av] ATH TJ ([facility]) Body height 60 [in_i] 60 [in_i] BRUNO ([facility]) Body weight 3032 [oz_av] 3032 [oz_av] BRUNO ([facility]) Systolic blood pressure 107 mm[Hg] 107 mm[Hg] A [facility] ([facility]) Body height 60 [in_i] 60 [in_i] BRUNO ([facility]) Diastolic blood pressure 72 mm[Hg] 72 mm[Hg] BRUNO ([facility]) Body weight 3032 [oz_av] 3032 [oz_av] BRUNO ([facility]) Systolic blood pressure 107 mm[Hg] 107 mm[Hg] A [facility] ([facility]) Body height 60 [in_i] 60 [in_i] BRUNO ([facility]) Diastolic blood pressure 72 mm[Hg] 72 mm[Hg] BRUNO ([facility]) Body weight 3032 [oz_av] 3032 [oz_av] BRUNO ([facility]) Systolic blood pressure 107 mm[Hg] 107 mm[Hg] A THENA ([facility]) Body height 60 [in_i] 60 [in_i] BRUNO ([facility]) Diastolic blood pressure 72 mm[Hg] 72 mm[Hg] BRUNO ([facility]) Body weight 3032 [oz_av] 3032 [oz_av] BRUNO ([facility]) Systolic blood pressure 107 mm[Hg] 107 mm[Hg] [facility] Body height 60 [in_i] 60 [in_i] BRUNO ([facility]) Diastolic blood pressure 72 mm[Hg] 72 mm[Hg] BRUNO ([facility]) Body weight 3032 [oz_av] 3032 [oz_av] BRUNO ([facility]) Systolic blood pressure 107 mm[Hg] 107 mm[Hg] [facility] Body height 60 [in_i] 60 [in_i] BRUNO ([facility]) Diastolic blood pressure 72 mm[Hg] 72 mm[Hg] BRUNO ([facility]) Body weight 3032 [oz_av] 3032 [oz_av] BRUNO ([facility]) Systolic blood pressure 107 mm[Hg] 107 mm[Hg] [facility] Body height 60 [in_i] 60 [in_i] BRUNO ([facility]) Diastolic blood pressure 72 mm[Hg] 72 mm[Hg] BRUNO ([facility]) Body weight 3032 [oz_av] 3032 [oz_av] BRUNO ([facility]) Systolic blood pressure 107 mm[Hg] 107 mm[Hg] [facility] Body height 60 [in_i] 60 [in_i] BRUNO ([facility]) Diastolic blood pressure 72 mm[Hg] 72 mm[Hg] BRUNO ([facility]) Body weight 3032 [oz_av] 3032 [oz_av] BRUNO ([facility]) Systolic blood pressure 107 mm[Hg] 107 mm[Hg] [facility] Body height 60 [in_i] 60 [in_i] BRUNO ([facility]) Diastolic blood pressure 72 mm[Hg] 72 mm[Hg] BRUNO ([facility]) Body weight 3032 [oz_av] 3032 [oz_av] BRUNO ([facility]) Systolic blood pressure 107 mm[Hg] 107 mm[Hg] [facility] Body height 60 [in_i] 60 [in_i] BRUNO ([facility]) Diastolic blood pressure 72 mm[Hg] 72 mm[Hg] BRUNO ([facility]) Body weight 2880 [oz_av] 2880 [oz_av] BR[facility]O ([facility]) Systolic blood pressure 100 mm[Hg] 100 mm[Hg] [facility] Body height 60 [in_i] 60 [in_i] BRUNO ([facility]) Diastolic blood pressure 68 mm[Hg] 68 mm[Hg] BRUNO ([facility]) Body weight 2880 [oz_av] 2880 [oz_av] BRUNO ([facility]) Systolic blood pressure 100 mm[Hg] 100 mm[Hg] [facility] Body height 60 [in_i] 60 [in_i] BRUNO ([facility]) Diastolic blood pressure 68 mm[Hg] 68 mm[Hg] BRUNO ([facility]) Body weight 2880 [oz_av] 2880 [oz_av] BR[facility]O ([facility]) Systolic blood pressure 100 mm[Hg] 100 mm[Hg] A [facility] ([facility]) Body height 60 [in_i] 60 [in_i] BRUNO ([facility]) Diastolic blood pressure 68 mm[Hg] 68 mm[Hg] BRUNO ([facility]) Body weight 2880 [oz_av] 2880 [oz_av] BRUNO ([facility]) Systolic blood pressure 100 mm[Hg] 100 mm[Hg] [facility] Body height 60 [in_i] 60 [in_i] BRUNO ([facility]) Diastolic blood pressure 68 mm[Hg] 68 mm[Hg] BRUNO ([facility]) Body weight 2880 [oz_av] 2880 [oz_av] BR[facility]O ([facility]) Systolic blood pressure 100 mm[Hg] 100 mm[Hg] [facility] Body height 60 [in_i] 60 [in_i] BRUNO ([facility]) Diastolic blood pressure 68 mm[Hg] 68 mm[Hg] BRUNO ([facility]) Body weight 2880 [oz_av] 2880 [oz_av] BR[facility] ([facility]) Systolic blood pressure 100 mm[Hg] 100 mm[Hg] [facility] Body height 60 [in_i] 60 [in_i] BRUNO ([facility]) Diastolic blood pressure 68 mm[Hg] 68 mm[Hg] BR[facility]O ([facility]) Body weight 2880 [oz_av] 2880 [oz_av] [facility] ([facility]) Systolic blood pressure 100 mm[Hg] 100 mm[Hg] [facility] Body height 60 [in_i] 60 [in_i] BRUNO ([facility]) Diastolic blood pressure 68 mm[Hg] 68 mm[Hg] BR[facility]O ([facility]) Body weight 2880 [oz_av] 2880 [oz_av] BRUNO ([facility]) Systolic blood pressure 100 mm[Hg] 100 mm[Hg] A [facility] ([facility]) Body height 60 [in_i] 60 [in_i] BRUNO ([facility]) Diastolic blood pressure 68 mm[Hg] 68 mm[Hg] BRUNO ([facility]) Body weight 2880 [oz_av] 2880 [oz_av] BRUNO ([facility]) Systolic blood pressure 100 mm[Hg] 100 mm[Hg] [facility] Body height 60 [in_i] 60 [in_i] BRUNO ([facility]) Diastolic blood pressure 68 mm[Hg] 68 mm[Hg] BRUNO ([facility]) Patient Treatment Plan of Care Planned Activity Planned Date Details Description Data Source (s) Naproxen 500 MG Oral Tablet BRUNO ([facility]) Acetaminophen 325 MG Oral Tablet [Mapap] BRUNO ([facility]) lamotrigine 25 MG Oral Tablet [facility] ([facility]) [facility] Dicyclomine Hydrochloride 20 MG Oral Tablet BR[facility]O ([facility]) Amoxicillin 875 MG Oral Tablet BRUNO ([facility]) Naproxen 500 MG Oral Tablet BR[facility]O ([facility]) Acetaminophen 325 MG Oral Tablet [Mapap] BRUNO ([facility]) lamotrigine 25 MG Oral Tablet BR[facility]O ([facility]) Fluoxetine 10 MG Oral Capsule BRUNO ([facility]) Dicyclomine Hydrochloride 20 MG Oral Tablet BR[facility]O ([facility]) Amoxicillin 875 MG Oral Tablet BRUNO ([facility]) Acetaminophen 325 MG Oral Tablet [Mapap] BRUNO ([facility]) lamotrigine 25 MG Oral Tablet BRUNO ([facility]) Fluoxetine 10 MG Oral Capsule BRUNO ([facility]) Dicyclomine Hydrochloride 20 MG Oral Tablet BRUNO ([facility]) Amoxicillin 875 MG Oral Tablet BRUNO ([facility]) Acetaminophen 325 MG Oral Tablet [Mapap] BRUON ([facility]) lamotrigine 25 MG Oral Tablet BRUNO ([facility]) Fluoxetine 10 MG Oral Capsule BRUNO ([facility]) Dicyclomine Hydrochloride 20 MG Oral Tablet BRUNO ([facility]) Amoxicillin 875 MG Oral Tablet BRUNO ([facility]) Acetaminophen 325 MG Oral Tablet [Mapap] BRUNO ([facility]) lamotrigine 25 MG Oral Tablet BRUNO ([facility]) Fluoxetine 10 MG Oral Capsule BRUNO ([facility]) Dicyclomine Hydrochloride 20 MG Oral Tablet BRUNO ([facility]) Amoxicillin 875 MG Oral Tablet BRUNO ([facility])
[2020-07-24 01:23] LABS: BASO % 0.1 % (0.0-1.0); HEMATOCRIT 35.6 % (36.0-47.0); HEMOGLOBIN 10.8 g/dl (12.0-15.5); LYMPH # 1.3 10^3/uL (1.5-5.0); LYMPH % 10.4 % (24.0-44.0); MEAN CORPUSCULAR HEMOGLOBIN 22.9 pg (27.0-33.0); MEAN CORPUSCULAR HGB CONC 30.3 g/dl (32.0-36.5); MEAN CORPUSCULAR VOLUME 75.4 fl (80.0-96.0); MONO # 0.5 10^3/uL (0.0-0.8); MONO % 4.2 % (2.0-8.0); NEUTROPHILS # 10.1 10^3/uL (1.5-8.5); NEUTROPHILS % 83.7 % (36.0-66.0); PLATELET COUNT, AUTOMATED 181 10^3/uL (150-450); RED BLOOD COUNT 4.72 10^6/uL (4.00-5.40); WHITE BLOOD COUNT 12.1 10^3/uL (4.0-10.0)
[2020-07-24 01:40] LABS: INR 1.04; PARTIAL THROMBOPLASTIN TIME 21.2 SECONDS (24.2-38.5); PROTHROMBIN TIME 13.8 SECONDS (12.5-14.3)
[2020-07-24 01:53] LABS: ALBUMIN 3.6 GM/DL (3.2-5.2); ALT/SGPT 19 U/L (12-78); BILIRUBIN,DIRECT < 0.1 MG/DL (0.0-0.2); BILIRUBIN,TOTAL 0.2 MG/DL (0.2-1.0); CK-MB VALUE MASS < 1.0 NG/ML (<3.6); CPK CREATINE PHOSPHOKINASE 40 U/L (26-192); TOTAL PROTEIN 7.6 GM/DL (6.4-8.2); TROPONIN I < 0.02 NG/ML (< 0.10)
[2020-07-24 01:54] LABS: LIPASE 129 U/L (73-393)
[2020-07-24] MEDS ORDERED: ISOVUE-370 76% 100ML VIAL As Ordered ONE (01:55)
[2020-07-24] MEDS ORDERED: METOCLOPRAMIDE INJ 10MG/2ML VIAL (J2765 PER 1) IV ONE (03:00)
--- NOTE | 2020-07-24 03:12 | REPVR ---
PROCEDURE INFORMATION: Exam: CT Abdomen And Pelvis With Contrast Exam date and time: 07/24/2020 2:21 AM Age: 25 years old Clinical indication: Abdominal pain; Additional info: Llq pain TECHNIQUE: Imaging protocol: Computed tomography of the abdomen and pelvis with contrast. Radiation optimization: All CT scans at this facility use at least one of these dose optimization techniques: automated exposure control; mA and/or kV adjustment per patient size (includes targeted exams where dose is matched to clinical indication); or iterative reconstruction. Contrast material: ISO 370; Contrast volume: 100 ml; Contrast route: INTRAVENOUS (IV); COMPARISON: CT ABD/PEL W/IV CONTRAST ONLY 04/11/2019 2:54 PM FINDINGS: Liver: Hepatomegaly and steatosis. Gallbladder and bile ducts: Normal. No calcified stones. No ductal dilation. Pancreas: Normal. No ductal dilation. Spleen: Several small splenules. Adrenal glands: Normal. No mass. Kidneys and ureters: Normal. No hydronephrosis. Stomach and bowel: Mild nonspecific small bowel wall thickening. Favor under distension. Enteritis is not excluded. Appendix: No evidence of appendicitis. Intraperitoneal space: Trace free fluid in the pelvis. Vasculature: Nonspecific stranding of the fat along the celiac axis. Lymph nodes: Nonspecific mesenteric adenopathy. Urinary bladder: Unremarkable as visualized. Reproductive: Asymmetrically enlarged left adnexa with suggestion of a complex 2 x 2.8 cm left ovarian cyst. Bones/joints: Unremarkable. No acute fracture. Soft tissues: Fat containing umbilical hernia. IMPRESSION: Hepatomegaly and steatosis. Mild nonspecific small bowel wall thickening. Favor under distension. Enteritis is not excluded. No bowel obstruction. Normal appendix. Asymmetrically enlarged left adnexa with suggestion of a complex 2 x 2.8 cm left ovarian cyst. This can be further assessed pelvic ultrasound if clinically warranted. Electronically signed by: Herman Stover On 07/24/2020 03:13:05 AM
[2020-07-24 03:21] LABS: BLOOD UREA NITROGEN 14 MG/DL (7-18); CALCIUM LEVEL 8.1 MG/DL (8.5-10.1); CARBON DIOXIDE LEVEL 26 MEQ/L (21-32); CHLORIDE LEVEL 108 MEQ/L (98-107); CREATININE FOR GFR 0.74 MG/DL (0.55-1.30); GLOMERULAR FILTRATION RATE > 60.0 (>60); GLUCOSE, FASTING 277 MG/DL (70-100); POTASSIUM SERUM 3.9 MEQ/L (3.5-5.1); SODIUM LEVEL 141 MEQ/L (136-145)
[2020-07-24 04:30] VITALS: BP 100/56
[2020-07-24] MEDS ORDERED: MORPHINE 4 MG/ML 1ML VIAL/SYRINGE (J2270) IV ONE (04:30)
[2020-07-24] MEDS ORDERED: ZOFR4TAB16 PO (04:43)
[2020-07-25] MEDS ORDERED: ONDA4TAB6 PO (07:01)
== END 2020-07-24 05:00 | disposition home or self-care (01) ==
LOC: M ED 22:53
DX: K52.9 Noninfective gastroenteritis and colitis, unspecified (principal); N83.202 Unspecified ovarian cyst, left side; R16.0 Hepatomegaly, not elsewhere classified; K76.0 Fatty (change of) liver, not elsewhere classified; R05 Cough; K21.9 Gastro-esophageal reflux disease without esophagitis; G43.909 Migraine, unspecified, not intractable, without status migrainosus; E03.9 Hypothyroidism, unspecified; J45.909 Unspecified asthma, uncomplicated; M54.30 Sciatica, unspecified side; F31.9 Bipolar disorder, unspecified; Z91.030 Bee allergy status; Z88.8 Allergy status to other drugs, medicaments and biological substances; Z79.51 Long term (current) use of inhaled steroids; Z79.899 Other long term (current) drug therapy
CPT/HCPCS: 74177; 80047; 80048; 80076; 81001; 82550; 82553; 83690; 84702; 85025; 85610; 85730; 96361; 96374; 96375; 99284; J1885; J2270; J2405; J2765; Q9967

== ENCOUNTER 2020-07-24 23:29 | Emergency (ER) | payer OTHER ==
[~2020-07-24] VITALS: Ht 152.4 cm; Wt 98.2 kg
[~2020-07-24 23:29] MED LIST changes: +ZOFR4TAB16 PO
--- OUTSIDE RECORDS SUMMARY | 2020-07-24 23:35 | CCD ---
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 mean corpuscular HGB conc 30.8 g/dL 32.0-36.5 Below low sudeep l Mean Corpuscular HGB Conc [facility] ([facility]) mean corpuscular hemoglobin 23.6 pg 27.0-33.0 Below low nor mal Mean Corpuscular Hemoglobin [facility] ([facility]) mean corpuscular volume 76.6 fL 80.0-96.0 Below low normal Mean Corpuscular Volume [facility] ([facility]) platelet count, automated 23 10 150-450 Below low sudeep l Platelet Count, Automated [place] ([facility]) neutrophils % 61.3 % 36.0-66.0 normal Neutrophils % [place] ( [facility]) lymph % 23.5 % 24.0-44.0 Below low normal Lymph % [place] ( [facility]) red cell distribution width 14.6 % 11.5-14.5 Above high no rmal Red Cell Distribution Width [facility] ([facility]) eos % 2.2 % 0.0-3.0 normal Eos % [facility] ([facility]) mono % 11.8 % 0.0-5.0 Above high normal [place] % [facility] ([facility]) baso % 0.9 % 0.0-1.0 normal Baso % [facility] ([facility]) nucleated red blood cell % 0.0 % 0-0 normal Nucleated Red Blood Cell % [facility] ([facility]) lymph # 1.4 10 1.5-5.0 Below low normal Lymph # [place] ( [facility]) neutrophils # 3.6 10 1.5-8.5 normal Neutrophils # [place] ( [facility]) immature granulocyte % 0.3 % 0-3.0 normal Immature Gran ulocyte % [facility] ([facility]) baso # 0.1 10 0.0-0.2 normal Baso # [place] ([facility]) eos # 0.1 10 0.0-0.5 normal Eos # [place] ([facility]) mono # 0.7 10 0.0-0.8 normal [place] # [facility] ([facility]) ID Date Data Source [id number] 06/15/2020 08:35:00 AM EST [place] ([facility]) Name Value Range Interpretation Code Description Data Mary rce(s) Supporting Document(s) thyroid stimulating hormone 7.380 uIU/mL 0.358-3.740 Above high no rmal Thyroid Stimulating Hormone [place] ([facility]) free T4 0.91 NG/dL 0.76-1.46 normal Free T4 [place] ([facility]) ID Date Data Source [id number] 06/15/2020 08:35:00 AM EST [place] ([facility]) Name Value Range Interpretation Code Description Data Mary rce(s) Supporting Document(s) glucose, fasting 106 mg/dL 70-100 Above high normal Glucose, Fas ting [place] ([facility]) creatinine for GFR 0.63 mg/dL 0.55-1.30 normal Creatinine for GF R [place] ([facility]) blood urea nitrogen 14 mg/dL 7-18 normal Blood Urea Nitro gen [place] ([facility]) sodium level 139 mEq/L 136-145 normal Sodium Level [facility] (No On license of [facility]) glomerular filtration rate > 60.0 >60 normal Glomerula r Filtration Rate [place] ([facility]) potassium serum 4.0 mEq/L 3.5-5.1 normal Potassium Serum [facility] ([facility]) carbon dioxide level 26 mEq/L 21-32 normal Carbon Dioxide Level [place] ([facility]) chloride level 108 mEq/L 98-107 Above high normal Chloride Level [place] ([facility]) anion gap 5 mEq/L 8-16 Below low normal Anion Gap [place] ( [facility]) AST/SGOT 13 U/L 7-37 normal AST/SGOT [place] ([facility]) calcium level 8.1 mg/dL 8.5-10.1 Below low normal Calcium Level AT [facility]) alkaline phosphatase 83 U/L 45-117 normal Alkaline Phosph atase [place] ([facility]) ALT/SGPT 21 U/L 12-78 normal ALT/SGPT [place] ([facility]) bilirubin,total 0.4 mg/dL 0.2-1.0 normal Bilirubin,total [facility] ([facility]) total protein 7.1 gm/dL 6.4-8.2 normal Total Protein [place] ( [facility]) albumin/globulin ratio 1.2-2.2 Below low normal Albumin /globulin Ratio [facility] ([facility]) albumin 3.6 gm/dL 3.2-5.2 normal Albumin [place] ([facility]) ID Date Data Source [id number] 06/15/2020 08:35:00 AM EST [place] ([facility]) Name Value Range Interpretation Code Description Data Mary rce(s) Supporting Document(s) immature platelet fraction % 6.3 % 0.0-9.59 normal Immatur e Platelet Fraction % [facility] ([facility]) ID Date Data Source [id number] 06/15/2020 08:35:00 AM EST [facility] ([facility]) Name Value Range Interpretation Code Description Data Mary rce(s) Supporting Document(s) white blood count 5.8 10 4.0-10.0 normal White Blood Count [place] ([facility]) red blood count 4.53 10 4.00-5.40 normal Red Blood Count [facility] NA ([facility]) hemoglobin 10.7 g/dL 12.0-15.5 Below low normal Hemoglobin [place] ( [facility]) hematocrit 34.7 % 36.0-47.0 Below low normal Hematocrit [place] ( [facility]) mean corpuscular hemoglobin 23.6 pg 27.0-33.0 Below low nor mal Mean Corpuscular Hemoglobin [facility] ([facility]) mean corpuscular volume 76.6 fL 80.0-96.0 Below low normal Mean Corpuscular Volume [facility] ([facility]) mean corpuscular HGB conc 30.8 g/dL 32.0-36.5 Below low sudeep l Mean Corpuscular HGB Conc [place] ([facility]) red cell distribution width 14.6 % 11.5-14.5 Above high no rmal Red Cell Distribution Width [facility] ([facility]) mono % 11.8 % 0.0-5.0 Above high normal [place] % [place] ([facility]) neutrophils % 61.3 % 36.0-66.0 normal Neutrophils % [place] ( [facility]) lymph % 23.5 % 24.0-44.0 Below low normal Lymph % [place] ( [facility]) platelet count, automated 23 10 150-450 Below low sudeep l Platelet Count, Automated [place] ([facility]) baso % 0.9 % 0.0-1.0 normal Baso % [place] ([facility]) nucleated red blood cell % 0.0 % 0-0 normal Nucleated Red Blood Cell % [place] ([facility]) eos % 2.2 % 0.0-3.0 normal Eos % [place] ([facility]) immature granulocyte % 0.3 % 0-3.0 normal Immature Gran ulocyte % [place] ([facility]) neutrophils # 3.6 10 1.5-8.5 normal Neutrophils # [place] ( [facility]) mono # 0.7 10 0.0-0.8 normal [place] # [place] ([facility]) lymph # 1.4 10 1.5-5.0 Below low normal Lymph # [place] ( [facility]) eos # 0.1 10 0.0-0.5 normal Eos # [place] ([facility]) baso # 0.1 10 0.0-0.2 normal Baso # [place] ([facility]) ID Date Data Source [id number] 06/15/2020 08:35:00 AM EST [place] ([facility]) Name Value Range Interpretation Code Description Data Mary rce(s) Supporting Document(s) free T4 0.91 NG/dL 0.76-1.46 normal Free T4 [place] ([facility]) thyroid stimulating hormone 7.380 uIU/mL 0.358-3.740 Above high no rmal Thyroid Stimulating Hormone [place] ([facility]) ID Date Data Source [id number] 06/15/2020 08:35:00 AM EST [place] ([facility]) Name Value Range Interpretation Code Description Data Mary rce(s) Supporting Document(s) glucose, fasting 106 mg/dL 70-100 Above high normal Glucose, Fas ting [place] ([facility]) blood urea nitrogen 14 mg/dL 7-18 normal Blood Urea Nitro gen [place] ([facility]) sodium level 139 mEq/L 136-145 normal Sodium Level [facility] (No On license of [facility]) creatinine for GFR 0.63 mg/dL 0.55-1.30 normal Creatinine for GF R [place] ([facility]) glomerular filtration rate > 60.0 >60 normal Glomerula r Filtration Rate [place] ([facility]) chloride level 108 mEq/L 98-107 Above high normal Chloride Level [place] ([facility]) carbon dioxide level 26 mEq/L 21-32 normal Carbon Dioxide Level [place] ([facility]) potassium serum 4.0 mEq/L 3.5-5.1 normal Potassium Serum [facility] ([facility]) anion gap 5 mEq/L 8-16 Below low normal Anion Gap [place] ( [facility]) calcium level 8.1 mg/dL 8.5-10.1 Below low normal Calcium Level AT [facility]) AST/SGOT 13 U/L 7-37 normal AST/SGOT [place] ([facility]) alkaline phosphatase 83 U/L 45-117 normal Alkaline Phosph atase [place] ([facility]) ALT/SGPT 21 U/L 12-78 normal ALT/SGPT [place] ([facility]) bilirubin,total 0.4 mg/dL 0.2-1.0 normal Bilirubin,total [facility] ([facility]) total protein 7.1 gm/dL 6.4-8.2 normal Total Protein [place] ( [facility]) albumin 3.6 gm/dL 3.2-5.2 normal Albumin [place] ([facility]) albumin/globulin ratio 1.2-2.2 Below low normal Albumin /globulin Ratio [facility] ([facility]) ID Date Data Source [id number] 03/06/2020 10:06:16 AM EDT [facility] Vital SignsTemperature: 98.3FV ital Signs performed by: Malorie Bah LPN, March 06, 2020 10:06 AMVaccines Administered/Entered:Vaccination Group: InfluenzaSeries: 1Vaccination: Flulaval Quadrivalent Intramuscular Suspension Prefilled Syringe 0.5 MLMfr / Lot# / Exp.Date: GlaxNitroPCRKline / [id number] 11/29/2020mt. Given / Route / Site: 0.5 mL / IM / Left DeltoidNDC / CVX: [id number] / 150Administered Date: 03/06/2020 10:07VFC Eligibility: VFC eligible-Medicaid/Medicaid Managed CareVIS Date: 01/14/2019VIS Given / VIS Given On: Yes 03/06/2020Comments: Administered by: Malorie Bah LPN Assessment & Plan Orders:[id number] Vst-Est Level I [CPT-00035] 84093 - Immo Admin (under 19 yrs), 1st Toxoid [CPT-27994] FluLaval Quadrivalent, preservative free [CPT- 15658] Name Value Range Interpretation Code Description Data Mary rce(s) Supporting Document(s) ID Date Data Source [id number] 2020 06:50:00 AM EDT [place] ([facility]) Name Value Range Interpretation Code Description Data Mary rce(s) Supporting Document(s) blood urea nitrogen 9 mg/dL 7-18 normal Blood Urea Nitro gen [place] ([facility]) creatinine for GFR 0.59 mg/dL 0.55-1.30 normal Creatinine for GF R [place] ([facility]) glomerular filtration rate > 60.0 >60 normal Glomerula r Filtration Rate [place] ([facility]) glucose, fasting 140 mg/dL 70-100 Above high normal Glucose, Fas ting [place] ([facility]) chloride level 110 mEq/L 98-107 Above high normal Chloride Level [place] ([facility]) carbon dioxide level 26 mEq/L 21-32 normal Carbon Dioxide Level [place] ([facility]) potassium serum 3.8 mEq/L 3.5-5.1 D Potassium Serum [facility] NA ([facility]) sodium level 141 mEq/L 136-145 normal Sodium Level [facility] (No On license of [facility]) anion gap 5 mEq/L 8-16 Below low normal Anion Gap [place] ( [facility]) calcium level 8.0 mg/dL 8.5-10.1 Below low normal Calcium Level AT [facility]) ALT/SGPT 41 U/L 12-78 normal ALT/SGPT [place] ([facility]) AST/SGOT 26 U/L 7-37 normal AST/SGOT [place] ([facility]) albumin 3.5 gm/dL 3.2-5.2 normal Albumin [place] ([facility]) alkaline phosphatase 86 U/L 45-117 normal Alkaline Phosph atase [place] ([facility]) total protein 7.4 gm/dL 6.4-8.2 normal Total Protein [place] ( [facility]) bilirubin,total 0.4 mg/dL 0.2-1.0 normal Bilirubin,total [facility] ([facility]) albumin/globulin ratio 1.2-2.2 Below low normal Albumin /globulin Ratio [place] ([facility]) ID Date Data Source [id number] 2020 06:50:00 AM EDT [place] ([facility]) Name Value Range Interpretation Code Description Data Mary rce(s) Supporting Document(s) creatinine for GFR 0.59 mg/dL 0.55-1.30 normal Creatinine for GF R [place] ([facility]) glucose, fasting 140 mg/dL 70-100 Above high normal Glucose, Fas ting [place] ([facility]) blood urea nitrogen 9 mg/dL 7-18 normal Blood Urea Nitro gen [place] ([facility]) potassium serum 3.8 mEq/L 3.5-5.1 D Potassium Serum [facility] ([facility]) sodium level 141 mEq/L 136-145 normal Sodium Level [place] (No On license of [facility]) glomerular filtration rate > 60.0 >60 normal Glomerula r Filtration Rate [place] ([facility]) chloride level 110 mEq/L 98-107 Above high normal Chloride Level [place] ([facility]) calcium level 8.0 mg/dL 8.5-10.1 Below low normal Calcium Level AT [facility]) AST/SGOT 26 U/L 7-37 normal AST/SGOT [place] ([facility]) anion gap 5 mEq/L 8-16 Below low normal Anion Gap [place] ( [facility]) carbon dioxide level 26 mEq/L 21-32 normal Carbon Dioxide Level [place] ([facility]) bilirubin,total 0.4 mg/dL 0.2-1.0 normal Bilirubin,total [facility] ([facility]) total protein 7.4 gm/dL 6.4-8.2 normal Total Protein [place] ( [facility]) ALT/SGPT 41 U/L 12-78 normal ALT/SGPT [place] ([facility]) alkaline phosphatase 86 U/L 45-117 normal Alkaline Phosph atase [place] ([facility]) albumin 3.5 gm/dL 3.2-5.2 normal Albumin [place] ([facility]) albumin/globulin ratio 1.2-2.2 Below low normal Albumin /globulin Ratio [place] ([facility]) ID Date Data Source [id number] 2020 06:50:00 AM EDT [place] ([facility]) Name Value Range Interpretation Code Description Data Mary rce(s) Supporting Document(s) creatinine for GFR 0.59 mg/dL 0.55-1.30 normal Creatinine for GF R [place] ([facility]) glucose, fasting 140 mg/dL 70-100 Above high normal Glucose, Fas ting [place] ([facility]) glomerular filtration rate > 60.0 >60 normal Glomerula r Filtration Rate [place] ([facility]) blood urea nitrogen 9 mg/dL 7-18 normal Blood Urea Nitro gen [place] ([facility]) potassium serum 3.8 mEq/L 3.5-5.1 D Potassium Serum [facility] ([facility]) carbon dioxide level 26 mEq/L 21-32 normal Carbon Dioxide Level [facility] ([facility]) chloride level 110 mEq/L 98-107 Above high normal Chloride Level [place] ([facility]) sodium level 141 mEq/L 136-145 normal Sodium Level [facility] (No On license of [facility]) AST/SGOT 26 U/L 7-37 normal AST/SGOT [place] ([facility]) anion gap 5 mEq/L 8-16 Below low normal Anion Gap [place] ( [facility]) calcium level 8.0 mg/dL 8.5-10.1 Below low normal Calcium Level AT [facility]) ALT/SGPT 41 U/L 12-78 normal ALT/SGPT [facility] ([facility]) bilirubin,total 0.4 mg/dL 0.2-1.0 normal Bilirubin,total ATHE NA ([facility]) alkaline phosphatase 86 U/L 45-117 normal Alkaline Phosph atase [facility] ([facility]) total protein 7.4 gm/dL 6.4-8.2 normal Total Protein [facility] ( [facility]) albumin/globulin ratio 1.2-2.2 Below low normal Albumin /globulin Ratio [facility] ([facility]) albumin 3.5 gm/dL 3.2-5.2 normal Albumin [place] ([facility]) ID Date Data Source [id number] 2020 06:50:00 AM EDT [place] ([facility]) Name Value Range Interpretation Code Description Data Mary rce(s) Supporting Document(s) glucose, fasting 140 mg/dL 70-100 Above high normal Glucose, Fas ting [facility] ([facility]) blood urea nitrogen 9 mg/dL 7-18 normal Blood Urea Nitro gen [facility] ([facility]) creatinine for GFR 0.59 mg/dL 0.55-1.30 normal Creatinine for GF R [facility] ([facility]) glomerular filtration rate > 60.0 >60 normal Glomerula r Filtration Rate [facility] ([facility]) chloride level 110 mEq/L 98-107 Above high normal Chloride Level [facility] ([facility]) sodium level 141 mEq/L 136-145 normal Sodium Level [facility] ([facility]) potassium serum 3.8 mEq/L 3.5-5.1 D Potassium Serum AT[facility] ([facility]) AST/SGOT 26 U/L 7-37 normal AST/SGOT [facility] ([facility]) carbon dioxide level 26 mEq/L 21-32 normal Carbon Dioxide Level [facility] ([facility]) anion gap 5 mEq/L 8-16 Below low normal Anion Gap [facility] ( [facility]) calcium level 8.0 mg/dL 8.5-10.1 Below low normal Calcium Level AT [facility] ([facility]) ALT/SGPT 41 U/L 12-78 normal ALT/SGPT [place] ([facility]) alkaline phosphatase 86 U/L 45-117 normal Alkaline Phosph atase [facility] ([facility]) albumin 3.5 gm/dL 3.2-5.2 normal Albumin [place] ([facility]) bilirubin,total 0.4 mg/dL 0.2-1.0 normal Bilirubin,total ATHE ([facility]) total protein 7.4 gm/dL 6.4-8.2 normal Total Protein [place] ( [facility]) albumin/globulin ratio 1.2-2.2 Below low normal Albumin /globulin Ratio [facility] [place] ([facility]) ID Date Data Source [id number] 2020 06:50:00 AM EDT [place] ([facility]) Name Value Range Interpretation Code Description Data Mary rce(s) Supporting Document(s) glucose, fasting 140 mg/dL 70-100 Above high normal Glucose, Fas ting [facility] ([facility]) creatinine for GFR 0.59 mg/dL 0.55-1.30 normal Creatinine for GF R [facility] ([facility]) blood urea nitrogen 9 mg/dL 7-18 normal Blood Urea Nitro gen [facility] ([facility]) sodium level 141 mEq/L 136-145 normal Sodium Level [facility] (No On license of [facility]) glomerular filtration rate > 60.0 >60 normal Glomerula r Filtration Rate [facility] ([facility]) potassium serum 3.8 mEq/L 3.5-5.1 D Potassium Serum AT[facility] NA ([facility]) carbon dioxide level 26 mEq/L 21-32 normal Carbon Dioxide Level [facility] ([facility]) anion gap 5 mEq/L 8-16 Below low normal Anion Gap [facility] ( [facility]) chloride level 110 mEq/L 98-107 Above high normal Chloride Level [facility] ([facility]) calcium level 8.0 mg/dL 8.5-10.1 Below low normal Calcium Level AT [facility]) ALT/SGPT 41 U/L 12-78 normal ALT/SGPT [place] ([facility]) AST/SGOT 26 U/L 7-37 normal AST/SGOT [place] ([facility]) alkaline phosphatase 86 U/L 45-117 normal Alkaline Phosph atase [facility] ([facility]) total protein 7.4 gm/dL 6.4-8.2 normal Total Protein [place] ( [facility]) albumin 3.5 gm/dL 3.2-5.2 normal Albumin [facility] ([facility]) albumin/globulin ratio 1.2-2.2 Below low normal Albumin /globulin Ratio [place] ([facility]) bilirubin,total 0.4 mg/dL 0.2-1.0 normal Bilirubin,total AT[facility] NA ([facility]) ID Date Data Source [id number] 2020 06:50:00 AM EDT [place] ([facility]) Name Value Range Interpretation Code Description Data Mary rce(s) Supporting Document(s) glucose, fasting 140 mg/dL 70-100 Above high normal Glucose, Fas ting [facility] ([facility]) blood urea nitrogen 9 mg/dL 7-18 normal Blood Urea Nitro gen [facility] ([facility]) creatinine for GFR 0.59 mg/dL 0.55-1.30 normal Creatinine for GF R [facility] ([facility]) glomerular filtration rate > 60.0 >60 normal Glomerula r Filtration Rate [facility] ([facility]) potassium serum 3.8 mEq/L 3.5-5.1 D Potassium Serum [facility] ([facility]) chloride level 110 mEq/L 98-107 Above high normal Chloride Level [facility] ([facility]) carbon dioxide level 26 mEq/L 21-32 normal Carbon Dioxide Level [facility] ([facility]) sodium level 141 mEq/L 136-145 normal Sodium Level [facility] (No On license of [facility]) ALT/SGPT 41 U/L 12-78 normal ALT/SGPT [place] ([facility]) anion gap 5 mEq/L 8-16 Below low normal Anion Gap [facility] ( [facility]) calcium level 8.0 mg/dL 8.5-10.1 Below low normal Calcium Level AT [facility] ([facility]) alkaline phosphatase 86 U/L 45-117 normal Alkaline Phosph atase [facility] ([facility]) AST/SGOT 26 U/L 7-37 normal AST/SGOT [place] ([facility]) albumin 3.5 gm/dL 3.2-5.2 normal Albumin [facility] ([facility]) total protein 7.4 gm/dL 6.4-8.2 normal Total Protein [place] ( [facility]) bilirubin,total 0.4 mg/dL 0.2-1.0 normal Bilirubin,total [facility] ([facility]) albumin/globulin ratio 1.2-2.2 Below low normal Albumin /globulin Ratio [facility] ([facility]) ID Date Data Source [id number] 2020 06:50:00 AM EDT [place] ([facility]) Name Value Range Interpretation Code Description Data Mary rce(s) Supporting Document(s) blood urea nitrogen 9 mg/dL 7-18 normal Blood Urea Nitro gen [facility] ([facility]) glucose, fasting 140 mg/dL 70-100 Above high normal Glucose, Fas ting [facility] ([facility]) creatinine for GFR 0.59 mg/dL 0.55-1.30 normal Creatinine for GF R [facility] ([facility]) potassium serum 3.8 mEq/L 3.5-5.1 D Potassium Serum [facility] ([facility]) chloride level 110 mEq/L 98-107 Above high normal Chloride Level [facility] ([facility]) glomerular filtration rate > 60.0 >60 normal Glomerula r Filtration Rate [facility] ([facility]) sodium level 141 mEq/L 136-145 normal Sodium Level [facility] (No On license of [facility]) AST/SGOT 26 U/L 7-37 normal AST/SGOT [place] ([facility]) calcium level 8.0 mg/dL 8.5-10.1 Below low normal Calcium Level AT [facility] ([facility]) carbon dioxide level 26 mEq/L 21-32 normal Carbon Dioxide Level [facility] ([facility]) anion gap 5 mEq/L 8-16 Below low normal Anion Gap [facility] ( [facility]) ALT/SGPT 41 U/L 12-78 normal ALT/SGPT [place] ([facility]) total protein 7.4 gm/dL 6.4-8.2 normal Total Protein [place] ( [facility]) bilirubin,total 0.4 mg/dL 0.2-1.0 normal Bilirubin,total [facility] ([facility]) alkaline phosphatase 86 U/L 45-117 normal Alkaline Phosph atase [facility] ([facility]) albumin 3.5 gm/dL 3.2-5.2 normal Albumin [facility] ([facility]) albumin/globulin ratio 1.2-2.2 Below low normal Albumin /globulin Ratio [facility] ([facility]) ID Date Data Source [id number] 2020 06:50:00 AM EDT [place] ([facility]) Name Value Range Interpretation Code Description Data Mary rce(s) Supporting Document(s) creatinine for GFR 0.59 mg/dL 0.55-1.30 normal Creatinine for GF R [facility] ([facility]) blood urea nitrogen 9 mg/dL 7-18 normal Blood Urea Nitro gen [facility] ([facility]) glucose, fasting 140 mg/dL 70-100 Above high normal Glucose, Fas ting [facility] ([facility]) glomerular filtration rate > 60.0 >60 normal Glomerula r Filtration Rate [facility] ([facility]) potassium serum 3.8 mEq/L 3.5-5.1 D Potassium Serum [facility] NA ([facility]) sodium level 141 mEq/L 136-145 normal Sodium Level [facility] (No On license of [facility]) chloride level 110 mEq/L 98-107 Above high normal Chloride Level [facility] ([facility]) carbon dioxide level 26 mEq/L 21-32 normal Carbon Dioxide Level [facility] ([facility]) AST/SGOT 26 U/L 7-37 normal AST/SGOT [place] ([facility]) ALT/SGPT 41 U/L 12-78 normal ALT/SGPT [place] ([facility]) alkaline phosphatase 86 U/L 45-117 normal Alkaline Phosph atase [facility] ([facility]) anion gap 5 mEq/L 8-16 Below low normal Anion Gap [facility] ( [facility]) calcium level 8.0 mg/dL 8.5-10.1 Below low normal Calcium Level AT [facility]) total protein 7.4 gm/dL 6.4-8.2 normal Total Protein [place] ( [facility]) bilirubin,total 0.4 mg/dL 0.2-1.0 normal Bilirubin,total [facility] ([facility]) albumin 3.5 gm/dL 3.2-5.2 normal Albumin [facility] ([facility]) albumin/globulin ratio 1.2-2.2 Below low normal Albumin /globulin Ratio [facility] ([facility]) ID Date Data Source [id number] 2020 06:50:00 AM EDT [facility] Name Value Range Interpretation Code Description Data Mary rce(s) Supporting Document(s) HCT 34.0 % 36.0-47.0 L [facility] HGB 10.8 g/dL 12.0-15.5 L [facility] MCH 31.8 G/DL pg 32.0-36.5 L [facility] MCHC 24.5 PG % 27.0-33.0 L [facility] PLATELETS 24 10 10*3/mm3 150-450 Below lower panic limits [facility] RBC 4.40 10 10*6/mm3 4.00-5.40 N [facility] RDW 14.7 % 11.5-14.5 H [facility] WBC TOTAL 6.1 4.0-10.0 N [facility] ID Date Data Source [id number] 01/14/2020 01:37:00 PM EDT [facility]) Name Value Range Interpretation Code Description Data Mary rce(s) Supporting Document(s) glucose, fasting 90 mg/dL 70-100 normal Glucose, Fasting AT [facility]) glomerular filtration rate > 60.0 >60 normal Glomerula r Filtration Rate [facility]) creatinine for GFR 0.63 mg/dL 0.55-1.30 normal Creatinine for GF R [facility]) sodium level 142 mEq/L 136-145 normal Sodium Level [place] (No On license of [facility]) blood urea nitrogen 11 mg/dL 7-18 normal Blood Urea Nitro gen [facility]) chloride level 109 mEq/L 98-107 Above high normal Chloride Level [place] ([facility]) calcium level 8.0 mg/dL 8.5-10.1 Below low normal Calcium Level AT [facility]) carbon dioxide level 29 mEq/L 21-32 normal Carbon Dioxide Level [place] ([facility]) anion gap 4 mEq/L 8-16 Below low normal Anion Gap [place] ( [facility]) potassium serum 3.1 mEq/L 3.5-5.1 Below low normal Potassium Seru m [facility]) ID Date Data Source [id number] 01/14/2020 01:37:00 PM EDT [facility]) Name Value Range Interpretation Code Description Data Mary rce(s) Supporting Document(s) glucose, fasting 90 mg/dL 70-100 normal Glucose, Fasting AT [facility] ([facility]) sodium level 142 mEq/L 136-145 normal Sodium Level [facility] ([facility]) potassium serum 3.1 mEq/L 3.5-5.1 Below low normal Potassium Seru m [place] ([facility]) creatinine for GFR 0.63 mg/dL 0.55-1.30 normal Creatinine for GF R [place] ([facility]) glomerular filtration rate > 60.0 >60 normal Glomerula r Filtration Rate [place] ([facility]) blood urea nitrogen 11 mg/dL 7-18 normal Blood Urea Nitro gen [place] ([facility]) chloride level 109 mEq/L 98-107 Above high normal Chloride Level [place] ([facility]) anion gap 4 mEq/L 8-16 Below low normal Anion Gap [place] ( [facility]) carbon dioxide level 29 mEq/L 21-32 normal Carbon Dioxide Level [place] ([facility]) calcium level 8.0 mg/dL 8.5-10.1 Below low normal Calcium Level AT [facility]) ID Date Data Source [id number] 01/14/2020 01:37:00 PM EDT [facility]) Name Value Range Interpretation Code Description Data Mary rce(s) Supporting Document(s) glucose, fasting 90 mg/dL 70-100 normal Glucose, Fasting AT [facility] ([facility]) creatinine for GFR 0.63 mg/dL 0.55-1.30 normal Creatinine for GF R [place] ([facility]) glomerular filtration rate > 60.0 >60 normal Glomerula r Filtration Rate [place] ([facility]) blood urea nitrogen 11 mg/dL 7-18 normal Blood Urea Nitro gen [place] ([facility]) sodium level 142 mEq/L 136-145 normal Sodium Level [facility] ([facility]) anion gap 4 mEq/L 8-16 Below low normal Anion Gap [place] ( [facility]) chloride level 109 mEq/L 98-107 Above high normal Chloride Level [facility]) calcium level 8.0 mg/dL 8.5-10.1 Below low normal Calcium Level AT [facility]) potassium serum 3.1 mEq/L 3.5-5.1 Below low normal Potassium Seru m [place] ([facility]) carbon dioxide level 29 mEq/L 21-32 normal Carbon Dioxide Level [place] ([facility]) ID Date Data Source [id number] 01/14/2020 01:37:00 PM EDT [facility]) Name Value Range Interpretation Code Description Data Mary rce(s) Supporting Document(s) glomerular filtration rate > 60.0 >60 normal Glomerula r Filtration Rate [place] ([facility]) creatinine for GFR 0.63 mg/dL 0.55-1.30 normal Creatinine for GF R [place] ([facility]) sodium level 142 mEq/L 136-145 normal Sodium Level [place] ([facility]) glucose, fasting 90 mg/dL 70-100 normal Glucose, Fasting AT [facility]) blood urea nitrogen 11 mg/dL 7-18 normal Blood Urea Nitro gen [facility]) anion gap 4 mEq/L 8-16 Below low normal Anion Gap [place] ( [facility]) potassium serum 3.1 mEq/L 3.5-5.1 Below low normal Potassium Seru m [place] ([facility]) calcium level 8.0 mg/dL 8.5-10.1 Below low normal Calcium Level AT [facility]) carbon dioxide level 29 mEq/L 21-32 normal Carbon Dioxide Level [place] ([facility]) chloride level 109 mEq/L 98-107 Above high normal Chloride Level [facility]) ID Date Data Source [id number] 01/14/2020 01:37:00 PM EDT [facility]) Name Value Range Interpretation Code Description Data Mary rce(s) Supporting Document(s) glucose, fasting 90 mg/dL 70-100 normal Glucose, Fasting AT [facility]) blood urea nitrogen 11 mg/dL 7-18 normal Blood Urea Nitro gen [place] ([facility]) glomerular filtration rate > 60.0 >60 normal Glomerula r Filtration Rate [place] ([facility]) creatinine for GFR 0.63 mg/dL 0.55-1.30 normal Creatinine for GF R [place] ([facility]) sodium level 142 mEq/L 136-145 normal Sodium Level [facility] (No On license of [facility]) carbon dioxide level 29 mEq/L 21-32 normal Carbon Dioxide Level [place] ([facility]) chloride level 109 mEq/L 98-107 Above high normal Chloride Level [place] ([facility]) potassium serum 3.1 mEq/L 3.5-5.1 Below low normal Potassium Seru m [place] ([facility]) anion gap 4 mEq/L 8-16 Below low normal Anion Gap [place] ( [facility]) calcium level 8.0 mg/dL 8.5-10.1 Below low normal Calcium Level AT [facility]) ID Date Data Source [id number] 01/14/2020 01:37:00 PM EDT [facility]) Name Value Range Interpretation Code Description Data Mary rce(s) Supporting Document(s) glucose, fasting 90 mg/dL 70-100 normal Glucose, Fasting AT [facility]) blood urea nitrogen 11 mg/dL 7-18 normal Blood Urea Nitro gen [place] ([facility]) creatinine for GFR 0.63 mg/dL 0.55-1.30 normal Creatinine for GF R [place] ([facility]) glomerular filtration rate > 60.0 >60 normal Glomerula r Filtration Rate [place] ([facility]) potassium serum 3.1 mEq/L 3.5-5.1 Below low normal Potassium Seru m [place] ([facility]) sodium level 142 mEq/L 136-145 normal Sodium Level [facility] ([facility]) anion gap 4 mEq/L 8-16 Below low normal Anion Gap [place] ( [facility]) carbon dioxide level 29 mEq/L 21-32 normal Carbon Dioxide Level [facility]) chloride level 109 mEq/L 98-107 Above high normal Chloride Level [facility]) calcium level 8.0 mg/dL 8.5-10.1 Below low normal Calcium Level AT [facility]) ID Date Data Source [id number] 01/14/2020 01:37:00 PM EDT [facility]) Name Value Range Interpretation Code Description Data Mary rce(s) Supporting Document(s) blood urea nitrogen 11 mg/dL 7-18 normal Blood Urea Nitro gen [place] ([facility]) glucose, fasting 90 mg/dL 70-100 normal Glucose, Fasting AT [facility]) creatinine for GFR 0.63 mg/dL 0.55-1.30 normal Creatinine for GF R [facility]) glomerular filtration rate > 60.0 >60 normal Glomerula r Filtration Rate [place] ([facility]) chloride level 109 mEq/L 98-107 Above high normal Chloride Level [place] ([facility]) potassium serum 3.1 mEq/L 3.5-5.1 Below low normal Potassium Seru m [facility]) sodium level 142 mEq/L 136-145 normal Sodium Level [place] ([facility]) calcium level 8.0 mg/dL 8.5-10.1 Below low normal Calcium Level AT [facility]) carbon dioxide level 29 mEq/L 21-32 normal Carbon Dioxide Level [facility]) anion gap 4 mEq/L 8-16 Below low normal Anion Gap [facility]) ID Date Data Source [id number] 01/14/2020 01:37:00 PM EDT [facility]) Name Value Range Interpretation Code Description Data Mary rce(s) Supporting Document(s) glucose, fasting 90 mg/dL 70-100 normal Glucose, Fasting AT [facility]) potassium serum 3.1 mEq/L 3.5-5.1 Below low normal Potassium Seru m [facility]) creatinine for GFR 0.63 mg/dL 0.55-1.30 normal Creatinine for GF R [place] ([facility]) blood urea nitrogen 11 mg/dL 7-18 normal Blood Urea Nitro gen [place] ([facility]) sodium level 142 mEq/L 136-145 normal Sodium Level [place] (No On license of [facility]) glomerular filtration rate > 60.0 >60 normal Glomerula r Filtration Rate [place] ([facility]) chloride level 109 mEq/L 98-107 Above high normal Chloride Level [place] ([facility]) carbon dioxide level 29 mEq/L 21-32 normal Carbon Dioxide Level [place] ([facility]) anion gap 4 mEq/L 8-16 Below low normal Anion Gap [place] ( [facility]) calcium level 8.0 mg/dL 8.5-10.1 Below low normal Calcium Level AT [facility]) ID Date Data Source [id number] 01/14/2020 01:37:00 PM EDT [facility] Name Value Range Interpretation Code Description Data Mary rce(s) Supporting Document(s) HCT 34.7 % 36.0-47.0 L [facility] HGB 11.2 g/dL 12.0-15.5 L [facility] MCH 32.3 G/DL pg 32.0-36.5 N [facility] MCHC 24.8 PG % 27.0-33.0 L [facility] PLATELETS 7 10 10*3/mm3 150-450 Below lower panic limits [facility] RBC 4.52 10 10*6/mm3 4.00-5.40 N [facility] RDW 14.9 % 11.5-14.5 H [facility] WBC TOTAL 5.1 4.0-10.0 N [facility] ID Date Data Source [id number] 09/13/2019 01:35:31 PM EDT [facility] Initial Intake Information from: patient Smoking, Tobacco, [...] History Medical History:History of Chiari MalformationHeadachesITPDepressionBi- PolaranemiaSurgical History:[id number] History:FH AsthmaFH ADHDSocial/Personal History:LIVES WITH / 12/12 Chief Complaintzoom folllow up dep/anxHistory of Present Illness (HPI)Telemedicine visit with patient's location at their home and provider's location at [facility]. Additional person(s)participating in the visit: Delores RANGEL [...] during this visit, including review of any grxv-jwm-aseeqtb medications, herbal therapies, and/or supplements.Allergy ReviewAllergy List was reviewed and/or updated during this visit.Provider Calculated and Reviewed all Clinical Protocols for patient today. Care Management Plan Transitions of CareInboundRate Your HealthIn general, would you say your health is? PoorAssessment & Plan Problems:Added: Insomnia, unspecified (RLK02-I83.00) Assessment: Instructions: We have sent a prescription to your pharmacy today. Please take medication as prescribed. Please report any major side effects.Assessed:Anxiety depression (ICD-300.4) (LXE23-C69.8) Assessment: Instructions: We have increase the dose of your prozac today. .Please take medication as prescribed. Please report any major side effects.Anxiety depression (ICD-300.4) (LMC30-T09.8) Assessment: GAD7 and PHQ 9 scores reviewed [...] ORAL TABLETTYLENOL 325 MG ORAL TABLETVITAMIN D3 86303 UNIT ORAL TABLETPROZAC 20 MG ORAL CAPSULEMedication Changes:Refilled:PROZAC 20 MG ORAL CAPSULE-take one tablet by mouth daily Qty: 30[Capsule] Refills: 2 Method: ElectronicNew Prescription:TRAZODONE HCL 50 MG ORAL TABLET-take one tablet by mouth daily at bedtime. Qty: 30[Tablet] Refills: 1 Method: ElectronicChanged:From: ORAL PROZAC 10 MG ORAL CAPSULE Qty: [id number] Refills: 30[Capsule] To: PROZAC 20 MG ORAL CAPSULE-take one tablet by mouth daily Qty: 30[Capsule] Refills: 2Allergies:* PEDIAZOLE (Critical)Orders:Telepsychiatry Consult [CPT-89283] COMP METABOLIC PANEL [CPT-84775] CBC W/DIFF [CPT-53300] LIPID PANEL [CPT-29628] TSH [CPT-92586] T-4 free [CPT-98325] Vitamin D 250H Unspecified [CPT-77631] Office Visit - Established, Level 3 [CPT-78577VF] Follow-Up Return to clinic: 4-6 weeks for [...] rce(s) Supporting Document(s) ID Date Data Source [id number] 07/09/2019 11:40:00 AM [facility] Name Value Range Interpretation Code Description Data [facility] rce(s) Supporting Document(s) THROAT CULTR NORMAL JD PRESENT N [facility] ID Date Data Source [id number] 07/09/2019 11:25:08 AM [facility] Measurements & CalculationsHeight: 60 inches (5 ft. [...] AMPatient History Medical History:History of Chiari MalformationHeadachesITPDepressionBi-PolaranemiaSurgical History:[id number] History:FH AsthmaFH ADHDSocial/Personal History:LIVES WITH / 12/12 [...] during this visit, including review of any nney-hrc-amuxpjs medications, herbal therapies, and/or supplements.Allergy ReviewAllergy List [...] rupture of ear drum, right ear (ICD-382.01) (BAQ41-N34.001) Assessment: Instructions: Start amoxicillin twice daily x 10 days. Take antibiotics as prescribed, finish full course even if symptoms resolve. Antibiotics may cause stomach upset, recommend eating yogurt or taking probiotic while on antibiotics.Changed:From: Dx of PHARYNGITIS ACUTE (ICD-462) (ICD10- J02.9) To: PHARYNGITIS ACUTE (ICD-462) (NZZ45-D35.9)Assessed:PHARYNGITIS ACUTE (ICD-462) (GUM47-O23.9) Assessment: Instructions: Negative strep in office today. [...] ORAL TABLETTYLENOL 325 MG ORAL TABLETVITAMIN D3 78572 UNIT ORAL TABLETPROZAC 10 MG ORAL CAPSULEMedication Changes:New Prescription:AMOXICILLIN 875 MG ORAL TABLET-Take 1 tablet by mouth twice daily x 10 days Qty: 20[Tablet] Refills: 0 Method: ElectronicRemoved:PREDNISONE 20 MG ORAL TABLET-4 tablets by mouth dailyAllergies:* PEDIAZOLE (Critical)Orders:Rapid Strep [CPT-98301] Throat Culture [CPT-19318] Adult - Ofc Vst, EST, Level II [CPT-19609] Follow-Up Return to clinic: as needed Clinical Visit Summary CompletedMedications:AMOXICILLIN 875 MG ORAL TABLET (AMOXICILLIN) Take 1 tablet by mouth twice daily x 10 days #20[Tablet] x 0 Route:ORAL Entered and Authorized by: Jaime WHEELER Method used: Electronically to [id number] (retail) [address] [place] [address] Note to Pharmacy: Route: ORAL; Indications: ACUTE SUPPURATIVE OTITIS MEDIA WITHOUT SPONTANEOUS RUPTURE OF EAR DRUM, RIGHT EAR RxID: [id number] signed by Jaime WHEELER on 07/14/2019 at 8:09 AM Name Value Range Interpretation Code Description Data Mary rce(s) Supporting Document(s) ID Date Data Source [id number] 06/07/2019 01:20:36 PM [facility] Measurements & CalculationsHeight: 60 inches (5 ft. [...] PMPatient History Medical History:History of Chiari MalformationHeadachesITPDepressionBi-PolaranemiaSurgical History:Ygmzcpeae3Qububn History:FH AsthmaFH ADHDSocial/Personal History:LIVES WITH / 12/12 [...] concerns today. HPI performed by: Delores Tierney [facility], June 07, 2019 1:52 PMTransitions of Care InboundProblem ReviewProblem List was reviewed and/or updated during this visit.Medication Reconciliation & ReviewMedication List was reviewed and/or updated during this visit, including review of any outq-vyr-wchgsaw medications, herbal therapies, and/or supplements.Allergy ReviewAllergy List [...] is? 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 Please try to keep scheduled appointment with Therapist. Please let us know if you need additional assistance.Vitamin D deficiency (ICD-268.9) (XUK32-Z87.9) Assessment: Instructions: Please continue medication as prescribed.Anxiety depression (ICD-300.4) (LXB79-T15.8) Assessment: New referral done.Patient Instructions/Care Plan: Platelet disorder: Please continue to follow with your specialist as scheduled.Anxiety depression: Please continue medication as scheduled. Please try to keep scheduled appointment with Therapist. Please let us know if you need additional assistance.Vitamin D deficiency: Please continue medication as prescribed. Plan developed in collaboration with patient and/or familyMedications:TYLENOL 325 MG ORAL TABLETVITAMIN D3 08852 UNIT ORAL TABLETPROZAC 10 MG ORAL CAPSULEPREDNISONE 20 MG ORAL TABLETMedication Changes:Refilled:PROZAC 10 MG ORAL CAPSULE-take one tablet by mouth daily Qty: 30[Capsule] Refills: 3 Method: ElectronicAllergies:* PEDIAZOLE (Critical)Orders:Mental Health Consult [CPT-94407] Adult - Ofc Vst, EST, Level III [CPT-88497] Follow-Up Return to clinic: 3 months for follow up Clinical Visit Summary CompletedMedications:PROZAC 10 MG ORAL CAPSULE (FLUOXETINE HCL) take one tablet by mouth daily #30[Capsule] x 3 Route:ORAL Entered and Authorized by: Delores RANGEL Method used: Electronically to [id number] (retail) [address] [place] [address] Fax: Note to Pharmacy: Route: ORAL; Indications: ANXIETY DEPRESSION RxID: [id number] signed by Delores RANGEL on 06/10/2019 at 12:16 AM Name Value Range Interpretation Code Description Data Mary rce(s) Supporting Document(s) Procedure Vital Signs ID Date Data Source UNK Name Value Range Interpretation Code Description Data Source(s) Body weight 3460 [oz_av] 3460 [oz_av] BRUNO ([facility]) Systolic blood pressure 95 mm[Hg] 95 mm[Hg] A [facility]) Body mass index (BMI) [Ratio] 42.2 kg/m2 42.2 k g/m2 [facility]) Body height 60 [in_i] 60 [in_i] [place]UN[place] ([facility]) Diastolic blood pressure 68 mm[Hg] 68 mm[Hg] BRUNO ([facility]) Body weight 3460 [oz_av] 3460 [oz_av] [facility] ([facility]) Systolic blood pressure 95 mm[Hg] 95 mm[Hg] A [facility]) Body mass index (BMI) [Ratio] 42.2 kg/m2 42.2 k g/m2 [facility] Body height 60 [in_i] 60 [in_i] [facility] Diastolic blood pressure 68 mm[Hg] 68 mm[Hg] [place]UNO ([facility]) Body weight 3475.2 [oz_av] 3475.2 [oz_av] ATHEN A ([facility]) Systolic blood pressure 109 mm[Hg] 109 mm[Hg] A THENA ([facility]) Body mass index (BMI) [Ratio] 42.4 kg/m2 42.4 k g/m2 BRUNO ([facility]) Body height 60 [in_i] 60 [in_i] [place] ([facility]) Diastolic blood pressure 77 mm[Hg] 77 mm[Hg] [place] ([facility]) Body weight 3475.2 [oz_av] 3475.2 [oz_av] ATHEN A ([facility]) Systolic blood pressure 109 mm[Hg] 109 mm[Hg] A THENA ([facility]) Body mass index (BMI) [Ratio] 42.4 kg/m2 42.4 k g/m2 BRUNO ([facility]) Body height 60 [in_i] 60 [in_i] [place] ([facility]) Diastolic blood pressure 77 mm[Hg] 77 mm[Hg] [place] ([facility]) Body weight 3475.2 [oz_av] 3475.2 [oz_av] ATHEN A ([facility]) Systolic blood pressure 109 mm[Hg] 109 mm[Hg] A THENA ([facility]) Body mass index (BMI) [Ratio] 42.4 kg/m2 42.4 k g/m2 BRUNO ([facility]) Body height 60 [in_i] 60 [in_i] [place] ([facility]) Diastolic blood pressure 77 mm[Hg] 77 mm[Hg] [facility] ([facility]) Body weight 3475.2 [oz_av] 3475.2 [oz_av] ATHEN A ([facility]) Systolic blood pressure 109 mm[Hg] 109 mm[Hg] A THENA ([facility]) Body mass index (BMI) [Ratio] 42.4 kg/m2 42.4 k g/m2 BRUNO ([facility]) Body height 60 [in_i] 60 [in_i] [facility] ([facility]) Diastolic blood pressure 77 mm[Hg] 77 mm[Hg] [facility] ([facility]) Body weight 3475.2 [oz_av] 3475.2 [oz_av] ATHEN A ([facility]) Systolic blood pressure 109 mm[Hg] 109 mm[Hg] A THENA ([facility]) Body mass index (BMI) [Ratio] 42.4 kg/m2 42.4 k g/m2 BRUNO ([facility]) Body height 60 [in_i] 60 [in_i] [facility]UNO ([facility]) Diastolic blood pressure 77 mm[Hg] 77 mm[Hg] [facility]UNO ([facility]) Body weight 3266.08 [oz_av] 3266.08 [oz_av] ATH TJ ([facility]) Body height 60 [in_i] 60 [in_i] BRUNO ([facility]) Body weight 3266.08 [oz_av] 3266.08 [oz_av] ATH TJ ([facility]) Body height 60 [in_i] 60 [in_i] [place]UNO ([facility]) Body weight 3266.08 [oz_av] 3266.08 [oz_av] ATH TJ ([facility]) Body height 60 [in_i] 60 [in_i] BRUNO ([facility]) Body weight 3266.08 [oz_av] 3266.08 [oz_av] ATH TJ ([facility]) Body height 60 [in_i] 60 [in_i] BRUNO ([facility]) Body weight 3266.08 [oz_av] 3266.08 [oz_av] ATH TJ ([facility]) Body height 60 [in_i] 60 [in_i] BRUNO ([facility]) Body weight 3266.08 [oz_av] 3266.08 [oz_av] ATH TJ ([facility]) Body height 60 [in_i] 60 [in_i] BRUNO ([facility]) Body weight 3266.08 [oz_av] 3266.08 [oz_av] ATH TJ ([facility]) Body height 60 [in_i] 60 [in_i] BRUNO ([facility]) Body weight 3266.08 [oz_av] 3266.08 [oz_av] ATH TJ ([facility]) Body height 60 [in_i] 60 [in_i] [place]O ([facility]) Body weight 3266.08 [oz_av] 3266.08 [oz_av] ATH TJ ([facility]) Body height 60 [in_i] 60 [in_i] BRUNO ([facility]) Body weight 3032 [oz_av] 3032 [oz_av] [facility] ([facility]) Systolic blood pressure 107 mm[Hg] 107 mm[Hg] A [facility] ([facility]) Body height 60 [in_i] 60 [in_i] [place] ([facility]) Diastolic blood pressure 72 mm[Hg] 72 mm[Hg] [facility] ([facility]) Body weight 3032 [oz_av] 3032 [oz_av] [facility] ([facility]) Systolic blood pressure 107 mm[Hg] 107 mm[Hg] A [facility] ([facility]) Body height 60 [in_i] 60 [in_i] [place] ([facility]) Diastolic blood pressure 72 mm[Hg] 72 mm[Hg] [facility] ([facility]) Body weight 3032 [oz_av] 3032 [oz_av] [facility] ([facility]) Systolic blood pressure 107 mm[Hg] 107 mm[Hg] A THENA ([facility]) Body height 60 [in_i] 60 [in_i] [place] ([facility]) Diastolic blood pressure 72 mm[Hg] 72 mm[Hg] [facility] ([facility]) Body weight 3032 [oz_av] 3032 [oz_av] [facility] ([facility]) Systolic blood pressure 107 mm[Hg] 107 mm[Hg] [facility] Body height 60 [in_i] 60 [in_i] [facility] ([facility]) Diastolic blood pressure 72 mm[Hg] 72 mm[Hg] [facility] ([facility]) Body weight 3032 [oz_av] 3032 [oz_av] [facility] ([facility]) Systolic blood pressure 107 mm[Hg] 107 mm[Hg] [facility] Body height 60 [in_i] 60 [in_i] [facility] ([facility]) Diastolic blood pressure 72 mm[Hg] 72 mm[Hg] [facility] ([facility]) Body weight 3032 [oz_av] 3032 [oz_av] [facility] ([facility]) Systolic blood pressure 107 mm[Hg] 107 mm[Hg] [facility] Body height 60 [in_i] 60 [in_i] [facility] ([facility]) Diastolic blood pressure 72 mm[Hg] 72 mm[Hg] [facility] ([facility]) Body weight 3032 [oz_av] 3032 [oz_av] [facility] ([facility]) Systolic blood pressure 107 mm[Hg] 107 mm[Hg] [facility] Body height 60 [in_i] 60 [in_i] [facility] ([facility]) Diastolic blood pressure 72 mm[Hg] 72 mm[Hg] [facility] ([facility]) Body weight 3032 [oz_av] 3032 [oz_av] [facility] ([facility]) Systolic blood pressure 107 mm[Hg] 107 mm[Hg] [facility] Body height 60 [in_i] 60 [in_i] [facility] ([facility]) Diastolic blood pressure 72 mm[Hg] 72 mm[Hg] [facility] ([facility]) Body weight 3032 [oz_av] 3032 [oz_av] [facility] ([facility]) Systolic blood pressure 107 mm[Hg] 107 mm[Hg] [facility] Body height 60 [in_i] 60 [in_i] [facility] ([facility]) Diastolic blood pressure 72 mm[Hg] 72 mm[Hg] [facility] ([facility]) Body weight 2880 [oz_av] 2880 [oz_av] [facility] ([facility]) Systolic blood pressure 100 mm[Hg] 100 mm[Hg] [facility] Body height 60 [in_i] 60 [in_i] [facility] ([facility]) Diastolic blood pressure 68 mm[Hg] 68 mm[Hg] [facility] ([facility]) Body weight 2880 [oz_av] 2880 [oz_av] [facility] ([facility]) Systolic blood pressure 100 mm[Hg] 100 mm[Hg] [facility] Body height 60 [in_i] 60 [in_i] [facility] ([facility]) Diastolic blood pressure 68 mm[Hg] 68 mm[Hg] [facility] ([facility]) Body weight 2880 [oz_av] 2880 [oz_av] [facility] ([facility]) Systolic blood pressure 100 mm[Hg] 100 mm[Hg] A [facility] ([facility]) Body height 60 [in_i] 60 [in_i] [facility] ([facility]) Diastolic blood pressure 68 mm[Hg] 68 mm[Hg] [facility] ([facility]) Body weight 2880 [oz_av] 2880 [oz_av] [facility] ([facility]) Systolic blood pressure 100 mm[Hg] 100 mm[Hg] [facility] Body height 60 [in_i] 60 [in_i] [facility] ([facility]) Diastolic blood pressure 68 mm[Hg] 68 mm[Hg] [facility] ([facility]) Body weight 2880 [oz_av] 2880 [oz_av] [facility] ([facility]) Systolic blood pressure 100 mm[Hg] 100 mm[Hg] [facility] Body height 60 [in_i] 60 [in_i] [facility] ([facility]) Diastolic blood pressure 68 mm[Hg] 68 mm[Hg] [facility] ([facility]) Body weight 2880 [oz_av] 2880 [oz_av] [facility] ([facility]) Systolic blood pressure 100 mm[Hg] 100 mm[Hg] [facility] Body height 60 [in_i] 60 [in_i] [facility] ([facility]) Diastolic blood pressure 68 mm[Hg] 68 mm[Hg] [facility] ([facility]) Body weight 2880 [oz_av] 2880 [oz_av] [facility] ([facility]) Systolic blood pressure 100 mm[Hg] 100 mm[Hg] [facility] Body height 60 [in_i] 60 [in_i] [facility] ([facility]) Diastolic blood pressure 68 mm[Hg] 68 mm[Hg] [facility] ([facility]) Body weight 2880 [oz_av] 2880 [oz_av] [facility] ([facility]) Systolic blood pressure 100 mm[Hg] 100 mm[Hg] A [facility] ([facility]) Body height 60 [in_i] 60 [in_i] [facility] ([facility]) Diastolic blood pressure 68 mm[Hg] 68 mm[Hg] [facility] ([facility]) Body weight 2880 [oz_av] 2880 [oz_av] [facility] ([facility]) Systolic blood pressure 100 mm[Hg] 100 mm[Hg] [facility] Body height 60 [in_i] 60 [in_i] [facility] ([facility]) Diastolic blood pressure 68 mm[Hg] 68 mm[Hg] [facility] ([facility]) Patient Treatment Plan of Care Planned Activity Planned Date Details Description Data Source (s) Naproxen 500 MG Oral Tablet BRUNO ([facility]) Acetaminophen 325 MG Oral Tablet [Mapap] [facility] ([facility]) lamotrigine 25 MG Oral Tablet [facility] ([facility]) Fluox[facility] 10 [facility] Dicyclomine Hydrochloride 20 MG Oral Tablet [facility] ([facility]) Amoxicillin 875 MG Oral Tablet [facility] ([facility]) Naproxen 500 MG Oral Tablet [facility] ([facility]) Acetaminophen 325 MG Oral Tablet [Mapap] [facility] ([facility]) lamotrigine 25 MG Oral Tablet [facility] ([facility]) Fluoxetine 10 MG Oral Capsule [facility] ([facility]) Dicyclomine Hydrochloride 20 MG Oral Tablet [facility] ([facility]) Amoxicillin 875 MG Oral Tablet [facility] ([facility]) Acetaminophen 325 MG Oral Tablet [Mapap] [facility] ([facility]) lamotrigine 25 MG Oral Tablet [facility] ([facility]) Fluoxetine 10 MG Oral Capsule [facility] ([facility]) Dicyclomine Hydrochloride 20 MG Oral Tablet [facility] ([facility]) Amoxicillin 875 MG Oral Tablet [facility] ([facility]) Acetaminophen 325 MG Oral Tablet [Mapap] [facility] ([facility]) lamotrigine 25 MG Oral Tablet [facility] ([facility]) Fluoxetine 10 MG Oral Capsule [facility] ([facility]) Dicyclomine Hydrochloride 20 MG Oral Tablet [facility] ([facility]) Amoxicillin 875 MG Oral Tablet [facility] ([facility]) Acetaminophen 325 MG Oral Tablet [Mapap] [facility] ([facility]) lamotrigine 25 MG Oral Tablet [facility] ([facility]) Fluoxetine 10 MG Oral Capsule [facility] ([facility]) Dicyclomine Hydrochloride 20 MG Oral Tablet [facility] ([facility]) Amoxicillin 875 MG Oral Tablet [facility] ([facility])
[2020-07-25] MEDS ORDERED: ONDANSETRON 4MG/2ML VIAL IV ONE ×2 (00:45→05:00)
[2020-07-25] MEDS ORDERED: NS 1,000 ML IV ONE (00:45)
[2020-07-25] MEDS ORDERED: ASPIRIN 81 MG CHEW TABLET PO ONE (00:45)
[2020-07-25] MEDS ORDERED: ISOVUE-370 76% 100ML VIAL As Ordered ONE (01:38)
--- OUTSIDE RECORDS SUMMARY | 2020-07-25 01:38 | CCD ---
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 ([facility]) hemoglobin 10.7 g/dL 12.0-15.5 Below low normal Hemoglobin [place] ( [facility]) hematocrit 34.7 % 36.0-47.0 Below low normal Hematocrit [place] ( [facility]) mean corpuscular HGB conc 30.8 g/dL 32.0-36.5 Below low [place] Mean Corpuscular HGB Conc [place] ([facility]) mean corpuscular hemoglobin 23.6 pg 27.0-33.0 Below low nor mal Mean Corpuscular Hemoglobin [place] ([facility]) mean corpuscular volume 76.6 fL 80.0-96.0 Below low normal Mean Corpuscular Volume [facility] ([facility]) platelet count, automated 23 10 150-450 Below low [place] Platelet Count, Automated [place] ([facility]) neutrophils % 61.3 % 36.0-66.0 normal Neutrophils % [place] ( [facility]) lymph % 23.5 % 24.0-44.0 Below low normal Lymph % [place] ( [facility]) red cell distribution width 14.6 % 11.5-14.5 Above high no rmal Red Cell Distribution Width [facility] ([facility]) eos % 2.2 % 0.0-3.0 normal Eos % [facility] ([facility]) mono % 11.8 % 0.0-5.0 Above high normal [place] % [place] ([facility]) baso % 0.9 % 0.0-1.0 normal Baso % [facility] ([facility]) nucleated red blood cell % 0.0 % 0-0 normal Nucleated Red Blood Cell % [place] ([facility]) lymph # 1.4 10 1.5-5.0 Below low normal Lymph # [place] ( [facility]) neutrophils # 3.6 10 1.5-8.5 normal Neutrophils # [place] ( [facility]) immature granulocyte % 0.3 % 0-3.0 normal Immature Gran ulocyte % [facility] ([facility]) baso # 0.1 10 0.0-0.2 normal Baso # [facility] ([facility]) eos # 0.1 10 0.0-0.5 normal Eos # [facility] ([facility]) mono # 0.7 10 0.0-0.8 normal [place] # [facility] ([facility]) ID Date Data Source [id number] 06/15/2020 08:35:00 AM EST [place] ([facility]) Name Value Range Interpretation Code Description Data Mary rce(s) Supporting Document(s) thyroid stimulating hormone 7.380 uIU/mL 0.358-3.740 Above high no rmal Thyroid Stimulating Hormone [place] ([facility]) free T4 0.91 NG/dL 0.76-1.46 normal Free T4 [place] ([facility]) ID Date Data Source [id number] 06/15/2020 08:35:00 AM EST [place] ([facility]) Name Value Range Interpretation Code Description Data Mary rce(s) Supporting Document(s) glucose, fasting 106 mg/dL 70-100 Above high normal Glucose, Fas ting [place] ([facility]) creatinine for GFR 0.63 mg/dL 0.55-1.30 normal Creatinine for GF R [place] ([facility]) blood urea nitrogen 14 mg/dL 7-18 normal Blood Urea Nitro gen [place] ([facility]) sodium level 139 mEq/L 136-145 normal Sodium Level [facility] ([facility]) glomerular filtration rate > 60.0 >60 normal Glomerula r Filtration Rate [facility] ([facility]) potassium serum 4.0 mEq/L 3.5-5.1 normal Potassium Serum [facility]) carbon dioxide level 26 mEq/L 21-32 normal Carbon Dioxide Level [facility] ([facility]) chloride level 108 mEq/L 98-107 Above high normal Chloride Level [place] ([facility]) anion gap 5 mEq/L 8-16 Below low normal Anion Gap [facility] ( [facility]) AST/SGOT 13 U/L 7-37 normal AST/SGOT [place] ([facility]) calcium level 8.1 mg/dL 8.5-10.1 Below low normal Calcium Level AT [facility]) alkaline phosphatase 83 U/L 45-117 normal Alkaline Phosph atase [place] ([facility]) ALT/SGPT 21 U/L 12-78 normal ALT/SGPT [place] ([facility]) bilirubin,total 0.4 mg/dL 0.2-1.0 normal Bilirubin,total [facility] ([facility]) total protein 7.1 gm/dL 6.4-8.2 normal Total Protein [place] ( [facility]) albumin/globulin ratio 1.2-2.2 Below low normal Albumin /globulin Ratio [facility] ([facility]) albumin 3.6 gm/dL 3.2-5.2 normal Albumin [facility] ([facility]) ID Date Data Source [id number] 06/15/2020 08:35:00 AM EST [place] ([facility]) Name Value Range Interpretation Code Description Data Mary rce(s) Supporting Document(s) immature platelet fraction % 6.3 % 0.0-9.59 normal Immatur e Platelet Fraction % [facility] ([facility]) ID Date Data Source [id number] 06/15/2020 08:35:00 AM EST [place] ([facility]) Name Value Range Interpretation Code Description Data Mary rce(s) Supporting Document(s) white blood count 5.8 10 4.0-10.0 normal White Blood Count [facility] ([facility]) red blood count 4.53 10 4.00-5.40 normal Red Blood Count AT[facility] NA ([facility]) hemoglobin 10.7 g/dL 12.0-15.5 Below low normal Hemoglobin [place] ( [facility]) hematocrit 34.7 % 36.0-47.0 Below low normal Hematocrit [place] ( [facility]) mean corpuscular hemoglobin 23.6 pg 27.0-33.0 Below low nor mal Mean Corpuscular Hemoglobin [facility] ([facility]) mean corpuscular volume 76.6 fL 80.0-96.0 Below low normal Mean Corpuscular Volume [facility] ([facility]) mean corpuscular HGB conc 30.8 g/dL 32.0-36.5 Below low [place] Mean Corpuscular HGB Conc [facility] ([facility]) red cell distribution width 14.6 % 11.5-14.5 Above high no rmal Red Cell Distribution Width [facility] ([facility]) mono % 11.8 % 0.0-5.0 Above high normal [place] % [facility] ([facility]) neutrophils % 61.3 % 36.0-66.0 normal Neutrophils % [place] ( [facility]) lymph % 23.5 % 24.0-44.0 Below low normal Lymph % [place] ( [facility]) platelet count, automated 23 10 150-450 Below low [place] Platelet Count, Automated [place] ([facility]) baso % 0.9 % 0.0-1.0 normal Baso % [facility] ([facility]) nucleated red blood cell % 0.0 % 0-0 normal Nucleated Red Blood Cell % [facility] ([facility]) eos % 2.2 % 0.0-3.0 normal Eos % [facility] ([facility]) immature granulocyte % 0.3 % 0-3.0 normal Immature Gran ulocyte % [facility] ([facility]) neutrophils # 3.6 10 1.5-8.5 normal Neutrophils # [place] ( [facility]) mono # 0.7 10 0.0-0.8 normal [place] # [place] ([facility]) lymph # 1.4 10 1.5-5.0 Below low normal Lymph # [place] ( [facility]) eos # 0.1 10 0.0-0.5 normal Eos # [facility] ([facility]) baso # 0.1 10 0.0-0.2 normal Baso # [facility] ([facility]) ID Date Data Source [id number] 06/15/2020 08:35:00 AM EST [place] ([facility]) Name Value Range Interpretation Code Description Data Mary rce(s) Supporting Document(s) free T4 0.91 NG/dL 0.76-1.46 normal Free T4 [place] ([facility]) thyroid stimulating hormone 7.380 uIU/mL 0.358-3.740 Above high no rmal Thyroid Stimulating Hormone [place] ([facility]) ID Date Data Source [id number] 06/15/2020 08:35:00 AM EST [place] ([facility]) Name Value Range Interpretation Code Description Data Mary rce(s) Supporting Document(s) glucose, fasting 106 mg/dL 70-100 Above high normal Glucose, Fas ting [place] ([facility]) blood urea nitrogen 14 mg/dL 7-18 normal Blood Urea Nitro gen [facility] ([facility]) sodium level 139 mEq/L 136-145 normal Sodium Level [facility] ([facility]) creatinine for GFR 0.63 mg/dL 0.55-1.30 normal Creatinine for GF R [place] ([facility]) glomerular filtration rate > 60.0 >60 normal Glomerula r Filtration Rate [facility] ([facility]) chloride level 108 mEq/L 98-107 Above high normal Chloride Level [place] ([facility]) carbon dioxide level 26 mEq/L 21-32 normal Carbon Dioxide Level [place] ([facility]) potassium serum 4.0 mEq/L 3.5-5.1 normal Potassium Serum [facility] ([facility]) anion gap 5 mEq/L 8-16 Below low normal Anion Gap [place] ( [facility]) calcium level 8.1 mg/dL 8.5-10.1 Below low normal Calcium Level AT [facility]) AST/SGOT 13 U/L 7-37 normal AST/SGOT [place] ([facility]) alkaline phosphatase 83 U/L 45-117 normal Alkaline Phosph atase [place] ([facility]) ALT/SGPT 21 U/L 12-78 normal ALT/SGPT [place] ([facility]) bilirubin,total 0.4 mg/dL 0.2-1.0 normal Bilirubin,total [facility] ([facility]) total protein 7.1 gm/dL 6.4-8.2 normal Total Protein [place] ( [facility]) albumin 3.6 gm/dL 3.2-5.2 normal Albumin [place] ([facility]) albumin/globulin ratio 1.2-2.2 Below low normal Albumin /globulin Ratio [facility] ([facility]) ID Date Data Source [id number] 03/06/2020 10:06:16 AM EDT [facility] Vital SignsTemperature: 98.3FV ital Signs performed by: Malorie Bah LPN, March 06, 2020 10:06 AMVaccines Administered/Entered:Vaccination Group: InfluenzaSeries: 1Vaccination: Flulaval Quadrivalent Intramuscular Suspension Prefilled Syringe 0.5 MLMfr / Lot# / Exp.Date: [employer] / [id number] 11/29/2020mt. Given / Route / Site: 0.5 mL / IM / Left DeltoidNDC / CVX: [id number] / 150Administered Date: 03/06/2020 10:07VFC Eligibility: VFC eligible-Medicaid/Medicaid Managed CareVIS Date: 01/14/2019VIS Given / VIS Given On: Yes 03/06/2020Comments: Administered by: Malorie Bah LPN Assessment & Plan Orders:[id number] Vst-Est Level I [CPT-44986] 50636 - Immo Admin (under 19 yrs), 1st Toxoid [CPT-55408] FluLaval Quadrivalent, preservative free [CPT- 29215] Name Value Range Interpretation Code Description Data Mary rce(s) Supporting Document(s) ID Date Data Source [id number] 2020 06:50:00 AM EDT [place] ([facility]) Name Value Range Interpretation Code Description Data Mary rce(s) Supporting Document(s) blood urea nitrogen 9 mg/dL 7-18 normal Blood Urea Nitro gen [place] ([facility]) creatinine for GFR 0.59 mg/dL 0.55-1.30 normal Creatinine for GF R [place] ([facility]) glomerular filtration rate > 60.0 >60 normal Glomerula r Filtration Rate [place] ([facility]) glucose, fasting 140 mg/dL 70-100 Above high normal Glucose, Fas ting [place] ([facility]) chloride level 110 mEq/L 98-107 Above high normal Chloride Level [place] ([facility]) carbon dioxide level 26 mEq/L 21-32 normal Carbon Dioxide Level [place] ([facility]) potassium serum 3.8 mEq/L 3.5-5.1 D Potassium Serum [facility] NA ([facility]) sodium level 141 mEq/L 136-145 normal Sodium Level [facility] ([facility]) anion gap 5 mEq/L 8-16 Below low normal Anion Gap [place] ( [facility]) calcium level 8.0 mg/dL 8.5-10.1 Below low normal Calcium Level AT [facility]) ALT/SGPT 41 U/L 12-78 normal ALT/SGPT [place] ([facility]) AST/SGOT 26 U/L 7-37 normal AST/SGOT [place] ([facility]) albumin 3.5 gm/dL 3.2-5.2 normal Albumin [place] ([facility]) alkaline phosphatase 86 U/L 45-117 normal Alkaline Phosph atase [place] ([facility]) total protein 7.4 gm/dL 6.4-8.2 normal Total Protein [place] ( [facility]) bilirubin,total 0.4 mg/dL 0.2-1.0 normal Bilirubin,total [facility] ([facility]) albumin/globulin ratio 1.2-2.2 Below low normal Albumin /globulin Ratio [place] ([facility]) ID Date Data Source [id number] 2020 06:50:00 AM EDT [place] ([facility]) Name Value Range Interpretation Code Description Data Mary rce(s) Supporting Document(s) creatinine for GFR 0.59 mg/dL 0.55-1.30 normal Creatinine for GF R [place] ([facility]) glucose, fasting 140 mg/dL 70-100 Above high normal Glucose, Fas ting [place] ([facility]) blood urea nitrogen 9 mg/dL 7-18 normal Blood Urea Nitro gen [place] ([facility]) potassium serum 3.8 mEq/L 3.5-5.1 D Potassium Serum [facility] NA ([facility]) sodium level 141 mEq/L 136-145 normal Sodium Level [place] ([facility]) glomerular filtration rate > 60.0 >60 normal Glomerula r Filtration Rate [place] ([facility]) chloride level 110 mEq/L 98-107 Above high normal Chloride Level [place] ([facility]) calcium level 8.0 mg/dL 8.5-10.1 Below low normal Calcium Level AT [facility]) AST/SGOT 26 U/L 7-37 normal AST/SGOT [place] ([facility]) anion gap 5 mEq/L 8-16 Below low normal Anion Gap [place] ( [facility]) carbon dioxide level 26 mEq/L 21-32 normal Carbon Dioxide Level [place] ([facility]) bilirubin,total 0.4 mg/dL 0.2-1.0 normal Bilirubin,total [place] ([facility]) total protein 7.4 gm/dL 6.4-8.2 normal Total Protein [place] ( [facility]) ALT/SGPT 41 U/L 12-78 normal ALT/SGPT [place] ([facility]) alkaline phosphatase 86 U/L 45-117 normal Alkaline Phosph atase [place] ([facility]) albumin 3.5 gm/dL 3.2-5.2 normal Albumin [place] ([facility]) albumin/globulin ratio 1.2-2.2 Below low normal Albumin /globulin Ratio [place] ([facility]) ID Date Data Source [id number] 2020 06:50:00 AM EDT [place] ([facility]) Name Value Range Interpretation Code Description Data Mary rce(s) Supporting Document(s) creatinine for GFR 0.59 mg/dL 0.55-1.30 normal Creatinine for GF R [place] ([facility]) glucose, fasting 140 mg/dL 70-100 Above high normal Glucose, Fas ting [place] ([facility]) glomerular filtration rate > 60.0 >60 normal Glomerula r Filtration Rate [place] ([facility]) blood urea nitrogen 9 mg/dL 7-18 normal Blood Urea Nitro gen [place] ([facility]) potassium serum 3.8 mEq/L 3.5-5.1 D Potassium Serum [place] ([facility]) carbon dioxide level 26 mEq/L 21-32 normal Carbon Dioxide Level [place] ([facility]) chloride level 110 mEq/L 98-107 Above high normal Chloride Level [place] ([facility]) sodium level 141 mEq/L 136-145 normal Sodium Level [place] ([facility]) AST/SGOT 26 U/L 7-37 normal AST/SGOT [place] ([facility]) anion gap 5 mEq/L 8-16 Below low normal Anion Gap [place] ( [facility]) calcium level 8.0 mg/dL 8.5-10.1 Below low normal Calcium Level AT [facility]) ALT/SGPT 41 U/L 12-78 normal ALT/SGPT [place] ([facility]) bilirubin,total 0.4 mg/dL 0.2-1.0 normal Bilirubin,total [place] ([facility]) alkaline phosphatase 86 U/L 45-117 normal Alkaline Phosph atase [place] ([facility]) total protein 7.4 gm/dL 6.4-8.2 normal Total Protein [place] ( [facility]) albumin/globulin ratio 1.2-2.2 Below low normal Albumin /globulin Ratio [place] ([facility]) albumin 3.5 gm/dL 3.2-5.2 normal Albumin [place] ([facility]) ID Date Data Source [id number] 2020 06:50:00 AM EDT [place] ([facility]) Name Value Range Interpretation Code Description Data Mary rce(s) Supporting Document(s) glucose, fasting 140 mg/dL 70-100 Above high normal Glucose, Fas ting [place] ([facility]) blood urea nitrogen 9 mg/dL 7-18 normal Blood Urea Nitro gen [place] ([facility]) creatinine for GFR 0.59 mg/dL 0.55-1.30 normal Creatinine for GF R [place] ([facility]) glomerular filtration rate > 60.0 >60 normal Glomerula r Filtration Rate [place] ([facility]) chloride level 110 mEq/L 98-107 Above high normal Chloride Level [place] ([facility]) sodium level 141 mEq/L 136-145 normal Sodium Level [place] ([facility]) potassium serum 3.8 mEq/L 3.5-5.1 D Potassium Serum [place] ([facility]) AST/SGOT 26 U/L 7-37 normal AST/SGOT [place] ([facility]) carbon dioxide level 26 mEq/L 21-32 normal Carbon Dioxide Level [place] ([facility]) anion gap 5 mEq/L 8-16 Below low normal Anion Gap [place] ( [facility]) calcium level 8.0 mg/dL 8.5-10.1 Below low normal Calcium Level AT [facility] ([facility]) ALT/SGPT 41 U/L 12-78 normal ALT/SGPT [place] ([facility]) alkaline phosphatase 86 U/L 45-117 normal Alkaline Phosph atase [place] ([facility]) albumin 3.5 gm/dL 3.2-5.2 normal Albumin [place] ([facility]) bilirubin,total 0.4 mg/dL 0.2-1.0 normal Bilirubin,total [place] ([facility]) total protein 7.4 gm/dL 6.4-8.2 normal Total Protein [place] ( [facility]) albumin/globulin ratio 1.2-2.2 Below low normal Albumin /globulin Ratio [place] ([facility]) ID Date Data Source [id number] 2020 06:50:00 AM EDT [place] ([facility]) Name Value Range Interpretation Code Description Data Mary rce(s) Supporting Document(s) glucose, fasting 140 mg/dL 70-100 Above high normal Glucose, Fas ting [place] ([facility]) creatinine for GFR 0.59 mg/dL 0.55-1.30 normal Creatinine for GF R [place] ([facility]) blood urea nitrogen 9 mg/dL 7-18 normal Blood Urea Nitro gen [place] ([facility]) sodium level 141 mEq/L 136-145 normal Sodium Level [place] ([facility]) glomerular filtration rate > 60.0 >60 normal Glomer[place] r Filtration Rate [place] ([facility]) potassium serum 3.8 mEq/L 3.5-5.1 D Potassium Serum [place] ([facility]) carbon dioxide level 26 mEq/L 21-32 normal Carbon Dioxide Level [place] ([facility]) anion gap 5 mEq/L 8-16 Below low normal Anion Gap [place] ( [facility]) chloride level 110 mEq/L 98-107 Above high normal Chloride Level [place] ([facility]) calcium level 8.0 mg/dL 8.5-10.1 Below low normal Calcium Level AT [facility]) ALT/SGPT 41 U/L 12-78 normal ALT/SGPT [place] ([facility]) AST/SGOT 26 U/L 7-37 normal AST/SGOT [place] ([facility]) alkaline phosphatase 86 U/L 45-117 normal Alkaline Phosph atase [place] ([facility]) total protein 7.4 gm/dL 6.4-8.2 normal Total Protein [place] ( [facility]) albumin 3.5 gm/dL 3.2-5.2 normal Albumin [place] ([facility]) albumin/globulin ratio 1.2-2.2 Below low normal Albumin /globulin Ratio [place] ([facility]) bilirubin,total 0.4 mg/dL 0.2-1.0 normal Bilirubin,total [place] ([facility]) ID Date Data Source [id number] 2020 06:50:00 AM EDT [place] ([facility]) Name Value Range Interpretation Code Description Data Mary rce(s) Supporting Document(s) glucose, fasting 140 mg/dL 70-100 Above high normal Glucose, Fas ting [place] ([facility]) blood urea nitrogen 9 mg/dL 7-18 normal Blood Urea Nitro gen [place] ([facility]) creatinine for GFR 0.59 mg/dL 0.55-1.30 normal Creatinine for GF R [place] ([facility]) glomerular filtration rate > 60.0 >60 normal Glomerula r Filtration Rate [place] ([facility]) potassium serum 3.8 mEq/L 3.5-5.1 D Potassium Serum [place] ([facility]) chloride level 110 mEq/L 98-107 Above high normal Chloride Level [place] ([facility]) carbon dioxide level 26 mEq/L 21-32 normal Carbon Dioxide Level [place] ([facility]) sodium level 141 mEq/L 136-145 normal Sodium Level [place] ([facility]) ALT/SGPT 41 U/L 12-78 normal ALT/SGPT [place] ([facility]) anion gap 5 mEq/L 8-16 Below low normal Anion Gap [place] ( [facility]) calcium level 8.0 mg/dL 8.5-10.1 Below low normal Calcium Level AT [facility] ([facility]) alkaline phosphatase 86 U/L 45-117 normal Alkaline Phosph atase [place] ([facility]) AST/SGOT 26 U/L 7-37 normal AST/SGOT [place] ([facility]) albumin 3.5 gm/dL 3.2-5.2 normal Albumin [place] ([facility]) total protein 7.4 gm/dL 6.4-8.2 normal Total Protein [place] ( [facility]) bilirubin,total 0.4 mg/dL 0.2-1.0 normal Bilirubin,total [place] ([facility]) albumin/globulin ratio 1.2-2.2 Below low normal Albumin /globulin Ratio [place] ([facility]) ID Date Data Source [id number] 2020 06:50:00 AM EDT [place] ([facility]) Name Value Range Interpretation Code Description Data Mary rce(s) Supporting Document(s) blood urea nitrogen 9 mg/dL 7-18 normal Blood Urea Nitro gen [place] ([facility]) glucose, fasting 140 mg/dL 70-100 Above high normal Glucose, Fas ting [place] ([facility]) creatinine for GFR 0.59 mg/dL 0.55-1.30 normal Creatinine for GF R [place] ([facility]) potassium serum 3.8 mEq/L 3.5-5.1 D Potassium Serum [facility]) chloride level 110 mEq/L 98-107 Above high normal Chloride Level [place] ([facility]) glomerular filtration rate > 60.0 >60 normal Glomerula r Filtration Rate [place] ([facility]) sodium level 141 mEq/L 136-145 normal Sodium Level [place] ([facility]) AST/SGOT 26 U/L 7-37 normal AST/SGOT [place] ([facility]) calcium level 8.0 mg/dL 8.5-10.1 Below low normal Calcium Level AT [facility] ([facility]) carbon dioxide level 26 mEq/L 21-32 normal Carbon Dioxide Level [place] ([facility]) anion gap 5 mEq/L 8-16 Below low normal Anion Gap [place] ( [facility]) ALT/SGPT 41 U/L 12-78 normal ALT/SGPT [place] ([facility]) total protein 7.4 gm/dL 6.4-8.2 normal Total Protein [place] ( [facility]) bilirubin,total 0.4 mg/dL 0.2-1.0 normal Bilirubin,total [place] ([facility]) alkaline phosphatase 86 U/L 45-117 normal Alkaline Phosph atase [place] ([facility]) albumin 3.5 gm/dL 3.2-5.2 normal Albumin [place] ([facility]) albumin/globulin ratio 1.2-2.2 Below low normal Albumin /globulin Ratio [place] ([facility]) ID Date Data Source [id number] 2020 06:50:00 AM EDT [place] ([facility]) Name Value Range Interpretation Code Description Data Mary rce(s) Supporting Document(s) creatinine for GFR 0.59 mg/dL 0.55-1.30 normal Creatinine for GF R [place] ([facility]) blood urea nitrogen 9 mg/dL 7-18 normal Blood Urea Nitro gen [place] ([facility]) glucose, fasting 140 mg/dL 70-100 Above high normal Glucose, Fas ting [place] ([facility]) glomerular filtration rate > 60.0 >60 normal [place]omer[place] r Filtration Rate [place] ([facility]) potassium serum 3.8 mEq/L 3.5-5.1 D Potassium Serum [place] ([facility]) sodium level 141 mEq/L 136-145 normal Sodium Level [place] ([facility]) chloride level 110 mEq/L 98-107 Above high normal Chloride Level [place] ([facility]) carbon dioxide level 26 mEq/L 21-32 normal Carbon Dioxide Level [place] ([facility]) AST/SGOT 26 U/L 7-37 normal AST/SGOT [place] ([facility]) ALT/SGPT 41 U/L 12-78 normal ALT/SGPT [place] ([facility]) alkaline phosphatase 86 U/L 45-117 normal Alkaline Phosph atase [place] ([facility]) anion gap 5 mEq/L 8-16 Below low normal Anion Gap [place] ( [facility]) calcium level 8.0 mg/dL 8.5-10.1 Below low normal Calcium Level AT [facility]) total protein 7.4 gm/dL 6.4-8.2 normal Total Protein [place] ( [facility]) bilirubin,total 0.4 mg/dL 0.2-1.0 normal Bilirubin,total [facility] albumin 3.5 gm/dL 3.2-5.2 normal Albumin [place] ([facility]) albumin/globulin ratio 1.2-2.2 Below low normal Albumin /globulin Ratio [place] ([facility]) ID Date Data Source [id number] 2020 06:50:00 AM EDT [facility] Name Value Range Interpretation Code Description Data Mary rce(s) Supporting Document(s) HCT 34.0 % 36.0-47.0 L [facility] HGB 10.8 g/dL 12.0-15.5 L [facility] MCH 31.8 G/DL pg 32.0-36.5 L [facility] MCHC 24.5 PG % 27.0-33.0 L [facility] PLATELETS 24 10 10*3/mm3 150-450 Below lower panic limits [facility] RBC 4.40 10 10*6/mm3 4.00-5.40 N [facility] RDW 14.7 % 11.5-14.5 H [facility] WBC TOTAL 6.1 4.0-10.0 N [facility] ID Date Data Source [id number] 01/14/2020 01:37:00 PM EDT [facility]) Name Value Range Interpretation Code Description Data Mary rce(s) Supporting Document(s) glucose, fasting 90 mg/dL 70-100 normal Glucose, Fasting AT [facility]) glomerular filtration rate > 60.0 >60 normal Glomer[place] r Filtration Rate [facility]) creatinine for GFR 0.63 mg/dL 0.55-1.30 normal Creatinine for GF R [facility]) sodium level 142 mEq/L 136-145 normal Sodium Level [place] ([facility]) blood urea nitrogen 11 mg/dL 7-18 normal Blood Urea Nitro gen [facility]) chloride level 109 mEq/L 98-107 Above high normal Chloride Level [place] ([facility]) calcium level 8.0 mg/dL 8.5-10.1 Below low normal Calcium Level AT [facility]) carbon dioxide level 29 mEq/L 21-32 normal Carbon Dioxide Level [place] ([facility]) anion gap 4 mEq/L 8-16 Below low normal Anion Gap [place] ( [facility]) potassium serum 3.1 mEq/L 3.5-5.1 Below low normal Potassium Seru m [facility]) ID Date Data Source [id number] 01/14/2020 01:37:00 PM EDT [facility]) Name Value Range Interpretation Code Description Data Mary rce(s) Supporting Document(s) glucose, fasting 90 mg/dL 70-100 normal Glucose, Fasting AT [facility] ([facility]) sodium level 142 mEq/L 136-145 normal Sodium Level [place] ([facility]) potassium serum 3.1 mEq/L 3.5-5.1 Below low normal Potassium Seru m [place] ([facility]) creatinine for GFR 0.63 mg/dL 0.55-1.30 normal Creatinine for GF R [place] ([facility]) glomerular filtration rate > 60.0 >60 normal Glomerula r Filtration Rate [place] ([facility]) blood urea nitrogen 11 mg/dL 7-18 normal Blood Urea Nitro gen [place] ([facility]) chloride level 109 mEq/L 98-107 Above high normal Chloride Level [place] ([facility]) anion gap 4 mEq/L 8-16 Below low normal Anion Gap [place] ( [facility]) carbon dioxide level 29 mEq/L 21-32 normal Carbon Dioxide Level [place] ([facility]) calcium level 8.0 mg/dL 8.5-10.1 Below low normal Calcium Level AT [facility]) ID Date Data Source [id number] 01/14/2020 01:37:00 PM EDT [facility]) Name Value Range Interpretation Code Description Data Mary rce(s) Supporting Document(s) glucose, fasting 90 mg/dL 70-100 normal Glucose, Fasting AT [facility] ([facility]) creatinine for GFR 0.63 mg/dL 0.55-1.30 normal Creatinine for GF R [place] ([facility]) glomerular filtration rate > 60.0 >60 normal Glomerula r Filtration Rate [place] ([facility]) blood urea nitrogen 11 mg/dL 7-18 normal Blood Urea Nitro gen [place] ([facility]) sodium level 142 mEq/L 136-145 normal Sodium Level [place] ([facility]) anion gap 4 mEq/L 8-16 Below low normal Anion Gap [place] ( [facility]) chloride level 109 mEq/L 98-107 Above high normal Chloride Level [facility]) calcium level 8.0 mg/dL 8.5-10.1 Below low normal Calcium Level AT [facility]) potassium serum 3.1 mEq/L 3.5-5.1 Below low normal Potassium Seru m [place] ([facility]) carbon dioxide level 29 mEq/L 21-32 normal Carbon Dioxide Level [place] ([facility]) ID Date Data Source [id number] 01/14/2020 01:37:00 PM EDT [facility]) Name Value Range Interpretation Code Description Data Mary rce(s) Supporting Document(s) glomerular filtration rate > 60.0 >60 normal [place] r Filtration Rate [place] ([facility]) creatinine for GFR 0.63 mg/dL 0.55-1.30 normal Creatinine for GF R [place] ([facility]) sodium level 142 mEq/L 136-145 normal Sodium Level [place] ([facility]) glucose, fasting 90 mg/dL 70-100 normal Glucose, Fasting AT [facility]) blood urea nitrogen 11 mg/dL 7-18 normal Blood Urea Nitro gen [facility]) anion gap 4 mEq/L 8-16 Below low normal Anion Gap [place] ( [facility]) potassium serum 3.1 mEq/L 3.5-5.1 Below low normal Potassium Seru m [place] ([facility]) calcium level 8.0 mg/dL 8.5-10.1 Below low normal Calcium Level AT [facility]) carbon dioxide level 29 mEq/L 21-32 normal Carbon Dioxide Level [place] ([facility]) chloride level 109 mEq/L 98-107 Above high normal Chloride Level [facility]) ID Date Data Source [id number] 01/14/2020 01:37:00 PM EDT [facility]) Name Value Range Interpretation Code Description Data Mary rce(s) Supporting Document(s) glucose, fasting 90 mg/dL 70-100 normal Glucose, Fasting AT [facility]) blood urea nitrogen 11 mg/dL 7-18 normal Blood Urea Nitro gen [place] ([facility]) glomerular filtration rate > 60.0 >60 normal Glomerula r Filtration Rate [place] ([facility]) creatinine for GFR 0.63 mg/dL 0.55-1.30 normal Creatinine for GF R [place] ([facility]) sodium level 142 mEq/L 136-145 normal Sodium Level [place] ([facility]) carbon dioxide level 29 mEq/L 21-32 normal Carbon Dioxide Level [place] ([facility]) chloride level 109 mEq/L 98-107 Above high normal Chloride Level [place] ([facility]) potassium serum 3.1 mEq/L 3.5-5.1 Below low normal Potassium Seru m [place] ([facility]) anion gap 4 mEq/L 8-16 Below low normal Anion Gap [place] ( [facility]) calcium level 8.0 mg/dL 8.5-10.1 Below low normal Calcium Level AT [facility]) ID Date Data Source [id number] 01/14/2020 01:37:00 PM EDT [facility]) Name Value Range Interpretation Code Description Data Mray rce(s) Supporting Document(s) glucose, fasting 90 mg/dL 70-100 normal Glucose, Fasting AT [facility]) blood urea nitrogen 11 mg/dL 7-18 normal Blood Urea Nitro gen [place] ([facility]) creatinine for GFR 0.63 mg/dL 0.55-1.30 normal Creatinine for GF R [place] ([facility]) glomerular filtration rate > 60.0 >60 normal Glomerula r Filtration Rate [place] ([facility]) potassium serum 3.1 mEq/L 3.5-5.1 Below low normal Potassium Seru m [place] ([facility]) sodium level 142 mEq/L 136-145 normal Sodium Level [place] ([facility]) anion gap 4 mEq/L 8-16 Below low normal Anion Gap [place] ( [facility]) carbon dioxide level 29 mEq/L 21-32 normal Carbon Dioxide Level [facility]) chloride level 109 mEq/L 98-107 Above high normal Chloride Level [facility]) calcium level 8.0 mg/dL 8.5-10.1 Below low normal Calcium Level AT [facility]) ID Date Data Source [id number] 01/14/2020 01:37:00 PM EDT [facility]) Name Value Range Interpretation Code Description Data Mary rce(s) Supporting Document(s) blood urea nitrogen 11 mg/dL 7-18 normal Blood Urea Nitro gen [place] ([facility]) glucose, fasting 90 mg/dL 70-100 normal Glucose, Fasting AT [facility]) creatinine for GFR 0.63 mg/dL 0.55-1.30 normal Creatinine for GF R [facility]) glomerular filtration rate > 60.0 >60 normal Glomerula r Filtration Rate [place] ([facility]) chloride level 109 mEq/L 98-107 Above high normal Chloride Level [place] ([facility]) potassium serum 3.1 mEq/L 3.5-5.1 Below low normal Potassium Seru m [facility]) sodium level 142 mEq/L 136-145 normal Sodium Level [place] ([facility]) calcium level 8.0 mg/dL 8.5-10.1 Below low normal Calcium Level AT [facility]) carbon dioxide level 29 mEq/L 21-32 normal Carbon Dioxide Level [facility]) anion gap 4 mEq/L 8-16 Below low normal Anion Gap [facility]) ID Date Data Source [id number] 01/14/2020 01:37:00 PM EDT [facility]) Name Value Range Interpretation Code Description Data Mary rce(s) Supporting Document(s) glucose, fasting 90 mg/dL 70-100 normal Glucose, Fasting AT [facility]) potassium serum 3.1 mEq/L 3.5-5.1 Below low normal Potassium Seru m [facility]) creatinine for GFR 0.63 mg/dL 0.55-1.30 normal Creatinine for GF R [place] ([facility]) blood urea nitrogen 11 mg/dL 7-18 normal Blood Urea Nitro gen [place] ([facility]) sodium level 142 mEq/L 136-145 normal Sodium Level [place] ([facility]) glomerular filtration rate > 60.0 >60 normal Glomerula r Filtration Rate [place] ([facility]) chloride level 109 mEq/L 98-107 Above high normal Chloride Level [place] ([facility]) carbon dioxide level 29 mEq/L 21-32 normal Carbon Dioxide Level [place] ([facility]) anion gap 4 mEq/L 8-16 Below low normal Anion Gap [place] ( [facility]) calcium level 8.0 mg/dL 8.5-10.1 Below low normal Calcium Level AT [facility]) ID Date Data Source [id number] 01/14/2020 01:37:00 PM EDT [facility] Name Value Range Interpretation Code Description Data Mary rce(s) Supporting Document(s) HCT 34.7 % 36.0-47.0 L [facility] HGB 11.2 g/dL 12.0-15.5 L [facility] MCH 32.3 G/DL pg 32.0-36.5 N [facility] MCHC 24.8 PG % 27.0-33.0 L [facility] PLATELETS 7 10 10*3/mm3 150-450 Below lower panic limits [facility] RBC 4.52 10 10*6/mm3 4.00-5.40 N [facility] RDW 14.9 % 11.5-14.5 H [facility] WBC TOTAL 5.1 4.0-10.0 N [facility] ID Date Data Source [id number] 09/13/2019 01:35:31 PM EDT [facility] [...] History Medical History:History of Chiari MalformationHeadachesITPDepressionBi- PolaranemiaSurgical History:[id number] History:FH AsthmaFH ADHDSocial/Personal History:LIVES WITH / 12/12 Chief Complaintzoom folllow up dep/anxHistory of Present Illness (HPI)Telemedicine visit with patient's location at their home and provider's location at [facility]. Additional person(s)participating in the visit: [...] during this visit, including review of any hybr-ler-budhjbw medications, herbal therapies, and/or supplements.Allergy ReviewAllergy List was reviewed and/or updated during this visit.Provider Calculated and Reviewed all Clinical Protocols for patient today. Care Management Plan Transitions of CareInboundRate Your HealthIn general, would you say your health is? PoorAssessment & Plan Problems:Added: Insomnia, unspecified (TVY68-F42.00) Assessment: Instructions: We have sent a prescription to your pharmacy today. Please take medication as prescribed. Please report any major side effects.Assessed:Anxiety depression (ICD-300.4) (SDS01-M81.8) Assessment: Instructions: We have increase the dose of your prozac today. .Please take medication as prescribed. Please report any major side effects.Anxiety depression (ICD-300.4) (DLH36-A14.8) Assessment: GAD7 and PHQ 9 scores reviewed [...] ORAL TABLETTYLENOL 325 MG ORAL TABLETVITAMIN D3 21052 UNIT ORAL TABLETPROZAC 20 MG ORAL CAPSULEMedication Changes:Refilled:PROZAC 20 MG ORAL CAPSULE-take one tablet by mouth daily Qty: 30[Capsule] Refills: 2 Method: ElectronicNew Prescription:TRAZODONE HCL 50 MG ORAL TABLET-take one tablet by mouth daily at bedtime. Qty: 30[Tablet] Refills: 1 Method: ElectronicChanged:From: ORAL PROZAC 10 MG ORAL CAPSULE Qty: [id number] Refills: 30[Capsule] To: PROZAC 20 MG ORAL CAPSULE-take one tablet by mouth daily Qty: 30[Capsule] Refills: 2Allergies:* PEDIAZOLE (Critical)Orders:Telepsychiatry Consult [CPT-14221] COMP METABOLIC PANEL [CPT-42882] CBC W/DIFF [CPT-06035] LIPID PANEL [CPT-95867] TSH [CPT-95552] T-4 free [CPT-12839] Vitamin D 250H Unspecified [CPT-54860] Office Visit - Established, Level 3 [CPT-17905BS] Follow-Up Return to clinic: 4-6 weeks for [...] rce(s) Supporting Document(s) ID Date Data Source [id number] 07/09/2019 11:40:00 AM [facility] Name Value Range Interpretation Code Description Data [facility] rce(s) Supporting Document(s) THROAT CULTR NORMAL JD PRESENT [facility] ID Date Data Source [id number] 07/09/2019 11:25:08 AM [facility] Measurements & CalculationsHeight: 60 inches (5 [...] AMPatient History Medical History:History of Chiari MalformationHeadachesITPDepressionBi-PolaranemiaSurgical History:Rebpavcqm2Onbsms History:FH AsthmaFH ADHDSocial/Personal History:LIVES WITH / 12/12 [...] during this visit, including review of any rdje-aea-nyapfdl medications, herbal therapies, and/or supplements.Allergy ReviewAllergy List [...] rupture of ear drum, right ear (ICD-382.01) (RKV41-Z65.001) Assessment: Instructions: Start amoxicillin twice daily x 10 days. Take antibiotics as prescribed, finish full course even if symptoms resolve. Antibiotics may cause stomach upset, recommend eating yogurt or taking probiotic while on antibiotics.Changed:From: Dx of PHARYNGITIS ACUTE (ICD-462) (ICD10- J02.9) To: PHARYNGITIS ACUTE (ICD-462) (ZYG73-J99.9)Assessed:PHARYNGITIS ACUTE (ICD-462) (DRU91-Z82.9) Assessment: Instructions: Negative strep in office today. [...] ORAL TABLETTYLENOL 325 MG ORAL TABLETVITAMIN D3 77943 UNIT ORAL TABLETPROZAC 10 MG ORAL CAPSULEMedication Changes:New Prescription:AMOXICILLIN 875 MG ORAL TABLET-Take 1 tablet by mouth twice daily x 10 days Qty: 20[Tablet] Refills: 0 Method: ElectronicRemoved:PREDNISONE 20 MG ORAL TABLET-4 tablets by mouth dailyAllergies:* PEDIAZOLE (Critical)Orders:Rapid Strep [CPT-48766] Throat Culture [CPT-54409] Adult - Ofc Vst, EST, Level II [CPT-91916] Follow-Up Return to clinic: as needed Clinical Visit Summary CompletedMedications:AMOXICILLIN 875 MG ORAL TABLET (AMOXICILLIN) Take 1 tablet by mouth twice daily x 10 days #20[Tablet] x 0 Route:ORAL Entered and Authorized by: Jaime WHEELER Method used: Electronically to [facility] (retail) [id number] [place] [address] Note to Pharmacy: Route: ORAL; Indications: ACUTE SUPPURATIVE OTITIS MEDIA WITHOUT SPONTANEOUS RUPTURE OF EAR DRUM, RIGHT EAR RxID: [id number] signed by Jaime WHEELER on 07/14/2019 at 8:09 AM Name Value Range Interpretation Code Description Data Mary rce(s) Supporting Document(s) ID Date Data Source [id number] 06/07/2019 01:20:36 PM [facility] Measurements & CalculationsHeight: 60 inches (5 [...] dentist? Yes - [facility]Int[facility] performed by: Valenitne Pendleton MA, June 07, 2019 1:22 PMRate [...] PMPatient History Medical History:History of Chiari MalformationHeadachesITPDepressionBi-PolaranemiaSurgical History:Hgstmetlq4Grgxch History:FH AsthmaFH ADHDSocial/Personal History:LIVES WITH / 12/12 [...] concerns today. HPI performed by: Delores Tierney [facility], June 07, 2019 1:52 PMTransitions of Care InboundProblem ReviewProblem List was reviewed and/or updated during this visit.Medication Reconciliation & ReviewMedication List was reviewed and/or updated during this visit, including review of any ftzh-ehm-psrdvyd medications, herbal therapies, and/or supplements.Allergy ReviewAllergy List [...] is? 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 Please try to keep scheduled appointment with Therapist. Please let us know if you need additional assistance.Vitamin D deficiency (ICD-268.9) (DCI93-B33.9) Assessment: Instructions: Please continue medication as prescribed.Anxiety depression (ICD-300.4) (KDH98-M04.8) Assessment: New referral done.Patient Instructions/Care Plan: Platelet disorder: Please continue to follow with your specialist as scheduled.Anxiety depression: Please continue medication as scheduled. Please try to keep scheduled appointment with Therapist. Please let us know if you need additional assistance.Vitamin D deficiency: Please continue medication as prescribed. Plan developed in collaboration with patient and/or familyMedications:TYLENOL 325 MG ORAL TABLETVITAMIN D3 19902 UNIT ORAL TABLETPROZAC 10 MG ORAL CAPSULEPREDNISONE 20 MG ORAL TABLETMedication Changes:Refilled:PROZAC 10 MG ORAL CAPSULE-take one tablet by mouth daily Qty: 30[Capsule] Refills: 3 Method: ElectronicAllergies:* PEDIAZOLE (Critical)Orders:Mental Health Consult [CPT-44802] Adult - Ofc Vst, EST, Level III [CPT-69581] Follow-Up Return to clinic: 3 months for follow up Clinical Visit Summary CompletedMedications:PROZAC 10 MG ORAL CAPSULE (FLUOXETINE HCL) take one tablet by mouth daily #30[Capsule] x 3 Route:ORAL Entered and Authorized by: Delores RANGEL Method used: Electronically to [facility] (retail) [address] [place] [address] Fax: Note to Pharmacy: Route: ORAL; Indications: ANXIETY DEPRESSION RxID: [id number] signed by Delores RANGEL on 06/10/2019 at 12:16 AM Name Value Range Interpretation Code Description Data Mary rce(s) Supporting Document(s) Procedure Vital Signs ID Date Data Source UNK Name Value Range Interpretation Code Description Data Source(s) Body weight 3460 [oz_av] 3460 [oz_av] BRUNO ([facility]) Systolic blood pressure 95 mm[Hg] 95 mm[Hg] A [facility]) Body mass index (BMI) [Ratio] 42.2 kg/m2 42.2 k g/m2 [facility]) Body height 60 [in_i] 60 [in_i] BRUNO ([facility]) Diastolic blood pressure 68 mm[Hg] 68 mm[Hg] BRUNO ([facility]) Body weight 3460 [oz_av] 3460 [oz_av] BRUNO ([facility]) Systolic blood pressure 95 mm[Hg] 95 mm[Hg] A [facility]) Body mass index (BMI) [Ratio] 42.2 kg/m2 42.2 k g/m2 [facility] 60 [in_i] 60 [in_i] [facility] Diastolic blood pressure 68 mm[Hg] 68 mm[Hg] BRUNO ([facility]) Body weight 3475.2 [oz_av] 3475.2 [oz_av] ATHEN A ([facility]) Systolic blood pressure 109 mm[Hg] 109 mm[Hg] A THENA ([facility]) Body mass index (BMI) [Ratio] 42.4 kg/m2 42.4 k g/m2 BRUNO ([facility]) Body height 60 [in_i] 60 [in_i] BRUNO ([facility]) Diastolic blood pressure 77 mm[Hg] 77 mm[Hg] BRUNO ([facility]) Body weight 3475.2 [oz_av] 3475.2 [oz_av] ATHEN A ([facility]) Systolic blood pressure 109 mm[Hg] 109 mm[Hg] A THENA ([facility]) Body mass index (BMI) [Ratio] 42.4 kg/m2 42.4 k g/m2 BRUNO ([facility]) Body height 60 [in_i] 60 [in_i] BRUNO ([facility]) Diastolic blood pressure 77 mm[Hg] 77 mm[Hg] BRUNO ([facility]) Body weight 3475.2 [oz_av] 3475.2 [oz_av] ATHEN A ([facility]) Systolic blood pressure 109 mm[Hg] 109 mm[Hg] A THENA ([facility]) Body mass index (BMI) [Ratio] 42.4 kg/m2 42.4 k g/m2 BRUNO ([facility]) Body height 60 [in_i] 60 [in_i] BRUNO ([facility]) Diastolic blood pressure 77 mm[Hg] 77 mm[Hg] BRUNO ([facility]) Body weight 3475.2 [oz_av] 3475.2 [oz_av] ATHEN A ([facility]) Systolic blood pressure 109 mm[Hg] 109 mm[Hg] A THENA ([facility]) Body mass index (BMI) [Ratio] 42.4 kg/m2 42.4 k g/m2 BRUNO ([facility]) Body height 60 [in_i] 60 [in_i] BRUNO ([facility]) Diastolic blood pressure 77 mm[Hg] 77 mm[Hg] BRUNO ([facility]) Body weight 3475.2 [oz_av] 3475.2 [oz_av] ATHEN A ([facility]) Systolic blood pressure 109 mm[Hg] 109 mm[Hg] A THENA ([facility]) Body mass index (BMI) [Ratio] 42.4 kg/m2 42.4 k g/m2 BRUNO ([facility]) Body height 60 [in_i] 60 [in_i] BRUNO ([facility]) Diastolic blood pressure 77 mm[Hg] 77 mm[Hg] BRUNO ([facility]) Body weight 3266.08 [oz_av] 3266.08 [oz_av] ATH TJ ([facility]) Body height 60 [in_i] 60 [in_i] BRUNO ([facility]) Body weight 3266.08 [oz_av] 3266.08 [oz_av] ATH TJ ([facility]) Body height 60 [in_i] 60 [in_i] BRUNO ([facility]) Body weight 3266.08 [oz_av] 3266.08 [oz_av] ATH TJ ([facility]) Body height 60 [in_i] 60 [in_i] BRUNO ([facility]) Body weight 3266.08 [oz_av] 3266.08 [oz_av] ATH TJ ([facility]) Body height 60 [in_i] 60 [in_i] BRUNO ([facility]) Body weight 3266.08 [oz_av] 3266.08 [oz_av] ATH TJ ([facility]) Body height 60 [in_i] 60 [in_i] BRUNO ([facility]) Body weight 3266.08 [oz_av] 3266.08 [oz_av] ATH TJ ([facility]) Body height 60 [in_i] 60 [in_i] BRUNO ([facility]) Body weight 3266.08 [oz_av] 3266.08 [oz_av] ATH TJ ([facility]) Body height 60 [in_i] 60 [in_i] BRUNO ([facility]) Body weight 3266.08 [oz_av] 3266.08 [oz_av] ATH TJ ([facility]) Body height 60 [in_i] 60 [in_i] BRUNO ([facility]) Body weight 3266.08 [oz_av] 3266.08 [oz_av] ATH TJ ([facility]) Body height 60 [in_i] 60 [in_i] BRUNO ([facility]) Body weight 3032 [oz_av] 3032 [oz_av] BRUNO ([facility]) Systolic blood pressure 107 mm[Hg] 107 mm[Hg] A [facility] ([facility]) Body height 60 [in_i] 60 [in_i] BRUNO ([facility]) Diastolic blood pressure 72 mm[Hg] 72 mm[Hg] BRUNO ([facility]) Body weight 3032 [oz_av] 3032 [oz_av] BRUNO ([facility]) Systolic blood pressure 107 mm[Hg] 107 mm[Hg] A [facility] ([facility]) Body height 60 [in_i] 60 [in_i] BRUNO ([facility]) Diastolic blood pressure 72 mm[Hg] 72 mm[Hg] BRUNO ([facility]) Body weight 3032 [oz_av] 3032 [oz_av] BRUNO ([facility]) Systolic blood pressure 107 mm[Hg] 107 mm[Hg] A THENA ([facility]) Body height 60 [in_i] 60 [in_i] BRUNO ([facility]) Diastolic blood pressure 72 mm[Hg] 72 mm[Hg] BRUNO ([facility]) Body weight 3032 [oz_av] 3032 [oz_av] [facility] ([facility]) Systolic blood pressure 107 mm[Hg] 107 mm[Hg] [facility] Body height 60 [in_i] 60 [in_i] BRUNO ([facility]) Diastolic blood pressure 72 mm[Hg] 72 mm[Hg] BRUNO ([facility]) Body weight 3032 [oz_av] 3032 [oz_av] [facility]O ([facility]) Systolic blood pressure 107 mm[Hg] 107 mm[Hg] [facility] Body height 60 [in_i] 60 [in_i] BRUNO ([facility]) Diastolic blood pressure 72 mm[Hg] 72 mm[Hg] BRUNO ([facility]) Body weight 3032 [oz_av] 3032 [oz_av] [facility] ([facility]) Systolic blood pressure 107 mm[Hg] 107 mm[Hg] [facility] Body height 60 [in_i] 60 [in_i] BRUNO ([facility]) Diastolic blood pressure 72 mm[Hg] 72 mm[Hg] BRUNO ([facility]) Body weight 3032 [oz_av] 3032 [oz_av] [facility] ([facility]) Systolic blood pressure 107 mm[Hg] 107 mm[Hg] [facility] Body height 60 [in_i] 60 [in_i] BRUNO ([facility]) Diastolic blood pressure 72 mm[Hg] 72 mm[Hg] BRUNO ([facility]) Body weight 3032 [oz_av] 3032 [oz_av] [facility] ([facility]) Systolic blood pressure 107 mm[Hg] 107 mm[Hg] [facility] Body height 60 [in_i] 60 [in_i] BRUNO ([facility]) Diastolic blood pressure 72 mm[Hg] 72 mm[Hg] BR[facility]O ([facility]) Body weight 3032 [oz_av] 3032 [oz_av] [facility] ([facility]) Systolic blood pressure 107 mm[Hg] 107 mm[Hg] [facility] Body height 60 [in_i] 60 [in_i] BRUNO ([facility]) Diastolic blood pressure 72 mm[Hg] 72 mm[Hg] BRUNO ([facility]) Body weight 2880 [oz_av] 2880 [oz_av] [facility] ([facility]) Systolic blood pressure 100 mm[Hg] 100 mm[Hg] [facility] Body height 60 [in_i] 60 [in_i] BRUNO ([facility]) Diastolic blood pressure 68 mm[Hg] 68 mm[Hg] BRUNO ([facility]) Body weight 2880 [oz_av] 2880 [oz_av] [facility] ([facility]) Systolic blood pressure 100 mm[Hg] 100 mm[Hg] [facility] Body height 60 [in_i] 60 [in_i] BRUNO ([facility]) Diastolic blood pressure 68 mm[Hg] 68 mm[Hg] BRUNO ([facility]) Body weight 2880 [oz_av] 2880 [oz_av] [facility] ([facility]) Systolic blood pressure 100 mm[Hg] 100 mm[Hg] A [facility] ([facility]) Body height 60 [in_i] 60 [in_i] BRUNO ([facility]) Diastolic blood pressure 68 mm[Hg] 68 mm[Hg] BRUNO ([facility]) Body weight 2880 [oz_av] 2880 [oz_av] [facility] ([facility]) Systolic blood pressure 100 mm[Hg] 100 mm[Hg] [facility] Body height 60 [in_i] 60 [in_i] BRUNO ([facility]) Diastolic blood pressure 68 mm[Hg] 68 mm[Hg] BRUNO ([facility]) Body weight 2880 [oz_av] 2880 [oz_av] [facility] ([facility]) Systolic blood pressure 100 mm[Hg] 100 mm[Hg] [facility] Body height 60 [in_i] 60 [in_i] BRUNO ([facility]) Diastolic blood pressure 68 mm[Hg] 68 mm[Hg] BRUNO ([facility]) Body weight 2880 [oz_av] 2880 [oz_av] [facility] ([facility]) Systolic blood pressure 100 mm[Hg] 100 mm[Hg] [facility] Body height 60 [in_i] 60 [in_i] BRUNO ([facility]) Diastolic blood pressure 68 mm[Hg] 68 mm[Hg] BRUNO ([facility]) Body weight 2880 [oz_av] 2880 [oz_av] [facility] ([facility]) Systolic blood pressure 100 mm[Hg] 100 mm[Hg] [facility] Body height 60 [in_i] 60 [in_i] BRUNO ([facility]) Diastolic blood pressure 68 mm[Hg] 68 mm[Hg] BRUNO ([facility]) Body weight 2880 [oz_av] 2880 [oz_av] [facility]O ([facility]) Systolic blood pressure 100 mm[Hg] 100 mm[Hg] A [facility] ([facility]) Body height 60 [in_i] 60 [in_i] BRUNO ([facility]) Diastolic blood pressure 68 mm[Hg] 68 mm[Hg] BRUNO ([facility]) Body weight 2880 [oz_av] 2880 [oz_av] [facility] ([facility]) Systolic blood pressure 100 mm[Hg] 100 mm[Hg] [facility] Body height 60 [in_i] 60 [in_i] BRUNO ([facility]) Diastolic blood pressure 68 mm[Hg] 68 mm[Hg] BRUNO ([facility]) Patient Treatment Plan of Care Planned Activity Planned Date Details Description Data Source (s) Naproxen 500 MG Oral Tablet BRUNO ([facility]) Acetaminophen 325 MG Oral Tablet [Mapap] BRUNO ([facility]) lamotrigine 25 MG Oral Tablet [facility] ([facility]) [facility] Dicyclomine Hydrochloride 20 MG Oral Tablet BRUNO ([facility]) Amoxicillin 875 MG Oral Tablet BURNO ([facility]) Naproxen 500 MG Oral Tablet BRUNO ([facility]) Acetaminophen 325 MG Oral Tablet [Mapap] BRUNO ([facility]) lamotrigine 25 MG Oral Tablet BRUNO ([facility]) Fluoxetine 10 MG Oral Capsule BRUNO ([facility]) Dicyclomine Hydrochloride 20 MG Oral Tablet BRUNO ([facility]) Amoxicillin 875 MG Oral Tablet BRUNO ([facility]) Acetaminophen 325 MG Oral Tablet [Mapap] BRUNO ([facility]) lamotrigine 25 MG Oral Tablet BRUNO ([facility]) Fluoxetine 10 MG Oral Capsule BRUNO ([facility]) Dicyclomine Hydrochloride 20 MG Oral Tablet BRUNO ([facility]) Amoxicillin 875 MG Oral Tablet BRUNO ([facility]) Acetaminophen 325 MG Oral Tablet [Mapap] BRUNO ([facility]) lamotrigine 25 MG Oral Tablet BRUNO ([facility]) Fluoxetine 10 MG Oral Capsule BRUNO ([facility]) Dicyclomine Hydrochloride 20 MG Oral Tablet BRUNO ([facility]) Amoxicillin 875 MG Oral Tablet BRUNO ([facility]) Acetaminophen 325 MG Oral Tablet [Mapap] BRUNO ([facility]) lamotrigine 25 MG Oral Tablet BRUNO ([facility]) Fluoxetine 10 MG Oral Capsule BRUNO ([facility]) Dicyclomine Hydrochloride 20 MG Oral Tablet BRUNO ([facility]) Amoxicillin 875 MG Oral Tablet BRUNO ([facility])
[2020-07-25 01:44] LABS: BASO % 0.1 % (0.0-1.0); EOS % 0.1 % (0.0-3.0); HEMATOCRIT 33.6 % (36.0-47.0); HEMOGLOBIN 10.2 g/dl (12.0-15.5); LYMPH # 1.5 10^3/uL (1.5-5.0); LYMPH % 13.2 % (24.0-44.0); MEAN CORPUSCULAR HEMOGLOBIN 22.8 pg (27.0-33.0); MEAN CORPUSCULAR HGB CONC 30.4 g/dl (32.0-36.5); MONO # 0.7 10^3/uL (0.0-0.8); MONO % 6.1 % (2.0-8.0); NEUTROPHILS # 8.9 10^3/uL (1.5-8.5); NEUTROPHILS % 78.2 % (36.0-66.0); PLATELET COUNT, AUTOMATED 197 10^3/uL (150-450); RED BLOOD COUNT 4.48 10^6/uL (4.00-5.40); WHITE BLOOD COUNT 11.4 10^3/uL (4.0-10.0)
[2020-07-25 01:54] LABS: APPEARANCE, URINE CLEAR (CLEAR); BACTERIA, URINE AUTO NEGATIVE (NEGATIVE); BILIRUBIN, URINE AUTO NEGATIVE (NEGATIVE); BLOOD, URINE BLOOD NEGATIVE (NEGATIVE); COLOR, URINE STRAW (YELLOW); GLUCOSE, URINE (UA) AUTO 3+ mg/dL (NEGATIVE); KETONE, URINE AUTO TRACE mg/dL (NEGATIVE); LEUKOCYTE ESTERASE, URINE AUTO NEGATIVE (NEGATIVE); NITRITE, URINE AUTO NEGATIVE (NEGATIVE); PROTEIN, URINE AUTO NEGATIVE (NEGATIVE); RBC, URINE AUTO 0 /HPF (0-3); SPECIFIC GRAVITY URINE AUTO 1.026 (1.002-1.035); SQUAMOUS EPITHELIAL CELL UR AU 1 /HPF (0-6); UROBILINOGEN, URINE AUTO 0.2 mg/dL (0.0-2.0); WBC, URINE AUTO 0 /HPF (0-3)
[2020-07-25 01:55] LABS: ALBUMIN 3.2 GM/DL (3.2-5.2); ALT/SGPT 19 U/L (12-78); BILIRUBIN,DIRECT < 0.1 MG/DL (0.0-0.2); BILIRUBIN,TOTAL 0.2 MG/DL (0.2-1.0); BLOOD UREA NITROGEN 14 MG/DL (7-18); CALCIUM LEVEL 8.7 MG/DL (8.5-10.1); CARBON DIOXIDE LEVEL 26 MEQ/L (21-32); CHLORIDE LEVEL 107 MEQ/L (98-107); CREATININE FOR GFR 0.66 MG/DL (0.55-1.30); GLOMERULAR FILTRATION RATE > 60.0 (>60); GLUCOSE, FASTING 249 MG/DL (70-100); LIPASE 189 U/L (73-393); POTASSIUM SERUM 3.7 MEQ/L (3.5-5.1); SODIUM LEVEL 140 MEQ/L (136-145); TOTAL PROTEIN 6.7 GM/DL (6.4-8.2)
--- NOTE | 2020-07-25 03:21 | REPVR ---
PROCEDURE INFORMATION: Exam: XR Chest, 1 View Exam date and time: 07/25/2020 2:54 AM Age: 25 years old Clinical indication: Chest pain; Type not specified TECHNIQUE: Imaging protocol: XR of the chest Views: 1 view. COMPARISON: CR Chest, 2 view PA, Lat 07/13/2017 2:11 PM FINDINGS: Lungs: Unremarkable. No consolidation. Pleural spaces: Unremarkable. No pleural effusion. No pneumothorax. Heart/Mediastinum: Unremarkable. No cardiomegaly. Bones/joints: Unremarkable. IMPRESSION: No acute infiltrates. Electronically signed by: Deepak Berkowitz On 07/25/2020 03:21:50 AM
--- NOTE | 2020-07-25 03:33 | REPVR ---
PROCEDURE INFORMATION: Exam: CT Abdomen And Pelvis With Contrast Exam date and time: 07/25/2020 12:34 AM Age: 25 years old Clinical indication: Abdominal pain; Localized; Right upper quadrant (ruq); Additional info: Ttp llq and ruq TECHNIQUE: Imaging protocol: Computed tomography of the abdomen and pelvis with contrast. Radiation optimization: All CT scans at this facility use at least one of these dose optimization techniques: automated exposure control; mA and/or kV adjustment per patient size (includes targeted exams where dose is matched to clinical indication); or iterative reconstruction. Contrast material: ISO; Contrast volume: 100 ml; Contrast route: INTRAVENOUS (IV); COMPARISON: CT ABD/PEL W/IV CONTRAST ONLY 07/24/2020 2:21 AM FINDINGS: Lungs: Dependent atelectasis in the lung. Liver: Stable subtle hypervascular lesion in the liver measuring 11 mm. (Series 201, image 10). Gallbladder and bile ducts: Normal. No calcified stones. No ductal dilation. Pancreas: Normal. No ductal dilation. Spleen: Normal. No splenomegaly. Adrenal glands: Normal. No mass. Kidneys and ureters: Normal. No hydronephrosis. Stomach and bowel: Small bowel appears mildly thickened in the pelvis. Moderate stool in the colon. No abnormal bowel dilatation. Negative for colonic diverticulitis. Appendix: Appendix is normal. Intraperitoneal space: Unremarkable. No free air. No significant fluid collection. Vasculature: Unremarkable. No abdominal aortic aneurysm. Lymph nodes: Multiple small mesenteric nodes. Urinary bladder: Unremarkable as visualized. Reproductive: Uterus is normal. Bones/joints: Unremarkable. No acute fracture. Soft tissues: There is dependent subcutaneous edema. IMPRESSION: 1. Small bowel appears mildly thickened in the pelvis. Possible mild enteritis or mesenteric adenitis. 2. Multiple nonspecific small mesenteric nodes. 3. Stable subtle hypervascular lesion in the liver. Probable hemangioma. No change from prior. Electronically signed by: Deepak Berkowitz On 07/25/2020 03:33:35 AM
[2020-07-25] MEDS ORDERED: ONDA4TAB6 PO (07:01)
[2020-07-25 07:15] VITALS: BP 142/65
--- NOTE | 2020-07-25 16:39 | ECGEPIP ---
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
--- NOTE | 2020-07-25 16:43 | ECGEPIP ---
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
[2020-07-26] MEDS ORDERED: LEVO100T5 (21:29)
[2020-07-26] MEDS ORDERED: ONDA-83 (21:29)
== END 2020-07-25 07:23 | disposition home or self-care (01) ==
LOC: M ED 23:29
DX: K52.9 Noninfective gastroenteritis and colitis, unspecified (principal); B34.9 Viral infection, unspecified; R10.32 Left lower quadrant pain; R10.11 Right upper quadrant pain; K76.89 Other specified diseases of liver; J98.11 Atelectasis; R00.1 Bradycardia, unspecified; R59.0 Localized enlarged lymph nodes; R50.9 Fever, unspecified; J45.909 Unspecified asthma, uncomplicated; E03.9 Hypothyroidism, unspecified; F31.9 Bipolar disorder, unspecified; Z79.899 Other long term (current) drug therapy
CPT/HCPCS: 71045; 74177; 80048; 80076; 81001; 83690; 84702; 85025; 87798; 93005; 93041; 94760; 96361; 96374; 96375; 99285; J2405; Q9967

== ENCOUNTER 2020-07-26 21:13 | Emergency (ER) | payer OTHER ==
[~2020-07-26] VITALS: Ht 152.4 cm; Wt 97.4 kg
[~2020-07-26 21:13] MED LIST changes: +ONDA4TAB6 PO
--- OUTSIDE RECORDS SUMMARY | 2020-07-26 21:25 | CCD ---
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 ATHE ([facility]) albumin/globulin ratio 1.2-2.2 Below low normal Albumin /globulin Ratio [facility] ([facility]) albumin 3.6 gm/dL 3.2-5.2 normal Albumin [facility] ([facility]) ID Date Data Source [id number] 06/15/2020 08:35:00 AM EST [facility] ([facility]) Name Value Range Interpretation Code Description Data Mary rce(s) Supporting Document(s) immature platelet fraction % 6.3 % 0.0-9.59 normal Immatur e Platelet Fraction % [facility] ([facility]) ID Date Data Source [id number] 06/15/2020 08:35:00 AM EST [place] ([facility]) Name Value Range Interpretation Code Description Data Mary rce(s) Supporting Document(s) red blood count 4.53 10 4.00-5.40 normal Red Blood Count ATHE ([facility]) white blood count 5.8 10 4.0-10.0 normal White Blood Count [facility] ([facility]) hemoglobin 10.7 g/dL 12.0-15.5 Below low normal Hemoglobin [facility] ( [facility]) hematocrit 34.7 % 36.0-47.0 Below low normal Hematocrit [facility] ( [facility]) mean corpuscular HGB conc 30.8 g/dL 32.0-36.5 Below low sudeep l Mean Corpuscular HGB Conc [facility] ([facility]) mean corpuscular hemoglobin 23.6 pg 27.0-33.0 Below low nor mal Mean Corpuscular Hemoglobin [facility] ([facility]) mean corpuscular volume 76.6 fL 80.0-96.0 Below low normal Mean Corpuscular Volume [facility] ([facility]) platelet count, automated 23 10 150-450 Below low su[place] l Platelet Count, Automated [facility] ([facility]) neutrophils % 61.3 % 36.0-66.0 normal Neutrophils % [facility] ( [facility]) lymph % 23.5 % 24.0-44.0 Below low normal Lymph % [facility] ( [facility]) red cell distribution width 14.6 % 11.5-14.5 Above high no rmal Red Cell Distribution Width [facility] ([facility]) eos % 2.2 % 0.0-3.0 normal Eos % [facility] ([facility]) mono % 11.8 % 0.0-5.0 Above high normal [place] % [facility] ([facility]) baso % 0.9 % 0.0-1.0 normal Baso % [facility] ([facility]) nucleated red blood cell % 0.0 % 0-0 normal Nucleated Red Blood Cell % [facility] ([facility]) lymph # 1.4 10 1.5-5.0 Below low normal Lymph # [facility] ( [facility]) neutrophils # 3.6 10 1.5-8.5 normal Neutrophils # [place] ( [facility]) immature granulocyte % 0.3 % 0-3.0 normal Immature Gran ulocyte % [facility] ([facility]) baso # 0.1 10 0.0-0.2 normal Baso # [facility] ([facility]) eos # 0.1 10 0.0-0.5 normal Eos # [facility] ([facility]) mono # 0.7 10 0.0-0.8 normal [place] # [facility] ([facility]) ID Date Data Source [id number] 06/15/2020 08:35:00 AM EST [facility] ([facility]) Name Value Range Interpretation Code Description Data Mary rce(s) Supporting Document(s) thyroid stimulating hormone 7.380 uIU/mL 0.358-3.740 Above high no rmal Thyroid Stimulating Hormone [place] ([facility]) free T4 0.91 NG/dL 0.76-1.46 normal Free T4 [place] ([facility]) ID Date Data Source [id number] 06/15/2020 08:35:00 AM EST [place] ([facility]) Name Value Range Interpretation Code Description Data Mary rce(s) Supporting Document(s) glucose, fasting 106 mg/dL 70-100 Above high normal Glucose, Fas ting [place] ([facility]) creatinine for GFR 0.63 mg/dL 0.55-1.30 normal Creatinine for GF R [place] ([facility]) blood urea nitrogen 14 mg/dL 7-18 normal Blood Urea Nitro gen [place] ([facility]) sodium level 139 mEq/L 136-145 normal Sodium Level [place] ([facility]) glomerular filtration rate > 60.0 >60 normal Glomerula r Filtration Rate [place] ([facility]) potassium serum 4.0 mEq/L 3.5-5.1 normal Potassium Serum ATH NA ([facility]) carbon dioxide level 26 mEq/L 21-32 normal Carbon Dioxide Level [place] ([facility]) chloride level 108 mEq/L 98-107 Above high normal Chloride Level [place] ([facility]) anion gap 5 mEq/L 8-16 Below low normal Anion Gap [place] ( [facility]) AST/SGOT 13 U/L 7-37 normal AST/SGOT [facility]) calcium level 8.1 mg/dL 8.5-10.1 Below low normal Calcium Level AT [place] ([facility]) alkaline phosphatase 83 U/L 45-117 normal Alkaline Phosph atase [facility] ([facility]) ALT/SGPT 21 U/L 12-78 normal ALT/SGPT [place] ([facility]) bilirubin,total 0.4 mg/dL 0.2-1.0 normal Bilirubin,total ATHE ([facility]) total protein 7.1 gm/dL 6.4-8.2 normal Total Protein [place] ( [facility]) albumin/globulin ratio 1.2-2.2 Below low normal Albumin /globulin Ratio [facility] ([facility]) albumin 3.6 gm/dL 3.2-5.2 normal Albumin [facility] ([facility]) ID Date Data Source [id number] 06/15/2020 08:35:00 AM EST [place] ([facility]) Name Value Range Interpretation Code Description Data Mary rce(s) Supporting Document(s) immature platelet fraction % 6.3 % 0.0-9.59 normal Immatur e Platelet Fraction % [facility] ([facility]) ID Date Data Source [id number] 06/15/2020 08:35:00 AM EST [place] ([facility]) Name Value Range Interpretation Code Description Data Mary rce(s) Supporting Document(s) white blood count 5.8 10 4.0-10.0 normal White Blood Count [facility] ([facility]) red blood count 4.53 10 4.00-5.40 normal Red Blood Count ATHE NA ([facility]) hemoglobin 10.7 g/dL 12.0-15.5 Below low normal Hemoglobin [facility] ( [facility]) hematocrit 34.7 % 36.0-47.0 Below low normal Hematocrit [facility] ( [facility]) mean corpuscular hemoglobin 23.6 pg 27.0-33.0 Below low nor mal Mean Corpuscular Hemoglobin [facility] ([facility]) mean corpuscular volume 76.6 fL 80.0-96.0 Below low normal Mean Corpuscular Volume [facility] ([facility]) mean corpuscular HGB conc 30.8 g/dL 32.0-36.5 Below low [place] Mean Corpuscular HGB Conc [place] ([facility]) red cell distribution width 14.6 % 11.5-14.5 Above high no rmal Red Cell Distribution Width [facility] ([facility]) mono % 11.8 % 0.0-5.0 Above high normal [place] % [facility] ([facility]) neutrophils % 61.3 % 36.0-66.0 normal Neutrophils % [facility] ( [facility]) lymph % 23.5 % 24.0-44.0 Below low normal Lymph % [place] ( [facility]) platelet count, automated 23 10 150-450 Below low sudeep l Platelet Count, Automated [place] ([facility]) baso % 0.9 % 0.0-1.0 normal Baso % [place] ([facility]) nucleated red blood cell % 0.0 % 0-0 normal Nucleated Red Blood Cell % [facility] ([facility]) eos % 2.2 % 0.0-3.0 normal Eos % [place] ([facility]) immature granulocyte % 0.3 % 0-3.0 normal Immature Gran ulocyte % [place] ([facility]) neutrophils # 3.6 10 1.5-8.5 normal Neutrophils # [facility] ( [facility]) mono # 0.7 10 0.0-0.8 normal [place] # [facility] ([facility]) lymph # 1.4 10 1.5-5.0 Below low normal Lymph # [facility] ( [facility]) eos # 0.1 10 0.0-0.5 normal Eos # [facility] ([facility]) baso # 0.1 10 0.0-0.2 normal Baso # [facility] ([facility]) ID Date Data Source [id number] 06/15/2020 08:35:00 AM EST [place] ([facility]) Name Value Range Interpretation Code Description Data Mary rce(s) Supporting Document(s) free T4 0.91 NG/dL 0.76-1.46 normal Free T4 [place] ([facility]) thyroid stimulating hormone 7.380 uIU/mL 0.358-3.740 Above high no rmal Thyroid Stimulating Hormone [place] ([facility]) ID Date Data Source [id number] 06/15/2020 08:35:00 AM EST [place] ([facility]) Name Value Range Interpretation Code Description Data Mary rce(s) Supporting Document(s) glucose, fasting 106 mg/dL 70-100 Above high normal Glucose, Fas ting [place] ([facility]) blood urea nitrogen 14 mg/dL 7-18 normal Blood Urea Nitro gen [place] ([facility]) sodium level 139 mEq/L 136-145 normal Sodium Level [place] ([facility]) creatinine for GFR 0.63 mg/dL 0.55-1.30 normal Creatinine for GF R [place] ([facility]) glomerular filtration rate > 60.0 >60 normal Glomerula r Filtration Rate [facility] ([facility]) chloride level 108 mEq/L 98-107 Above high normal Chloride Level [place] ([facility]) carbon dioxide level 26 mEq/L 21-32 normal Carbon Dioxide Level [place] ([facility]) potassium serum 4.0 mEq/L 3.5-5.1 normal Potassium Serum [facility]) anion gap 5 mEq/L 8-16 Below low normal Anion Gap [place] ( [facility]) calcium level 8.1 mg/dL 8.5-10.1 Below low normal Calcium Level AT [facility]) AST/SGOT 13 U/L 7-37 normal AST/SGOT [place] ([facility]) alkaline phosphatase 83 U/L 45-117 normal Alkaline Phosph atase [place] ([facility]) ALT/SGPT 21 U/L 12-78 normal ALT/SGPT [facility]) bilirubin,total 0.4 mg/dL 0.2-1.0 normal Bilirubin,total ATHE [facility]) total protein 7.1 gm/dL 6.4-8.2 normal Total Protein [place] ( [facility]) albumin 3.6 gm/dL 3.2-5.2 normal Albumin [facility] ([facility]) albumin/globulin ratio 1.2-2.2 Below low normal Albumin /globulin Ratio [place] ([facility]) ID Date Data Source [id number] 03/06/2020 10:06:16 AM EDT [facility] Vital SignsTemperature: 98.3FV ital Signs performed by: Malorie Bah LPN, March 06, 2020 10:06 AMVaccines Administered/Entered:Vaccination Group: InfluenzaSeries: 1Vaccination: Flulaval Quadrivalent Intramuscular Suspension Prefilled Syringe 0.5 MLMfr / Lot# / Exp.Date: [employer] / [id number] / 11/29/2020mt. Given / Route / Site: 0.5 mL / IM / Left DeltoidNDC / CVX: [id number] / 150Administered Date: 03/06/2020 10:07VFC Eligibility: VFC eligible-Medicaid/Medicaid Managed CareVIS Date: 01/14/2019VIS Given / VIS Given On: Yes 03/06/2020Comments: Administered by: Malorie Bah LPN Assessment & Plan Orders:[id number] Vst-Est Level I [CPT-85034] 38565 - Immo Admin (under 19 yrs), 1st Toxoid [CPT-65718] FluLaval Quadrivalent, preservative free [CPT- 61917] Name Value Range Interpretation Code Description Data Mary rce(s) Supporting Document(s) ID Date Data Source [id number] 2020 06:50:00 AM EDT [facility] ([facility]) Name Value Range Interpretation Code Description Data Mary rce(s) Supporting Document(s) blood urea nitrogen 9 mg/dL 7-18 normal Blood Urea Nitro gen [facility] ([facility]) creatinine for GFR 0.59 mg/dL 0.55-1.30 normal Creatinine for GF R [facility] ([facility]) glomerular filtration rate > 60.0 >60 normal Glomerula r Filtration Rate [facility] ([facility]) glucose, fasting 140 mg/dL 70-100 Above high normal Glucose, Fas ting [facility] ([facility]) chloride level 110 mEq/L 98-107 Above high normal Chloride Level [facility] ([facility]) carbon dioxide level 26 mEq/L 21-32 normal Carbon Dioxide Level [facility] ([facility]) potassium serum 3.8 mEq/L 3.5-5.1 D Potassium Serum ATHE ([facility]) sodium level 141 mEq/L 136-145 normal Sodium Level [facility] ([facility]) anion gap 5 mEq/L 8-16 Below low normal Anion Gap [facility] ( [facility]) calcium level 8.0 mg/dL 8.5-10.1 Below low normal Calcium Level AT [facility]) ALT/SGPT 41 U/L 12-78 normal ALT/SGPT [facility] ([facility]) AST/SGOT 26 U/L 7-37 normal AST/SGOT [place] ([facility]) albumin 3.5 gm/dL 3.2-5.2 normal Albumin [facility] ([facility]) alkaline phosphatase 86 U/L 45-117 normal Alkaline Phosph atase [facility] ([facility] [facility] total protein 7.4 gm/dL 6.4-8.2 normal Total Protein [place] ( [facility]) bilirubin,total 0.4 mg/dL 0.2-1.0 normal Bilirubin,total ATHE ([facility]) albumin/globulin ratio 1.2-2.2 Below low normal Albumin /globulin Ratio [place] ([facility]) ID Date Data Source [id number] 2020 06:50:00 AM EDT [place] ([facility]) Name Value Range Interpretation Code Description Data Mary rce(s) Supporting Document(s) creatinine for GFR 0.59 mg/dL 0.55-1.30 normal Creatinine for GF R BR[place] ([facility]) glucose, fasting 140 mg/dL 70-100 Above high normal Glucose, Fas ting [place] ([facility]) blood urea nitrogen 9 mg/dL 7-18 normal Blood Urea Nitro gen [place] ([facility]) potassium serum 3.8 mEq/L 3.5-5.1 D Potassium Serum ATHE ([facility]) sodium level 141 mEq/L 136-145 normal Sodium Level BR[facility]O (No [facility]) glomerular filtration rate > 60.0 >60 normal Glomerula r Filtration Rate [place] ([facility]) chloride level 110 mEq/L 98-107 Above high normal Chloride Level [place] ([facility]) calcium level 8.0 mg/dL 8.5-10.1 Below low normal Calcium Level AT [facility]) AST/SGOT 26 U/L 7-37 normal AST/SGOT [place] ([facility]) anion gap 5 mEq/L 8-16 Below low normal Anion Gap [place] ( [facility]) carbon dioxide level 26 mEq/L 21-32 normal Carbon Dioxide Level [place] ([facility]) bilirubin,total 0.4 mg/dL 0.2-1.0 normal Bilirubin,total ATHE ([facility]) total protein 7.4 gm/dL 6.4-8.2 normal Total Protein [place] ( [facility]) ALT/SGPT 41 U/L 12-78 normal ALT/SGPT [place] ([facility]) alkaline phosphatase 86 U/L 45-117 normal Alkaline Phosph atase [place] ([facility]) albumin 3.5 gm/dL 3.2-5.2 normal Albumin [place] ([facility]) albumin/globulin ratio 1.2-2.2 Below low normal Albumin /globulin Ratio [place] ([facility]) ID Date Data Source [id number] 2020 06:50:00 AM EDT [facility]) Name Value Range Interpretation Code Description Data Mary rce(s) Supporting Document(s) creatinine for GFR 0.59 mg/dL 0.55-1.30 normal Creatinine for GF R [place] ([facility]) glucose, fasting 140 mg/dL 70-100 Above high normal Glucose, Fas ting [place] ([facility]) glomerular filtration rate > 60.0 >60 normal Glomerula r Filtration Rate [place] ([facility]) blood urea nitrogen 9 mg/dL 7-18 normal Blood Urea Nitro gen [place] ([facility]) potassium serum 3.8 mEq/L 3.5-5.1 D Potassium Serum [facility] ([facility]) carbon dioxide level 26 mEq/L 21-32 normal Carbon Dioxide Level [place] ([facility]) chloride level 110 mEq/L 98-107 Above high normal Chloride Level [place] ([facility]) sodium level 141 mEq/L 136-145 normal Sodium Level [place] (No [facility]) AST/SGOT 26 U/L 7-37 normal AST/SGOT [place] ([facility]) anion gap 5 mEq/L 8-16 Below low normal Anion Gap [place] ( [facility]) calcium level 8.0 mg/dL 8.5-10.1 Below low normal Calcium Level AT [facility]) ALT/SGPT 41 U/L 12-78 normal ALT/SGPT [place] ([facility]) bilirubin,total 0.4 mg/dL 0.2-1.0 normal Bilirubin,total [facility] ([facility]) alkaline phosphatase 86 U/L 45-117 normal Alkaline Phosph atase [place] ([facility]) total protein 7.4 gm/dL 6.4-8.2 normal Total Protein [place] ( [facility]) albumin/globulin ratio 1.2-2.2 Below low normal Albumin /globulin Ratio [place] ([facility]) albumin 3.5 gm/dL 3.2-5.2 normal Albumin [facility]) ID Date Data Source [id number] 2020 06:50:00 AM EDT [place] ([facility]) Name Value Range Interpretation Code Description Data Mary rce(s) Supporting Document(s) glucose, fasting 140 mg/dL 70-100 Above high normal Glucose, Fas ting [place] ([facility]) blood urea nitrogen 9 mg/dL 7-18 normal Blood Urea Nitro gen [place] ([facility]) creatinine for GFR 0.59 mg/dL 0.55-1.30 normal Creatinine for GF R [place] ([facility]) glomerular filtration rate > 60.0 >60 normal Glomerula r Filtration Rate [place] ([facility]) chloride level 110 mEq/L 98-107 Above high normal Chloride Level [place] ([facility]) sodium level 141 mEq/L 136-145 normal Sodium Level [place] (No [facility]) potassium serum 3.8 mEq/L 3.5-5.1 D Potassium Serum ATHE NA ([facility]) AST/SGOT 26 U/L 7-37 normal AST/SGOT [place] ([facility]) carbon dioxide level 26 mEq/L 21-32 normal Carbon Dioxide Level [place] ([facility]) anion gap 5 mEq/L 8-16 Below low normal Anion Gap [place] ( [facility]) calcium level 8.0 mg/dL 8.5-10.1 Below low normal Calcium Level AT [facility]) ALT/SGPT 41 U/L 12-78 normal ALT/SGPT [place] ([facility]) alkaline phosphatase 86 U/L 45-117 normal Alkaline Phosph atase [place] ([facility]) albumin 3.5 gm/dL 3.2-5.2 normal Albumin [place] ([facility]) bilirubin,total 0.4 mg/dL 0.2-1.0 normal Bilirubin,total ATHE ([facility]) total protein 7.4 gm/dL 6.4-8.2 normal Total Protein [place] ( [facility]) albumin/globulin ratio 1.2-2.2 Below low normal Albumin /globulin Ratio [place] ([facility]) ID Date Data Source [id number] 2020 06:50:00 AM EDT [place] ([facility]) Name Value Range Interpretation Code Description Data Mary rce(s) Supporting Document(s) glucose, fasting 140 mg/dL 70-100 Above high normal Glucose, Fas ting [place] ([facility]) creatinine for GFR 0.59 mg/dL 0.55-1.30 normal Creatinine for GF R [place] ([facility]) blood urea nitrogen 9 mg/dL 7-18 normal Blood Urea Nitro gen [place] ([facility]) sodium level 141 mEq/L 136-145 normal Sodium Level [place] (No [facility]) glomerular filtration rate > 60.0 >60 normal Glomerula r Filtration Rate [place] ([facility]) potassium serum 3.8 mEq/L 3.5-5.1 D Potassium Serum AT[facility] ([facility]) carbon dioxide level 26 mEq/L 21-32 normal Carbon Dioxide Level [place] ([facility]) anion gap 5 mEq/L 8-16 Below low normal Anion Gap [place] ( [facility]) chloride level 110 mEq/L 98-107 Above high normal Chloride Level [place] ([facility]) calcium level 8.0 mg/dL 8.5-10.1 Below low normal Calcium Level AT [facility]) ALT/SGPT 41 U/L 12-78 normal ALT/SGPT [place] ([facility]) AST/SGOT 26 U/L 7-37 normal AST/SGOT [place] ([facility]) alkaline phosphatase 86 U/L 45-117 normal Alkaline Phosph atase [place] ([facility]) total protein 7.4 gm/dL 6.4-8.2 normal Total Protein [place] ( [facility]) albumin 3.5 gm/dL 3.2-5.2 normal Albumin [place] ([facility]) albumin/globulin ratio 1.2-2.2 Below low normal Albumin /globulin Ratio [place] ([facility]) bilirubin,total 0.4 mg/dL 0.2-1.0 normal Bilirubin,total ATHE ([facility]) ID Date Data Source [id number] 2020 06:50:00 AM EDT [place] ([facility]) Name Value Range Interpretation Code Description Data Mary rce(s) Supporting Document(s) glucose, fasting 140 mg/dL 70-100 Above high normal Glucose, Fas ting [place] ([facility]) blood urea nitrogen 9 mg/dL 7-18 normal Blood Urea Nitro gen [place] ([facility]) creatinine for GFR 0.59 mg/dL 0.55-1.30 normal Creatinine for GF R [place] ([facility]) glomerular filtration rate > 60.0 >60 normal Glomerula r Filtration Rate [place] ([facility]) potassium serum 3.8 mEq/L 3.5-5.1 D Potassium Serum AT[facility] ([facility]) chloride level 110 mEq/L 98-107 Above high normal Chloride Level [place] ([facility]) carbon dioxide level 26 mEq/L 21-32 normal Carbon Dioxide Level [place] ([facility]) sodium level 141 mEq/L 136-145 normal Sodium Level [place] (No [facility]) ALT/SGPT 41 U/L 12-78 normal ALT/SGPT [place] ([facility]) anion gap 5 mEq/L 8-16 Below low normal Anion Gap [place] ( [facility]) calcium level 8.0 mg/dL 8.5-10.1 Below low normal Calcium Level AT [facility]) alkaline phosphatase 86 U/L 45-117 normal Alkaline Phosph atase [place] ([facility]) AST/SGOT 26 U/L 7-37 normal AST/SGOT [place] ([facility]) albumin 3.5 gm/dL 3.2-5.2 normal Albumin [place] ([facility]) total protein 7.4 gm/dL 6.4-8.2 normal Total Protein [place] ( [facility]) bilirubin,total 0.4 mg/dL 0.2-1.0 normal Bilirubin,total ATHE ([facility]) albumin/globulin ratio 1.2-2.2 Below low normal Albumin /globulin Ratio [place] ([facility]) ID Date Data Source [id number] 2020 06:50:00 AM EDT [place] ([facility]) Name Value Range Interpretation Code Description Data Mary rce(s) Supporting Document(s) blood urea nitrogen 9 mg/dL 7-18 normal Blood Urea Nitro gen [place] ([facility]) glucose, fasting 140 mg/dL 70-100 Above high normal Glucose, Fas ting [place] ([facility]) creatinine for GFR 0.59 mg/dL 0.55-1.30 normal Creatinine for GF R [place] ([facility]) potassium serum 3.8 mEq/L 3.5-5.1 D Potassium Serum ATHE NA ([facility]) chloride level 110 mEq/L 98-107 Above high normal Chloride Level [place] ([facility]) glomerular filtration rate > 60.0 >60 normal Glomerula r Filtration Rate [place] ([facility]) sodium level 141 mEq/L 136-145 normal Sodium Level [facility] ([facility]) AST/SGOT 26 U/L 7-37 normal AST/SGOT [place] ([facility]) calcium level 8.0 mg/dL 8.5-10.1 Below low normal Calcium Level AT [facility]) carbon dioxide level 26 mEq/L 21-32 normal Carbon Dioxide Level [place] ([facility]) anion gap 5 mEq/L 8-16 Below low normal Anion Gap [place] ( [facility]) ALT/SGPT 41 U/L 12-78 normal ALT/SGPT [place] ([facility]) total protein 7.4 gm/dL 6.4-8.2 normal Total Protein [place] ( [facility]) bilirubin,total 0.4 mg/dL 0.2-1.0 normal Bilirubin,total ATHE ([facility]) alkaline phosphatase 86 U/L 45-117 normal Alkaline Phosph atase [place] ([facility]) albumin 3.5 gm/dL 3.2-5.2 normal Albumin [place] ([facility]) albumin/globulin ratio 1.2-2.2 Below low normal Albumin /globulin Ratio [place] ([facility]) ID Date Data Source [id number] 2020 06:50:00 AM EDT [place] ([facility]) Name Value Range Interpretation Code Description Data Mary rce(s) Supporting Document(s) creatinine for GFR 0.59 mg/dL 0.55-1.30 normal Creatinine for GF R [place] ([facility]) blood urea nitrogen 9 mg/dL 7-18 normal Blood Urea Nitro gen [place] ([facility]) glucose, fasting 140 mg/dL 70-100 Above high normal Glucose, Fas ting [place] ([facility]) glomerular filtration rate > 60.0 >60 normal Glomerula r Filtration Rate [place] ([facility]) potassium serum 3.8 mEq/L 3.5-5.1 D Potassium Serum ATHE ([facility]) sodium level 141 mEq/L 136-145 normal Sodium Level BR[facility]O (No [facility]) chloride level 110 mEq/L 98-107 Above high normal Chloride Level [place] ([facility]) carbon dioxide level 26 mEq/L 21-32 normal Carbon Dioxide Level [place] ([facility]) AST/SGOT 26 U/L 7-37 normal AST/SGOT [place] ([facility]) ALT/SGPT 41 U/L 12-78 normal ALT/SGPT [place] ([facility]) alkaline phosphatase 86 U/L 45-117 normal Alkaline Phosph atase [place] ([facility]) anion gap 5 mEq/L 8-16 Below low normal Anion Gap [place] ( [facility]) calcium level 8.0 mg/dL 8.5-10.1 Below low normal Calcium Level AT [facility] ([facility]) total protein 7.4 gm/dL 6.4-8.2 normal Total Protein [place] ( [facility]) bilirubin,total 0.4 mg/dL 0.2-1.0 normal Bilirubin,total [facility] ([facility]) albumin 3.5 gm/dL 3.2-5.2 normal Albumin [place] ([facility]) albumin/globulin ratio 1.2-2.2 Below low normal Albumin /globulin Ratio [place] ([facility]) ID Date Data Source [id number] 2020 06:50:00 AM EDT [facility] Name Value Range Interpretation Code Description Data Mary rce(s) Supporting Document(s) HCT 34.0 % 36.0-47.0 L [facility] HGB 10.8 g/dL 12.0-15.5 L [facility] MCH 31.8 G/DL pg 32.0-36.[address] [facility] MCHC 24.5 PG % 27.0-33.0 L [facility] PLATELETS 24 10 10*3/mm3 150-450 Below lower panic limits [facility] RBC 4.40 10 10*6/mm3 4.00-5.40 N [facility] RDW 14.7 % 11.5-14.5 H [facility] WBC TOTAL 6.1 4.0-10.0 N [facility] ID Date Data Source [id number] 01/14/2020 01:37:00 PM EDT [facility]) Name Value Range Interpretation Code Description Data Mary rce(s) Supporting Document(s) glucose, fasting 90 mg/dL 70-100 normal Glucose, Fasting AT [facility]) glomerular filtration rate > 60.0 >60 normal Glomerula r Filtration Rate [facility]) creatinine for GFR 0.63 mg/dL 0.55-1.30 normal Creatinine for GF R [facility]) sodium level 142 mEq/L 136-145 normal Sodium Level [place] (No [facility]) blood urea nitrogen 11 mg/dL 7-18 normal Blood Urea Nitro gen [facility]) chloride level 109 mEq/L 98-107 Above high normal Chloride Level [place] ([facility]) calcium level 8.0 mg/dL 8.5-10.1 Below low normal Calcium Level AT [facility]) carbon dioxide level 29 mEq/L 21-32 normal Carbon Dioxide Level [facility]) anion gap 4 mEq/L 8-16 Below low [facility] potassium serum 3.1 mEq/L 3.5-5.1 Below low normal Potassium Seru m [place] ([facility]) ID Date Data Source [id number] 01/14/2020 01:37:00 PM EDT [facility]) Name Value Range Interpretation Code Description Data Mary rce(s) Supporting Document(s) glucose, fasting 90 mg/dL 70-100 normal Glucose, Fasting AT [facility]) sodium level 142 mEq/L 136-145 normal Sodium Level [place] (No [facility]) potassium serum 3.1 mEq/L 3.5-5.1 Below low normal Potassium Seru m [facility]) creatinine for GFR 0.63 mg/dL 0.55-1.30 normal Creatinine for GF R [place] ([facility]) glomerular filtration rate > 60.0 >60 normal Glomerula r Filtration Rate [place] ([facility]) blood urea nitrogen 11 mg/dL 7-18 normal Blood Urea Nitro gen [place] ([facility]) chloride level 109 mEq/L 98-107 Above high normal Chloride Level [place] ([facility]) anion gap 4 mEq/L 8-16 Below low normal Anion Gap [place] ( [facility]) carbon dioxide level 29 mEq/L 21-32 normal Carbon Dioxide Level [facility]) calcium level 8.0 mg/dL 8.5-10.1 Below low normal Calcium Level AT [facility]) ID Date Data Source [id number] 01/14/2020 01:37:00 PM EDT [facility]) Name Value Range Interpretation Code Description Data Mary rce(s) Supporting Document(s) glucose, fasting 90 mg/dL 70-100 normal Glucose, Fasting AT [facility]) creatinine for GFR 0.63 mg/dL 0.55-1.30 normal Creatinine for GF R [place] ([facility]) glomerular filtration rate > 60.0 >60 normal Glomerula r Filtration Rate [place] ([facility]) blood urea nitrogen 11 mg/dL 7-18 normal Blood Urea Nitro gen [place] ([facility]) sodium level 142 mEq/L 136-145 normal Sodium Level [place] ([facility]) anion gap 4 mEq/L 8-16 Below low normal Anion Gap [place] ( [facility]) chloride level 109 mEq/L 98-107 Above high normal Chloride Level [place] ([facility]) calcium level 8.0 mg/dL 8.5-10.1 Below low normal Calcium Level AT [facility]) potassium serum 3.1 mEq/L 3.5-5.1 Below low normal Potassium Seru m [place] ([facility]) carbon dioxide level 29 mEq/L 21-32 normal Carbon Dioxide Level [facility]) ID Date Data Source [id number] 01/14/2020 01:37:00 PM EDT [place] ([facility]) Name Value Range Interpretation Code Description Data Mary rce(s) Supporting Document(s) glomerular filtration rate > 60.0 >60 normal Glomerula r Filtration Rate [place] ([facility]) creatinine for GFR 0.63 mg/dL 0.55-1.30 normal Creatinine for GF R [place] ([facility]) sodium level 142 mEq/L 136-145 normal Sodium Level [place] ([facility]) glucose, fasting 90 mg/dL 70-100 normal Glucose, Fasting AT [facility]) blood urea nitrogen 11 mg/dL 7-18 normal Blood Urea Nitro gen [place] ([facility]) anion gap 4 mEq/L 8-16 Below low normal Anion Gap [place] ( [facility]) potassium serum 3.1 mEq/L 3.5-5.1 Below low normal Potassium Seru m [place] ([facility]) calcium level 8.0 mg/dL 8.5-10.1 Below low normal Calcium Level AT [facility]) carbon dioxide level 29 mEq/L 21-32 normal Carbon Dioxide Level [place] ([facility]) chloride level 109 mEq/L 98-107 Above high normal Chloride Level [facility]) ID Date Data Source [id number] 01/14/2020 01:37:00 PM EDT [facility]) Name Value Range Interpretation Code Description Data Mary rce(s) Supporting Document(s) glucose, fasting 90 mg/dL 70-100 normal Glucose, Fasting AT [facility]) blood urea nitrogen 11 mg/dL 7-18 normal Blood Urea Nitro gen [place] ([facility]) glomerular filtration rate > 60.0 >60 normal Glomerula r Filtration Rate [place] ([facility]) creatinine for GFR 0.63 mg/dL 0.55-1.30 normal Creatinine for GF R [place] ([facility]) sodium level 142 mEq/L 136-145 normal Sodium Level [place] ([facility]) carbon dioxide level 29 mEq/L 21-32 normal Carbon Dioxide Level [place] ([facility]) chloride level 109 mEq/L 98-107 Above high normal Chloride Level [place] ([facility]) potassium serum 3.1 mEq/L 3.5-5.1 Below low normal Potassium Seru m [place] ([facility]) anion gap 4 mEq/L 8-16 Below low normal Anion Gap [place] ( [facility]) calcium level 8.0 mg/dL 8.5-10.1 Below low normal Calcium Level AT [facility]) ID Date Data Source [id number] 01/14/2020 01:37:00 PM EDT [facility]) Name Value Range Interpretation Code Description Data Mary rce(s) Supporting Document(s) glucose, fasting 90 mg/dL 70-100 normal Glucose, Fasting AT [facility]) blood urea nitrogen 11 mg/dL 7-18 normal Blood Urea Nitro gen [facility]) creatinine for GFR 0.63 mg/dL 0.55-1.30 normal Creatinine for GF R [place] ([facility]) glomerular filtration rate > 60.0 >60 normal Glomerula r Filtration Rate [place] ([facility]) potassium serum 3.1 mEq/L 3.5-5.1 Below low normal Potassium Seru m [place] ([facility]) sodium level 142 mEq/L 136-145 normal Sodium Level [place] (No [facility]) anion gap 4 mEq/L 8-16 Below low normal Anion Gap [place] ( [facility]) carbon dioxide level 29 mEq/L 21-32 normal Carbon Dioxide Level [place] ([facility]) chloride level 109 mEq/L 98-107 Above high normal Chloride Level [place] ([facility]) calcium level 8.0 mg/dL 8.5-10.1 Below low normal Calcium Level AT [facility]) ID Date Data Source [id number] 01/14/2020 01:37:00 PM EDT [place] ([facility]) Name Value Range Interpretation Code Description Data Mary rce(s) Supporting Document(s) blood urea nitrogen 11 mg/dL 7-18 normal Blood Urea Nitro gen [place] ([facility]) glucose, fasting 90 mg/dL 70-100 normal Glucose, Fasting AT [facility]) creatinine for GFR 0.63 mg/dL 0.55-1.30 normal Creatinine for GF R [place] ([facility]) glomerular filtration rate > 60.0 >60 normal Glomerula r Filtration Rate [place] ([facility]) chloride level 109 mEq/L 98-107 Above high normal Chloride Level [place] ([facility]) potassium serum 3.1 mEq/L 3.5-5.1 Below low normal Potassium Seru m [place] ([facility]) sodium level 142 mEq/L 136-145 normal Sodium Level [place] ([facility]) calcium level 8.0 mg/dL 8.5-10.1 Below low normal Calcium Level AT [facility]) carbon dioxide level 29 mEq/L 21-32 normal Carbon Dioxide Level [place] ([facility]) anion gap 4 mEq/L 8-16 Below low normal Anion Gap [place] ( [facility]) ID Date Data Source [id number] 01/14/2020 01:37:00 PM EDT [facility]) Name Value Range Interpretation Code Description Data Mary rce(s) Supporting Document(s) glucose, fasting 90 mg/dL 70-100 normal Glucose, Fasting AT [facility]) potassium serum 3.1 mEq/L 3.5-5.1 Below low normal Potassium Seru m [place] ([facility]) creatinine for GFR 0.63 mg/dL 0.55-1.30 normal Creatinine for GF R [place] ([facility]) blood urea nitrogen 11 mg/dL 7-18 normal Blood Urea Nitro gen [place] ([facility]) sodium level 142 mEq/L 136-145 normal Sodium Level [place] (No [facility]) glomerular filtration rate > 60.0 >60 normal Glomerula r Filtration Rate [place] ([facility]) chloride level 109 mEq/L 98-107 Above high normal Chloride Level [place] ([facility]) carbon dioxide level 29 mEq/L 21-32 normal Carbon Dioxide Level [facility]) anion gap 4 mEq/L 8-16 Below low normal Anion Gap [place] ( [facility]) calcium level 8.0 mg/dL 8.5-10.1 Below low normal Calcium Level AT [facility]) ID Date Data Source [id number] 01/14/2020 01:37:00 PM EDT [facility] Name Value Range Interpretation Code Description Data Mary rce(s) Supporting Document(s) HCT 34.7 % 36.0-47.0 L [facility] HGB 11.2 g/dL 12.0-15.5 L [facility] MCH 32.3 G/DL pg 32.0-36.[address] [facility] MCHC 24.8 PG % 27.0-33.0 L [facility] PLATELETS 7 10 10*3/mm3 150-450 Below lower panic limits [facility] RBC 4.52 10 10*6/mm3 4.00-5.40 N [facility] RDW 14.9 % 11.5-14.5 H [facility] WBC TOTAL 5.1 4.0-10.0 N [facility] ID Date Data Source [id number] 09/13/2019 01:35:31 PM EDT [facility] Initial Intake Information from: patient Smoking, [...] Mason you seen a dentist? Yes - alfredo [...] Diagnosis Recommendation: Major Depression Functional Impairment: Extremely DifficultTo's Follow-Up Action Depression follow-up done. Follow-Up Action: [...] History Medical History:History of Chiari MalformationHeadachesITPDepressionBi- PolaranemiaSurgical History:[id number] History:FH AsthmaFH ADHDSocial/Personal History:LIVES WITH / 12/12 Chief Complaintzoom folllow up dep/anxHistory of Present Illness (HPI)Telemedicine visit with patient's location at their home and provider's location at [facility]. Additional person(s)participating in the visit: Delores [...] during this visit, including review of any axxh-qii-ckefcnn medications, herbal therapies, and/or supplements.Allergy ReviewAllergy List was reviewed and/or updated during this visit.Provider Calculated and Reviewed all Clinical Protocols for patient today. Care Management Plan Transitions of CareInboundRate Your HealthIn general, would you say your health is? PoorAssessment & Plan Problems:Added: Insomnia, unspecified (XSC70-P96.00) Assessment: Instructions: We have sent a prescription to your pharmacy today. Please take medication as prescribed. Please report any major side effects.Assessed:Anxiety depression (ICD-300.4) (VGA22-K23.8) Assessment: Instructions: We have increase the dose of your prozac today. .Please take medication as prescribed. Please report any major side effects.Anxiety depression (ICD-300.4) (AAG23-X95.8) Assessment: GAD7 and PHQ 9 scores reviewed [...] ORAL TABLETTYLENOL 325 MG ORAL TABLETVITAMIN D3 60957 UNIT ORAL TABLETPROZAC 20 MG ORAL CAPSULEMedication Changes:Refilled:PROZAC 20 MG ORAL CAPSULE-take one tablet by mouth daily Qty: 30[Capsule] Refills: 2 Method: ElectronicNew Prescription:TRAZODONE HCL 50 MG ORAL TABLET-take one tablet by mouth daily at bedtime. Qty: 30[Tablet] Refills: 1 Method: ElectronicChanged:From: ORAL PROZAC 10 MG ORAL CAPSULE Qty: [id number] Refills: 30[Capsule] To: PROZAC 20 MG ORAL CAPSULE-take one tablet by mouth daily Qty: 30[Capsule] Refills: 2Allergies:* PEDIAZOLE (Critical)Orders:Telepsychiatry Consult [CPT-42205] COMP METABOLIC PANEL [CPT-33958] CBC W/DIFF [CPT-97270] LIPID PANEL [CPT-54045] TSH [CPT-25987] T-4 free [CPT-01714] Vitamin D 250H Unspecified [CPT-69823] Office Visit - Established, Level 3 [CPT-46254DK] Follow-Up Return to clinic: 4-6 weeks for [...] rce(s) Supporting Document(s) ID Date Data Source [id number] 07/09/2019 11:40:00 AM [facility] Name Value Range Interpretation Code Description Data Mary rce(s) Supporting Document(s) THROAT CULTR NORMAL JD PRESENT N [facility] ID Date Data Source [id number] 07/09/2019 11:25:08 AM [facility] Measurements [...] AMPatient History Medical History:History of Chiari MalformationHeadachesITPDepressionBi-PolaranemiaSurgical History:Rbkwaljrb1Szyygk History:FH AsthmaFH ADHDSocial/Personal History:LIVES WITH / 12/12 [...] during this visit, including review of any chzg-wfv-bdbvkaa medications, herbal therapies, and/or supplements.Allergy ReviewAllergy List [...] rupture of ear drum, right ear (ICD-382.01) (TYZ72-D59.001) Assessment: Instructions: Start amoxicillin twice daily x 10 days. Take antibiotics as prescribed, finish full course even if symptoms resolve. Antibiotics may cause stomach upset, recommend eating yogurt or taking probiotic while on antibiotics.Changed:From: Dx of PHARYNGITIS ACUTE (ICD-462) (ICD10- J02.9) To: PHARYNGITIS ACUTE (ICD-462) (THY54-E18.9)Assessed:PHARYNGITIS ACUTE (ICD-462) (EZZ29-W95.9) Assessment: Instructions: Negative strep in office today. [...] ORAL TABLETTYLENOL 325 MG ORAL TABLETVITAMIN D3 11119 UNIT ORAL TABLETPROZAC 10 MG ORAL CAPSULEMedication Changes:New Prescription:AMOXICILLIN 875 MG ORAL TABLET-Take 1 tablet by mouth twice daily x 10 days Qty: 20[Tablet] Refills: 0 Method: ElectronicRemoved:PREDNISONE 20 MG ORAL TABLET-4 tablets by mouth dailyAllergies:* PEDIAZOLE (Critical)Orders:Rapid Strep [CPT-57666] Throat Culture [CPT-67353] Adult - Ofc Vst, EST, Level II [CPT-72536] Follow-Up Return to clinic: as needed Clinical Visit Summary CompletedMedications:AMOXICILLIN 875 MG ORAL TABLET (AMOXICILLIN) Take 1 tablet by mouth twice daily x 10 days #20[Tablet] x 0 Route:ORAL Entered and Authorized by: Jaime HWEELER Method used: Electronically to [facility]* (glshds) [id number] [place] [address] Note to Pharmacy: Route: ORAL; Indications: ACUTE SUPPURATIVE OTITIS MEDIA WITHOUT SPONTANEOUS RUPTURE OF EAR DRUM, RIGHT EAR RxID: [id number] signed by Jaime WHEELER on 07/14/2019 at 8:09 AM Name Value Range Interpretation Code Description Data Mary rce(s) Supporting Document(s) ID Date Data Source [id number] 06/07/2019 01:20:36 PM [facility] Measurements [...] seen another healthcare provider? Yes - Dr. Goldsmith, HemotolgyHave you seen a dentist? Yes - [...] PMPatient History Medical History:History of Chiari MalformationHeadachesITPDepressionBi-PolaranemiaSurgical History:Veqnxakzp7Uxvwiz History:FH AsthmaFH ADHDSocial/Personal History:LIVES WITH / 12/12 [...] other concerns today. HPI performed by: Delores RANGEL, June 07, 2019 1:52 PMTransitions of Care InboundProblem ReviewProblem List was reviewed and/or updated during this visit.Medication Reconciliation & ReviewMedication List was reviewed and/or updated during this visit, including review of any iahj-mxs-gefsoiy medications, herbal therapies, and/or supplements.Allergy ReviewAllergy List [...] is? 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 Please try to keep scheduled appointment with Therapist. Please let us know if you need additional assistance.Vitamin D deficiency (ICD-268.9) (JWG03-I61.9) Assessment: Instructions: Please continue medication as prescribed.Anxiety depression (ICD-300.4) (UAH94-V36.8) Assessment: New referral done.Patient Instructions/Care Plan: Platelet disorder: Please continue to follow with your specialist as scheduled.Anxiety depression: Please continue medication as scheduled. Please try to keep scheduled appointment with Therapist. Please let us know if you need additional assistance.Vitamin D deficiency: Please continue medication as prescribed. Plan developed in collaboration with patient and/or familyMedications:TYLENOL 325 MG ORAL TABLETVITAMIN D3 81540 UNIT ORAL TABLETPROZAC 10 MG ORAL CAPSULEPREDNISONE 20 MG ORAL TABLETMedication Changes:Refilled:PROZAC 10 MG ORAL CAPSULE-take one tablet by mouth daily Qty: 30[Capsule] Refills: 3 Method: ElectronicAllergies:* PEDIAZOLE (Critical)Orders:Mental Health Consult [CPT-28954] Adult - Ofc Vst, EST, Level III [CPT-55158] Follow-Up Return to clinic: 3 months for follow up Clinical Visit Summary CompletedMedications:PROZAC 10 MG ORAL CAPSULE (FLUOXETINE HCL) take one tablet by mouth daily #30[Capsule] x 3 Route:ORAL Entered and Authorized by: Delores RANGEL Method used: Electronically to [facility]* (iwjeui) [id number] [place] [address] Fax: Note to Pharmacy: Route: ORAL; Indications: ANXIETY DEPRESSION RxID: [id number] signed by Delores RANGEL on 06/10/2019 at 12:16 AM Name Value Range Interpretation Code Description Data Mary rce(s) Supporting Document(s) Procedure Vital Signs ID Date Data Source UNK Name Value Range Interpretation Code Description Data Source(s) Body weight 3460 [oz_av] 3460 [oz_av] [place] ([facility]) Systolic blood pressure 95 mm[Hg] 95 mm[Hg] A [place] ([facility]) Body mass index (BMI) [Ratio] 42.2 kg/m2 42.2 k g/m2 [place] ([facility]) Body height 60 [in_i] 60 [in_i] [place] ([facility]) Diastolic blood pressure 68 mm[Hg] 68 mm[Hg] [place] ([facility]) Body weight 3460 [oz_av] 3460 [oz_av] [place] ([facility]) Systolic blood pressure 95 mm[Hg] 95 [facility]Hg] [facility] Body mass index (BMI) [Ratio] 42.2 kg/m2 42.2 k g/m2 [place] ([facility]) Body height 60 [in_i] 60 [in_i] [place] ([facility]) Diastolic blood pressure 68 mm[Hg] 68 mm[Hg] [place] ([facility]) Body weight 3475.2 [oz_av] 3475.2 [oz_av] ATHEN A ([facility]) Systolic blood pressure 109 mm[Hg] 109 mm[Hg] A [place] ([facility]) Body mass index (BMI) [Ratio] 42.4 kg/m2 42.4 k g/m2 [place] ([facility]) Body height 60 [in_i] 60 [in_i] [place] ([facility]) Diastolic blood pressure 77 mm[Hg] 77 mm[Hg] [place] ([facility]) Body weight 3475.2 [oz_av] 3475.2 [oz_av] ATHEN A ([facility]) Systolic blood pressure 109 mm[Hg] 109 mm[Hg] A THENA ([facility]) Body mass index (BMI) [Ratio] 42.4 kg/m2 42.4 k g/m2 [place] ([facility]) Body height 60 [in_i] 60 [in_i] [place] ([facility]) Diastolic blood pressure 77 mm[Hg] 77 mm[Hg] [place] ([facility]) Body weight 3475.2 [oz_av] 3475.2 [oz_av] ATHEN A ([facility]) Systolic blood pressure 109 mm[Hg] 109 mm[Hg] A THENA ([facility]) Body mass index (BMI) [Ratio] 42.4 kg/m2 42.4 k g/m2 [place] ([facility]) Body height 60 [in_i] 60 [in_i] [place] ([facility]) Diastolic blood pressure 77 mm[Hg] 77 mm[Hg] [place] ([facility]) Body weight 3475.2 [oz_av] 3475.2 [oz_av] ATHEN A ([facility]) Systolic blood pressure 109 mm[Hg] 109 mm[Hg] A THENA ([facility]) Body mass index (BMI) [Ratio] 42.4 kg/m2 42.4 k g/m2 [place] ([facility]) Body height 60 [in_i] 60 [in_i] [place] ([facility]) Diastolic blood pressure 77 mm[Hg] 77 mm[Hg] [place] ([facility]) Body weight 3475.2 [oz_av] 3475.2 [oz_av] ATHEN A ([facility]) Systolic blood pressure 109 mm[Hg] 109 mm[Hg] A [place]NA ([facility]) Body mass index (BMI) [Ratio] 42.4 kg/m2 42.4 k g/m2 [place] ([facility]) Body height 60 [in_i] 60 [in_i] [place] ([facility]) Diastolic blood pressure 77 mm[Hg] 77 mm[Hg] [place] ([facility]) Body weight 3266.08 [oz_av] 3266.08 [oz_av] ATH TJ ([facility]) Body height 60 [in_i] 60 [in_i] [place] ([facility]) Body weight 3266.08 [oz_av] 3266.08 [oz_av] ATH TJ ([facility]) Body height 60 [in_i] 60 [in_i] [place] ([facility]) Body weight 3266.08 [oz_av] 3266.08 [oz_av] ATH TJ ([facility]) Body height 60 [in_i] 60 [in_i] [place] ([facility]) Body weight 3266.08 [oz_av] 3266.08 [oz_av] ATH TJ ([facility]) Body height 60 [in_i] 60 [in_i] [place] ([facility]) Body weight 3266.08 [oz_av] 3266.08 [oz_av] ATH TJ ([facility]) Body height 60 [in_i] 60 [in_i] [place] ([facility]) Body weight 3266.08 [oz_av] 3266.08 [oz_av] ATH TJ ([facility]) Body height 60 [in_i] 60 [in_i] [place] ([facility]) Body weight 3266.08 [oz_av] 3266.08 [oz_av] ATH TJ ([facility]) Body height 60 [in_i] 60 [in_i] [place] ([facility]) Body weight 3266.08 [oz_av] 3266.08 [oz_av] ATH TJ ([facility]) Body height 60 [in_i] 60 [in_i] [place] ([facility]) Body weight 3266.08 [oz_av] 3266.08 [oz_av] ATH TJ ([facility]) Body height 60 [in_i] 60 [in_i] [place] ([facility]) Body weight 3032 [oz_av] 3032 [oz_av] [place] ([facility]) Systolic blood pressure 107 mm[Hg] 107 mm[Hg] [facility] Body height 60 [in_i] 60 [in_i] [place] ([facility]) Diastolic blood pressure 72 mm[Hg] 72 mm[Hg] [place] ([facility]) Body weight 3032 [oz_av] 3032 [oz_av] [place] ([facility]) Systolic blood pressure 107 mm[Hg] 107 mm[Hg] [facility] Body height 60 [in_i] 60 [in_i] [place] ([facility]) Diastolic blood pressure 72 mm[Hg] 72 mm[Hg] [place] ([facility]) Body weight 3032 [oz_av] 3032 [oz_av] [place] ([facility]) Systolic blood pressure 107 mm[Hg] 107 mm[Hg] [facility] Body height 60 [in_i] 60 [in_i] [place] ([facility]) Diastolic blood pressure 72 mm[Hg] 72 mm[Hg] [place] ([facility]) Body weight 3032 [oz_av] 3032 [oz_av] [place] ([facility]) Systolic blood pressure 107 mm[Hg] 107 mm[Hg] [facility] Body height 60 [in_i] 60 [in_i] [place] ([facility]) Diastolic blood pressure 72 mm[Hg] 72 mm[Hg] [place] ([facility]) Body weight 3032 [oz_av] 3032 [oz_av] [place] ([facility]) Systolic blood pressure 107 mm[Hg] 107 mm[Hg] A [facility] ([facility]) Body height 60 [in_i] 60 [in_i] [place] ([facility]) Diastolic blood pressure 72 mm[Hg] 72 mm[Hg] [place] ([facility]) Body weight 3032 [oz_av] 3032 [oz_av] [place] ([facility]) Systolic blood pressure 107 mm[Hg] 107 mm[Hg] A [facility] ([facility]) Body height 60 [in_i] 60 [in_i] [place] ([facility]) Diastolic blood pressure 72 mm[Hg] 72 mm[Hg] [place] ([facility]) Body weight 3032 [oz_av] 3032 [oz_av] [place] ([facility]) Systolic blood pressure 107 mm[Hg] 107 mm[Hg] [facility] Body height 60 [in_i] 60 [in_i] [place] ([facility]) Diastolic blood pressure 72 mm[Hg] 72 mm[Hg] [facility] ([facility]) Body weight 3032 [oz_av] 3032 [oz_av] [place] ([facility]) Systolic blood pressure 107 mm[Hg] 107 mm[Hg] [facility] Body height 60 [in_i] 60 [in_i] [place] ([facility]) Diastolic blood pressure 72 mm[Hg] 72 mm[Hg] [place] ([facility]) Body weight 3032 [oz_av] 3032 [oz_av] [place] ([facility]) Systolic blood pressure 107 mm[Hg] 107 mm[Hg] [facility] Body height 60 [in_i] 60 [in_i] [place] ([facility]) Diastolic blood pressure 72 mm[Hg] 72 mm[Hg] [place] ([facility]) Body weight 2880 [oz_av] 2880 [oz_av] [place] ([facility]) Systolic blood pressure 100 mm[Hg] 100 mm[Hg] [facility] Body height 60 [in_i] 60 [in_i] [place] ([facility]) Diastolic blood pressure 68 mm[Hg] 68 mm[Hg] [place] ([facility]) Body weight 2880 [oz_av] 2880 [oz_av] [place] ([facility]) Systolic blood pressure 100 mm[Hg] 100 mm[Hg] A [facility] ([facility]) Body height 60 [in_i] 60 [in_i] [place] ([facility]) Diastolic blood pressure 68 mm[Hg] 68 mm[Hg] [facility] ([facility]) Body weight 2880 [oz_av] 2880 [oz_av] [place] ([facility]) Systolic blood pressure 100 mm[Hg] 100 mm[Hg] [facility] Body height 60 [in_i] 60 [in_i] [place] ([facility]) Diastolic blood pressure 68 mm[Hg] 68 mm[Hg] [facility] ([facility]) Body weight 2880 [oz_av] 2880 [oz_av] [place] ([facility]) Systolic blood pressure 100 mm[Hg] 100 mm[Hg] [facility] Body height 60 [in_i] 60 [in_i] [place] ([facility]) Diastolic blood pressure 68 mm[Hg] 68 mm[Hg] [facility] ([facility]) Body weight 2880 [oz_av] 2880 [oz_av] [place] ([facility]) Systolic blood pressure 100 mm[Hg] 100 mm[Hg] [facility] Body height 60 [in_i] 60 [in_i] [place] ([facility]) Diastolic blood pressure 68 mm[Hg] 68 mm[Hg] [facility] ([facility]) Body weight 2880 [oz_av] 2880 [oz_av] [place] ([facility]) Systolic blood pressure 100 mm[Hg] 100 mm[Hg] A [facility] ([facility]) Body height 60 [in_i] 60 [in_i] [place] ([facility]) Diastolic blood pressure 68 mm[Hg] 68 mm[Hg] [facility] ([facility]) Body weight 2880 [oz_av] 2880 [oz_av] [place] ([facility]) Systolic blood pressure 100 mm[Hg] 100 mm[Hg] A [facility] ([facility]) Body height 60 [in_i] 60 [in_i] [place] ([facility]) Diastolic blood pressure 68 mm[Hg] 68 mm[Hg] [place] ([facility]) Body weight 2880 [oz_av] 2880 [oz_av] [place] ([facility]) Systolic blood pressure 100 mm[Hg] 100 mm[Hg] [facility] Body height 60 [in_i] 60 [in_i] [place] ([facility]) Diastolic blood pressure 68 mm[Hg] 68 mm[Hg] [facility] ([facility]) Body weight 2880 [oz_av] 2880 [oz_av] [place] ([facility]) Systolic blood pressure 100 mm[Hg] 100 mm[Hg] A [facility] ([facility]) Body height 60 [in_i] 60 [in_i] [place] ([facility]) Diastolic blood pressure 68 mm[Hg] 68 mm[Hg] [facility] ([facility]) Patient Treatment Plan of Care Planned Activity Planned Date Details Description Data Source (s) Naproxen 500 MG Oral Tablet BR[facility] ([facility]) Acetaminophen 325 MG Oral Tablet [Mapap] [facility] ([facility]) lamotrigine 25 MG Oral Tablet [facility] ([facility]) Fluoxetine 10 MG Oral Capsule [facility] ([facility]) Dicyclomine Hydrochloride 20 MG Oral Tablet [facility] ([facility]) Amoxicillin 875 MG Oral Tablet [facility] ([facility]) Naproxen 500 MG Oral Tablet [facility] ([facility]) Acetaminophen 325 MG Oral Tablet [Mapap] [facility] ([facility]) lamotrigine 25 MG Oral Tablet [facility] ([facility]) Fluoxetine 10 MG Oral Capsule [facility] ([facility]) Dicyclomine Hydrochloride 20 MG Oral Tablet [facility] ([facility]) Amoxicillin 875 MG Oral Tablet [facility] ([facility]) Acetaminophen 325 MG Oral Tablet [Mapap] [facility] ([facility]) lamotrigine 25 MG Oral Tablet [facility] ([facility]) Fluoxetine 10 MG Oral Capsule [facility] ([facility]) Dicyclomine Hydrochloride 20 MG Oral Tablet [facility] ([facility]) Amoxicillin 875 MG Oral Tablet [facility] ([facility]) Acetaminophen 325 MG Oral Tablet [Mapap] [facility] ([facility]) lamotrigine 25 MG Oral Tablet [facility] ([facility]) Fluoxetine 10 MG Oral Capsule [facility] ([facility]) Dicyclomine Hydrochloride 20 MG Oral Tablet [facility] ([facility]) Amoxicillin 875 MG Oral Tablet [facility] ([facility]) Acetaminophen 325 MG Oral Tablet [Mapap] [facility] ([facility]) lamotrigine 25 MG Oral Tablet [facility] ([facility]) Fluoxetine 10 MG Oral Capsule [facility] ([facility]) Dicyclomine Hydrochloride 20 MG Oral Tablet [facility] ([facility]) Amoxicillin 875 MG Oral Tablet [facility] ([facility])
[2020-07-26] MEDS ORDERED: LEVO100T5 (21:29)
[2020-07-26] MEDS ORDERED: ONDA-83 (21:29)
[2020-07-27 00:28] LABS: BASO % 0.1 % (0.0-1.0); EOS # 0.1 10^3/uL (0.0-0.5); EOS % 0.9 % (0.0-3.0); HEMATOCRIT 37.8 % (36.0-47.0); HEMOGLOBIN 11.5 g/dl (12.0-15.5); LYMPH % 27.6 % (24.0-44.0); MEAN CORPUSCULAR HEMOGLOBIN 22.8 pg (27.0-33.0); MEAN CORPUSCULAR HGB CONC 30.4 g/dl (32.0-36.5); MONO # 0.9 10^3/uL (0.0-0.8); MONO % 6.1 % (2.0-8.0); NEUTROPHILS # 9.3 10^3/uL (1.5-8.5); NEUTROPHILS % 64.7 % (36.0-66.0); PLATELET COUNT, AUTOMATED 143 10^3/uL (150-450); RED BLOOD COUNT 5.04 10^6/uL (4.00-5.40); WHITE BLOOD COUNT 14.4 10^3/uL (4.0-10.0)
--- NOTE | 2020-07-27 01:15 | REPVR ---
PROCEDURE INFORMATION: Exam: XR Chest, 1 View Exam date and time: 07/26/2020 11:55 PM Age: 25 years old Clinical indication: Other: Chest pain; Additional info: Pleuritic shest pain TECHNIQUE: Imaging protocol: XR of the chest Views: 1 view. COMPARISON: 1. CR PORTABLE CHEST X-RAY 2020-07-25 02:52 2. CR Chest, 2 view PA, Lat 2017-07-13 14:11 3. CR Chest, 2 view PA, Lat 2015-04-02 17:38 FINDINGS: Lungs: Unremarkable. No consolidation. Pleural spaces: Unremarkable. No pleural effusion. No pneumothorax. Heart/Mediastinum: Unremarkable. No cardiomegaly. Bones/joints: Unremarkable. IMPRESSION: No acute findings. Electronically signed by: Dennis Wills On 07/27/2020 01:15:28 AM
[2020-07-27 01:18] LABS: ALBUMIN 3.1 GM/DL (3.2-5.2); ALT/SGPT 16 U/L (12-78); BILIRUBIN,TOTAL 0.4 MG/DL (0.2-1.0); BLOOD UREA NITROGEN 14 MG/DL (7-18); CALCIUM LEVEL 8.1 MG/DL (8.5-10.1); CARBON DIOXIDE LEVEL 33 MEQ/L (21-32); CHLORIDE LEVEL 102 MEQ/L (98-107); CREATININE FOR GFR 0.66 MG/DL (0.55-1.30); GLOMERULAR FILTRATION RATE > 60.0 (>60); GLUCOSE, FASTING 97 MG/DL (70-100); POTASSIUM SERUM 2.8 MEQ/L (3.5-5.1); SODIUM LEVEL 139 MEQ/L (136-145); TOTAL PROTEIN 6.6 GM/DL (6.4-8.2)
[2020-07-27] MEDS ORDERED: POTASSIUM CHLORIDE 10 MEQ SR TABLET PO ONE (01:20)
[2020-07-27] MEDS ORDERED: NS 1,000 ML IV SCH (01:40)
[2020-07-27 01:55] LABS: HCG, SERUM QUALITATIVE NEGATIVE (NEGATIVE)
[2020-07-27] MEDS ORDERED: ISOVUE-370 76% 100ML VIAL As Ordered ONE (02:14)
--- OUTSIDE RECORDS SUMMARY | 2020-07-27 04:13 | CCD ---
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 [facility]) hematocrit 34.7 % 36.0-47.0 Below low normal Hematocrit [place] ( [facility]) mean corpuscular HGB conc 30.8 g/dL 32.0-36.5 Below low sudeep l Mean Corpuscular HGB Conc [place] ([facility]) mean corpuscular hemoglobin 23.6 pg 27.0-33.0 Below low nor mal Mean Corpuscular Hemoglobin [place] ([facility]) mean corpuscular volume 76.6 fL 80.0-96.0 Below low normal Mean Corpuscular Volume [place] ([facility]) platelet count, automated 23 10 150-450 Below low sudeep l Platelet Count, Automated [place] ([facility]) neutrophils % 61.3 % 36.0-66.0 normal Neutrophils % [place] ( [facility]) lymph % 23.5 % 24.0-44.0 Below low normal Lymph % [place] ( [facility]) red cell distribution width 14.6 % 11.5-14.5 Above high no rmal Red Cell Distribution Width [place] ([facility]) eos % 2.2 % 0.0-3.0 normal Eos % [place] ([facility]) mono % 11.8 % 0.0-5.0 Above high normal [place] % [place] ([facility]) baso % 0.9 % 0.0-1.0 normal Baso % [place] ([facility]) nucleated red blood cell % 0.0 % 0-0 normal Nucleated Red Blood Cell % [place] ([facility]) lymph # 1.4 10 1.5-5.0 Below low normal Lymph # [place] ( [facility]) neutrophils # 3.6 10 1.5-8.5 normal Neutrophils # [place] ( [facility]) immature granulocyte % 0.3 % 0-3.0 normal Immature Gran ulocyte % [place] ([facility]) baso # 0.1 10 0.0-0.2 normal Baso # [place] ([facility]) eos # 0.1 10 0.0-0.5 normal Eos # [place] ([facility]) mono # 0.7 10 0.0-0.8 normal [place] # [place] ([facility]) ID Date Data Source [id number] 06/15/2020 08:35:00 AM EST [place] ([facility]) Name Value Range Interpretation Code Description Data Mary rce(s) Supporting Document(s) thyroid stimulating hormone 7.380 uIU/mL 0.358-3.740 Above high no rmal Thyroid Stimulating Hormone [place] ([facility]) free T4 0.91 NG/dL 0.76-1.46 normal Free T4 [place] ([facility]) ID Date Data Source [id number] 06/15/2020 08:35:00 AM EST [place] ([facility]) Name Value Range Interpretation Code Description Data Mary rce(s) Supporting Document(s) glucose, fasting 106 mg/dL 70-100 Above high normal Glucose, Fas ting [place] ([facility]) creatinine for GFR 0.63 mg/dL 0.55-1.30 normal Creatinine for GF R [place] ([facility]) blood urea nitrogen 14 mg/dL 7-18 normal Blood Urea Nitro gen [place] ([facility]) sodium level 139 mEq/L 136-145 normal Sodium Level [place] ([facility]) glomerular filtration rate > 60.0 >60 normal Glomerula r Filtration Rate [place] ([facility]) potassium serum 4.0 mEq/L 3.5-5.1 normal Potassium Serum ATH NA ([facility]) carbon dioxide level 26 mEq/L 21-32 normal Carbon Dioxide Level [place] ([facility]) chloride level 108 mEq/L 98-107 Above high normal Chloride Level [place] ([facility]) anion gap 5 mEq/L 8-16 Below low normal Anion Gap [place] ( [facility]) AST/SGOT 13 U/L 7-37 normal AST/SGOT [facility]) calcium level 8.1 mg/dL 8.5-10.1 Below low normal Calcium Level AT [place] ([facility]) alkaline phosphatase 83 U/L 45-117 normal Alkaline Phosph atase [place] ([facility]) ALT/SGPT 21 U/L 12-78 normal ALT/SGPT [place] ([facility]) bilirubin,total 0.4 mg/dL 0.2-1.0 normal Bilirubin,total [place] ([facility]) total protein 7.1 gm/dL 6.4-8.2 normal Total Protein [place] ( [facility]) albumin/globulin ratio 1.2-2.2 Below low normal Albumin /globulin Ratio [place] ([facility]) albumin 3.6 gm/dL 3.2-5.2 normal Albumin [place] ([facility]) ID Date Data Source [id number] 06/15/2020 08:35:00 AM EST [place] ([facility]) Name Value Range Interpretation Code Description Data Mary rce(s) Supporting Document(s) immature platelet fraction % 6.3 % 0.0-9.59 normal Immatur e Platelet Fraction % [place] ([facility]) ID Date Data Source [id number] 06/15/2020 08:35:00 AM EST [place] ([facility]) Name Value Range Interpretation Code Description Data Mary rce(s) Supporting Document(s) white blood count 5.8 10 4.0-10.0 normal White Blood Count [place] ([facility]) red blood count 4.53 10 4.00-5.40 normal Red Blood Count [place] NA ([facility]) hemoglobin 10.7 g/dL 12.0-15.5 Below low normal Hemoglobin [place] ( [facility]) hematocrit 34.7 % 36.0-47.0 Below low normal Hematocrit [place] ( [facility]) mean corpuscular hemoglobin 23.6 pg 27.0-33.0 Below low nor mal Mean Corpuscular Hemoglobin [place] ([facility]) mean corpuscular volume 76.6 fL 80.0-96.0 Below low normal Mean Corpuscular Volume [place] ([facility]) mean corpuscular HGB conc 30.8 g/dL 32.0-36.5 Below low sudeep l Mean Corpuscular HGB Conc [place] ([facility]) red cell distribution width 14.6 % 11.5-14.5 Above high no rmal Red Cell Distribution Width [place] ([facility]) mono % 11.8 % 0.0-5.0 Above high normal [place] % [place] ([facility]) neutrophils % 61.3 % 36.0-66.0 normal Neutrophils % [place] ( [facility]) lymph % 23.5 % 24.0-44.0 Below low normal Lymph % [place] ( [facility]) platelet count, automated 23 10 150-450 Below low sudeep l Platelet Count, Automated [place] ([facility]) baso % 0.9 % 0.0-1.0 normal Baso % [place] ([facility]) nucleated red blood cell % 0.0 % 0-0 normal Nucleated Red Blood Cell % [place] ([facility]) eos % 2.2 % 0.0-3.0 normal Eos % [place] ([facility]) immature granulocyte % 0.3 % 0-3.0 normal Immature Gran ulocyte % [place] ([facility]) neutrophils # 3.6 10 1.5-8.5 normal Neutrophils # [place] ( [facility]) mono # 0.7 10 0.0-0.8 normal [place] # [place] ([facility]) lymph # 1.4 10 1.5-5.0 Below low normal Lymph # [place] ( [facility]) eos # 0.1 10 0.0-0.5 normal Eos # [place] ([facility]) baso # 0.1 10 0.0-0.2 normal Baso # [place] ([facility]) ID Date Data Source [id number] 06/15/2020 08:35:00 AM EST [place] ([facility]) Name Value Range Interpretation Code Description Data Mary rce(s) Supporting Document(s) free T4 0.91 NG/dL 0.76-1.46 normal Free T4 [place] ([facility]) thyroid stimulating hormone 7.380 uIU/mL 0.358-3.740 Above high no rmal Thyroid Stimulating Hormone [place] ([facility]) ID Date Data Source [id number] 06/15/2020 08:35:00 AM EST [place] ([facility]) Name Value Range Interpretation Code Description Data Mary rce(s) Supporting Document(s) glucose, fasting 106 mg/dL 70-100 Above high normal Glucose, Fas ting [place] ([facility]) blood urea nitrogen 14 mg/dL 7-18 normal Blood Urea Nitro gen [place] ([facility]) sodium level 139 mEq/L 136-145 normal Sodium Level [place] (No Count includes the [facility]) creatinine for GFR 0.63 mg/dL 0.55-1.30 normal Creatinine for GF R [place] ([facility]) glomerular filtration rate > 60.0 >60 normal Glomerula r Filtration Rate [place] ([facility]) chloride level 108 mEq/L 98-107 Above high normal Chloride Level [place] ([facility]) carbon dioxide level 26 mEq/L 21-32 normal Carbon Dioxide Level [place] ([facility]) potassium serum 4.0 mEq/L 3.5-5.1 normal [facility] anion gap 5 mEq/L 8-16 Below low normal Anion Gap [place] ( [facility]) calcium level 8.1 mg/dL 8.5-10.1 Below low normal Calcium Level AT [facility]) AST/SGOT 13 U/L 7-37 normal AST/SGOT [place] ([facility]) alkaline phosphatase 83 U/L 45-117 normal Alkaline Phosph atase [place] ([facility]) ALT/SGPT 21 U/L 12-78 normal ALT/SGPT [facility]) bilirubin,total 0.4 mg/dL 0.2-1.0 normal Bilirubin,total ATHE [facility]) total protein 7.1 gm/dL 6.4-8.2 normal Total Protein [place] ( [facility]) albumin 3.6 gm/dL 3.2-5.2 normal Albumin [place] ([facility]) albumin/globulin ratio 1.2-2.2 Below low normal Albumin /globulin Ratio [place] ([facility]) ID Date Data Source [id number] 03/06/2020 10:06:16 AM EDT [facility] Vital SignsTemperature: 98.3FV ital Signs performed by: Malorie Bah LPN, March 06, 2020 10:06 AMVaccines Administered/Entered:Vaccination Group: InfluenzaSeries: 1Vaccination: Flulaval Quadrivalent Intramuscular Suspension Prefilled Syringe 0.5 MLMfr / Lot# / Exp.Date: [employer] / [id number] / 11/29/2020mt. Given / Route / Site: 0.5 mL / IM / Left DeltoidNDC / CVX: [id number] / 150Administered Date: 03/06/2020 10:07VFC Eligibility: VFC eligible-Medicaid/Medicaid Managed CareVIS Date: 01/14/2019VIS Given / VIS Given On: Yes 03/06/2020Comments: Administered by: Malorie Bah LPN Assessment & Plan Orders:[id number] Vst-Est Level I [CPT-82186] 54154 - Immo Admin (under 19 yrs), 1st Toxoid [CPT-58675] FluLaval Quadrivalent, preservative free [CPT- 56934] Name Value Range Interpretation Code Description Data Mary rce(s) Supporting Document(s) ID Date Data Source [id number] 2020 06:50:00 AM EDT [place] ([facility]) Name Value Range Interpretation Code Description Data Mary rce(s) Supporting Document(s) blood urea nitrogen 9 mg/dL 7-18 normal Blood Urea Nitro gen [place] ([facility]) creatinine for GFR 0.59 mg/dL 0.55-1.30 normal Creatinine for GF R [place] ([facility]) glomerular filtration rate > 60.0 >60 normal Glomerula r Filtration Rate [place] ([facility]) glucose, fasting 140 mg/dL 70-100 Above high normal Glucose, Fas ting [place] ([facility]) chloride level 110 mEq/L 98-107 Above high normal Chloride Level [place] ([facility]) carbon dioxide level 26 mEq/L 21-32 normal Carbon Dioxide Level [place] ([facility]) potassium serum 3.8 mEq/L 3.5-5.1 D Potassium Serum [place] ([facility]) sodium level 141 mEq/L 136-145 normal Sodium Level [place] ([facility]) anion gap 5 mEq/L 8-16 Below low normal Anion Gap [place] ( [facility]) calcium level 8.0 mg/dL 8.5-10.1 Below low normal Calcium Level AT [facility]) ALT/SGPT 41 U/L 12-78 normal ALT/SGPT [place] ([facility]) AST/SGOT 26 U/L 7-37 normal AST/SGOT [place] ([facility]) albumin 3.5 gm/dL 3.2-5.2 normal Albumin [place] ([facility]) alkaline phosphatase 86 U/L 45-117 normal Alkaline Phosph atase [place] ([facility]) total protein 7.4 gm/dL 6.4-8.2 normal Total Protein [place] ( [facility]) bilirubin,total 0.4 mg/dL 0.2-1.0 normal Bilirubin,total [place] ([facility]) albumin/globulin ratio 1.2-2.2 Below low normal Albumin /globulin Ratio [place] ([facility]) ID Date Data Source [id number] 2020 06:50:00 AM EDT [place] ([facility]) Name Value Range Interpretation Code Description Data Mary rce(s) Supporting Document(s) creatinine for GFR 0.59 mg/dL 0.55-1.30 normal Creatinine for GF R [place] ([facility]) glucose, fasting 140 mg/dL 70-100 Above high normal Glucose, Fas ting [place] ([facility]) blood urea nitrogen 9 mg/dL 7-18 normal Blood Urea Nitro gen [place] ([facility]) potassium serum 3.8 mEq/L 3.5-5.1 D Potassium Serum [place] ([facility]) sodium level 141 mEq/L 136-145 normal Sodium Level [place] (No Count includes the [facility]) glomerular filtration rate > 60.0 >60 normal Glomerula r Filtration Rate [place] ([facility]) chloride level 110 mEq/L 98-107 Above high normal Chloride Level [place] ([facility]) calcium level 8.0 mg/dL 8.5-10.1 Below low normal Calcium Level AT [facility]) AST/SGOT 26 U/L 7-37 normal AST/SGOT [place] ([facility]) anion gap 5 mEq/L 8-16 Below low normal Anion Gap [place] ( [facility]) carbon dioxide level 26 mEq/L 21-32 normal Carbon Dioxide Level [place] ([facility]) bilirubin,total 0.4 mg/dL 0.2-1.0 normal Bilirubin,total [place] ([facility]) total protein 7.4 gm/dL 6.4-8.2 normal Total Protein [place] ( [facility]) ALT/SGPT 41 U/L 12-78 normal ALT/SGPT [place] ([facility]) alkaline phosphatase 86 U/L 45-117 normal Alkaline Phosph atase [place] ([facility]) albumin 3.5 gm/dL 3.2-5.2 normal Albumin [place] ([facility]) albumin/globulin ratio 1.2-2.2 Below low normal Albumin /globulin Ratio [place] ([facility]) ID Date Data Source [id number] 2020 06:50:00 AM EDT [facility]) Name Value Range Interpretation Code Description Data Mary rce(s) Supporting Document(s) creatinine for GFR 0.59 mg/dL 0.55-1.30 normal Creatinine for GF R [place] ([facility]) glucose, fasting 140 mg/dL 70-100 Above high normal Glucose, Fas ting [place] ([facility]) glomerular filtration rate > 60.0 >60 normal Glomerula r Filtration Rate [place] ([facility]) blood urea nitrogen 9 mg/dL 7-18 normal Blood Urea Nitro gen [place] ([facility]) potassium serum 3.8 mEq/L 3.5-5.1 D [facility] carbon dioxide level 26 mEq/L 21-32 normal Carbon Dioxide Level [place] ([facility]) chloride level 110 mEq/L 98-107 Above high normal Chloride Level [place] ([facility]) sodium level 141 mEq/L 136-145 normal Sodium Level [place] (No Count includes the [facility]) AST/SGOT 26 U/L 7-37 normal AST/SGOT [place] ([facility]) anion gap 5 mEq/L 8-16 Below low normal Anion Gap [place] ( [facility]) calcium level 8.0 mg/dL 8.5-10.1 Below low normal Calcium Level AT [facility]) ALT/SGPT 41 U/L 12-78 normal ALT/SGPT [place] ([facility]) bilirubin,total 0.4 mg/dL 0.2-1.0 normal Bilirubin,[facility] alkaline phosphatase 86 U/L 45-117 normal Alkaline Phosph atase [place] ([facility]) total protein 7.4 gm/dL 6.4-8.2 normal Total Protein [place] ( [facility]) albumin/globulin ratio 1.2-2.2 Below low normal Albumin /globulin Ratio [place] ([facility]) albumin 3.5 gm/dL 3.2-5.2 normal Albumin [facility]) ID Date Data Source [id number] 2020 06:50:00 AM EDT [place] ([facility]) Name Value Range Interpretation Code Description Data Mary rce(s) Supporting Document(s) glucose, fasting 140 mg/dL 70-100 Above high normal Glucose, Fas ting [place] ([facility]) blood urea nitrogen 9 mg/dL 7-18 normal Blood Urea Nitro gen [place] ([facility]) creatinine for GFR 0.59 mg/dL 0.55-1.30 normal Creatinine for GF R [place] ([facility]) glomerular filtration rate > 60.0 >60 normal Glomerula r Filtration Rate [place] ([facility]) chloride level 110 mEq/L 98-107 Above high normal Chloride Level [place] ([facility]) sodium level 141 mEq/L 136-145 normal Sodium Level [place] (No Count includes the [facility]) potassium serum 3.8 mEq/L 3.5-5.1 D Potassium Serum [place] NA ([facility]) AST/SGOT 26 U/L 7-37 normal AST/SGOT [place] ([facility]) carbon dioxide level 26 mEq/L 21-32 normal Carbon Dioxide Level [place] ([facility]) anion gap 5 mEq/L 8-16 Below low normal Anion Gap [place] ( [facility]) calcium level 8.0 mg/dL 8.5-10.1 Below low normal Calcium Level AT [facility]) ALT/SGPT 41 U/L 12-78 normal ALT/SGPT [place] ([facility]) alkaline phosphatase 86 U/L 45-117 normal Alkaline Phosph atase [place] ([facility]) albumin 3.5 gm/dL 3.2-5.2 normal Albumin [place] ([facility]) bilirubin,total 0.4 mg/dL 0.2-1.0 normal Bilirubin,total [place] ([facility]) total protein 7.4 gm/dL 6.4-8.2 normal Total Protein [place] ( [facility]) albumin/globulin ratio 1.2-2.2 Below low normal Albumin /globulin Ratio [place] ([facility]) ID Date Data Source [id number] 2020 06:50:00 AM EDT [place] ([facility]) Name Value Range Interpretation Code Description Data Mary rce(s) Supporting Document(s) glucose, fasting 140 mg/dL 70-100 Above high normal Glucose, Fas ting [place] ([facility]) creatinine for GFR 0.59 mg/dL 0.55-1.30 normal Creatinine for GF R [place] ([facility]) blood urea nitrogen 9 mg/dL 7-18 normal Blood Urea Nitro gen [place] ([facility]) sodium level 141 mEq/L 136-145 normal Sodium Level [place] (No Count includes the [facility]) glomerular filtration rate > 60.0 >60 normal Glomerula r Filtration Rate [place] ([facility]) potassium serum 3.8 mEq/L 3.5-5.1 D Potassium Serum [place] ([facility]) carbon dioxide level 26 mEq/L 21-32 normal Carbon Dioxide Level [place] ([facility]) anion gap 5 mEq/L 8-16 Below low normal Anion Gap [place] ( [facility]) chloride level 110 mEq/L 98-107 Above high normal Chloride Level [place] ([facility]) calcium level 8.0 mg/dL 8.5-10.1 Below low normal Calcium Level AT [facility]) ALT/SGPT 41 U/L 12-78 normal ALT/SGPT [place] ([facility]) AST/SGOT 26 U/L 7-37 normal AST/SGOT [place] ([facility]) alkaline phosphatase 86 U/L 45-117 normal Alkaline Phosph atase [place] ([facility]) total protein 7.4 gm/dL 6.4-8.2 normal Total Protein [place] ( [facility]) albumin 3.5 gm/dL 3.2-5.2 normal Albumin [place] ([facility]) albumin/globulin ratio 1.2-2.2 Below low normal Albumin /globulin Ratio [place] ([facility]) bilirubin,total 0.4 mg/dL 0.2-1.0 normal Bilirubin,total [place] ([facility]) ID Date Data Source [id number] 2020 06:50:00 AM EDT [place] ([facility]) Name Value Range Interpretation Code Description Data Mary rce(s) Supporting Document(s) glucose, fasting 140 mg/dL 70-100 Above high normal Glucose, Fas ting [place] ([facility]) blood urea nitrogen 9 mg/dL 7-18 normal Blood Urea Nitro gen [place] ([facility]) creatinine for GFR 0.59 mg/dL 0.55-1.30 normal Creatinine for GF R [place] ([facility]) glomerular filtration rate > 60.0 >60 normal Glomerula r Filtration Rate [place] ([facility]) potassium serum 3.8 mEq/L 3.5-5.1 D Potassium Serum [place] ([facility]) chloride level 110 mEq/L 98-107 Above high normal Chloride Level [place] ([facility]) carbon dioxide level 26 mEq/L 21-32 normal Carbon Dioxide Level [place] ([facility]) sodium level 141 mEq/L 136-145 normal Sodium Level [place] (No Count includes the [facility]) ALT/SGPT 41 U/L 12-78 normal ALT/SGPT [place] ([facility]) anion gap 5 mEq/L 8-16 Below low normal Anion Gap [place] ( [facility]) calcium level 8.0 mg/dL 8.5-10.1 Below low normal Calcium Level AT [facility]) alkaline phosphatase 86 U/L 45-117 normal Alkaline Phosph atase [place] ([facility]) AST/SGOT 26 U/L 7-37 normal AST/SGOT [place] ([facility]) albumin 3.5 gm/dL 3.2-5.2 normal Albumin [place] ([facility]) total protein 7.4 gm/dL 6.4-8.2 normal Total Protein [place] ( [facility]) bilirubin,total 0.4 mg/dL 0.2-1.0 normal Bilirubin,total [place] ([facility]) albumin/globulin ratio 1.2-2.2 Below low normal Albumin /globulin Ratio [place] ([facility]) ID Date Data Source [id number] 2020 06:50:00 AM EDT [place] ([facility]) Name Value Range Interpretation Code Description Data Mary rce(s) Supporting Document(s) blood urea nitrogen 9 mg/dL 7-18 normal Blood Urea Nitro gen [place] ([facility]) glucose, fasting 140 mg/dL 70-100 Above high normal Glucose, Fas ting [place] ([facility]) creatinine for GFR 0.59 mg/dL 0.55-1.30 normal Creatinine for GF R [place] ([facility]) potassium serum 3.8 mEq/L 3.5-5.1 D Potassium Serum [place] NA ([facility]) chloride level 110 mEq/L 98-107 Above high normal Chloride Level [place] ([facility]) glomerular filtration rate > 60.0 >60 normal Glomerula r Filtration Rate [place] ([facility]) sodium level 141 mEq/L 136-145 normal Sodium Level [place] ([facility]) AST/SGOT 26 U/L 7-37 normal AST/SGOT [place] ([facility]) calcium level 8.0 mg/dL 8.5-10.1 Below low normal Calcium Level AT [facility]) carbon dioxide level 26 mEq/L 21-32 normal Carbon Dioxide Level [place] ([facility]) anion gap 5 mEq/L 8-16 Below low normal Anion Gap [place] ( [facility]) ALT/SGPT 41 U/L 12-78 normal ALT/SGPT [place] ([facility]) total protein 7.4 gm/dL 6.4-8.2 normal Total Protein [place] ( [facility]) bilirubin,total 0.4 mg/dL 0.2-1.0 normal Bilirubin,total [place] ([facility]) alkaline phosphatase 86 U/L 45-117 normal Alkaline Phosph atase [place] ([facility]) albumin 3.5 gm/dL 3.2-5.2 normal Albumin [place] ([facility]) albumin/globulin ratio 1.2-2.2 Below low normal Albumin /globulin Ratio [place] ([facility]) ID Date Data Source [id number] 2020 06:50:00 AM EDT [place] ([facility]) Name Value Range Interpretation Code Description Data Mary rce(s) Supporting Document(s) creatinine for GFR 0.59 mg/dL 0.55-1.30 normal Creatinine for GF R [place] ([facility]) blood urea nitrogen 9 mg/dL 7-18 normal Blood Urea Nitro gen [place] ([facility]) glucose, fasting 140 mg/dL 70-100 Above high normal Glucose, Fas ting [place] ([facility]) glomerular filtration rate > 60.0 >60 normal Glomerula r Filtration Rate [place] ([facility]) potassium serum 3.8 mEq/L 3.5-5.1 D Potassium Serum [place] ([facility]) sodium level 141 mEq/L 136-145 normal Sodium Level [place] (No Count includes the [facility]) chloride level 110 mEq/L 98-107 Above high normal Chloride Level [place] ([facility]) carbon dioxide level 26 mEq/L 21-32 normal Carbon Dioxide Level [place] ([facility]) AST/SGOT 26 U/L 7-37 normal AST/SGOT [place] ([facility]) ALT/SGPT 41 U/L 12-78 normal ALT/SGPT [place] ([facility]) alkaline phosphatase 86 U/L 45-117 normal Alkaline Phosph atase [place] ([facility]) anion gap 5 mEq/L 8-16 Below low normal Anion Gap [place] ( [facility]) calcium level 8.0 mg/dL 8.5-10.1 Below low normal Calcium Level AT [place] ([facility]) total protein 7.4 gm/dL 6.4-8.2 normal Total Protein [place] ( [facility]) bilirubin,total 0.4 mg/dL 0.2-1.0 normal Bilirubin,[facility] albumin 3.5 gm/dL 3.2-5.2 normal Albumin [place] ([facility]) albumin/globulin ratio 1.2-2.2 Below low normal Albumin /globulin Ratio [place] ([facility]) ID Date Data Source [id number] 2020 06:50:00 AM EDT [facility] Name Value Range Interpretation Code Description Data Mary rce(s) Supporting Document(s) HCT 34.0 % 36.0-47.0 L [facility] HGB 10.8 g/dL 12.0-15.5 L [facility] MCH 31.8 G/DL pg 32.0-36.5 L [facility] MCHC 24.5 PG % 27.0-33.0 L [facility] PLATELETS 24 10 10*3/mm3 150-450 Below lower panic limits [facility] RBC 4.40 10 10*6/mm3 4.00-5.40 N [facility] RDW 14.7 % 11.5-14.5 H [facility] WBC TOTAL 6.1 4.0-10.0 N [facility] ID Date Data Source [id number] 01/14/2020 01:37:00 PM EDT [facility]) Name Value Range Interpretation Code Description Data Mary rce(s) Supporting Document(s) glucose, fasting 90 mg/dL 70-100 normal Glucose, Fasting AT [facility]) glomerular filtration rate > 60.0 >60 normal Glomerula r Filtration Rate [facility]) creatinine for GFR 0.63 mg/dL 0.55-1.30 normal Creatinine for GF R [facility]) sodium level 142 mEq/L 136-145 normal Sodium Level [place] (No Count includes the [facility]) blood urea nitrogen 11 mg/dL 7-18 normal Blood Urea Nitro gen [facility]) chloride level 109 mEq/L 98-107 Above high normal Chloride Level [place] ([facility]) calcium level 8.0 mg/dL 8.5-10.1 Below low normal Calcium Level AT [facility]) carbon dioxide level 29 mEq/L 21-32 normal Carbon Dioxide Level [facility]) anion gap 4 mEq/L 8-16 Below low [facility] potassium serum 3.1 mEq/L 3.5-5.1 Below low normal Potassium Seru m [place] ([facility]) ID Date Data Source [id number] 01/14/2020 01:37:00 PM EDT [facility]) Name Value Range Interpretation Code Description Data Mary rce(s) Supporting Document(s) glucose, fasting 90 mg/dL 70-100 normal Glucose, Fasting AT [facility]) sodium level 142 mEq/L 136-145 normal Sodium Level [place] (No Count includes the [facility]) potassium serum 3.1 mEq/L 3.5-5.1 Below low normal Potassium Seru m [facility]) creatinine for GFR 0.63 mg/dL 0.55-1.30 normal Creatinine for GF R [place] ([facility]) glomerular filtration rate > 60.0 >60 normal Glomerula r Filtration Rate [place] ([facility]) blood urea nitrogen 11 mg/dL 7-18 normal Blood Urea Nitro gen [place] ([facility]) chloride level 109 mEq/L 98-107 Above high normal Chloride Level [place] ([facility]) anion gap 4 mEq/L 8-16 Below low normal Anion Gap [place] ( [facility]) carbon dioxide level 29 mEq/L 21-32 normal Carbon Dioxide Level [facility]) calcium level 8.0 mg/dL 8.5-10.1 Below low normal Calcium Level AT [facility]) ID Date Data Source [id number] 01/14/2020 01:37:00 PM EDT [facility]) Name Value Range Interpretation Code Description Data Mary rce(s) Supporting Document(s) glucose, fasting 90 mg/dL 70-100 normal Glucose, Fasting AT [facility]) creatinine for GFR 0.63 mg/dL 0.55-1.30 normal Creatinine for GF R [place] ([facility]) glomerular filtration rate > 60.0 >60 normal Glomerula r Filtration Rate [place] ([facility]) blood urea nitrogen 11 mg/dL 7-18 normal Blood Urea Nitro gen [place] ([facility]) sodium level 142 mEq/L 136-145 normal Sodium Level [place] ([facility]) anion gap 4 mEq/L 8-16 Below low normal Anion Gap [place] ( [facility]) chloride level 109 mEq/L 98-107 Above high normal Chloride Level [place] ([facility]) calcium level 8.0 mg/dL 8.5-10.1 Below low normal Calcium Level AT [facility]) potassium serum 3.1 mEq/L 3.5-5.1 Below low normal Potassium Seru m [place] ([facility]) carbon dioxide level 29 mEq/L 21-32 normal Carbon Dioxide Level [facility]) ID Date Data Source [id number] 01/14/2020 01:37:00 PM EDT [place] ([facility]) Name Value Range Interpretation Code Description Data Mary rce(s) Supporting Document(s) glomerular filtration rate > 60.0 >60 normal Glomerula r Filtration Rate [place] ([facility]) creatinine for GFR 0.63 mg/dL 0.55-1.30 normal Creatinine for GF R [place] ([facility]) sodium level 142 mEq/L 136-145 normal Sodium Level [place] ([facility]) glucose, fasting 90 mg/dL 70-100 normal Glucose, Fasting AT [facility]) blood urea nitrogen 11 mg/dL 7-18 normal Blood Urea Nitro gen [place] ([facility]) anion gap 4 mEq/L 8-16 Below low normal Anion Gap [place] ( [facility]) potassium serum 3.1 mEq/L 3.5-5.1 Below low normal Potassium Seru m [place] ([facility]) calcium level 8.0 mg/dL 8.5-10.1 Below low normal Calcium Level AT [facility]) carbon dioxide level 29 mEq/L 21-32 normal Carbon Dioxide Level [place] ([facility]) chloride level 109 mEq/L 98-107 Above high normal Chloride Level [facility]) ID Date Data Source [id number] 01/14/2020 01:37:00 PM EDT [facility]) Name Value Range Interpretation Code Description Data Mary rce(s) Supporting Document(s) glucose, fasting 90 mg/dL 70-100 normal Glucose, Fasting AT [facility]) blood urea nitrogen 11 mg/dL 7-18 normal Blood Urea Nitro gen [place] ([facility]) glomerular filtration rate > 60.0 >60 normal Glomerula r Filtration Rate [place] ([facility]) creatinine for GFR 0.63 mg/dL 0.55-1.30 normal Creatinine for GF R [place] ([facility]) sodium level 142 mEq/L 136-145 normal Sodium Level [place] ([facility]) carbon dioxide level 29 mEq/L 21-32 normal Carbon Dioxide Level [place] ([facility]) chloride level 109 mEq/L 98-107 Above high normal Chloride Level [place] ([facility]) potassium serum 3.1 mEq/L 3.5-5.1 Below low normal Potassium Seru m [place] ([facility]) anion gap 4 mEq/L 8-16 Below low normal Anion Gap [place] ( [facility]) calcium level 8.0 mg/dL 8.5-10.1 Below low normal Calcium Level AT [facility]) ID Date Data Source [id number] 01/14/2020 01:37:00 PM EDT [facility]) Name Value Range Interpretation Code Description Data Mary rce(s) Supporting Document(s) glucose, fasting 90 mg/dL 70-100 normal Glucose, Fasting AT [facility]) blood urea nitrogen 11 mg/dL 7-18 normal Blood Urea Nitro gen [facility]) creatinine for GFR 0.63 mg/dL 0.55-1.30 normal Creatinine for GF R [place] ([facility]) glomerular filtration rate > 60.0 >60 normal Glomerula r Filtration Rate [place] ([facility]) potassium serum 3.1 mEq/L 3.5-5.1 Below low normal Potassium Seru m [place] ([facility]) sodium level 142 mEq/L 136-145 normal Sodium Level [place] (No Count includes the [facility]) anion gap 4 mEq/L 8-16 Below low normal Anion Gap [place] ( [facility]) carbon dioxide level 29 mEq/L 21-32 normal Carbon Dioxide Level [place] ([facility]) chloride level 109 mEq/L 98-107 Above high normal Chloride Level [place] ([facility]) calcium level 8.0 mg/dL 8.5-10.1 Below low normal Calcium Level AT [facility]) ID Date Data Source [id number] 01/14/2020 01:37:00 PM EDT [place] ([facility]) Name Value Range Interpretation Code Description Data Mary rce(s) Supporting Document(s) blood urea nitrogen 11 mg/dL 7-18 normal Blood Urea Nitro gen [place] ([facility]) glucose, fasting 90 mg/dL 70-100 normal Glucose, Fasting AT [facility]) creatinine for GFR 0.63 mg/dL 0.55-1.30 normal Creatinine for GF R [place] ([facility]) glomerular filtration rate > 60.0 >60 normal Glomerula r Filtration Rate [place] ([facility]) chloride level 109 mEq/L 98-107 Above high normal Chloride Level [place] ([facility]) potassium serum 3.1 mEq/L 3.5-5.1 Below low normal Potassium Seru m [place] ([facility]) sodium level 142 mEq/L 136-145 normal Sodium Level [place] ([facility]) calcium level 8.0 mg/dL 8.5-10.1 Below low normal Calcium Level AT [facility]) carbon dioxide level 29 mEq/L 21-32 normal Carbon Dioxide Level [place] ([facility]) anion gap 4 mEq/L 8-16 Below low normal Anion Gap [place] ( [facility]) ID Date Data Source [id number] 01/14/2020 01:37:00 PM EDT [facility]) Name Value Range Interpretation Code Description Data Mary rce(s) Supporting Document(s) glucose, fasting 90 mg/dL 70-100 normal Glucose, Fasting AT [facility]) potassium serum 3.1 mEq/L 3.5-5.1 Below low normal Potassium Seru m [place] ([facility]) creatinine for GFR 0.63 mg/dL 0.55-1.30 normal Creatinine for GF R [place] ([facility]) blood urea nitrogen 11 mg/dL 7-18 normal Blood Urea Nitro gen [place] ([facility]) sodium level 142 mEq/L 136-145 normal Sodium Level [place] (No Count includes the [facility]) glomerular filtration rate > 60.0 >60 normal Glomerula r Filtration Rate [place] ([facility]) chloride level 109 mEq/L 98-107 Above high normal Chloride Level [place] ([facility]) carbon dioxide level 29 mEq/L 21-32 normal Carbon Dioxide Level [facility]) anion gap 4 mEq/L 8-16 Below low normal Anion Gap [place] ( [facility]) calcium level 8.0 mg/dL 8.5-10.1 Below low normal Calcium Level AT [facility]) ID Date Data Source [id number] 01/14/2020 01:37:00 PM EDT [facility] Name Value Range Interpretation Code Description Data Mary rce(s) Supporting Document(s) HCT 34.7 % 36.0-47.0 L [facility] HGB 11.2 g/dL 12.0-15.5 L [facility] MCH 32.3 G/DL pg 32.0-36.5 N [facility] MCHC 24.8 PG % 27.0-33.0 L [facility] PLATELETS 7 10 10*3/mm3 150-450 Below lower panic limits [facility] RBC 4.52 10 10*6/mm3 4.00-5.40 N [facility] RDW 14.9 % 11.5-14.5 H [facility] WBC TOTAL 5.1 4.0-10.0 N [facility] ID Date Data Source [id number] 09/13/2019 01:35:31 PM EDT [facility] [...] History Medical History:History of Chiari MalformationHeadachesITPDepressionBi- PolaranemiaSurgical History:[id number] History:FH AsthmaFH ADHDSocial/Personal History:LIVES WITH / 12/12 Chief Complaintzoom folllow up dep/anxHistory of Present Illness (HPI)Telemedicine visit with patient's location at their home and provider's location at [facility]. Additional person(s)participating in the visit: [...] during this visit, including review of any exal-tqc-mgqkfpa medications, herbal therapies, and/or supplements.Allergy ReviewAllergy List was reviewed and/or updated during this visit.Provider Calculated and Reviewed all Clinical Protocols for patient today. Care Management Plan Transitions of CareInboundRate Your HealthIn general, would you say your health is? PoorAssessment & Plan Problems:Added: Insomnia, unspecified (RXV23-B65.00) Assessment: Instructions: We have sent a prescription to your pharmacy today. Please take medication as prescribed. Please report any major side effects.Assessed:Anxiety depression (ICD-300.4) (CRR02-Z68.8) Assessment: Instructions: We have increase the dose of your prozac today. .Please take medication as prescribed. Please report any major side effects.Anxiety depression (ICD-300.4) (YCC18-Z37.8) Assessment: GAD7 and PHQ 9 scores reviewed [...] ORAL TABLETTYLENOL 325 MG ORAL TABLETVITAMIN D3 94102 UNIT ORAL TABLETPROZAC 20 MG ORAL CAPSULEMedication Changes:Refilled:PROZAC 20 MG ORAL CAPSULE-take one tablet by mouth daily Qty: 30[Capsule] Refills: 2 Method: ElectronicNew Prescription:TRAZODONE HCL 50 MG ORAL TABLET-take one tablet by mouth daily at bedtime. Qty: 30[Tablet] Refills: 1 Method: ElectronicChanged:From: ORAL PROZAC 10 MG ORAL CAPSULE Qty: [id number] Refills: 30[Capsule] To: PROZAC 20 MG ORAL CAPSULE-take one tablet by mouth daily Qty: 30[Capsule] Refills: 2Allergies:* PEDIAZOLE (Critical)Orders:Telepsychiatry Consult [CPT-85582] COMP METABOLIC PANEL [CPT-35940] CBC W/DIFF [CPT-81048] LIPID PANEL [CPT-04711] TSH [CPT-40653] T-4 free [CPT-06053] Vitamin D 250H Unspecified [CPT-76294] Office Visit - Established, Level 3 [CPT-43614UJ] Follow-Up Return to clinic: 4-6 weeks for [...] rce(s) Supporting Document(s) ID Date Data Source [id number] 07/09/2019 11:40:00 AM [facility] Name Value Range Interpretation Code Description Data Mary rce(s) Supporting Document(s) THROAT CULTR NORMAL JD PRESENT N [facility] ID Date Data Source [id number] 07/09/2019 11:25:08 AM [facility] Measurements & CalculationsHeight: 60 inches (5 [...] AMPatient History Medical History:History of Chiari MalformationHeadachesITPDepressionBi-PolaranemiaSurgical History:[id number] History:FH AsthmaFH ADHDSocial/Personal History:LIVES WITH / 12/12 [...] during this visit, including review of any lkfs-ewo-xkjfeiu medications, herbal therapies, and/or supplements.Allergy ReviewAllergy List [...] rupture of ear drum, right ear (ICD-382.01) (AFW18-F97.001) Assessment: Instructions: Start amoxicillin twice daily x 10 days. Take antibiotics as prescribed, finish full course even if symptoms resolve. Antibiotics may cause stomach upset, recommend eating yogurt or taking probiotic while on antibiotics.Changed:From: Dx of PHARYNGITIS ACUTE (ICD-462) (ICD10- J02.9) To: PHARYNGITIS ACUTE (ICD-462) (XVL93-D40.9)Assessed:PHARYNGITIS ACUTE (ICD-462) (VYA19-V41.9) Assessment: Instructions: Negative strep in office today. [...] ORAL TABLETTYLENOL 325 MG ORAL TABLETVITAMIN D3 41406 UNIT ORAL TABLETPROZAC 10 MG ORAL CAPSULEMedication Changes:New Prescription:AMOXICILLIN 875 MG ORAL TABLET-Take 1 tablet by mouth twice daily x 10 days Qty: 20[Tablet] Refills: 0 Method: ElectronicRemoved:PREDNISONE 20 MG ORAL TABLET-4 tablets by mouth dailyAllergies:* PEDIAZOLE (Critical)Orders:Rapid Strep [CPT-22549] Throat Culture [CPT-99065] Adult - Ofc Vst, EST, Level II [CPT-16146] Follow-Up Return to clinic: as needed Clinical Visit Summary CompletedMedications:AMOXICILLIN 875 MG ORAL TABLET (AMOXICILLIN) Take 1 tablet by mouth twice daily x 10 days #20[Tablet] x 0 Route:ORAL Entered and Authorized by: Jaime WHEELER Method used: Electronically to [facility] ([email or web address]) [address] [place] [address] Note to Pharmacy: Route: ORAL; Indications: ACUTE SUPPURATIVE OTITIS MEDIA WITHOUT SPONTANEOUS RUPTURE OF EAR DRUM, RIGHT EAR RxID: [id number] signed by Jaime WHEELER on 07/14/2019 at 8:09 AM Name Value Range Interpretation Code Description Data Mary rce(s) Supporting Document(s) ID Date Data Source [id number] 06/07/2019 01:20:36 PM [facility] Measurements & CalculationsHeight: 60 inches (5 [...] PMPatient History Medical History:History of Chiari MalformationHeadachesITPDepressionBi-PolaranemiaSurgical History:[id number] History:FH AsthmaFH ADHDSocial/Personal History:LIVES WITH / 12/12 [...] during this visit, including review of any lvbn-tho-jptbpyk medications, herbal therapies, and/or supplements.Allergy ReviewAllergy List [...] is? 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 Please try to keep scheduled appointment with Therapist. Please let us know if you need additional assistance.Vitamin D deficiency (ICD-268.9) (JBC36-O40.9) Assessment: Instructions: Please continue medication as prescribed.Anxiety depression (ICD-300.4) (PFU39-G71.8) Assessment: New referral done.Patient Instructions/Care Plan: Platelet disorder: Please continue to follow with your specialist as scheduled.Anxiety depression: Please continue medication as scheduled. Please try to keep scheduled appointment with Therapist. Please let us know if you need additional assistance.Vitamin D deficiency: Please continue medication as prescribed. Plan developed in collaboration with patient and/or familyMedications:TYLENOL 325 MG ORAL TABLETVITAMIN D3 46756 UNIT ORAL TABLETPROZAC 10 MG ORAL CAPSULEPREDNISONE 20 MG ORAL TABLETMedication Changes:Refilled:PROZAC 10 MG ORAL CAPSULE-take one tablet by mouth daily Qty: 30[Capsule] Refills: 3 Method: ElectronicAllergies:* PEDIAZOLE (Critical)Orders:Mental Health Consult [CPT-12932] Adult - Ofc Vst, EST, Level III [CPT-98618] Follow-Up Return to clinic: 3 months for follow up Clinical Visit Summary CompletedMedications:PROZAC 10 MG ORAL CAPSULE (FLUOXETINE HCL) take one tablet by mouth daily #30[Capsule] x 3 Route:ORAL Entered and Authorized by: Delores RANGEL Method used: Electronically to [facility]* ([email or web address]) [address] [place] [address] Fax: Note to Pharmacy: Route: ORAL; Indications: ANXIETY DEPRESSION RxID: [id number] signed by Delores RANGEL on 06/10/2019 at 12:16 AM Name Value Range Interpretation Code Description Data Mary rce(s) Supporting Document(s) Procedure Vital Signs ID Date Data Source UNK Name Value Range Interpretation Code Description Data Source(s) Body weight 3460 [oz_av] 3460 [oz_av] [place] ([facility]) Systolic blood pressure 95 mm[Hg] 95 mm[Hg] A [place] ([facility]) Body mass index (BMI) [Ratio] 42.2 kg/m2 42.2 k g/m2 [place] ([facility]) Body height 60 [in_i] 60 [in_i] [place] ([facility]) Diastolic blood pressure 68 mm[Hg] 68 mm[Hg] [place] ([facility]) Body weight 3460 [oz_av] 3460 [oz_av] [place] ([facility]) Systolic blood pressure 95 mm[Hg] 95 mm[Hg] [facility] Body mass index (BMI) [Ratio] 42.2 kg/m2 42.2 k g/m2 [place] ([facility]) Body height 60 [in_i] 60 [in_i] [place] ([facility]) Diastolic blood pressure 68 mm[Hg] 68 mm[Hg] [place] ([facility]) Body weight 3475.2 [oz_av] 3475.2 [oz_av] ATHEN A ([facility]) Systolic blood pressure 109 mm[Hg] 109 mm[Hg] A [place] ([facility]) Body mass index (BMI) [Ratio] 42.4 kg/m2 42.4 k g/m2 [place] ([facility]) Body height 60 [in_i] 60 [in_i] [place] ([facility]) Diastolic blood pressure 77 mm[Hg] 77 mm[Hg] [place] ([facility]) Body weight 3475.2 [oz_av] 3475.2 [oz_av] ATHEN A ([facility]) Systolic blood pressure 109 mm[Hg] 109 mm[Hg] A [place] ([facility]) Body mass index (BMI) [Ratio] 42.4 kg/m2 42.4 k g/m2 [place] ([facility]) Body height 60 [in_i] 60 [in_i] [place] ([facility]) Diastolic blood pressure 77 mm[Hg] 77 mm[Hg] [place] ([facility]) Body weight 3475.2 [oz_av] 3475.2 [oz_av] ATHEN A ([facility]) Systolic blood pressure 109 mm[Hg] 109 mm[Hg] A [place] ([facility]) Body mass index (BMI) [Ratio] 42.4 kg/m2 42.4 k g/m2 [place] ([facility]) Body height 60 [in_i] 60 [in_i] [place] ([facility]) Diastolic blood pressure 77 mm[Hg] 77 mm[Hg] [place] ([facility]) Body weight 3475.2 [oz_av] 3475.2 [oz_av] A[place]EN A ([facility]) Systolic blood pressure 109 mm[Hg] 109 mm[Hg] A [place] ([facility]) Body mass index (BMI) [Ratio] 42.4 kg/m2 42.4 k g/m2 [place] ([facility]) Body height 60 [in_i] 60 [in_i] [place] ([facility]) Diastolic blood pressure 77 mm[Hg] 77 mm[Hg] [place] ([facility]) Body weight 3475.2 [oz_av] 3475.2 [oz_av] A[place]EN A ([facility]) Systolic blood pressure 109 mm[Hg] 109 mm[Hg] A [place] ([facility]) Body mass index (BMI) [Ratio] 42.4 kg/m2 42.4 k g/m2 [place] ([facility]) Body height 60 [in_i] 60 [in_i] [place] ([facility]) Diastolic blood pressure 77 mm[Hg] 77 mm[Hg] [place] ([facility]) Body weight 3266.08 [oz_av] 3266.08 [oz_av] A[place] ([facility]) Body height 60 [in_i] 60 [in_i] [place] ([facility]) Body weight 3266.08 [oz_av] 3266.08 [oz_av] A[place] ([facility]) Body height 60 [in_i] 60 [in_i] [place] ([facility]) Body weight 3266.08 [oz_av] 3266.08 [oz_av] ATH [place] ([facility]) Body height 60 [in_i] 60 [in_i] [place] ([facility]) Body weight 3266.08 [oz_av] 3266.08 [oz_av] ATH [place] ([facility]) Body height 60 [in_i] 60 [in_i] [place] ([facility]) Body weight 3266.08 [oz_av] 3266.08 [oz_av] ATH [place] ([facility]) Body height 60 [in_i] 60 [in_i] [place] ([facility]) Body weight 3266.08 [oz_av] 3266.08 [oz_av] ATH [place] ([facility]) Body height 60 [in_i] 60 [in_i] [place] ([facility]) Body weight 3266.08 [oz_av] 3266.08 [oz_av] ATH [place] ([facility]) Body height 60 [in_i] 60 [in_i] [place] ([facility]) Body weight 3266.08 [oz_av] 3266.08 [oz_av] ATH T[place] ([facility]) Body height 60 [in_i] 60 [in_i] [place] ([facility]) Body weight 3266.08 [oz_av] 3266.08 [oz_av] ATH T[place] ([facility]) Body height 60 [in_i] 60 [in_i] [place] ([facility]) Body weight 3032 [oz_av] 3032 [oz_av] [place] ([facility]) Systolic blood pressure 107 mm[Hg] 107 mm[Hg] [facility] Body height 60 [in_i] 60 [in_i] [place] ([facility]) Diastolic blood pressure 72 mm[Hg] 72 mm[Hg] [place] ([facility]) Body weight 3032 [oz_av] 3032 [oz_av] [place] ([facility]) Systolic blood pressure 107 mm[Hg] 107 mm[Hg] [facility] Body height 60 [in_i] 60 [in_i] [place] ([facility]) Diastolic blood pressure 72 mm[Hg] 72 mm[Hg] [place] ([facility]) Body weight 3032 [oz_av] 3032 [oz_av] [place] ([facility]) Systolic blood pressure 107 mm[Hg] 107 mm[Hg] [facility] Body height 60 [in_i] 60 [in_i] [place] ([facility]) Diastolic blood pressure 72 mm[Hg] 72 mm[Hg] [place] ([facility]) Body weight 3032 [oz_av] 3032 [oz_av] [place] ([facility]) Systolic blood pressure 107 mm[Hg] 107 mm[Hg] [facility] Body height 60 [in_i] 60 [in_i] [place] ([facility]) Diastolic blood pressure 72 mm[Hg] 72 mm[Hg] [place] ([facility]) Body weight 3032 [oz_av] 3032 [oz_av] [place] ([facility]) Systolic blood pressure 107 mm[Hg] 107 mm[Hg] A [facility] ([facility]) Body height 60 [in_i] 60 [in_i] [place] ([facility]) Diastolic blood pressure 72 mm[Hg] 72 mm[Hg] [place] ([facility]) Body weight 3032 [oz_av] 3032 [oz_av] [place] ([facility]) Systolic blood pressure 107 mm[Hg] 107 mm[Hg] A [facility] ([facility]) Body height 60 [in_i] 60 [in_i] [place] ([facility]) Diastolic blood pressure 72 mm[Hg] 72 mm[Hg] [place] ([facility]) Body weight 3032 [oz_av] 3032 [oz_av] [place] ([facility]) Systolic blood pressure 107 mm[Hg] 107 mm[Hg] [facility] Body height 60 [in_i] 60 [in_i] [place] ([facility]) Diastolic blood pressure 72 mm[Hg] 72 mm[Hg] [place] ([facility]) Body weight 3032 [oz_av] 3032 [oz_av] [place] ([facility]) Systolic blood pressure 107 mm[Hg] 107 mm[Hg] [facility] Body height 60 [in_i] 60 [in_i] [place] ([facility]) Diastolic blood pressure 72 mm[Hg] 72 mm[Hg] [place] ([facility]) Body weight 3032 [oz_av] 3032 [oz_av] [place] ([facility]) Systolic blood pressure 107 mm[Hg] 107 mm[Hg] [facility] Body height 60 [in_i] 60 [in_i] [place] ([facility]) Diastolic blood pressure 72 mm[Hg] 72 mm[Hg] [place] ([facility]) Body weight 2880 [oz_av] 2880 [oz_av] [place] ([facility]) Systolic blood pressure 100 mm[Hg] 100 mm[Hg] [facility]) Body height 60 [in_i] 60 [in_i] [place] ([facility]) Diastolic blood pressure 68 mm[Hg] 68 mm[Hg] [place] ([facility]) Body weight 2880 [oz_av] 2880 [oz_av] [place] ([facility]) Systolic blood pressure 100 mm[Hg] 100 mm[Hg] A [facility] ([facility]) Body height 60 [in_i] 60 [in_i] [place] ([facility]) Diastolic blood pressure 68 mm[Hg] 68 mm[Hg] [place] ([facility]) Body weight 2880 [oz_av] 2880 [oz_av] [place] ([facility]) Systolic blood pressure 100 mm[Hg] 100 mm[Hg] [facility]) Body height 60 [in_i] 60 [in_i] [place] ([facility]) Diastolic blood pressure 68 mm[Hg] 68 mm[Hg] [place] ([facility]) Body weight 2880 [oz_av] 2880 [oz_av] [place] ([facility]) Systolic blood pressure 100 mm[Hg] 100 mm[Hg] [facility] Body height 60 [in_i] 60 [in_i] [place] ([facility]) Diastolic blood pressure 68 mm[Hg] 68 mm[Hg] [place] ([facility]) Body weight 2880 [oz_av] 2880 [oz_av] [place] ([facility]) Systolic blood pressure 100 mm[Hg] 100 mm[Hg] [facility] Body height 60 [in_i] 60 [in_i] [place] ([facility]) Diastolic blood pressure 68 mm[Hg] 68 mm[Hg] [place] ([facility]) Body weight 2880 [oz_av] 2880 [oz_av] [place] ([facility]) Systolic blood pressure 100 mm[Hg] 100 mm[Hg] A [facility] ([facility]) Body height 60 [in_i] 60 [in_i] [place] ([facility]) Diastolic blood pressure 68 mm[Hg] 68 mm[Hg] [place] ([facility]) Body weight 2880 [oz_av] 2880 [oz_av] [place] ([facility]) Systolic blood pressure 100 mm[Hg] 100 mm[Hg] A [facility] ([facility]) Body height 60 [in_i] 60 [in_i] [place] ([facility]) Diastolic blood pressure 68 mm[Hg] 68 mm[Hg] [place] ([facility]) Body weight 2880 [oz_av] 2880 [oz_av] [place] ([facility]) Systolic blood pressure 100 mm[Hg] 100 mm[Hg] [facility] Body height 60 [in_i] 60 [in_i] [place] ([facility]) Diastolic blood pressure 68 mm[Hg] 68 mm[Hg] [place] ([facility]) Body weight 2880 [oz_av] 2880 [oz_av] [place] ([facility]) Systolic blood pressure 100 mm[Hg] 100 mm[Hg] A [facility] ([facility]) Body height 60 [in_i] 60 [in_i] [place] ([facility]) Diastolic blood pressure 68 mm[Hg] 68 mm[Hg] [place] ([facility]) Patient Treatment Plan of Care Planned Activity Planned Date Details Description Data Source (s) Naproxen 500 MG Oral Tablet [place] ([facility]) Acetaminophen 325 MG Oral Tablet [Mapap] [place] ([facility]) lamotrigine 25 MG Oral Tablet [place] ([facility]) Fluoxetine 10 MG Oral Capsule [place] ([facility]) Dicyclomine Hydrochloride 20 MG Oral Tablet [place] ([facility]) Amoxicillin 875 MG Oral Tablet [place] ([facility]) Naproxen 500 MG Oral Tablet [place] ([facility]) Acetaminophen 325 MG Oral Tablet [Mapap] [place] ([facility]) lamotrigine 25 MG Oral Tablet [place] ([facility]) Fluoxetine 10 MG Oral Capsule [place] ([facility]) Dicyclomine Hydrochloride 20 MG Oral Tablet [place] ([facility]) Amoxicillin 875 MG Oral Tablet [place] ([facility]) Acetaminophen 325 MG Oral Tablet [Mapap] [place] ([facility]) lamotrigine 25 MG Oral Tablet [place] ([facility]) Fluoxetine 10 MG Oral Capsule [place] ([facility]) Dicyclomine Hydrochloride 20 MG Oral Tablet [place] ([facility]) Amoxicillin 875 MG Oral Tablet [place] ([facility]) Acetaminophen 325 MG Oral Tablet [Mapap] [place] ([facility]) lamotrigine 25 MG Oral Tablet [place] ([facility]) Fluoxetine 10 MG Oral Capsule [place] ([facility]) Dicyclomine Hydrochloride 20 MG Oral Tablet [place] ([facility]) Amoxicillin 875 MG Oral Tablet [place] ([facility]) Acetaminophen 325 MG Oral Tablet [Mapap] [place] ([facility]) lamotrigine 25 MG Oral Tablet [place] ([facility]) Fluoxetine 10 MG Oral Capsule [place] ([facility]) Dicyclomine Hydrochloride 20 MG Oral Tablet [place] ([facility]) Amoxicillin 875 MG Oral Tablet [place] ([facility])
--- NOTE | 2020-07-27 05:16 | REPVR ---
PROCEDURE INFORMATION: Exam: CT Angiography Chest With Contrast Exam date and time: 07/27/2020 2:09 AM Age: 25 years old Clinical indication: Shortness of breath; Additional info: Elevated d dimer, SOB TECHNIQUE: Imaging protocol: Computed tomographic angiography of the chest with contrast. 3D rendering (Not supervised by radiologist): MIP and/or 3D reconstructed images were created by the technologist. Radiation optimization: All CT scans at this facility use at least one of these dose optimization techniques: automated exposure control; mA and/or kV adjustment per patient size (includes targeted exams where dose is matched to clinical indication); or iterative reconstruction. Contrast material: ISO; Contrast volume: 75 ml; Contrast route: INTRAVENOUS (IV); COMPARISON: CR Chest, 1 view 07/27/2020 12:07 AM FINDINGS: Pulmonary arteries: The pulmonary arteries are not enlarged. No filling defects are seen to indicate an acute pulmonary embolism. Aorta: There is no thoracic aortic aneurysm or evidence of dissection. Lungs: The lungs are clear. Pleural spaces: No pleural effusions or pneumothorax identified. Heart: The heart appears borderline in size. Lymph nodes: No lymphadenopathy is seen. Bones/joints: No suspicious osseous lesions. No acute fractures. Soft tissues: The soft tissues appear unremarkable. IMPRESSION: 1. No evidence of acute pulmonary embolism. 2. Clear lungs. Electronically signed by: Valentine Berkowitz On 07/27/2020 05:15:59 AM
[2020-07-27 05:53] LABS: MONO SCRN NEGATIVE (NEGATIVE)
[2020-07-27 06:20] VITALS: BP 106/53
== END 2020-07-27 06:38 | disposition home or self-care (01) ==
LOC: M ED 21:13
DX: A08.4 Viral intestinal infection, unspecified (principal); E03.9 Hypothyroidism, unspecified; Z88.8 Allergy status to other drugs, medicaments and biological substances; Z91.030 Bee allergy status; Z79.899 Other long term (current) drug therapy
CPT/HCPCS: 71045; 71275; 80053; 83735; 84703; 85025; 85379; 86308; 96360; 96361; 99285; Q9967; U0003

== ENCOUNTER → 2020-08-11 | Outpatient (REF) | payer OTHER ==
[~2020-08-11] MED LIST changes: +GLYB2.5T7 PO; -GLYB25TA PO; +LEVO100T5; +NAPR-849 PO; -NAPR250T4 PO; +ONDA-83
[2020-08-11 16:59] LABS: FREE T4 0.97 NG/DL (0.76-1.46); THYROID STIMULATING HORMONE 4.55 uIU/ML (0.358-3.740)
== END ==
LOC: M LAB REF 16:01
PROVIDERS: ATTEND Nurse Practitioner Family
DX: E03.9 Hypothyroidism, unspecified (principal)

== ENCOUNTER 2020-08-16 19:38 | Emergency (ER) | payer OTHER ==
[~2020-08-16] VITALS: Ht 152.4 cm; Wt 96.8 kg
[2020-08-16 19:39] VITALS: BP 121/64
[2020-08-16] MEDS ORDERED: LEVO100T5 PO (19:49)
[2020-08-16] MEDS ORDERED: PRED20TA PO (20:33)
[2020-08-16] MEDS ORDERED: diphenhydrAMINE 25MG CAP PO ONE (20:35)
[2020-08-16] MEDS ORDERED: predniSONE 20 MG TAB PO ONE (20:35)
== END 2020-08-16 21:06 | disposition home or self-care (01) ==
LOC: M ED 19:38
DX: T50.Z95A Adverse effect of other vaccines and biological substances, initial encounter (principal); J45.909 Unspecified asthma, uncomplicated; Z91.030 Bee allergy status; Z88.8 Allergy status to other drugs, medicaments and biological substances; Z79.899 Other long term (current) drug therapy

== ENCOUNTER → 2020-08-22 | Outpatient (CLI) | payer OTHER ==
[~2020-08-22] MED LIST changes: +LEVO100T5 PO
--- NOTE | 2020-08-22 17:24 | REP ---
INDICATION: TIFFANIE LEG EDEMA W/ CRAMPING SPASMS COMPARISON: None. TECHNIQUE: Real time compression and duplex Doppler interrogation of the bilateral lower extremity deep venous system is performed. FINDINGS: Bilaterally, the common femoral, superficial femoral and popliteal veins are fully compressible with transducer pressure and demonstrate normal spontaneous and phasic flow, without evidence of deep venous thrombosis. IMPRESSION: No evidence of deep venous thrombosis of the bilateral lower extremity femoral popliteal venous system. <Electronically signed by Moses Yost > 08/22/20 [id number]
== END ==
LOC: M RAD 13:32
PROVIDERS: ATTEND Nurse Practitioner Family
DX: R25.2 Cramp and spasm (principal)

== ENCOUNTER 2020-10-16 18:23 | Emergency (ER) | payer OTHER ==
[~2020-10-16] VITALS: Ht 152.4 cm; Wt 94.1 kg
[2020-10-16 18:24] VITALS: BP 121/79
--- NOTE | 2020-10-16 19:37 | REP ---
INDICATION: Coronavirus workup. COMPARISON: 07/27/2020 TECHNIQUE: Portable FINDINGS: The technique utilized in obtaining the radiograph has magnified the cardiac silhouette and accentuated the interstitial markings. The lung pettit are markedly hypoexpanded. Subtle right lower and left upper lobe opacities cannot be ruled out by this limited exam. Exam is otherwise normal. IMPRESSION: Marked lung field hypoexpansion. PA and lateral views of the chest with better inspiration are recommended. I cannot rule out pneumonia on this limited portable exam in which the lung pettit are hypoexpanded <Electronically signed by Rene Manley > 10/16/201933
[2020-10-16] MEDS ORDERED: ACETAMINOPHEN TAB 650MG DOSE (2X325MG) PO ONE (20:05)
== END 2020-10-16 20:32 | disposition home or self-care (01) ==
LOC: M ED 18:23
DX: U07.1 COVID-19 (principal); Z88.1 Allergy status to other antibiotic agents; Z91.030 Bee allergy status

== ENCOUNTER 2020-12-15 17:03 | Emergency (ER) | payer OTHER ==
[~2020-12-15] VITALS: Ht 152.4 cm; Wt 94.6 kg
[2020-12-15 17:56] LABS: BASO # 0.1 10^3/uL (0.0-0.2); EOS # 0.3 10^3/uL (0.0-0.5); EOS % 3.2 % (0.0-3.0); HEMATOCRIT 38.1 % (36.0-47.0); HEMOGLOBIN 12.1 g/dl (12.0-15.5); LYMPH # 2.2 10^3/uL (1.5-5.0); LYMPH % 23.1 % (24.0-44.0); MEAN CORPUSCULAR HEMOGLOBIN 24.8 pg (27.0-33.0); MEAN CORPUSCULAR HGB CONC 31.8 g/dl (32.0-36.5); MEAN CORPUSCULAR VOLUME 78.2 fl (80.0-96.0); MONO # 0.7 10^3/uL (0.0-0.8); NEUTROPHILS % 64.1 % (36.0-66.0); RED BLOOD COUNT 4.87 10^6/uL (4.00-5.40); WHITE BLOOD COUNT 9.3 10^3/uL (4.0-10.0)
[2020-12-15 17:59] LABS: PLATELET COUNT, AUTOMATED 50 10^3/uL (150-450)
[2020-12-15 18:20] LABS: HCG, SERUM QUALITATIVE NEGATIVE (NEGATIVE)
[2020-12-15 18:23] LABS: ALBUMIN 3.7 GM/DL (3.2-5.2); ALT/SGPT 28 U/L (12-78); BILIRUBIN,DIRECT 0.1 MG/DL (0.0-0.2); BILIRUBIN,TOTAL 0.4 MG/DL (0.2-1.0); BLOOD UREA NITROGEN 10 MG/DL (7-18); CALCIUM LEVEL 8.6 MG/DL (8.5-10.1); CARBON DIOXIDE LEVEL 26 MEQ/L (21-32); CHLORIDE LEVEL 112 MEQ/L (98-107); CREATININE FOR GFR 0.54 MG/DL (0.55-1.30); GLOMERULAR FILTRATION RATE > 60.0 (>60); GLUCOSE, FASTING 91 MG/DL (70-100); LIPASE 102 U/L (73-393); POTASSIUM SERUM 4.4 MEQ/L (3.5-5.1); SODIUM LEVEL 143 MEQ/L (136-145); TOTAL PROTEIN 7.3 GM/DL (6.4-8.2)
[2020-12-15] MEDS ORDERED: NS 1,000 ML IV ONE ×2 (20:10)
[2020-12-15 22:04] VITALS: BP 101/55
== END 2020-12-15 22:08 | disposition home or self-care (01) ==
LOC: M ED 17:03
DX: E86.0 Dehydration (principal); D69.6 Thrombocytopenia, unspecified; F17.200 Nicotine dependence, unspecified, uncomplicated; E03.9 Hypothyroidism, unspecified

== ENCOUNTER 2021-03-06 15:48 | Emergency (ER) | payer OTHER ==
[~2021-03-06] VITALS: Ht 152.4 cm; Wt 93.7 kg
[2021-03-06 15:49] VITALS: BP 127/71
[2021-03-06] MEDS ORDERED: FERR325T19 (15:59)
--- NOTE | 2021-03-06 17:21 | REP ---
INDICATION: pain after falling and hearing a "pop" COMPARISON: None. TECHNIQUE: AP, lateral, bilateral oblique and sunrise views. FINDINGS: The osseous structures and joint spaces are intact and normal. There is no evidence for acute fracture or dislocation. No joint effusion is appreciated. Surrounding soft tissues are unremarkable. No subcutaneous emphysema or radiodense foreign body. IMPRESSION: No acute fracture or dislocation. <Electronically signed by Chandan Arias > 03/06/21 [id number]
--- NOTE | 2021-03-06 19:25 | REP ---
INDICATION: pain lower lateral tib/fib COMPARISON: None. TECHNIQUE: AP and lateral right tibia/fibula FINDINGS: The osseous structures and joint spaces are intact and normal. There is no evidence for acute fracture or dislocation. Surrounding soft tissues are unremarkable. No subcutaneous emphysema or radiodense foreign body. IMPRESSION: . No acute fracture or dislocation. <Electronically signed by Chandan Arias > 03/06/21 [id number]
== END 2021-03-06 20:40 | disposition home or self-care (01) ==
LOC: M ED 15:48
DX: S86.211A Strain of muscle(s) and tendon(s) of anterior muscle group at lower leg level, right leg, initial encounter (principal); W01.0XXA Fall on same level from slipping, tripping and stumbling without subsequent striking against object, initial encounter; Y92.9 Unspecified place or not applicable; Y93.9 Activity, unspecified; Y99.0 Civilian activity done for income or pay; E03.9 Hypothyroidism, unspecified; D64.9 Anemia, unspecified; Z88.8 Allergy status to other drugs, medicaments and biological substances; Z91.030 Bee allergy status; Z79.899 Other long term (current) drug therapy; Z79.890 Hormone replacement therapy

== ENCOUNTER 2021-05-10 15:18 | Emergency (ER) | payer OTHER ==
[~2021-05-10] VITALS: Ht 152.4 cm; Wt 94.1 kg
[~2021-05-10 15:18] MED LIST changes: -DICY20TA11 PO; +DICY20TA20 PO; +FERR325T19; -FLUO10CA16 PO; +FLUO10CA18 PO; +ONDA-84 PO; -ONDA8TAB10 PO
[2021-05-10 15:19] VITALS: BP 124/74
== END 2021-05-10 16:20 | disposition left against medical advice (07) ==
LOC: M ED 15:18
DX: Z53.21 Procedure and treatment not carried out due to patient leaving prior to being seen by health care provider (principal)

== ENCOUNTER 2021-09-20 16:55 | Emergency (ER) | payer OTHER ==
[~2021-09-20] VITALS: Ht 152.4 cm; Wt 95.5 kg
[~2021-09-20 16:55] MED LIST changes: -D31000TA2 PO; +VITA100093 PO
[2021-09-20 18:39] LABS: HEMATOCRIT 37.3 % (36.0-47.0); HEMOGLOBIN 11.6 g/dl (12.0-15.5); MEAN CORPUSCULAR HEMOGLOBIN 24.2 pg (27.0-33.0); MEAN CORPUSCULAR HGB CONC 31.1 g/dl (32.0-36.5); MEAN CORPUSCULAR VOLUME 77.9 fl (80.0-96.0); RED BLOOD COUNT 4.79 10^6/uL (4.00-5.40); WHITE BLOOD COUNT 8.6 10^3/uL (4.0-10.0)
[2021-09-20 18:42] LABS: PLATELET COUNT, AUTOMATED 59 10^3/uL (150-450)
[2021-09-20 19:02] LABS: BLOOD UREA NITROGEN 10 MG/DL (7-18); CALCIUM LEVEL 8.5 MG/DL (8.5-10.1); CARBON DIOXIDE LEVEL 31 MEQ/L (21-32); CHLORIDE LEVEL 110 MEQ/L (98-107); CREATININE FOR GFR 0.58 MG/DL (0.55-1.30); GLOMERULAR FILTRATION RATE > 60.0 (>60); GLUCOSE, FASTING 100 MG/DL (70-100); POTASSIUM SERUM 4.3 MEQ/L (3.5-5.1); SODIUM LEVEL 142 MEQ/L (136-145)
[2021-09-20] MEDS ORDERED: NS 1,000 ML IV ONE (19:50)
[2021-09-20] MEDS ORDERED: METOCLOPRAMIDE INJ 10MG/2ML VIAL (J2765 PER 1) IV ONE (19:50)
[2021-09-20] MEDS ORDERED: KETOROLAC 30 MG/ML 1ML VIAL IV ONE (19:50)
[2021-09-20] MEDS ORDERED: KETO10TAB PO (21:53)
[2021-09-20 22:08] VITALS: BP 114/68
== END 2021-09-20 22:12 | disposition home or self-care (01) ==
LOC: M ED 16:55
DX: R51.9 Headache, unspecified (principal); J06.9 Acute upper respiratory infection, unspecified; J45.909 Unspecified asthma, uncomplicated; Z91.030 Bee allergy status; Z88.1 Allergy status to other antibiotic agents
CPT/HCPCS: 70450; 80048; 85027; 85049; 85055; 87798; 87880; 96361; 96374; 99284; J1885; J2765

== ENCOUNTER 2021-10-03 13:19 | Emergency (ER) | payer OTHER ==
[~2021-10-03] VITALS: Ht 152.4 cm; Wt 96.4 kg
[~2021-10-03 13:19] MED LIST changes: +KETO10TAB PO
[2021-10-03 14:16] LABS: BASO # 0.1 10^3/uL (0.0-0.2); BASO % 0.7 % (0.0-1.0); EOS # 0.3 10^3/uL (0.0-0.5); EOS % 3.9 % (0.0-3.0); HEMATOCRIT 36.1 % (36.0-47.0); HEMOGLOBIN 11.5 g/dl (12.0-15.5); LYMPH # 1.7 10^3/uL (1.5-5.0); LYMPH % 24.1 % (24.0-44.0); MEAN CORPUSCULAR HEMOGLOBIN 24.5 pg (27.0-33.0); MEAN CORPUSCULAR HGB CONC 31.9 g/dl (32.0-36.5); MEAN CORPUSCULAR VOLUME 76.8 fl (80.0-96.0); MONO # 0.5 10^3/uL (0.0-0.8); MONO % 7.1 % (2.0-8.0); NEUTROPHILS # 4.6 10^3/uL (1.5-8.5); NEUTROPHILS % 63.9 % (36.0-66.0); WHITE BLOOD COUNT 7.1 10^3/uL (4.0-10.0)
[2021-10-03 14:21] LABS: PLATELET COUNT, AUTOMATED 53 10^3/uL (150-450)
[2021-10-03] MEDS ORDERED: ONDANSETRON 4MG/2ML VIAL IV ONE (15:00)
[2021-10-03] MEDS ORDERED: KETOROLAC 30 MG/ML 1ML VIAL IV ONE (15:00)
[2021-10-03 15:42] LABS: HCG, SERUM QUALITATIVE NEGATIVE (NEGATIVE)
[2021-10-03 16:51] LABS: ALBUMIN 3.6 GM/DL (3.2-5.2); ALT/SGPT 24 U/L (12-78); BILIRUBIN,DIRECT < 0.1 MG/DL (0.0-0.2); BILIRUBIN,TOTAL 0.4 MG/DL (0.2-1.0); BLOOD UREA NITROGEN 13 MG/DL (7-18); CALCIUM LEVEL 8.9 MG/DL (8.5-10.1); CARBON DIOXIDE LEVEL 23 MEQ/L (21-32); CHLORIDE LEVEL 113 MEQ/L (98-107); CREATININE FOR GFR 0.52 MG/DL (0.55-1.30); GLOMERULAR FILTRATION RATE > 60.0 (>60); GLUCOSE, FASTING 103 MG/DL (70-100); LIPASE 166 U/L (73-393); POTASSIUM SERUM 3.7 MEQ/L (3.5-5.1); SODIUM LEVEL 142 MEQ/L (136-145); TOTAL PROTEIN 6.8 GM/DL (6.4-8.2)
[2021-10-03 17:14] LABS: GC DNA AMPLIFICATION NEGATIVE (NEGATIVE)
[2021-10-03] MEDS ORDERED: ISOVUE-370 76% 100ML VIAL As Ordered ONE (17:23)
[2021-10-03] MEDS ORDERED: ACETAMINOPHEN TAB 650MG DOSE (2X325MG) PO ONE (18:00)
[2021-10-03] MEDS ORDERED: NS 1,000 ML IV ONE (18:00)
[2021-10-03 19:45] VITALS: BP 101/60
== END 2021-10-03 20:20 | disposition home or self-care (01) ==
LOC: M ED 13:19
DX: R10.9 Unspecified abdominal pain (principal); J45.909 Unspecified asthma, uncomplicated; K21.9 Gastro-esophageal reflux disease without esophagitis; F31.9 Bipolar disorder, unspecified; Z88.1 Allergy status to other antibiotic agents; Z91.030 Bee allergy status
CPT/HCPCS: 74177; 80048; 80076; 81001; 83690; 84703; 85025; 85049; 85055; 87661; 87810; 87850; 93041; 94760; 96361; 96374; 99285; J1885; J2405; Q9967

== ENCOUNTER → 2021-10-08 | Outpatient (CLI) | payer OTHER | LOC: M RAD 17:07 | PROVIDERS: ATTEND Physician Assistant | DX: M54.6 Pain in thoracic spine (principal) ==

== ENCOUNTER → 2021-12-11 | Outpatient (CLI) | payer OTHER | LOC: M PLAIMG 14:33 | PROVIDERS: ATTEND Physician Assistant | DX: Q07.00 Arnold-Chiari syndrome without spina bifida or hydrocephalus (principal); M54.6 Pain in thoracic spine; G93.5 Compression of brain ==

== ENCOUNTER → 2021-12-27 | Outpatient (CLI) | payer OTHER | LOC: M RAD 11:58 | PROVIDERS: ATTEND Nurse Practitioner Family | DX: M79.652 Pain in left thigh (principal) ==

== ENCOUNTER → 2022-02-18 | Outpatient (REF) | LOC: M EMP 13:05 | PROVIDERS: ATTEND Family Medicine | DX: Z20.822 Contact with and (suspected) exposure to COVID-19 (principal) ==

== ENCOUNTER → 2022-02-27 | Outpatient (CLI) | payer OTHER ==
[2022-02-27 16:06] LABS: THYROGLOBULIN ANTIBODY > 500.0 U/ML (<60.0); THYROID PEROXIDASE ANTIBODY > 1300.0 U/ML (<60.0)
== END ==
LOC: M LAB 13:59
PROVIDERS: ATTEND Physician Assistant
DX: R94.6 Abnormal results of thyroid function studies (principal); Z83.49 Family history of other endocrine, nutritional and metabolic diseases

== ENCOUNTER 2022-03-19 14:02 | Emergency (ER) | payer OTHER ==
[~2022-03-19] VITALS: Ht 152.4 cm; Wt 93.2 kg
[2022-03-20 00:29] LABS: BASO # 0.1 10^3/uL (0.0-0.2); BASO % 0.7 % (0.0-1.0); EOS # 0.2 10^3/uL (0.0-0.5); EOS % 2.5 % (0.0-3.0); HEMATOCRIT 36.7 % (36.0-47.0); HEMOGLOBIN 11.9 g/dl (12.0-15.5); LYMPH # 2.8 10^3/uL (1.5-5.0); LYMPH % 30.8 % (24.0-44.0); MEAN CORPUSCULAR HEMOGLOBIN 25.4 pg (27.0-33.0); MEAN CORPUSCULAR HGB CONC 32.4 g/dl (32.0-36.5); MEAN CORPUSCULAR VOLUME 78.3 fl (80.0-96.0); MONO # 0.5 10^3/uL (0.0-0.8); MONO % 5.3 % (2.0-8.0); NEUTROPHILS # 5.6 10^3/uL (1.5-8.5); NEUTROPHILS % 60.4 % (36.0-66.0); PLATELET COUNT, AUTOMATED 60 10^3/uL (150-450); RED BLOOD COUNT 4.69 10^6/uL (4.00-5.40); WHITE BLOOD COUNT 9.2 10^3/uL (4.0-10.0)
[2022-03-20 01:07] LABS: ALBUMIN 3.7 GM/DL (3.2-5.2); ALT/SGPT 24 U/L (12-78); BILIRUBIN,DIRECT 0.1 MG/DL (0.0-0.2); BILIRUBIN,TOTAL 0.5 MG/DL (0.2-1.0); BLOOD UREA NITROGEN 11 MG/DL (7-18); CALCIUM LEVEL 8.4 MG/DL (8.5-10.1); CARBON DIOXIDE LEVEL 26 MEQ/L (21-32); CHLORIDE LEVEL 108 MEQ/L (98-107); CREATININE FOR GFR 0.58 MG/DL (0.55-1.30); FREE THYROXINE INDEX 2.8 % (1.3-4.8); GLOMERULAR FILTRATION RATE > 60.0 (>60); GLUCOSE, FASTING 93 MG/DL (70-100); LIPASE 144 U/L (73-393); POTASSIUM SERUM 3.5 MEQ/L (3.5-5.1); SODIUM LEVEL 141 MEQ/L (136-145); T UPTAKE 29 % (30-39); THYROXINE (T4) 9.6 UG/DL (4.5-12.0); TOTAL PROTEIN 7.3 GM/DL (6.4-8.2)
[2022-03-20] MEDS ORDERED: KETOROLAC 30 MG/ML 1ML VIAL IV ONE (01:10)
[2022-03-20] MEDS ORDERED: NS 1,000 ML IV ONE (01:10)
[2022-03-20] MEDS ORDERED: ACETAMINOPHEN 500 MG TAB PO ONE (01:10)
[2022-03-20] MEDS ORDERED: METOCLOPRAMIDE INJ 10MG/2ML VIAL (J2765 PER 1) IV ONE (01:10)
[2022-03-20] MEDS ORDERED: ONDA4TAB6 PO (01:32)
[2022-03-20] MEDS ORDERED: ONDANSETRON 4MG 2ML VIAL IV ONE (01:35)
[2022-03-20 01:58] VITALS: BP 136/90
== END 2022-03-20 02:02 | disposition home or self-care (01) ==
LOC: M ED 14:02
DX: R51.9 Headache, unspecified (principal); R94.6 Abnormal results of thyroid function studies; Z88.1 Allergy status to other antibiotic agents; Z91.030 Bee allergy status; Z79.899 Other long term (current) drug therapy
CPT/HCPCS: 70450; 80048; 80076; 83690; 84436; 84443; 84479; 84702; 85025; 85049; 85055; 87486; 87581; 87633; 87798; 96374; 96375; 99284; J1885; J2405; J2765

== ENCOUNTER → 2022-05-01 | Outpatient (REF) | payer OTHER, MEDICAID | LOC: M LAB REF 16:52 | PROVIDERS: ATTEND Physician Assistant | DX: J02.9 Acute pharyngitis, unspecified (principal) ==

== ENCOUNTER → 2022-06-06 | Outpatient (CLI) | payer OTHER ==
[2022-06-06 14:38] LABS: BASO % 0.6 % (0.0-1.0); EOS # 0.2 10^3/uL (0.0-0.5); EOS % 2.5 % (0.0-3.0); HEMATOCRIT 37.8 % (36.0-47.0); HEMOGLOBIN 11.9 g/dl (12.0-15.5); LYMPH # 1.8 10^3/uL (1.5-5.0); MEAN CORPUSCULAR HEMOGLOBIN 25.3 pg (27.0-33.0); MEAN CORPUSCULAR HGB CONC 31.5 g/dl (32.0-36.5); MEAN CORPUSCULAR VOLUME 80.4 fl (80.0-96.0); MONO # 0.4 10^3/uL (0.0-0.8); MONO % 6.2 % (2.0-8.0); NEUTROPHILS # 3.9 10^3/uL (1.5-8.5); NEUTROPHILS % 61.4 % (36.0-66.0); WHITE BLOOD COUNT 6.3 10^3/uL (4.0-10.0)
[2022-06-06 14:40] LABS: PLATELET COUNT, AUTOMATED 55 10^3/uL (150-450)
[2022-06-06 15:03] LABS: PERCENT SATURATION 10.1 % (13.2-45.0)
== END ==
LOC: M LAB 13:54
PROVIDERS: ATTEND Nurse Practitioner
DX: D50.9 Iron deficiency anemia, unspecified (principal)

== ENCOUNTER → 2022-06-06 | Outpatient (CLI) | payer OTHER ==
[2022-06-06 15:06] LABS: THYROID STIMULATING HORMONE 4.982 uIU/ML (0.55-4.78)
[2022-06-06 15:09] LABS: THYROGLOBULIN ANTIBODY > 500.0 U/ML (<60.0); THYROID PEROXIDASE ANTIBODY > 1300.0 U/ML (<60.0)
== END ==
LOC: M LAB 13:49
PROVIDERS: ATTEND Physician Assistant
DX: Z83.49 Family history of other endocrine, nutritional and metabolic diseases (principal)

== ENCOUNTER → 2022-06-26 | Outpatient (CLI) | payer OTHER | LOC: M LAB 11:27 | PROVIDERS: ATTEND Nurse Practitioner | DX: E61.1 Iron deficiency (principal) ==

== ENCOUNTER → 2022-08-09 | Outpatient (CLI) | payer OTHER | LOC: M LAB 13:24 | PROVIDERS: ATTEND Physician Assistant | DX: E03.9 Hypothyroidism, unspecified (principal) ==

== ENCOUNTER → 2022-08-20 | Outpatient (REF) | payer OTHER, MEDICAID | LOC: M LAB REF 16:19 | PROVIDERS: ATTEND Physician Assistant | DX: J02.9 Acute pharyngitis, unspecified (principal) ==

== ENCOUNTER → 2022-10-31 | Outpatient (REF) | payer OTHER, MEDICAID | LOC: M LAB REF 17:09 | PROVIDERS: ATTEND Physician Assistant | DX: J02.9 Acute pharyngitis, unspecified (principal) ==

== ENCOUNTER → 2022-11-01 | Outpatient (REF) | LOC: M EMP 11:32 | PROVIDERS: ATTEND Family Medicine | DX: Z11.52 Encounter for screening for COVID-19 (principal) ==

== ENCOUNTER → 2022-11-22 | Outpatient (REF) | payer OTHER, MEDICAID | LOC: M LAB REF 16:24 | PROVIDERS: ATTEND Physician Assistant | DX: J02.9 Acute pharyngitis, unspecified (principal) ==

== ENCOUNTER 2022-11-29 22:18 | Emergency (ER) | payer MEDICAID, OTHER ==
[~2022-11-29] VITALS: Ht 152.4 cm; Wt 97.8 kg
[2022-11-30] MEDS ORDERED: ONDANSETRON 4MG 2ML VIAL IV ONE (01:20)
[2022-11-30] MEDS ORDERED: NS 1,000 ML IV ONE (01:20)
[2022-11-30] MEDS ORDERED: KETOROLAC 30 MG/ML 1ML VIAL IV ONE (01:20)
[2022-11-30] MEDS ORDERED: ISOVUE-370 76% 100ML VIAL As Ordered ONE (01:27)
[2022-11-30 02:02] LABS: ALBUMIN 3.8 G/DL (3.2-5.2); BILIRUBIN,DIRECT 0.1 MG/DL (<0.4); BILIRUBIN,TOTAL 0.5 MG/DL (0.3-1.2); TOTAL PROTEIN 7.1 G/DL (5.7-8.2)
[2022-11-30 02:03] LABS: BASO # 0.1 10^3/uL (0.0-0.2); BASO % 0.6 % (0.0-1.0); EOS # 0.1 10^3/uL (0.0-0.5); EOS % 1.6 % (0.0-3.0); HEMATOCRIT 38.7 % (36.0-47.0); HEMOGLOBIN 13.1 g/dl (12.0-15.5); LYMPH # 2.5 10^3/uL (1.5-5.0); LYMPH % 30.3 % (24.0-44.0); MEAN CORPUSCULAR HEMOGLOBIN 27.8 pg (27.0-33.0); MEAN CORPUSCULAR HGB CONC 33.9 g/dl (32.0-36.5); MONO # 0.5 10^3/uL (0.0-0.8); MONO % 6.1 % (2.0-8.0); PLATELET COUNT, AUTOMATED 104 10^3/uL (150-450); RED BLOOD COUNT 4.72 10^6/uL (4.00-5.40); WHITE BLOOD COUNT 8.2 10^3/uL (4.0-10.0)
[2022-11-30] MEDS ORDERED: ONDA4TAB6 PO (04:27)
[2022-11-30 04:33] VITALS: BP 98/59; TEMP 97.2; O2SAT 100
== END 2022-11-30 04:42 | disposition home or self-care (01) ==
LOC: M ED 22:18
DX: I88.0 Nonspecific mesenteric lymphadenitis (principal); A08.39 Other viral enteritis; J45.909 Unspecified asthma, uncomplicated; K21.9 Gastro-esophageal reflux disease without esophagitis; E11.9 Type 2 diabetes mellitus without complications; F31.9 Bipolar disorder, unspecified; M54.50 Low back pain, unspecified; E03.9 Hypothyroidism, unspecified; Z79.899 Other long term (current) drug therapy; Z79.83 Long term (current) use of bisphosphonates
CPT/HCPCS: 74177; 80047; 80076; 83690; 84702; 85025; 96361; 96374; 99284; J1885; J2405; Q9967

== ENCOUNTER → 2022-12-25 | Outpatient (CLI) | payer OTHER | LOC: M EKG 07:25 | PROVIDERS: ATTEND Physician Assistant | DX: Z82.49 Family history of ischemic heart disease and other diseases of the circulatory system (principal) ==

== ENCOUNTER 2023-05-09 07:34 | Emergency (ER) | payer OTHER ==
[~2023-05-09] VITALS: Ht 152.4 cm; Wt 96.8 kg
[2023-05-09] MEDS ORDERED: HYDR50TA70 (07:44)
[2023-05-09] MEDS ORDERED: LEVO50TA5 (07:44)
[2023-05-09] MEDS ORDERED: BUPR300T92 (07:44)
[2023-05-09] MEDS ORDERED: TOPI-21 (07:44)
[2023-05-09] MEDS ORDERED: diphenhydrAMINE 50MG/ML VIAL IV ONE (08:10)
[2023-05-09] MEDS ORDERED: METOCLOPRAMIDE INJ 10MG/2ML VIAL IV ONE (08:10)
[2023-05-09] MEDS ORDERED: NS 1,000 ML IV ONE (08:10)
[2023-05-09] MEDS ORDERED: dexAMETHasone 20MG/5ML VIAL IV ONE (08:10)
[2023-05-09] MEDS ORDERED: KETOROLAC 30 MG/ML 1ML VIAL IV ONE (10:30)
[2023-05-09 11:23] VITALS: BP 127/69; TEMP 97.6; O2SAT 98
== END 2023-05-09 11:26 | disposition home or self-care (01) ==
LOC: M ED 07:34
DX: G43.919 Migraine, unspecified, intractable, without status migrainosus (principal); Z91.030 Bee allergy status; Z88.1 Allergy status to other antibiotic agents; Z79.899 Other long term (current) drug therapy
CPT/HCPCS: 96361; 96374; 96375; 99284; J1100; J1200; J1885; J2765

== ENCOUNTER → 2023-06-24 | Outpatient (CLI) | payer OTHER ==
[~2023-06-24] MED LIST changes: +BUPR300T92; +HYDR50TA70; +LEVO50TA5; +PROHANCE 279.3MG/ML 15ML VIAL As Ordered ONE; +PROHANCE 279.3MG/ML 5ML VIAL As Ordered ONE; +TOPI-21
== END ==
LOC: M RAD 08:17
PROVIDERS: ATTEND Nurse Practitioner Family
DX: G93.5 Compression of brain (principal)
CPT/HCPCS: 70553; A9576

== ENCOUNTER → 2023-12-15 | Outpatient (REF) | payer OTHER, MEDICAID ==
[~2023-12-15] MED LIST changes: +BUPR-597; -BUPR300T92; +FLUO-290 PO; -FLUO10CA18 PO; +ONDA-282 PO; -ONDA4TAB6 PO; -PROHANCE 279.3MG/ML 15ML VIAL As Ordered ONE; -PROHANCE 279.3MG/ML 5ML VIAL As Ordered ONE
[2023-12-15 19:19] LABS: BASO # 0.1 10^3/uL (0.0-0.2); BASO % 0.7 % (0.0-1.0); EOS # 0.2 10^3/uL (0.0-0.5); EOS % 2.8 % (0.0-3.0); HEMATOCRIT 41.7 % (36.0-47.0); HEMOGLOBIN 13.8 g/dl (12.0-15.5); LYMPH # 1.7 10^3/uL (1.5-5.0); LYMPH % 24.5 % (24.0-44.0); MEAN CORPUSCULAR HEMOGLOBIN 28.3 pg (27.0-33.0); MEAN CORPUSCULAR HGB CONC 33.1 g/dl (32.0-36.5); MEAN CORPUSCULAR VOLUME 85.6 fl (80.0-96.0); MONO # 0.6 10^3/uL (0.0-0.8); MONO % 8.8 % (2.0-8.0); NEUTROPHILS # 4.3 10^3/uL (1.5-8.5); NEUTROPHILS % 62.9 % (36.0-66.0); PLATELET COUNT, AUTOMATED 122 10^3/uL (150-450); RED BLOOD COUNT 4.87 10^6/uL (4.00-5.40); WHITE BLOOD COUNT 6.8 10^3/uL (4.0-10.0)
[2023-12-15 19:42] LABS: ALBUMIN 3.7 G/DL (3.2-5.2); ALKALINE PHOSPHATASE 72 U/L (46-116); ALT/SGPT 23 U/L (7.0-40); AST/SGOT 12 U/L (<34); BILIRUBIN,TOTAL 0.4 MG/DL (0.3-1.2); BLOOD UREA NITROGEN 14 MG/DL (9-23); CALCIUM LEVEL 9.1 MG/DL (8.5-10.1); CARBON DIOXIDE LEVEL 24 MMOL/L (20-31); CHLORIDE LEVEL 109 MMOL/L (98-107); CREATININE FOR GFR 0.54 MG/DL (0.55-1.30); GLOMERULAR FILTRATION RATE > 60.0 (>60); GLUCOSE, FASTING 95 MG/DL (60-100); IRON (FE) 45 UG/DL (50-170); PERCENT SATURATION 15.7 % (13.2-45.0); SODIUM LEVEL 141 MMOL/L (136-145); TOTAL IRON BINDING CAPACITY 287 UG/DL (250-425); TOTAL PROTEIN 6.7 G/DL (5.7-8.2)
[2023-12-15 19:47] LABS: FERRITIN 51.1 NG/ML (7.3-270.7)
[2023-12-15 19:48] LABS: THYROID STIMULATING HORMONE 6.969 uIU/ML (0.55-4.78)
== END ==
LOC: M LAB REF 17:28
PROVIDERS: ATTEND Nurse Practitioner Family
DX: E03.9 Hypothyroidism, unspecified (principal); Z87.59 Personal history of other complications of pregnancy, childbirth and the puerperium; E61.1 Iron deficiency; E66.01 Morbid (severe) obesity due to excess calories

== ENCOUNTER 2024-01-18 15:52 | Emergency (ER) | payer MEDICAID, OTHER ==
[~2024-01-18] VITALS: Ht 154.9 cm; Wt 9.8 kg
[2024-01-18 18:13] LABS: BASO # 0.1 10^3/uL (0.0-0.2); BASO % 0.8 % (0.0-1.0); EOS # 0.1 10^3/uL (0.0-0.5); EOS % 1.5 % (0.0-3.0); HEMATOCRIT 40.5 % (36.0-47.0); HEMOGLOBIN 13.8 g/dl (12.0-15.5); LYMPH # 2.1 10^3/uL (1.5-5.0); LYMPH % 24.8 % (24.0-44.0); MEAN CORPUSCULAR HEMOGLOBIN 29.2 pg (27.0-33.0); MEAN CORPUSCULAR HGB CONC 34.1 g/dl (32.0-36.5); MEAN CORPUSCULAR VOLUME 85.6 fl (80.0-96.0); MONO # 0.5 10^3/uL (0.0-0.8); MONO % 5.9 % (2.0-8.0); NEUTROPHILS # 5.7 10^3/uL (1.5-8.5); NEUTROPHILS % 66.8 % (36.0-66.0); PLATELET COUNT, AUTOMATED 157 10^3/uL (150-450); RED BLOOD COUNT 4.73 10^6/uL (4.00-5.40); WHITE BLOOD COUNT 8.5 10^3/uL (4.0-10.0)
[2024-01-18 18:17] LABS: LIPASE 35 U/L (12-53)
[2024-01-18 18:19] LABS: ALBUMIN 3.8 G/DL (3.2-5.2); ALKALINE PHOSPHATASE 76 U/L (46-116); ALT/SGPT 20 U/L (7.0-40); AST/SGOT 13 U/L (<34); BILIRUBIN,DIRECT 0.2 MG/DL (<0.4); BILIRUBIN,TOTAL 0.6 MG/DL (0.3-1.2); BLOOD UREA NITROGEN 12 MG/DL (9-23); CALCIUM LEVEL 8.3 MG/DL (8.5-10.1); CARBON DIOXIDE LEVEL 24 MMOL/L (20-31); CHLORIDE LEVEL 112 MMOL/L (98-107); CREATININE FOR GFR 0.69 MG/DL (0.55-1.30); GLOMERULAR FILTRATION RATE > 60.0 (>60); GLUCOSE, FASTING 102 MG/DL (60-100); POTASSIUM SERUM 3.4 MMOL/L (3.5-5.1); SODIUM LEVEL 143 MMOL/L (136-145); TOTAL PROTEIN 7.2 G/DL (5.7-8.2)
[2024-01-18] MEDS: ONDANSETRON 4MG 2ML VIAL IV ONE ×2 (18:40→19:43)
[2024-01-18] MEDS: NS 1,000 ML IV ONE (18:40)
[2024-01-18] MEDS: PANTOPRAZOLE 40MG VIAL IV ONE (19:43)
[2024-01-18] MEDS ORDERED: ONDA-282 PO (20:19)
[2024-01-18 20:37] VITALS: BP 108/63; TEMP 97.8; O2SAT 100
== END 2024-01-18 20:37 | disposition home or self-care (01) ==
LOC: M ED 15:52 → EDBD 15:52 → M ED 20:37
DX: K29.00 Acute gastritis without bleeding (principal); G43.909 Migraine, unspecified, not intractable, without status migrainosus; F32.A Depression, unspecified; E03.9 Hypothyroidism, unspecified; Z91.030 Bee allergy status; Z88.1 Allergy status to other antibiotic agents; Z79.83 Long term (current) use of bisphosphonates; Z79.899 Other long term (current) drug therapy
CPT/HCPCS: 74176; 80053; 82248; 83690; 85025; 96361; 96374; 96375; 99284; J2405; J2470

== ENCOUNTER → 2024-01-26 | Outpatient (REF) | payer OTHER ==
[2024-01-26 19:14] LABS: POTASSIUM SERUM 3.4 MMOL/L (3.5-5.1)
[2024-01-26 19:24] LABS: FREE T4 1.13 NG/DL (0.89-1.76)
[2024-01-26 19:25] LABS: THYROID STIMULATING HORMONE 3.703 uIU/ML (0.55-4.78)
== END ==
LOC: M LAB REF 16:14
PROVIDERS: ATTEND Nurse Practitioner Family
DX: E03.9 Hypothyroidism, unspecified (principal); E87.6 Hypokalemia

== ENCOUNTER → 2024-07-07 | Outpatient (CLI) | payer OTHER ==
[2024-07-07 15:04] LABS: HEMATOCRIT 40.3 % (36.0-47.0); HEMOGLOBIN 13.7 g/dl (12.0-15.5); MEAN CORPUSCULAR HEMOGLOBIN 28.9 pg (27.0-33.0); PLATELET COUNT, AUTOMATED 130 10^3/uL (150-450); RED BLOOD COUNT 4.74 10^6/uL (4.00-5.40); WHITE BLOOD COUNT 7.2 10^3/uL (4.0-10.0)
== END ==
LOC: M LAB 13:04
PROVIDERS: ATTEND Physician Assistant
DX: R04.0 Epistaxis (principal)

== ENCOUNTER → 2024-12-22 | Outpatient (REF) | payer OTHER, MEDICAID ==
[~2024-12-22] MED LIST changes: -BUPR-597; +BUPR-766
[2024-12-22 18:07] LABS: BASO # 0.1 10^3/uL (0.0-0.2); BASO % 0.7 % (0.0-1.0); EOS # 0.2 10^3/uL (0.0-0.5); EOS % 2.5 % (0.0-3.0); LYMPH # 2.1 10^3/uL (1.5-5.0); LYMPH % 30.3 % (24.0-44.0); MONO # 0.4 10^3/uL (0.0-0.8); MONO % 6.3 % (2.0-8.0); NEUTROPHILS # 4.1 10^3/uL (1.5-8.5); NEUTROPHILS % 60.1 % (36.0-66.0); PLATELET COUNT, AUTOMATED 121 10^3/uL (150-450)
[2024-12-22 18:42] LABS: CHOLESTEROL LEVEL 187.0 MG/DL (<200); CHOLESTEROL RISK RATIO 4.03 (<5); IRON (FE) 61.0 UG/DL (50-170); LDL CHOLESTEROL 117.5 MG/DL (<100); NON-HDL-C 140.7 MG/DL; TRIGLYCERIDES LEVEL 116.0 MG/DL (<150)
[2024-12-22 18:43] LABS: PERCENT SATURATION 19.6 % (13.2-45.0); TOTAL 25(OH) VITAMIN D 35.6 NG/ML (20.0-100.0)
[2024-12-22 19:07] LABS: ESTIMATED AVERAGE GLUCOSE 114.0 MG/DL (60-110)
== END ==
LOC: M LAB REF 17:29
PROVIDERS: ATTEND Nurse Practitioner Family
DX: E03.9 Hypothyroidism, unspecified (principal); E66.1 Drug-induced obesity; E66.01 Morbid (severe) obesity due to excess calories; E55.9 Vitamin D deficiency, unspecified

== ENCOUNTER → 2025-02-15 | Outpatient (REF) | payer OTHER, MEDICAID ==
[~2025-02-15] MED LIST changes: -IBUP-1022 PO; +IBUP600T42 PO
[2025-02-17 20:52] LABS: HPV APTIMA Not Detected (Not Detected)
== END ==
LOC: M LAB REF 18:03
PROVIDERS: ATTEND Nurse Practitioner Family
DX: Z12.4 Encounter for screening for malignant neoplasm of cervix (principal)

== ENCOUNTER → 2025-03-03 | Outpatient (REF) | payer OTHER, MEDICAID ==
[2025-03-03 19:20] LABS: IRON (FE) 45.0 UG/DL (50-170)
== END ==
LOC: M LAB REF 15:30
PROVIDERS: ATTEND Nurse Practitioner Family
DX: E03.9 Hypothyroidism, unspecified (principal); E61.1 Iron deficiency

== ENCOUNTER → 2025-04-08 | Outpatient (CLI) | payer OTHER | LOC: M RAD 11:40 | PROVIDERS: ATTEND Nurse Practitioner Family | DX: M79.642 Pain in left hand (principal) ==